=== PATIENT | male | born 1940 | race Caucasian/White ===

== ENCOUNTER 2018-07-22 12:11 | Inpatient (IN) | END 2018-08-04 17:50 | disposition home health service (06) | DRG 668 ==

== ENCOUNTER 2018-10-03 21:41 | Inpatient (IN) | END 2018-10-09 18:14 | disposition home or self-care (01) | DRG 292 ==

== ENCOUNTER 2018-11-13 18:16 | Inpatient (IN) | payer MEDICARE, OTHER ==
[~2018-11-13] VITALS: Ht 175.3 cm; Wt 88.3 kg
[~2018-11-13 18:16] MED LIST: AMIO200T4 PO; BISA10SU75 PR; BUME1TAB PO; FER325 PO; ISOS30TA20 PO; LEVO150T64 PO; LOSA50TA14 PO; Polyethylene Glycol PO; ROSU10TA55 PO; SENN-120 PO; TAMS-14 PO; UDMOM PO
[2018-11-13] MEDS ORDERED: ASPIRIN 81 MG TAB PO STA (18:20)
[2018-11-13] MEDS ORDERED: FUROSEMIDE 20 MG INJ IV STA (18:20)
[2018-11-13] MEDS ORDERED: NITROGLYCERIN 50 MG/D5W (PMX) 250 ML IV STA (18:20)
[2018-11-13] MEDS ORDERED: POTA8CAP PO (19:13)
[2018-11-13] MEDS ORDERED: AMIO200T4 PO (19:17)
[2018-11-13] MEDS ORDERED: FURO40TA4 PO (19:18)
--- NOTE | 2018-11-13 19:52 | ERD ---
ER Documentation Chief Complaint Chief Complaint sob since yesterday HPI 78-year-old gentleman history of CHF who presents with shortness of breath for less than 12-24 hours. The patient arrives in respiratory distress in extremis. His family member notes that this is similar to episodes in the past when he had fluid on his lungs. He has been compliant with medication regimen. The patient notes worsening lower extremity edema and shortness of breath over the last couple days. No fevers no cough no chest pain. ROS All systems reviewed and are negative except as per history of present illness. Medications Home Meds Active Scripts Bumetanide* (Bumetanide*) 1 Mg Tablet, 1 MG PO DAILY, #30 TAB Prov:GABRIELLA SINGLETON NP 10/09/18 Sennosides* (Senna Lax*) 8.6 Mg Tablet, 2 TAB PO BID, #60 TAB Prov:LEWIS JOHN 08/04/18 Tamsulosin Hcl* (Flomax*) 0.4 Mg Cap.er.24h, 0.4 MG PO HS, #60 CAP Prov:LEWIS JOHN 08/04/18 Reported Medications Furosemide* (Furosemide*) 40 Mg Tablet, 40 MG PO DAILY, TAB 11/13/18 Amiodarone Hcl* (Amiodarone Hcl*) 200 Mg Tablet, 200 MG PO DAILY, #30 TAB 11/13/18 Potassium Chloride* (Potassium Chloride*) 8 Meq Capsule.er, 8 MEQ PO DAILY, CAP 11/13/18 Losartan Potassium* (Losartan Potassium*) 50 Mg Tablet, 50 MG PO BID, TAB 07/20/18 Levothyroxine Sodium* (Levoxyl*) 150 Mcg Tablet, 150 MCG PO BEFORE BREAKFAST, #30 TAB 07/20/18 Rosuvastatin Calcium* (Crestor*) 10 Mg Tablet, 10 MG PO QHS, #30 TAB 07/20/18 Isosorbide Dinitrate* (Isosorbide Dinitrate*) 30 Mg Tablet, 30 MG PO BID, TAB 07/20/18 Discontinued Reported Medications Amiodarone Hcl* (Amiodarone Hcl*) 200 Mg Tablet, 200 MG PO DAILY, #30 TAB 07/20/18 Ferrous Sulfate* (Ferrous Sulfate*) 325 Mg Tabec, 325 MG PO DAILY, TAB 07/20/18 Discontinued Scripts [Polyethylene Glycol] 17 GM/PKT LIQ No Conflict Check, 17 GM PO BID, #60 1 Re fill Prov:LEWIS JOHN 08/04/18 Bisacodyl* (Bisacodyl*) 10 Mg Supp, 10 MG DC BID PRN for CONSTIPATION, #60 SUPP Prov:LEWIS JOHN 08/04/18 Magnesium Hydroxide* (Serra' MOM*) 30 Ml Susp, 30 ML PO DAILY PRN for CONSTIPATION, #60 BOTTLE Prov:LEWIS JOHN 08/04/18 Allergies Allergies: Coded Allergies: No Known Allergy (Unverified , 11/13/18) PMhx/Soc History of Surgery: Yes (CABG) Anesthesia Reaction: No Hx Neurological Disorder: No Hx Respiratory Disorders: Yes (COPD) Hx Cardiac Disorders: Yes (HTN, HLD, CHF, CABG, NH) Hx Psychiatric Problems: No Hx Miscellaneous Medical Probl: No Hx Alcohol Use: Yes Hx Substance Use: No Hx Tobacco Use: Yes Smoking Status: Former smoker FmHx Family History: No diabetes Physical Exam Vitals Vital Signs Date Temp Pulse Resp B/P (MAP) Pulse Ox O2 O2 Flow FiO2 Time Delivery Rate 11/13/18 55 16 97/60 (72) 100 BIPAP 19:44 11/13/18 73 100 100 18:32 11/13/18 100 Non 15.0 18:19 Rebreather 11/13/18 97.8 72 34 138/114 79 18:16 (122) Physical Exam General: Respiratory distress Head: Normocephalic, atraumatic. Eyes: Pupils equally reactive, EOM intact ENT: Moist mucous membranes Neck: Supple, no lymphadenopathy Respiratory: Rales bilaterally and respiratory distress Cardiovascular: RRR, no murmurs, rubs, or gallops Abdominal: Soft, non-tender, non-distended, no peritoneal signs : Deferred MSK: pitting bilateral lower extremity edema, no unilateral swelling, 5/5 strength Neurologic: Alert and oriented, moving all extremities, normal speech, no focal weakness, no cerebellar signs Skin: No rash Psych: Normal mood Result Diagram: 11/13/18182411/13/181824 Results 24 hrs Laboratory Tests Test 11/13/18 18:25 White Blood Count 9.3 10^3/ul Red Blood Count 4.06 10^6/ul Hemoglobin 11.7 g/dl Hematocrit 37.9 % Mean Corpuscular Volume 93.3 fl Mean Corpuscular Hemoglobin 28.8 pg Mean Corpuscular Hemoglobin Concent 30.9 g/dl Red Cell Distribution Width 17.3 % Platelet Count 191 10^3/UL Mean Platelet Volume 11.1 fl Immature Granulocytes % 0.300 % Neutrophils % 73.9 % Lymphocytes % 13.7 % Monocytes % 10.2 % Eosinophils % 1.3 % Basophils % 0.6 % Nucleated Red Blood Cells % 0.0 /100WBC Immature Granulocytes # 0.030 10^3/ul Neutrophils # 6.9 10^3/ul Lymphocytes # 1.3 10^3/ul Monocytes # 1.0 10^3/ul Eosinophils # 0.1 10^3/ul Basophils # 0.1 10^3/ul Nucleated Red Blood Cells # 0.0 10^3/ul Prothrombin Time 14.1 Sec Prothrombin Time Ratio 1.1 INR International Normalized Ratio 1.08 Activated Partial Thromboplast Time 27.5 Sec Sodium Level 137 mmol/L Potassium Level 4.6 mmol/L Chloride Level 104 mmol/L Carbon Dioxide Level 24 mmol/L Anion Gap 9 Blood Urea Nitrogen 18 mg/dl Creatinine 1.40 mg/dl Est Glomerular Filtrat Rate mL/min mL/min Glucose Level 169 mg/dl Calcium Level 9.0 mg/dl Total Bilirubin 0.5 mg/dl Direct Bilirubin 0.00 mg/dl Indirect Bilirubin 0.5 mg/dl Aspartate Amino Transf (AST/SGOT) 22 IU/L Alanine Aminotransferase (ALT/SGPT) 15 IU/L Alkaline Phosphatase 104 IU/L Troponin I 0.016 ng/ml B-Type Natriuretic Peptide 3460 PG/ML Total Protein 7.3 g/dl Albumin 3.9 g/dl Globulin 3.40 g/dl Albumin/Globulin Ratio 1.14 Current Medications Medications Dose Sig/Saroj Start Time Status Last (Trade) Ordered Route PRN Stop Time Admin Dose Reason Admin Aspirin 162 mg ONCE STAT 11/13/18 DC 11/13/18 (Aspirin) PO 18:20 18:45 11/13/18 18:23 250 ml @ 6 ONCE STAT 11/13/18 11/13/18 Nitroglycerin mls/hr IV 18:20 18:34 / Dextrose 11/15/18 11:59 Furosemide 60 mg ONCE STAT 11/13/18 DC 11/13/18 (Lasix) IV 18:20 18:45 11/13/18 18:23 Procedures/MDM EKG, MONITORS, & DIAGNOSTIC IMAGING: EKG: I reviewed and interpreted a 12-lead EKG. Rhythm: Normal sinus rhythm ST Changes: No contiguous ST segment elevations T waves: No contiguous T wave inversions Impression: [No evidence of acute cardiac ischemia] Chest x-ray: I reviewed and interpreted a 1 view of the chest Mediastinum: No enlargement Cardiac silhouette: cardiomegaly Airspace: Pleural effusions and pulmonary edema bilaterally Bones: No evidence of fracture LAB INTERPRETATION: * Negative troponin, elevated BNP MEDICAL DECISION MAKING: Patient arrives in respiratory distress and respiratory failure likely secondary to CHF exacerbation. All the patient's blood pressures not significantly elevated his diastolic is high and the patient likely requires preload and afterload reduction. No signs or symptoms concerning for pulmonary embolism, dissection or pneumonia. ER COURSE: * Upon arrival the patient is respiratory failure. Positive pressure ventilation was initiated. The patient was started on nitroglycerin drip, Lasix provided. The patient had dramatic improvement of his symptoms and is now tolerating positive pressure ventilation well. * Laboratory testing and diagnostic imaging are consistent with CHF exacerbation. * After some Time the patient's blood pressure did drop slightly, nitroglycerin drip discontinued. His respiratory status has dramatically improved and he does have diuretic response CONSULTATION: [None] DISPOSITION PLAN: Accepting care team and consultations: I discussed the current laboratory data, diagnostic imaging and emergency care provided. Admitting team: Dr. Sanches Admitting team indication: Insurance directed Critical Care Note: Total time: 45min Indication/Organ System Threat: Acute respiratory failure I spent the above amount of critical care time with the patient, not including billable procedures. This included chart review, consultations, repeat bedside evaluations, and titration of appropriate medications to prevent cardiopulmonary or respiratory collapse. Departure Diagnosis: Primary Impression: CHF exacerbation Heart failure type: unspecified Qualified Codes: I50.9 - Heart failure, unspecified Additional Impression: Acute respiratory failure Respiratory failure complication: unspecified whether with hypoxia or hypercapnia Qualified Codes: J96.00 - Acute respiratory failure, unspecifie d whether with hypoxia or hypercapnia Condition: Serious NIXON GRAYSON MD Nov 13, 2018 19:52
[2018-11-13] MEDS ORDERED: IPRATROPIUM (NEB) 0.5 MG/2.5 ML AMP NEB PRN (20:30)
[2018-11-13 23:57] VITALS: PULSE 55
[2018-11-14] VITALS (13 sets, daily range): BP systolic 125–147; BP diastolic 57–68; PULSE 39–54; RESP 18–21; Ht 175.3 cm; Wt 88.3 kg
[2018-11-14] MEDS ORDERED: BUMETANIDE 1 MG TAB PO SCH (06:00)
[2018-11-14] MEDS: LEVOTHYROXINE 150 MCG TAB PO SCH (06:20)
--- NOTE | 2018-11-14 06:58 | HP ---
Date/Time of Note Date/Time of Note DATE: 11/14/18 TIME: 06:53 Assessment/Plan VTE Prophylaxis Pharmacological prophylaxis: heparin Lines/Catheters IV Catheter Type (from Nrsg): Saline Lock Assessment/Plan Assessment/Plan 78-year-old male with a history of CAD, hypothyroidism, hypertension, A-fib, cardiomyopathy with systolic dysfunction with EF of 25%, moderate to severe aortic stenosis, dyslipidemia, and history of bladder outlet obstruction sec ondary to bladder tumor presents with shortness of breath, secondary to CHF exacerbation PLAN Patient status post Lasix 60 mg IV x1 in the ER Supplemental oxygen, bronchodilators, diuresis Continue home meds, adjust as needed Result Diagram: 11/13/18182411/13/181824 Results 24hrs Laboratory Tests Test 11/13/18 18:25 11/13/18 19:37 11/14/18 00:44 White Blood Count 9.3 # Red Blood Count 4.06 L Hemoglobin 11.7 L Hematocrit 37.9 L Mean Corpuscular Volume 93.3 Mean Corpuscular Hemoglobin 28.8 L Mean Corpuscular 30.9 L Hemoglobin Concent Red Cell Distribution Width 17.3 H Platelet Count 191 Mean Platelet Volume 11.1 H Immature Granulocytes % 0.300 Neutrophils % 73.9 Lymphocytes % 13.7 L Monocytes % 10.2 Eosinophils % 1.3 Basophils % 0.6 Nucleated Red Blood Cells % 0.0 Immature Granulocytes # 0.030 Neutrophils # 6.9 Lymphocytes # 1.3 Monocytes # 1.0 H Eosinophils # 0.1 Basophils # 0.1 Nucleated Red Blood Cells # 0.0 Prothrombin Time 14.1 Prothrombin Time Ratio 1.1 INR International 1.08 Normalized Ratio Activated 27.5 Partial Thromboplast Time Sodium Level 137 Potassium Level 4.6 Chloride Level 104 Carbon Dioxide Level 24 Anion Gap 9 Blood Urea Nitrogen 18 Creatinine 1.40 H Est Glomerular Filtrat Rate mL/min Glucose Level 169 Calcium Level 9.0 Total Bilirubin 0.5 Direct Bilirubin 0.00 Indirect Bilirubin 0.5 Aspartate Amino 22 Transf (AST/SGOT) Alanine 15 Aminotransferase (ALT/SGPT) Alkaline Phosphatase 104 Troponin I 0.016 0.037 B-Type Natriuretic Peptide 3460 H Total Protein 7.3 Albumin 3.9 Globulin 3.40 H Albumin/Globulin Ratio 1.14 Blood Gas Specimen Source Blood arterial Arterial Blood Date Drawn 11/13/2018 8:37:17 PM Arterial Blood pH 7.435 (Temp corrected) Arterial Blood pCO2 36.8 (Temp correct) Arterial Blood pO2 194.7 H (Temp corrected) Arterial Blood HCO3 24.2 Arterial Blood Base Excess 0.2 Arterial Blood 99.2 Oxygen Saturation Gil Test ACCEPTAB Arterial Blood Gas Left Radial Puncture Site Arterial 0.4 Blood Carboxyhemoglobin Arterial Blood Methemoglobin 0.4 Blood Gas A-a O2 192.6 H Differential Oxyhemoglobin Percent 98.4 Blood Gas Temperature 37.0 Blood Gas Respiration Rate 14.0 Blood Gas Actual 25 Respiration Rate Blood Gas Modality MASK - BIPAP FiO2 60.0 Blood Gas Inspiratory Time 1.0 Blood Gas IPAP/EPAP Ratio 20/10 Blood Gas Notified Whom AA Blood Gas Notified Time 11/13/2018 8:50:11 PM Creatine Kinase 62 Creatine Kinase Index 3.4 Creatinine Kinase MB (Mass) 2.08 HPI/ROS Admit Date/Time Admit Date/Time Nov 13, 2018 at 19:39 Hx of Present Illness This is a 78-year-old male with a history of CAD, hypothyroidism, hypertension, A. 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 Patient was brought to the ER complaining of shortness of breath. Symptom has been progressively getting worse for the past several days worsening today. Reported mild cough, which has been dry. Patient was recently admitted here a month ago and was treated for CHF exacerbation. Chest x-ray shows cardiomegaly and findings compatible with mild pulmonary edema. Superimposed infection cannot be excluded, and small bilateral pleural effusions and associated atelectasis, left greater than right. PMH/Family/Social Past Medical History Medications Current Medications Nitroglycerin/ Dextrose 250 ml @ 6 mls/hr ONCE STAT IV Last administered on 11/13/18at 18:34; Admin Dose 15 MLS/HR; Start 11/13/18 at 18:20; Stop 11/15/18 at 11:59 Ipratropium [place] (Atrovent 0.02% (Neb)) 0.5 mg Q2H RESP THERAPY PRN NEB SHORTNESS OF BREATH; Start 11/13/18 at 20:30 Amiodarone HCl (Cordarone) 200 mg DAILY PO ; Start 11/14/18 at 09:00 Bumetanide (Bumex) 1 mg DAILY@0600 PO Last administered on 11/14/18at 06:20; Admin Dose 1 MG; Start 11/14/18 at 06:00 Isosorbide Dinitrate (Isordil) 30 mg BID PO ; Start 11/14/18 at 09:00 Levothyroxine Sodium (Synthroid) 150 mcg BEFORE BREAKFAST PO Last administered on 11/14/18at 06:20; Admin Dose 150 MCG; Start 11/14/18 at 07:00 Losartan Potassium (Cozaar) 50 mg BID PO ; Start 11/14/18 at 09:00 Potassium Chloride (Micro-K) 8 meq DAILY PO ; Start 11/14/18 at 09:00 Senna (Senokot) 2 tab BID PO ; Start 11/14/18 at 09:00 Tamsulosin HCl (Flomax) 0.4 mg HS PO ; Start 11/14/18 at 21:00 Atorvastatin Calcium (Lipitor) 40 mg DAILY@21 PO ; Start 11/14/18 at 21:00 Coded Allergies: No Known Allergy (Unverified , 11/13/18) Past Surgical History Past Surgical Hx: abd aortic aneurysmectomy, coronary bypass surgery, other Family History Significant Family History: no pertinent family hx Social History Alcohol Use: none Smoking Status: Former smoker Drug Use: none Exam/Review of Systems Vital Signs Vitals Vital Signs Date Temp Pulse Resp B/P (MAP) Pulse Ox O2 O2 Flow FiO2 Time Delivery Rate 11/14/18 52 04:00 11/14/18 97.4 20 147/68 94 03:39 (94) 11/14/18 Nasal 3.0 00:12 Cannula 11/13/18 60 20:55 Intake and Output 11/13/18 11/13/18 11/14/18 1515:00 23:00 07:00 IntakeIntake Total 50 ml OutputOutput Total 100 ml BalanceBalance -50 ml Exam Exam Constitutional: alert, oriented, well developed, other Head: normocephalic, atraumatic Respiratory: normal air movement Cardiovascular: regular rate and rhythm Gastrointestinal: soft Extremities: normal pulses PMH: see HPI PSH: see HPI . ANTON WOODS MD Nov 14, 2018 06:58
[2018-11-14] MEDS: SENNA TAB PO SCH ×2 (08:19→21:55)
[2018-11-14] MEDS: POTASSIUM CHLORIDE (SR) 8 MEQ CAP PO SCH (08:20)
[2018-11-14] MEDS: LOSARTAN 50 MG TAB PO SCH ×2 (08:20→21:58)
[2018-11-14] MEDS: ISOSORBIDE DINITRATE 10 MG TAB PO SCH ×2 (08:23→21:59)
[2018-11-14] MEDS ORDERED: AMIODARONE 200 MG TAB PO SCH (09:00)
--- NOTE | 2018-11-14 11:43 | CONS ---
Date/Time of Note Date/Time of Note DATE: 11/14/18 TIME: 11:39 Assessment/Plan Assessment/Plan Assessment/Plan Chest x-ray showing cardiomegaly with pulmonary vascular congestion. Assessment recommendations; 1. Patient admitted with CHF exacerbation with interval improvement. 2. Other comorbidities include history of prior CABG, chronic atrial fibrillation, mild renal insufficiency, hypothyroidism, BPH, and moderate to severe aortic stenosis. Continue current supportive care. Patient would benefit from CPAP to be used overnight at home. Monitor renal function. Result Diagram: 11/13/18 1825 11/13/18 1825 Results 24hrs Laboratory Tests Test 11/13/18 18:25 11/13/18 19:37 11/14/18 00:44 11/14/18 06:20 White Blood Count 9.3 # Red Blood Count 4.06 L Hemoglobin 11.7 L Hematocrit 37.9 L Mean Corpuscular 93.3 Volume Mean Corpuscular 28.8 L Hemoglobin Mean Corpuscular 30.9 L Hemoglobin Concen t Red Cell 17.3 H Distribution Width Platelet Count 191 Mean Platelet 11.1 H Volume Immature 0.300 Granulocytes % Neutrophils % 73.9 Lymphocytes % 13.7 L Monocytes % 10.2 Eosinophils % 1.3 Basophils % 0.6 Nucleated Red 0.0 Blood Cells % Immature 0.030 Granulocytes # Neutrophils # 6.9 Lymphocytes # 1.3 Monocytes # 1.0 H Eosinophils # 0.1 Basophils # 0.1 Nucleated Red 0.0 Blood Cells # Prothrombin Time 14.1 Prothrombin Time 1.1 Ratio INR International 1.08 Normalized Ratio Activated 27.5 Partial Thrombopl ast Time Sodium Level 137 Potassium Level 4.6 Chloride Level 104 Carbon Dioxide 24 Level Anion Gap 9 Blood Urea 18 Nitrogen Creatinine 1.40 H Est Glomerular Filtrat Rate mL/min Glucose Level 169 Calcium Level 9.0 Total Bilirubin 0.5 Direct Bilirubin 0.00 Indirect 0.5 Bilirubin Aspartate Amino 22 Transf (AST/SGOT) Alanine 15 Aminotransferase (ALT/SGPT) Alkaline 104 Phosphatase Troponin I 0.016 0.037 0.041 B-Type 3460 H Natriuretic Peptide Total Protein 7.3 Albumin 3.9 Globulin 3.40 H Albumin/Globulin 1.14 Ratio Blood Gas Blood arterial Specimen Source Arterial Blood 11/13/2018 8:37:1 Date Drawn 7 PM Arterial Blood pH 7.435 (Temp corrected) Arterial Blood 36.8 pCO2 (Temp correct) Arterial Blood 194.7 H pO2 (Temp corrected) Arterial Blood 24.2 HCO3 Arterial Blood 0.2 Base Excess Arterial Blood 99.2 Oxygen Saturation Gil Test ACCEPTAB Arterial Blood Left Radial Gas Puncture Site Arterial 0.4 Blood Carboxyhemo globin Arterial Blood 0.4 Methemoglobin Blood Gas A-a O2 192.6 H Differential Oxyhemoglobin 98.4 Percent Blood Gas 37.0 Temperature Blood Gas 14.0 Respiration Rate Blood Gas Actual 25 Respiration Rate Blood Gas MASK - BIPAP Modality FiO2 60.0 Blood Gas 1.0 Inspiratory Time Blood Gas 20/10 IPAP/EPAP Ratio Blood Gas AA Notified Whom Blood Gas 11/13/2018 8:50:1 Notified Time 1 PM Creatine Kinase 62 55 Creatine Kinase 3.4 2.9 Index Creatinine Kinase 2.08 1.62 MB (Mass) Consultation Date/Type/Reason Admit Date/Time Nov 13, 2018 at 19:39 Date of Consultation: Nov 14, 2018 Type of Consult Pulmonary History of presenting illness; patient is a pleasant 78-year-old male who came into the emergency room yesterday with a 2-day history of increasing shortness of breath. Patient does have a history of known cardiomyopathy and a chest x- ray was done which is showing pulmonary edema. Patient was given Lasix with significant improvement in symptoms. He denies any further shortness of breath. Denies any chest pain, coughing, wheezing, sputum production or hemoptysis. Any fever or chills. Past medical history; 1. Cardiomyopathy with poor ejection fraction of around 25%. 2. Moderate to severe aortic stenosis. 3. Chronic renal insufficiency. 4. Hypertension. 5. History of chronic atrial fibrillation. 6. Anemia. 7. Thrombocytopenia. 8. BPH. 9. Prior CABG. Medications; reviewed. Allergies; none. Social history; patient has a [id number] smoking history has quit for the last 20 years. Family history; patient is , has 3 children. Various family members have diabetes and hypertension. 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 Review of systems; denies any headache, seizures. Any visual changes. Any chest pain, shortness of breath has improved significantly. Denies any chest pain, wheezing, cough, sputum production or hemoptysis. Any fever or chills. Denies any orthopnea. Denies any edema. Denies any GI or urinary symptoms. Any weight loss. Any skin changes. General exam; elderly male, awake and alert. Currently no distress. Past Medical History Medications Current Medications Nitroglycerin/ Dextrose 250 ml @ 6 mls/hr ONCE STAT IV Last administered on 11/13/18at 18:34; Admin Dose 15 MLS/HR; Start 11/13/18 at 18:20; Stop 11/15/18 at 11:59 Ipratropium [place] (Atrovent 0.02% (Neb)) 0.5 mg Q2H RESP THERAPY PRN NEB SHORTNESS OF BREATH; Start 11/13/18 at 20:30 Bumetanide (Bumex) 1 mg DAILY@0600 PO Last administered on 11/14/18at 06:20; Admin Dose 1 MG; Start 11/14/18 at 06:00 Isosorbide Dinitrate (Isordil) 30 mg BID PO Last administered on 11/14/18at 08:23; Admin Dose 30 MG; Start 11/14/18 at 09:00 Levothyroxine Sodium (Synthroid) 150 mcg BEFORE BREAKFAST PO Last administered on 11/14/18at 06:20; Admin Dose 150 MCG; Start 11/14/18 at 07:00 Losartan Potassium (Cozaar) 50 mg BID PO Last administered on 11/14/18at 08:20; Admin Dose 50 MG; Start 11/14/18 at 09:00 Potassium Chloride (Micro-K) 8 meq DAILY PO Last administered on 11/14/18at 08:20; Admin Dose 8 MEQ; Start 11/14/18 at 09:00 Senna (Senokot) 2 tab BID PO Last administered on 11/14/18at 08:19; Admin Dose 2 TAB; Start 11/14/18 at 09:00 Tamsulosin HCl (Flomax) 0.4 mg HS PO ; Start 11/14/18 at 21:00 Atorvastatin Calcium (Lipitor) 40 mg DAILY@21 PO ; Start 11/14/18 at 21:00 Allergies: Coded Allergies: No Known Allergy (Unverified , 11/13/18) Past Surgical History Past Surgical Hx: abd aortic aneurysmectomy, coronary bypass surgery, other Social History Smoking Status: Former smoker Exam/Review of Systems Vital Signs Vitals Vital Signs Date Temp Pulse Resp B/P (MAP) Pulse Ox O2 O2 Flow FiO2 Time Delivery Rate 11/14/18 98.0 50 21 125/62 95 Room Air 11:31 (83) 11/14/18 3.0 09:00 11/13/18 60 20:55 Intake and Output 11/13/18 11/13/18 11/14/18 1515:00 23:00 07:00 IntakeIntake Total 50 ml OutputOutput Total 100 ml BalanceBalance -50 ml Exam HEENT exam; supple neck, positive JVD. No lymphadenopathy. Midline trachea. No thyromegaly. Patient has fair dentition. No neck masses. Pupils are small bilaterally. Chest exam; diminished but clear breath sounds. S1-S2 audible, no murmurs. Irregular rhythm. There is a well-healed sternal scar. Abdomen exam; soft, no organomegaly. Mildly protuberant. Bowel sounds audible. Extremity exam; no peripheral edema or clubbing. Pulses 1+. PRODUCTION WELDER exam; no focal deficit. Medications Medications Current Medications Nitroglycerin/ Dextrose 250 ml @ 6 mls/hr ONCE STAT IV Last administered on 11/13/18at 18:34; Admin Dose 15 MLS/HR; Start 11/13/18 at 18:20; Stop 11/15/18 at 11:59 Ipratropium [place] (Atrovent 0.02% (Neb)) 0.5 mg Q2H RESP THERAPY PRN NEB SHORTNESS OF BREATH; Start 11/13/18 at 20:30 Bumetanide (Bumex) 1 mg DAILY@0600 PO Last administered on 11/14/18at 06:20; Admin Dose 1 MG; Start 11/14/18 at 06:00 Isosorbide Dinitrate (Isordil) 30 mg BID PO Last administered on 11/14/18at 08:23; Admin Dose 30 MG; Start 11/14/18 at 09:00 Levothyroxine Sodium (Synthroid) 150 mcg BEFORE BREAKFAST PO Last administered on 11/14/18 06:20; Admin Dose 150 MCG; Start 11/14/18 at 07:00 Losartan Potassium (Cozaar) 50 mg BID PO Last administered on 11/14/18 08:20; Admin Dose 50 MG; Start 11/14/18 at 09:00 Potassium Chloride (Micro-K) 8 meq DAILY PO Last administered on 11/14/18at 08:20; Admin Dose 8 MEQ; Start 11/14/18 at 09:00 Senna (Senokot) 2 tab BID PO Last administered on 11/14/18at 08:19; Admin Dose 2 TAB; Start 11/14/18 at 09:00 Tamsulosin HCl (Flomax) 0.4 mg HS PO ; Start 11/14/18 at 21:00 Atorvastatin Calcium (Lipitor) 40 mg DAILY@21 PO ; Start 11/14/18 at 21:00 ANGELICA REINA Nov 14, 2018 11:43
--- NOTE | 2018-11-14 12:15 | CONS ---
Date/Time of Note Date/Time of Note DATE: 11/14/18 TIME: 12:05 Assessment/Plan Assessment/Plan Assessment/Plan Acute decompensated systolic congestive heart failure with LVEF 25% Bladder tumor not on anticoagulation Paroxysmal atrial fibrillation, currently sinus rhythm-sinus bradycardia Aortic stenosis COPD Hypertension CKD -Patient with significant improvement in symptoms after receiving IV Lasix. In discussion with family, there seems to be some issues with medication compliance. -Serial cardiac enzymes have remained unremarkable -Would give additional dose of Bumex IV today and switch to p.o. starting from tomorrow. -No beta-avis given known history of bradycardia -Continue ARB as renal function permits Result Diagram: 11/13/18 1825 11/13/18 1825 Results 24hrs Laboratory Tests Test 11/13/18 18:25 11/13/18 19:37 11/14/18 00:44 11/14/18 06:20 White Blood Count 9.3 # Red Blood Count 4.06 L Hemoglobin 11.7 L Hematocrit 37.9 L Mean Corpuscular 93.3 Volume Mean Corpuscular 28.8 L Hemoglobin Mean Corpuscular 30.9 L Hemoglobin Concen t Red Cell 17.3 H Distribution Width Platelet Count 191 Mean Platelet 11.1 H Volume Immature 0.300 Granulocytes % Neutrophils % 73.9 Lymphocytes % 13.7 L Monocytes % 10.2 Eosinophils % 1.3 Basophils % 0.6 Nucleated Red 0.0 Blood Cells % Immature 0.030 Granulocytes # Neutrophils # 6.9 Lymphocytes # 1.3 Monocytes # 1.0 H Eosinophils # 0.1 Basophils # 0.1 Nucleated Red 0.0 Blood Cells # Prothrombin Time 14.1 Prothrombin Time 1.1 Ratio INR International 1.08 Normalized Ratio Activated 27.5 Partial Thrombopl ast Time Sodium Level 137 Potassium Level 4.6 Chloride Level 104 Carbon Dioxide 24 Level Anion Gap 9 Blood Urea 18 Nitrogen Creatinine 1.40 H Est Glomerular Filtrat Rate mL/min Glucose Level 169 Calcium Level 9.0 Total Bilirubin 0.5 Direct Bilirubin 0.00 Indirect 0.5 Bilirubin Aspartate Amino 22 Transf (AST/SGOT) Alanine 15 Aminotransferase (ALT/SGPT) Alkaline 104 Phosphatase Troponin I 0.016 0.037 0.041 B-Type 3460 H Natriuretic Peptide Total Protein 7.3 Albumin 3.9 Globulin 3.40 H Albumin/Globulin 1.14 Ratio Blood Gas Blood arterial Specimen Source Arterial Blood 11/13/2018 8:37:1 Date Drawn 7 PM Arterial Blood pH 7.435 (Temp corrected) Arterial Blood 36.8 pCO2 (Temp correct) Arterial Blood 194.7 H pO2 (Temp corrected) Arterial Blood 24.2 HCO3 Arterial Blood 0.2 Base Excess Arterial Blood 99.2 Oxygen Saturation Gil Test ACCEPTAB Arterial Blood Left Radial Gas Puncture Site Arterial 0.4 Blood Carboxyhemo globin Arterial Blood 0.4 Methemoglobin Blood Gas A-a O2 192.6 H Differential Oxyhemoglobin 98.4 Percent Blood Gas 37.0 Temperature Blood Gas 14.0 Respiration Rate Blood Gas Actual 25 Respiration Rate Blood Gas MASK - BIPAP Modality FiO2 60.0 Blood Gas 1.0 Inspiratory Time Blood Gas 20/10 IPAP/EPAP Ratio Blood Gas AA Notified Whom Blood Gas 11/13/2018 8:50:1 Notified Time 1 PM Creatine Kinase 62 55 Creatine Kinase 3.4 2.9 Index Creatinine Kinase 2.08 1.62 MB (Mass) Consultation Date/Type/Reason Admit Date/Time Nov 13, 2018 at 19:39 Type of Consult cv Reason for Consultation Congestive heart failure and bradycardia Hx of Present Illness This is a 78-year-old male well-known to me from previous admissions with history of congestive heart failure, paroxysmal atrial fibrillation, bladder tumor not on anticoagulation who presents with progressive worsening shortness of breath over the past 3-4 days. In discussion with the daughter, there seems to be some issues of compliance with diuretics because of concern of possible obstruction as per the and daughter. Also when he comes to us sodium intake, they are unsure if he is fully compliant. He was having symptoms of exertional shortness of breath. He denies any exertional chest pain, dizziness or lightheadedness. After receiving Lasix overnight, his symptoms have improved significantly. He denies any chest pain or shortness of breath currently. 12 point review of systems was performed with all pertinent positives and negatives mentioned above and all else is negative Past Medical History Paroxysmal atrial fibrillation Bladder tumor Medical History: congestive heart failure, coronary artery disease Medications Current Medications Nitroglycerin/ Dextrose 250 ml @ 6 mls/hr ONCE STAT IV Last administered on 11/13/18at 18:34; Admin Dose 15 MLS/HR; Start 11/13/18 at 18:20; Stop 11/15/18 at 11:59 Ipratropium [place] (Atrovent 0.02% (Neb)) 0.5 mg Q2H RESP THERAPY PRN NEB SHORTNESS OF BREATH; Start 11/13/18 at 20:30 Bumetanide (Bumex) 1 mg DAILY@0600 PO Last administered on 11/14/18at 06:20; Admin Dose 1 MG; Start 11/14/18 at 06:00 Isosorbide Dinitrate (Isordil) 30 mg BID PO Last administered on 11/14/18at 08:23; Admin Dose 30 MG; Start 11/14/18 at 09:00 Levothyroxine Sodium (Synthroid) 150 mcg BEFORE BREAKFAST PO Last administered on 11/14/18 06:20; Admin Dose 150 MCG; Start 11/14/18 at 07:00 Losartan Potassium (Cozaar) 50 mg BID PO Last administered on 11/14/18at 08:20; Admin Dose 50 MG; Start 11/14/18 at 09:00 Potassium Chloride (Micro-K) 8 meq DAILY PO Last administered on 11/14/18at 08:20; Admin Dose 8 MEQ; Start 11/14/18 at 09:00 Senna (Senokot) 2 tab BID PO Last administered on 11/14/18 08:19; Admin Dose 2 TAB; Start 11/14/18 at 09:00 Tamsulosin HCl (Flomax) 0.4 mg HS PO ; Start 11/14/18 at 21:00 Atorvastatin Calcium (Lipitor) 40 mg DAILY@21 PO ; Start 11/14/18 at 21:00 Allergies: Coded Allergies: No Known Allergy (Unverified , 11/13/18) Past Surgical History Past Surgical Hx: abd aortic aneurysmectomy, coronary bypass surgery, other Family History Significant Family History: no pertinent family hx Social History Smoking Status: Former smoker Exam/Review of Systems Vital Signs Vitals Vital Signs Date Temp Pulse Resp B/P (MAP) Pulse Ox O2 O2 Flow FiO2 Time Delivery Rate 11/14/18 98.0 50 21 125/62 95 Room Air 11:31 (83) 11/14/18 3.0 09:00 11/13/18 60 20:55 Intake and Output 11/13/18 11/13/18 11/14/18 1515:00 23:00 07:00 IntakeIntake Total 50 ml OutputOutput Total 100 ml BalanceBalance -50 ml Exam No apparent distress Constitutional: alert, oriented Head: normocephalic Respiratory: other (Coarse breath sounds bilaterally, no wheezing) Cardiovascular: regular rate and rhythm, other (S1-S2 heard) Gastrointestinal: soft, non-tender, bowel sounds Extremities: edema Medications Medications Current Medications Nitroglycerin/ Dextrose 250 ml @ 6 mls/hr ONCE STAT IV Last administered on 11/13/18 18:34; Admin Dose 15 MLS/HR; Start 11/13/18 at 18:20; Stop 11/15/18 at 11:59 Ipratropium [place] (Atrovent 0.02% (Neb)) 0.5 mg Q2H RESP THERAPY PRN NEB SHORTNESS OF BREATH; Start 11/13/18 at 20:30 Bumetanide (Bumex) 1 mg DAILY@0600 PO Last administered on 11/14/18 06:20; Admin Dose 1 MG; Start 11/14/18 at 06:00 Isosorbide Dinitrate (Isordil) 30 mg BID PO Last administered on 11/14/18at 08:23; Admin Dose 30 MG; Start 11/14/18 at 09:00 Levothyroxine Sodium (Synthroid) 150 mcg BEFORE BREAKFAST PO Last administered on 11/14/18 06:20; Admin Dose 150 MCG; Start 11/14/18 at 07:00 Losartan Potassium (Cozaar) 50 mg BID PO Last administered on 11/14/18 08:20; Admin Dose 50 MG; Start 11/14/18 at 09:00 Potassium Chloride (Micro-K) 8 meq DAILY PO Last administered on 11/14/18 08:20; Admin Dose 8 MEQ; Start 11/14/18 at 09:00 Senna (Senokot) 2 tab BID PO Last administered on 11/14/18 08:19; Admin Dose 2 TAB; Start 11/14/18 at 09:00 Tamsulosin HCl (Flomax) 0.4 mg HS PO ; Start 11/14/18 at 21:00 Atorvastatin Calcium (Lipitor) 40 mg DAILY@21 PO ; Start 11/14/18 at 21:00 Imaging Imaging ECG this morning sinus bradycardia at 53 bpm, first-degree AV block, QRS 140 ms, nonspecific ST abnormalities Quang Robles DO Nov 14, 2018 12:15
[2018-11-14] MEDS ORDERED: BUMETANIDE 1 MG INJ IV ONE (12:30)
--- NOTE | 2018-11-14 12:59 | RADRPT ---
Vent Rate: 53 bpm RR Interval: 0 msec MS Interval: 230 msec QRS Duration: 140 msec QT Interval: 498 msec QTC Interval: 467 msec P-R-T [place]: 40 - 49 - 149 degrees Sinus bradycardia with 1st degree AV block Nonspecific intraventricular block T wave abnormality, consider lateral ischemia Abnormal ECG Electronically Signed By: Quang Robles [id number]
[2018-11-14] MEDS ORDERED: NON-FORMULARY/PATIENT OWN MED (Rosuvastatin Calcium* (Crestor*) 10 MG) PO SCH (21:00)
[2018-11-14] MEDS: ATORVASTATIN 40 MG TAB PO SCH (21:55)
[2018-11-14] MEDS: TAMSULOSIN (SR) 0.4 MG CAP PO SCH (21:55)
--- NOTE | 2018-11-14 23:36 | PN ---
Date/Time of Note Date/Time of Note DATE: 11/14/18 TIME: 23:32 Assessment/Plan VTE Prophylaxis Risk score (from Ns)>0 risk: 5 SCD applied (from Ns): Yes Pharmacological prophylaxis: LMWH Lines/Catheters IV [facility]from [facility] Saline Lock Assessment/Plan Hospital Course Assessment and plan 1. Acute decompensated systolic CHF, mild stable restart medical therapy 2. Medication nonadherence counseling soon 3. Aortic stenosis moderate to severe may benefit from palliative care; not sure if she is a candidate for surgery due to his comorbidities 4. Coronary disease/CABG status, continue medical care 5. Past tobacco 6. Possible COPD 8. Abdominal aortic aneurysm repair? 9. Ischemic cardia myopathy, poor prognosis 10. LISA risk, consider outpatient sleep study 11. Paroxysmal A. fib anticoagulate once adherence has improved Subjective: Ambulated a bit but having shortness of breath with activity. No fever. Objective: Vital signs stable sinus bradycardia continues Physical exam No pallor JVD appreciated Positive systolic murmur no rub gallop no gallop Diminished breath sounds bilaterally Bowel sounds present nt nd no rigidity rebound guarding edema Result Diagram: 11/13/18182411/13/181824 Results 24hrs Laboratory Tests Test 11/14/18 00:44 11/14/18 06:20 Creatine Kinase 62 55 Creatine Kinase Index 3.4 2.9 Creatinine Kinase MB (Mass) 2.08 1.62 Troponin I 0.037 0.041 Exam/Review of Systems Vital Signs Vitals Vital Signs Date Temp Pulse Resp B/P (MAP) Pulse Ox O2 O2 Flow FiO2 Time Delivery Rate 11/14/18 88 2.0 27 22:43 11/14/18 54 22 Nasal 22:43 Cannula 11/14/18 98.5 125/57 21:59 (79) Intake and Output 11/13/18 11/13/18 11/14/18 1515:00 23:00 07:00 IntakeIntake Total 50 ml OutputOutput Total 100 ml BalanceBalance -50 ml Medications Medications Current Medications Nitroglycerin/ Dextrose 250 ml @ 6 mls/hr ONCE STAT IV Last administered on 11/13/18at 18:34; Admin Dose 15 MLS/HR; Start 11/13/18 at 18:20; Stop 11/15/18 at 11:59 Ipratropium [place] (Atrovent 0.02% (Neb)) 0.5 mg Q2H RESP THERAPY PRN NEB SHORTNESS OF BREATH Last administered on 11/14/18 22:42; Admin Dose 0.5 MG; Start 11/13/18 at 20:30 Isosorbide Dinitrate (Isordil) 30 mg BID PO Last administered on 11/14/18 21:59; Admin Dose 30 MG; Start 11/14/18 at 09:00 Levothyroxine Sodium (Synthroid) 150 mcg BEFORE BREAKFAST PO Last administered on 11/14/18 06:20; Admin Dose 150 MCG; Start 11/14/18 at 07:00 Losartan Potassium (Cozaar) 50 mg BID PO Last administered on 11/14/18 21:58; Admin Dose 50 MG; Start 11/14/18 at 09:00 Potassium Chloride (Micro-K) 8 meq DAILY PO Last administered on 11/14/18 08:20; Admin Dose 8 MEQ; Start 11/14/18 at 09:00 Senna (Senokot) 2 tab BID PO Last administered on 11/14/18 21:55; Admin Dose 2 TAB; Start 11/14/18 at 09:00 Tamsulosin HCl (Flomax) 0.4 mg HS PO Last administered on 11/14/18 21:55; Admin Dose 0.4 MG; Start 11/14/18 at 21:00 Atorvastatin Calcium (Lipitor) 40 mg DAILY@21 PO Last administered on 11/14/18 21:55; Admin Dose 40 MG; Start 11/14/18 at 21:00 Bumetanide (Bumex) 1 mg DAILY@0600 PO ; Start 11/15/18 at 06:00 SAMANTHA BOB MD Nov 14, 2018 23:36
[2018-11-15] VITALS (11 sets, daily range): BP systolic 100–145; BP diastolic 50–65; PULSE 47–62; RESP 17–20
[2018-11-15] MEDS ORDERED: LEVALBUTEROL (NEB) 0.31 MG/3 ML AMP HHN PRN
[2018-11-15] MEDS: LEVOTHYROXINE 150 MCG TAB PO SCH (06:43)
[2018-11-15] MEDS: BUMETANIDE 1 MG TAB PO SCH (06:43)
[2018-11-15] MEDS: ISOSORBIDE DINITRATE 10 MG TAB PO SCH ×2 (09:27→21:56)
[2018-11-15] MEDS: SENNA TAB PO SCH ×2 (09:27→21:57)
[2018-11-15] MEDS: ASPIRIN (EC) 81 MG TAB PO SCH (09:27)
[2018-11-15] MEDS: LOSARTAN 50 MG TAB PO SCH ×2 (09:27→21:57)
[2018-11-15] MEDS: ENOXAPARIN 100 MG/ML SYG SC SCH (09:36)
[2018-11-15] MEDS: POTASSIUM CHLORIDE (SR) 8 MEQ CAP PO SCH (09:38)
--- NOTE | 2018-11-15 14:26 | CONS ---
Date/Time of Note Date/Time of Note DATE: 11/15/18 TIME: 14:24 Consult Date/Type/Reason Admit Date/Time Nov 13, 2018 at 19:39 Initial Consult Date 11/14/18 Type of Consultation: Pulm Objective Vital Signs Date Temp Pulse Resp B/P (MAP) Pulse Ox O2 O2 Flow FiO2 Time Delivery Rate 11/15/18 56 12:00 11/15/18 97.8 18 100/50 100 11:31 (67) 11/15/18 Nasal 3.0 08:00 Cannula 11/15/18 33 01:44 Intake and Output 11/14/18 11/14/18 11/15/18 1515:00 23:00 07:00 IntakeIntake Total 500 ml 550 ml OutputOutput Total 1400 ml 450 ml BalanceBalance -900 ml 100 ml Exam HEENT: Neck supple; + JVD; no LAD CVS: Phuc, S1 and S2, 3/6 systolic murmur CHEST: Bibasilar rales ABD: Soft, NT, + BS EXT: No c/c; + edema Results/Medications Result Diagram: 11/15/1824 11/15/18 0523 Results 24 hrs Laboratory Tests Test 11/15/18 05:23 11/15/18 05:24 Sodium Level 138 Potassium Level 4.4 Chloride Level 102 Carbon Dioxide Level 29 Anion Gap 7 Blood Urea Nitrogen 23 H Creatinine 1.30 H Est Glomerular Filtrat Rate mL/min Glucose Level 112 # Calcium Level 8.8 Phosphorus Level 4.1 Magnesium Level 2.2 White Blood Count 7.6 Red Blood Count 3.68 L Hemoglobin 10.6 L Hematocrit 34.3 L Mean Corpuscular Volume 93.2 Mean Corpuscular Hemoglobin 28.8 L Mean Corpuscular Hemoglobin Concent 30.9 L Red Cell Distribution Width 16.7 H Platelet Count 185 Mean Platelet Volume 11.5 H Immature Granulocytes % 0.300 Neutrophils % 70.6 Lymphocytes % 14.9 L Monocytes % 12.0 H Eosinophils % 1.7 Basophils % 0.5 Nucleated Red Blood Cells % 0.0 Immature Granulocytes # 0.020 Neutrophils # 5.4 Lymphocytes # 1.1 Monocytes # 0.9 Eosinophils # 0.1 Basophils # 0.0 Nucleated Red Blood Cells # 0.0 Medications Current Medications Ipratropium [place] (Atrovent 0.02% (Neb)) 0.5 mg Q2H RESP THERAPY PRN NEB SHORTNESS OF BREATH Last administered on 11/14/18 22:42; Admin Dose 0.5 MG; Start 11/13/18 at 20:30 Isosorbide Dinitrate (Isordil) 30 mg BID PO Last administered on 11/15/18 09:27; Admin Dose 30 MG; Start 11/14/18 at 09:00 Levothyroxine Sodium (Synthroid) 150 mcg BEFORE BREAKFAST PO Last administered on 11/15/18 06:43; Admin Dose 150 MCG; Start 11/14/18 at 07:00 Losartan Potassium (Cozaar) 50 mg BID PO Last administered on 11/15/18 09:27; Admin Dose 50 MG; Start 11/14/18 at 09:00 Potassium Chloride (Micro-K) 8 meq DAILY PO Last administered on 11/15/18 09:38; Admin Dose 8 MEQ; Start 11/14/18 at 09:00 Senna (Senokot) 2 tab BID PO Last administered on 11/15/18 09:27; Admin Dose 2 TAB; Start 11/14/18 at 09:00 Tamsulosin HCl (Flomax) 0.4 mg HS PO Last administered on 11/14/18 21:55; Admin Dose 0.4 MG; Start 11/14/18 at 21:00 Atorvastatin Calcium (Lipitor) 40 mg DAILY@21 PO Last administered on 11/14/18 21:55; Admin Dose 40 MG; Start 11/14/18 at 21:00 Bumetanide (Bumex) 1 mg DAILY@0600 PO Last administered on 11/15/18 06:43; Admin Dose 1 MG; Start 11/15/18 at 06:00 Enoxaparin Sodium (Lovenox) 90 mg Q24H SC Last administered on 11/15/18 09:36; Admin Dose 90 MG; Start 11/15/18 at 09:00 Levalbuterol (Xopenex Neb) 0.31 mg Q4H RESP THERAPY PRN HHN WHEEZING AND SOB; Start 11/15/18 at 00:00 Aspirin (Halfprin) 81 mg DAILY PO Last administered on 11/15/18 09:27; Admin Dose 81 MG; Start 11/15/18 at 09:00 JUNIOR MCNAMARA MD Nov 15, 2018 14:26
--- NOTE | 2018-11-15 15:07 | PN ---
Date/Time of Note Date/Time of Note DATE: 11/15/18 TIME: 15:02 Assessment/Plan VTE Prophylaxis Risk score (from Ns)>0 risk: 5 SCD applied (from Nsg): Yes Pharmacological prophylaxis: NA/contraindicated (bleeding bladder tumor) Pharm contraindication: low risk/ambulating (bleeding) Lines/Catheters IV [facility] (from [facility] [place] Assessment/Plan Hospital Course 78 yo with severe , severe cardiomyopathy, presenting with acute on chronic systolic and diastolic heart failure, at least partially due to medication noncompliance. Assessment/Plan Impression: Acute on chronic decompensated systolic and diastolic congestive heart failure with LVEF 25% Paroxysmal atrial fibrillation, currently sinus bradycardia, no anticoagulation due to bladder tumor Aortic stenosis COPD Hypertension CKD Recommendations: Emphasized need for medication compliance Continue to hold bb due to bradycardia Stable for discharge, follow with Dr. Parikh this week -Continue ARB given stable renal function Result Diagram: 11/15/18 0524 11/15/18 0523 Results 24hrs Laboratory Tests Test 11/15/18 05:23 11/15/18 05:24 Sodium Level 138 Potassium Level 4.4 Chloride Level 102 Carbon Dioxide Level 29 Anion Gap 7 Blood Urea Nitrogen 23 H Creatinine 1.30 H Est Glomerular Filtrat Rate mL/min Glucose Level 112 # Calcium Level 8.8 Phosphorus Level 4.1 Magnesium Level 2.2 White Blood Count 7.6 Red Blood Count 3.68 L Hemoglobin 10.6 L Hematocrit 34.3 L Mean Corpuscular Volume 93.2 Mean Corpuscular Hemoglobin 28.8 L Mean Corpuscular Hemoglobin Concent 30.9 L Red Cell Distribution Width 16.7 H Platelet Count 185 Mean Platelet Volume 11.5 H Immature Granulocytes % 0.300 Neutrophils % 70.6 Lymphocytes % 14.9 L Monocytes % 12.0 H Eosinophils % 1.7 Basophils % 0.5 Nucleated Red Blood Cells % 0.0 Immature Granulocytes # 0.020 Neutrophils # 5.4 Lymphocytes # 1.1 Monocytes # 0.9 Eosinophils # 0.1 Basophils # 0.0 Nucleated Red Blood Cells # 0.0 Subjective 24 Hr Interval Summary Free Text/Dictation Patient sitting on side of bed, dressed in pants, shirt, and vest. No chest pain, no dypsnea, able to ambulate in room. Exam/Review of Systems Vital Signs Vitals Vital Signs Date Temp Pulse Resp B/P (MAP) Pulse Ox O2 O2 Flow FiO2 Time Delivery Rate 11/15/18 56 12:00 11/15/18 97.8 18 100/50 100 11:31 (67) 11/15/18 Nasal 3.0 08:00 Cannula 11/15/18 33 01:44 Intake and Output 11/14/18 11/14/18 11/15/18 1515:00 23:00 07:00 IntakeIntake Total 500 ml 550 ml OutputOutput Total 1400 ml 450 ml BalanceBalance -900 ml 100 ml Exam Constitutional: alert, well developed, obese Psych: no complaints, nl mood/affect Head: normocephalic, atraumatic Eyes: nl conjunctiva, EOMI, nl lids, nl sclera ENMT: nl external ears & nose, nl lips & teeth, nl nasal mucosa & septum Neck: supple; No bruits Respiratory: clear to auscultation, normal air movement Cardiovascular: regular rate and rhythm, murmurs/extra sounds (3/6 systolic murmur) Gastrointestinal: soft, non-tender Musculoskeletal: nl extremities to inspection, nl gait and stance Extremities: edema Neurological: nl mental status, nl speech Skin: nl turgor; No rash or lesions Medications Medications Current Medications Ipratropium [place] (Atrovent 0.02% (Neb)) 0.5 mg Q2H RESP THERAPY PRN NEB SHORTNESS OF BREATH Last administered on 11/14/18at 22:42; Admin Dose 0.5 MG; Start 11/13/18 at 20:30 Isosorbide Dinitrate (Isordil) 30 mg BID PO Last administered on 11/15/18 09:27; Admin Dose 30 MG; Start 11/14/18 at 09:00 Levothyroxine Sodium (Synthroid) 150 mcg BEFORE BREAKFAST PO Last administered on 11/15/18 06:43; Admin Dose 150 MCG; Start 11/14/18 at 07:00 Losartan Potassium (Cozaar) 50 mg BID PO Last administered on 11/15/18 09:27; Admin Dose 50 MG; Start 11/14/18 at 09:00 Potassium Chloride (Micro-K) 8 meq DAILY PO Last administered on 11/15/18 09:38; Admin Dose 8 MEQ; Start 11/14/18 at 09:00 Senna (Senokot) 2 tab BID PO Last administered on 11/15/18 09:27; Admin Dose 2 TAB; Start 11/14/18 at 09:00 Tamsulosin HCl (Flomax) 0.4 mg HS PO Last administered on 11/14/18 21:55; Admin Dose 0.4 MG; Start 11/14/18 at 21:00 Atorvastatin Calcium (Lipitor) 40 mg DAILY@21 PO Last administered on 11/14/18 21:55; Admin Dose 40 MG; Start 11/14/18 at 21:00 Bumetanide (Bumex) 1 mg DAILY@0600 PO Last administered on 11/15/18 06:43; Admin Dose 1 MG; Start 11/15/18 at 06:00 Enoxaparin Sodium (Lovenox) 90 mg Q24H SC Last administered on 11/15/18 09:36; Admin Dose 90 MG; Start 11/15/18 at 09:00 Levalbuterol (Xopenex Neb) 0.31 mg Q4H RESP THERAPY PRN HHN WHEEZING AND SOB; Start 11/15/18 at 00:00 Aspirin (Halfprin) 81 mg DAILY PO Last administered on 11/15/18 09:27; Admin Dose 81 MG; Start 11/15/18 at 09:00 MOHIT PIKE Nov 15, 2018 15:07
--- NOTE | 2018-11-15 16:50 | PN ---
Date/Time of Note Date/Time of Note DATE: 11/15/18 TIME: 16:48 Assessment/Plan VTE Prophylaxis Risk score (from Ns)>0 risk: 5 SCD applied (from Ns): Yes SCD contraindicated: low risk/ambulating Pharmacological prophylaxis: LMWH Lines/Catheters IV Catheter Type (from [facility]): [place] Assessment/Plan Hospital Course Assessment and plan 1. Acute decompensated systolic CHF, mod stable restarted medical therapy 2. Medication nonadherence counseling soon 3. Aortic stenosis mod/ severe, may benefit from palliative care; not sure if he is a candidate for surgery due to his comorbidities 4. Coronary disease/CABG status, continue medical care 5. Past tobacco 6. Possible COPD 8. Abdominal aortic aneurysm repair? 9. Ischemic cardiomyopathy, poor prognosis 10. LISA risk, consider outpatient sleep study 11. Paroxysmal A. fib, [stroke risk noted], anticoagulate once adherence has improved, and unless bladder tumor is initiated 12. Bladder tumor, has been his contraindication to anticoagulation 13. Chronic kidney disease baseline 1.11.3, stable tolerating ARB Subjective: 11/14 ambulated a bit but having shortness of breath with activity. No fever. 11/15: Feels more comfortable. Staff has not noted any issues. Objective: Vital signs stable sinus bradycardia continues Physical exam No pallor JVD appreciated Positive systolic murmur no rub gallop no gallop Dimin breath sounds bilaterally Bs+ present nt nd no r/r/g edema Result Diagram: 11/15/18 0524 11/15/18 0523 Results 24hrs Laboratory Tests Test 11/15/18 05:23 11/15/18 05:24 Sodium Level 138 Potassium Level 4.4 Chloride Level 102 Carbon Dioxide Level 29 Anion Gap 7 Blood Urea Nitrogen 23 H Creatinine 1.30 H Est Glomerular Filtrat Rate mL/min Glucose Level 112 # Calcium Level 8.8 Phosphorus Level 4.1 Magnesium Level 2.2 White Blood Count 7.6 Red Blood Count 3.68 L Hemoglobin 10.6 L Hematocrit 34.3 L Mean Corpuscular Volume 93.2 Mean Corpuscular Hemoglobin 28.8 L Mean Corpuscular Hemoglobin Concent 30.9 L Red Cell Distribution Width 16.7 H Platelet Count 185 Mean Platelet Volume 11.5 H Immature Granulocytes % 0.300 Neutrophils % 70.6 Lymphocytes % 14.9 L Monocytes % 12.0 H Eosinophils % 1.7 Basophils % 0.5 Nucleated Red Blood Cells % 0.0 Immature Granulocytes # 0.020 Neutrophils # 5.4 Lymphocytes # 1.1 Monocytes # 0.9 Eosinophils # 0.1 Basophils # 0.0 Nucleated Red Blood Cells # 0.0 Exam/Review of Systems Vital Signs Vitals Vital Signs Date Temp Pulse Resp B/P (MAP) Pulse Ox O2 O2 Flow FiO2 Time Delivery Rate 11/15/18 98.5 53 17 130/58 98 15:12 (82) 11/15/18 Nasal 3.0 08:00 Cannula 11/15/18 33 01:44 Intake and Output 11/14/18 11/14/18 11/15/18 1515:00 23:00 07:00 IntakeIntake Total 500 ml 550 ml OutputOutput Total 1400 ml 450 ml BalanceBalance -900 ml 100 ml Medications Medications Current Medications Ipratropium [place] (Atrovent 0.02% (Neb)) 0.5 mg Q2H RESP THERAPY PRN NEB SHORTNESS OF BREATH Last administered on 11/14/18 22:42; Admin Dose 0.5 MG; Start 11/13/18 at 20:30 Isosorbide Dinitrate (Isordil) 30 mg BID PO Last administered on 11/15/18 09:27; Admin Dose 30 MG; Start 11/14/18 at 09:00 Levothyroxine Sodium (Synthroid) 150 mcg BEFORE BREAKFAST PO Last administered on 11/15/18 06:43; Admin Dose 150 MCG; Start 11/14/18 at 07:00 Losartan Potassium (Cozaar) 50 mg BID PO Last administered on 11/15/18 09:27; Admin Dose 50 MG; Start 11/14/18 at 09:00 Potassium Chloride (Micro-K) 8 meq DAILY PO Last administered on 11/15/18 09:38; Admin Dose 8 MEQ; Start 11/14/18 at 09:00 Senna (Senokot) 2 tab BID PO Last administered on 11/15/18 09:27; Admin Dose 2 TAB; Start 11/14/18 at 09:00 Tamsulosin HCl (Flomax) 0.4 mg HS PO Last administered on 11/14/18at 21:55; Admin Dose 0.4 MG; Start 11/14/18 at 21:00 Atorvastatin Calcium (Lipitor) 40 mg DAILY@21 PO Last administered on 11/14/18at 21:55; Admin Dose 40 MG; Start 11/14/18 at 21:00 Bumetanide (Bumex) 1 mg DAILY@0600 PO Last administered on 11/15/18 06:43; Admin Dose 1 MG; Start 11/15/18 at 06:00 Enoxaparin Sodium (Lovenox) 90 mg Q24H SC Last administered on 11/15/18 09:36; Admin Dose 90 MG; Start 11/15/18 at 09:00 Levalbuterol (Xopenex Neb) 0.31 mg Q4H RESP THERAPY PRN HHN WHEEZING AND SOB; Start 11/15/18 at 00:00 Aspirin (Halfprin) 81 mg DAILY PO Last administered on 11/15/18at 09:27; Admin Dose 81 MG; Start 11/15/18 at 09:00 SAMANTHA BOB MD Nov 15, 2018 16:50
[2018-11-15] MEDS: ATORVASTATIN 40 MG TAB PO SCH (21:56)
[2018-11-15] MEDS: TAMSULOSIN (SR) 0.4 MG CAP PO SCH (21:57)
[2018-11-16] VITALS (9 sets, daily range): BP systolic 119–144; BP diastolic 58–90; PULSE 49–88; RESP 17–20
[2018-11-16] MEDS: LEVOTHYROXINE 150 MCG TAB PO SCH (06:41)
[2018-11-16] MEDS: BUMETANIDE 1 MG TAB PO SCH (06:41)
[2018-11-16] MEDS: LOSARTAN 50 MG TAB PO SCH (09:00)
[2018-11-16] MEDS: POTASSIUM CHLORIDE (SR) 8 MEQ CAP PO SCH (09:00)
[2018-11-16] MEDS: SENNA TAB PO SCH (09:00)
[2018-11-16] MEDS: ASPIRIN (EC) 81 MG TAB PO SCH (09:01)
[2018-11-16] MEDS: ISOSORBIDE DINITRATE 10 MG TAB PO SCH (09:01)
[2018-11-16] MEDS: ENOXAPARIN 100 MG/ML SYG SC SCH (09:06)
--- NOTE | 2018-11-16 12:44 | PDOCDIS ---
Discharge Instructions CONDITION [id number] Patient Condition: [id number] Stable HOME CARE INSTRUCTIONS: [id number] Diet Instructions: [id number] Low Fat /Cholesterol (and low salt) FOLLOW UP/APPOINTMENTS Follow-up Plan appt Cardio & PCP 1wk Pulmonary 2wks SAMANTHA BOB MD Nov 16, 2018 12:44
[2018-11-16] MEDS ORDERED: ISOS30TA20 PO (12:47)
[2018-11-16] MEDS ORDERED: BUME1TAB PO (12:47)
[2018-11-16] MEDS ORDERED: LOSA50TA14 PO (12:47)
[2018-11-16] MEDS ORDERED: ROSU10TA55 PO (12:47)
[2018-11-16] MEDS ORDERED: ASPI-1044 PO (12:47)
--- NOTE | 2018-11-16 12:51 | DS ---
Date/Time of Note Date/Time of Note DATE: 11/16/18 TIME: 12:47 Discharge Summary Admission/Discharge Info Admit Date/Time Nov 13, 2018 at 19:39 Discharge Date/Time Patient Condition: Stable Consults Kati; [place] Procedures CXR IMPRESSION: Cardiomegaly status post CABG. Mild hilar vascular congestion. Possible small left pleural effusion.. Hx of Present Illness 78y M w chf Hospital Course Assessment and plan 1. Acute decompensated systolic CHF, stable restarted/ adjusted medical therapy. dc home. 2. Medication nonadherence counseling; limit salt/ elevate legs at legs- updated family too. 3. Aortic stenosis mod/ severe, may benefit from palliative care; not sure if he is a candidate for surgery due to his comorbidities 4. Coronary disease/CABG status, continue medical care; needs advanced care planning re evaluated as outpt. 5. Past tobacco 6. Possible COPD 8. Abdominal aortic aneurysm repair? 9. Ischemic cardiomyopathy, poor prognosis 10. LISA risk, consider outpatient sleep study 11. Paroxysmal A. fib, [stroke risk noted], anticoagulate in future if adherence has improved, and after bladder tumor issue has resolved 12. Bladder tumor, has been his contraindication to anticoagulation 13. Chronic kidney disease baseline 1.11.3, stable tolerating ARB 14. SB Subjective: 11/14 ambulated a bit but having shortness of breath with activity. No fever. 11/15: Feels more comfortable. Staff has not noted any issues. 11/16; feels better Objective: Vital signs stable sinus bradycardia continues Physical exam No pallor JVD appreciated Positive systolic murmur no rub gallop no gallop; Dimin breath sounds bilaterally; scar c/d/i Bs+ present nt nd no r/r/g edema Home Meds Active Scripts Aspirin Delayed Release (Aspirin Delayed Release) 81 Mg Tablet.dr, 81 MG PO DAILY for 30 Days, #30 otc Prov:SAMANTHA BOB MD 11/16/18 Bumetanide* (Bumetanide*) 1 Mg Tablet, 1 MG PO DAILY for 14 Days, #15 TAB Prov:SAMANTHA BOB MD 11/16/18 Losartan Potassium* (Losartan Potassium*) 50 Mg Tablet, 50 MG PO BID for 10 Days, #20 TAB Prov:SAMANTHA BOB MD 11/16/18 Rosuvastatin Calcium* (Crestor*) 10 Mg Tablet, 10 MG PO QHS for 30 Days, #30 TAB Prov:SAMANTHA BOB MD 11/16/18 Isosorbide Dinitrate* (Isosorbide Dinitrate*) 30 Mg Tablet, 30 MG PO BID for 10 Days, #20 TAB Prov:SAMANTHA BOB MD 11/16/18 Sennosides* (Senna Lax*) 8.6 Mg Tablet, 2 TAB PO BID, #60 TAB Prov:LEWIS JOHN 08/04/18 Tamsulosin Hcl* (Flomax*) 0.4 Mg Cap.er.24h, 0.4 MG PO HS, #60 CAP Prov:LEWIS JOHN 08/04/18 Reported Medications Amiodarone Hcl* (Amiodarone Hcl*) 200 Mg Tablet, 200 MG PO DAILY, #30 TAB 11/13/18 Potassium Chloride* (Potassium Chloride*) 8 Meq Capsule.er, 8 MEQ PO DAILY, CAP 11/13/18 Levothyroxine Sodium* (Levoxyl*) 150 Mcg Tablet, 150 MCG PO BEFORE BREAKFAST, #30 TAB 07/20/18 Discontinued Reported Medications Furosemide* (Furosemide*) 40 Mg Tablet, 40 MG PO DAILY, TAB 11/13/18 Amiodarone Hcl* (Amiodarone Hcl*) 200 Mg Tablet, 200 MG PO DAILY, #30 TAB 07/20/18 Ferrous Sulfate* (Ferrous Sulfate*) 325 Mg Tabec, 325 MG PO DAILY, TAB 07/20/18 Discontinued Scripts [Polyethylene Glycol] 17 GM/PKT LIQ No Conflict Check, 17 GM PO BID, #60 1 Refill Prov:LEWIS JOHN 08/04/18 Bisacodyl* (Bisacodyl*) 10 Mg Supp, 10 MG [place] BID PRN for CONSTIPATION, #60 SUPP Prov:LEWIS JOHN 08/04/18 Magnesium Hydroxide* (Serra' MOM*) 30 Ml Susp, 30 ML PO DAILY PRN for CONSTIPATION, #60 BOTTLE Prov:LEWIS JOHN 08/04/18 Follow-up Plan appt Cardio & PCP 1wk Pulmonary 2wks Primary Care Provider Not On Staff Doctor Time spent on discharge: > 30 minutes Pending Labs Laboratory Tests Test 11/16/18 05:11 Sodium Level 138 mmol/L (135-144) Potassium Level 4.0 mmol/L (3.5-5.1) Chloride Level 100 mmol/L (97-110) Carbon Dioxide Level 30 mmol/L (21-31) Anion Gap 8 (5-13) Blood Urea Nitrogen 24 mg/dl (7-20) Creatinine 1.10 mg/dl (0.61-1.24) Est Glomerular Filtrat Rate mL/min mL/min (>60) Glucose Level 112 mg/dl (70-220) Calcium Level 8.8 mg/dl (8.4-10.2) Magnesium Level 2.1 mg/dl (1.7-2.5) SAMANTHA BOB MD Nov 16, 2018 12:51
--- NOTE | 2018-11-16 13:57 | CONS ---
Date/Time of Note Date/Time of Note DATE: 11/16/18 TIME: 13:56 Consult Date/Type/Reason Admit Date/Time Nov 13, 2018 at 19:39 Initial Consult Date 11/14/18 Type of Consultation: Pulm Subjective No events. Doing better. Objective Vital Signs Date Temp Pulse Resp B/P (MAP) Pulse Ox O2 O2 Flow FiO2 Time Delivery Rate 11/16/18 52 12:14 11/16/18 98.2 17 119/59 97 11:31 (79) 11/16/18 Nasal 3.0 07:41 Cannula 11/15/18 33 01:44 Intake and Output 11/15/18 11/15/18 11/16/18 1515:00 23:00 07:00 IntakeIntake Total 700 ml 440 ml OutputOutput Total 600 ml 800 ml BalanceBalance 100 ml -360 ml Exam HEENT: Neck supple; + JVD; no LAD CVS: Phuc, S1 and S2, 3/6 systolic murmur CHEST: Bibasilar rales ABD: Soft, NT, + BS EXT: No c/c; + edema Results/Medications Result Diagram: 11/15/1824 11/16/18 0511 Results 24 hrs Laboratory Tests Test 11/16/18 05:11 Sodium Level 138 Potassium Level 4.0 Chloride Level 100 Carbon Dioxide Level 30 Anion Gap 8 Blood Urea Nitrogen 24 H Creatinine 1.10 Est Glomerular Filtrat Rate mL/min Glucose Level 112 Calcium Level 8.8 Magnesium Level 2.1 Medications Current Medications Ipratropium [place] (Atrovent 0.02% (Neb)) 0.5 mg Q2H RESP THERAPY PRN NEB SHORTNESS OF BREATH Last administered on 11/14/18at 22:42; Admin Dose 0.5 MG; Start 11/13/18 at 20:30 Isosorbide Dinitrate (Isordil) 30 mg BID PO Last administered on 11/16/18at 09:01; Admin Dose 30 MG; Start 11/14/18 at 09:00 Levothyroxine Sodium (Synthroid) 150 mcg BEFORE BREAKFAST PO Last administered on 11/16/18at 06:41; Admin Dose 150 MCG; Start 11/14/18 at 07:00 Losartan Potassium (Cozaar) 50 mg BID PO Last administered on 11/16/18at 09:00; Admin Dose 50 MG; Start 11/14/18 at 09:00 Potassium Chloride (Micro-K) 8 meq DAILY PO Last administered on 11/16/18 09:00; Admin Dose 8 MEQ; Start 11/14/18 at 09:00 Senna (Senokot) 2 tab BID PO Last administered on 11/16/18 09:00; Admin Dose 2 TAB; Start 11/14/18 at 09:00 Tamsulosin HCl (Flomax) 0.4 mg HS PO Last administered on 11/15/18 21:57; Admin Dose 0.4 MG; Start 11/14/18 at 21:00 Atorvastatin Calcium (Lipitor) 40 mg DAILY@21 PO Last administered on 11/15/18 21:56; Admin Dose 40 MG; Start 11/14/18 at 21:00 Bumetanide (Bumex) 1 mg DAILY@0600 PO Last administered on 11/16/18 06:41; Admin Dose 1 MG; Start 11/15/18 at 06:00 Enoxaparin Sodium (Lovenox) 90 mg Q24H SC Last administered on 11/16/18 09:06; Admin Dose 90 MG; Start 11/15/18 at 09:00 Levalbuterol (Xopenex Neb) 0.31 mg Q4H RESP THERAPY PRN HHN WHEEZING AND SOB; Start 11/15/18 at 00:00 Aspirin (Halfprin) 81 mg DAILY PO Last administered on 11/16/18 09:01; Admin Dose 81 MG; Start 11/15/18 at 09:00 Assessment/Plan Additional Assessment/Plan IMP: 1. Acute decompensated systolic congestive heart failure 2. Aortic stenosis 3. COPD 4. Hypertension 5. CKD--component of cardiorenal RECS: 1. Continue diuresis as long creatine not bumping 2. D/C planning 3. Titrate FiO2 JUNIOR MCNAMARA MD Nov 16, 2018 13:57
== END 2018-11-16 15:47 | disposition home or self-care (01) | DRG 291 ==
LOC: E/R 18:16 → 6WM 19:39 → EDBEDREQSVC 21:37 → EDBEDREQ 21:37 → 6WM 11-14 00:19
PROVIDERS: ADMIT Internal Medicine; ATTEND Internal Medicine
PROC: 4A033R1 Measurement of Arterial Saturation, Peripheral, Percutaneous Approach (ICD-10-PCS; principal; 2018-11-13)
DX: I13.0 Hypertensive heart and chronic kidney disease with heart failure and stage 1 through stage 4 chronic kidney disease, or unspecified chronic kidney disease (principal); I50.23 Acute on chronic systolic (congestive) heart failure; N18.9 Chronic kidney disease, unspecified; J44.9 Chronic obstructive pulmonary disease, unspecified; E78.5 Hyperlipidemia, unspecified; I25.2 Old myocardial infarction; I35.0 Nonrheumatic aortic (valve) stenosis; I25.10 Atherosclerotic heart disease of native coronary artery without angina pectoris; I48.0 Paroxysmal atrial fibrillation; I25.5 Ischemic cardiomyopathy; D49.4 Neoplasm of unspecified behavior of bladder; N40.0 Benign prostatic hyperplasia without lower urinary tract symptoms; I48.2 Chronic atrial fibrillation; D69.6 Thrombocytopenia, unspecified; D64.9 Anemia, unspecified; Z82.49 Family history of ischemic heart disease and other diseases of the circulatory system; Z95.1 Presence of aortocoronary bypass graft; Z87.891 Personal history of nicotine dependence
CPT/HCPCS: 36415; 36600; 71045; 80048; 80053; 82550; 82553; 82803; 83735; 83880; 84100; 84484; 85025; 85610; 85730; 93005; 94660; 94664; 96365; 96375; J1650; J1940

== ENCOUNTER 2019-01-01 07:16 | Inpatient (IN) | payer MEDICARE, OTHER ==
[~2019-01-01] VITALS: Ht 177.8 cm; Wt 93.4 kg
[2019-01-01] VITALS (8 sets, daily range): BP systolic 121–191; BP diastolic 77–86; PULSE 60–86; RESP 22–25; Ht 177.8 cm; Wt 93.4 kg
[~2019-01-01 07:16] MED LIST changes: +ASPI-1044 PO; -BISA10SU75 PR; -FER325 PO; +POTA8CAP PO; -Polyethylene Glycol PO; -UDMOM PO
[2019-01-01] MEDS ORDERED: ALBUTEROL 0.5% (NEB) 2.5 MG/0.5 ML AMP INH STA (07:20)
[2019-01-01] MEDS ORDERED: METHYLPREDNISOLONE 125 MG INJ IV STA (07:20)
[2019-01-01] MEDS ORDERED: IPRATROPIUM (NEB) 0.5 MG/2.5 ML AMP INH STA (07:20)
--- NOTE | 2019-01-01 07:29 | ERD ---
ER Documentation Chief Complaint Chief Complaint bib family for sob HPI 78-year-old man brought in by family members for shortness of breath beginning this morning, his symptoms have been ongoing for the last couple days but became acutely worse this morning. Patient does have a history of congestive heart failure and COPD. Family member state he has been using his medications as prescribed. Patient also has complaints of suprapubic discomfort and decreased urinary frequency. He has had no cough, no fevers or chills, no vomiting or diarrhea. ROS All systems reviewed and are negative except as per history of present illness. Medications Home Meds Active Scripts Aspirin Delayed Release (Aspirin Delayed Release) 81 Mg Tablet.dr, 81 MG PO DAILY for 30 Days, #30 otc Prov:SAMANTHA BOB MD 11/16/18 Bumetanide* (Bumetanide*) 1 Mg Tablet, 1 MG PO DAILY for 14 Days, #15 TAB Prov:SAMANTHA BOB MD 11/16/18 Losartan Potassium* (Losartan Potassium*) 50 Mg Tablet, 50 MG PO BID for 10 Days, #20 TAB Prov:SAMANTHA BOB MD 11/16/18 Rosuvastatin Calcium* (Crestor*) 10 Mg Tablet, 10 MG PO QHS for 30 Days, #30 TAB Prov:SAMANTHA BOB MD 11/16/18 Isosorbide Dinitrate* (Isosorbide Dinitrate*) 30 Mg Tablet, 30 MG PO BID for 10 Days, #20 TAB Prov:SAMANTHA BOB MD 11/16/18 Reported Medications Amiodarone Hcl* (Amiodarone Hcl*) 200 Mg Tablet, 200 MG PO DAILY, #30 TAB 11/13/18 Potassium Chloride* (Potassium Chloride*) 8 Meq Capsule.er, 8 MEQ PO DAILY, CAP 11/13/18 Levothyroxine Sodium* (Levoxyl*) 150 Mcg Tablet, 150 MCG PO BEFORE BREAKFAST, #30 TAB 07/20/18 Discontinued Scripts Sennosides* (Senna Lax*) 8.6 Mg Tablet, 2 TAB PO BID, #60 TAB Prov:LEWIS JOHN 08/04/18 Tamsulosin Hcl* (Flomax*) 0.4 Mg Cap.er.24h, 0.4 MG PO HS, #60 CAP Prov:LEWIS JOHN 08/04/18 Allergies Allergies: Coded Allergies: No Known Allergy (Unverified , 01/01/19) PMhx/Soc Hypertension, CAD, CHF, COPD, BPH, hypothyroidism History of Surgery: Yes (CABG 1995) Anesthesia Reaction: No Hx Neurological Disorder: Yes (CVA 8 years ago, global aphasia, dementia) Hx Respiratory Disorders: Yes (COPD) Hx Cardiac Disorders: Yes (HTN, CHF, DE) Hx Psychiatric Problems: No Hx Miscellaneous Medical Probl: No Hx Alcohol Use: Yes (occasionally) Hx Substance Use: No Hx Tobacco Use: No Physical Exam Vitals Vital Signs Date Temp Pulse Resp B/P (MAP) Pulse Ox O2 O2 Flow FiO2 Time Delivery Rate 01/01/19 50 18 151/75 98 BIPAP 11:04 (100) 01/01/19 52 22 141/66 96 BIPAP 09:54 (91) 01/01/19 54 22 126/49 100 BIPAP 08:30 (74) 01/01/19 59 33 07:47 01/01/19 57 99 35 07:47 01/01/19 98.2 61 26 148/69 66 07:27 (95) 01/01/19 Nasal 2 07:20 Cannula Physical Exam GENERAL: Well-developed, dyspneic, afebrile HEENT: Moist mucous membranes, pink conjunctiva, no cervical spine tenderness or step-off deformities, no goiter NEURO: Alert and oriented 2, patient able to ambulate, pupils equal round reactive to light, no focal deficits or facial asymmetry CARDIAC: Regular rate and rhythm, no murmurs rubs or gallops LUNGS: Dense crackles and wheezes bilaterally ABDOMEN: Soft nontender, no guarding, no rigidity, no rebound, no psoas sign no obturator sign. SKIN: Warm and dry to touch, no abrasions, contusions, or hematomas, no lacerations, no ecchymosis, no target lesions, and without ulcers EXTREMITIES: No clubbing cyanosis, 3+ pitting edema in the lower extremities bilaterally calves are bilaterally symmetrical, no Homans sign, no popliteal cord sign. Distal pulses equal and bilateral PSYCH: Normal affect without agitation or irritability Result Diagram: 01/01/19 0701/01/19 0724 Results 24 hrs Laboratory Tests Test 01/01/19 07:24 White Blood Count 9.1 10^3/ul Red Blood Count 3.79 10^6/ul Hemoglobin 11.1 g/dl Hematocrit 35.0 % Mean Corpuscular Volume 92.3 fl Mean Corpuscular Hemoglobin 29.3 pg Mean Corpuscular Hemoglobin Concent 31.7 g/dl Red Cell Distribution Width 16.4 % Platelet Count 188 10^3/UL Mean Platelet Volume 11.2 fl Immature Granulocytes % 0.300 % Neutrophils % 74.1 % Lymphocytes % 13.6 % Monocytes % 10.3 % Eosinophils % 1.1 % Basophils % 0.6 % Nucleated Red Blood Cells % 0.0 /100WBC Immature Granulocytes # 0.030 10^3/ul Neutrophils # 6.7 10^3/ul Lymphocytes # 1.2 10^3/ul Monocytes # 0.9 10^3/ul Eosinophils # 0.1 10^3/ul Basophils # 0.1 10^3/ul Nucleated Red Blood Cells # 0.0 10^3/ul Sodium Level 139 mmol/L Potassium Level 4.2 mmol/L Chloride Level 104 mmol/L Carbon Dioxide Level 27 mmol/L Anion Gap 8 Blood Urea Nitrogen 17 mg/dl Creatinine 1.20 mg/dl Est Glomerular Filtrat Rate mL/min mL/min Glucose Level 153 mg/dl Calcium Level 9.2 mg/dl Total Bilirubin 0.9 mg/dl Direct Bilirubin 0.00 mg/dl Indirect Bilirubin 0.9 mg/dl Aspartate Amino Transf (AST/SGOT) 20 IU/L Alanine Aminotransferase (ALT/SGPT) 18 IU/L Alkaline Phosphatase 76 IU/L Troponin I 0.013 ng/ml B-Type Natriuretic Peptide 3500 PG/ML Total Protein 6.6 g/dl Albumin 3.6 g/dl Globulin 3.00 g/dl Albumin/Globulin Ratio 1.20 Lipase 39 U/L Current Medications Medications Dose Sig/Saroj Start Time Status Last (Trade) Ordered Route PRN Stop Time Admin Dose Reason Admin Albuterol 10 mg ONCE STAT 01/01/19 DC 01/01/19 (Proventil INH 07:20 01/01/19 07:37 0.5% (Neb)) 07:21 Ipratropium 1 mg ONCE STAT 01/01/19 DC 01/01/19 [place] INH 07:20 01/01/19 07:37 (Atrovent 07:21 0.02% (Neb)) 125 mg ONCE STAT 01/01/19 DC 01/01/19 Methylprednis IV 07:20 01/01/19 07:46 olone Sodium 07:21 Succinate (Solu-Medrol) Furosemide 80 mg ONCE ONCE 01/01/19 DC 01/01/19 (Lasix) IV 07:30 01/01/19 07:40 07:32 3 tab ONCE ONCE 01/01/19 DC 01/01/19 Nitroglycerin SL 07:30 01/01/19 07:40 07:32 (Nitroglyceri n (Sl Tab) 0.4 Mg) Enalaprilat 1.25 mg ONCE ONCE 01/01/19 DC (Vasotec Iv) IV 07:30 01/01/19 07:32 Aspirin 324 mg ONCE ONCE 01/01/19 DC 01/01/19 (Aspirin) PO 07:30 01/01/19 07:46 07:32 Procedures/MDM IV line was established patient was placed on cardiac rehab nurse rhythm strip revealed a sinus rhythm at about 60 bpm with upright P and T waves. Patient was afebrile EKG performed, read by me revealed a normal sinus rhythm at 63 bpm, normal axis, first-degree AV block, right bundle branch block, no concerning ST elevations or depressions noted Patient was immediately placed on BiPAP therapy for severe tachypnea and dyspnea, I also administered albuterol 10 mg via nebulizer, ipratropium 1 mg via nebulizer, and methylprednisolone 125 mg IV x1 I also administered furosemide 80 mg IV and nitroglycerin 0.4 mg sublingual, as well as aspirin 324 mg p.o. for cardioprotective measures. Critical Care: Time: 55 minutes, this was time separate from other billable procedures. Treatments/Evaluations: Close monitoring and treatment of unstable vital signs, cardiorespiratory, and neurologic status, while maintaining tight balance of fluid, respiratory, and cardiac interventions. 1 view chest x-ray performed, read by me revealed cardiomegaly and sternotomy wires, bilateral pulmonary edema with pleural effusions bilaterally, no acute infiltrates CBC and electrolytes are normal, liver function tests were normal, troponin was negative, BNP was elevated Patient will be admitted to telemetry setting for continued medical management, BiPAP and bronchodilator therapy. Departure Diagnosis: Primary Impression: Acute respiratory failure Respiratory failure complication: hypoxia and hypercapnia Qualified Codes: J96.01 - Acute respiratory failure with hypoxia; J96.02 - Acute respiratory failure with hypercapnia Additional Impressions: CHF (congestive heart failure) Heart failure type: combined systolic and diastolic Heart failure chronicity: acute Qualified Codes: I50.41 - Acute combined systolic (congestive) and diastolic (congestive) heart failure COPD (chronic obstructive pulmonary disease) COPD type: COPD with acute exacerbation Qualified Codes: J44.1 - Chronic obstructive pulmonary disease with (acute) exacerbation Hypertension Hypertension type: essential hypertension Qualified Codes: I10 - Essential (primary) hypertension Condition: Serious DMITRIY DAWSON MD Jan 01, 2019 07:29
[2019-01-01] MEDS ORDERED: ENALAPRILAT 1.25 MG INJ IV ONE (07:30)
[2019-01-01] MEDS ORDERED: NITROGLYCERIN (SL) 0.4 MG TAB SL ONE (07:30)
[2019-01-01] MEDS ORDERED: FUROSEMIDE 40 MG INJ IV ONE (07:30)
[2019-01-01] MEDS ORDERED: ASPIRIN 81 MG TAB PO ONE (07:30)
[2019-01-01] MEDS ORDERED: LORAZEPAM 2 MG INJ IV ONE (14:00)
[2019-01-01] MEDS ORDERED: CEFEPIME 1GM/50 ML (PMX) 50 ML IVPB ONE (14:00)
[2019-01-01] MEDS ORDERED: ALBUTEROL/IPRATROPIUM (NEB) 3 ML AMP HHN PRN (14:00)
--- NOTE | 2019-01-01 14:04 | HP ---
Date/Time of Note Date/Time of Note DATE: 01/01/19 TIME: 13:47 Assessment/Plan VTE Prophylaxis Pharmacological prophylaxis: heparin Lines/Catheters IV [facility]from [facility]): Saline Lock Assessment/Plan Hospital Course 78-year-old male who presents with shortness of breath for the last few days admitted and managed as follows: 1. Acute respiratory failure requiring noninvasive positive pressure ventilation 2. CHF exacerbation likely causing #1 -acute on chronic, systolic and diastolic 3. Chronic atrial fibrillation with sinus bradycardia at this time 4. Chronic hypertension with suboptimal control 5. Pulmonary edema and small to moderate bilateral pleural effusions on chest x-ray cannot rule out underlying bibasilar infiltrates 6. History of coronary artery disease status post CABG in the past also sta tus post NSTEMI 7. Chronic cardiomyopathy with ejection fraction of 25% 8. History of bladder tumors for which she is unable to tolerate anticoagulation due to recurrent hematuria 9. Known moderate to severe aortic stenosis 10. Chronic hypothyroidism 11. Chronic dyslipidemia 12. Patient also has 2 known aortic aneurysms,, one in ascending aorta measuring 4.4 cm and the other in the abdominal aorta measuring 4.6 cm Plan: -Patient will be admitted for continued diuresis and management of BiPAP. -Pulmonary consultation will be obtained -We will give 1 dose of empiric antibiotics for now, after sending cultures -Will also get a CT with contrast to evaluate aneurysms, further define lung parenchyma and rule out in underlying pneumonia. -Patient may also require further intervention for bilateral pleural effusions depending on the size. -We will get cardiology consultation as well as pulmonary consultation to assist in management -Bronchodilator therapy for wheezing cannot rule out underlying mild exacerbation of his emphysema -Continue all other home medications -Further interventions will depend on clinical course. Result Diagram: 01/01/19 0724 01/01/19 0724 Results 24hrs Laboratory Tests Test 01/01/19 07:24 White Blood Count 9.1 Red Blood Count 3.79 L Hemoglobin 11.1 L Hematocrit 35.0 L Mean Corpuscular Volume 92.3 Mean Corpuscular Hemoglobin 29.3 Mean Corpuscular Hemoglobin Concent 31.7 L Red Cell Distribution Width 16.4 H Platelet Count 188 Mean Platelet Volume 11.2 H Immature Granulocytes % 0.300 Neutrophils % 74.1 Lymphocytes % 13.6 L Monocytes % 10.3 Eosinophils % 1.1 Basophils % 0.6 Nucleated Red Blood Cells % 0.0 Immature Granulocytes # 0.030 Neutrophils # 6.7 Lymphocytes # 1.2 Monocytes # 0.9 Eosinophils # 0.1 Basophils # 0.1 Nucleated Red Blood Cells # 0.0 Sodium Level 139 Potassium Level 4.2 Chloride Level 104 Carbon Dioxide Level 27 Anion Gap 8 Blood Urea Nitrogen 17 Creatinine 1.20 Est Glomerular Filtrat Rate mL/min Glucose Level 153 Calcium Level 9.2 Total Bilirubin 0.9 Direct Bilirubin 0.00 Indirect Bilirubin 0.9 Aspartate Amino Transf (AST/SGOT) 20 Alanine Aminotransferase (ALT/SGPT) 18 Alkaline Phosphatase 76 Troponin I 0.013 B-Type Natriuretic Peptide 3500 H Total Protein 6.6 Albumin 3.6 Globulin 3.00 Albumin/Globulin Ratio 1.20 Lipase 39 HPI/ROS Admit Date/Time Admit Date/Time Hx of Present Illness 78-year-old male with an extensive past medical history as summarized below who presented to the emergency room today because of shortness of breath that has been going on for the last couple of days but worsened this morning. Patient does have a history of CHF and COPD. He denies chest pain though, denies syncopal episode. He has noted some lower extremity swelling. He also had complained to the emergency room physician of suprapubic discomfort and his reduced urinary output. Is been no fevers. No hematuria or dysuria. Denies melena or hematochezia. Chest x-ray in the emergency room did show pulmonary edema and bilateral pleural effusions and opacities. He is being admitted for management of his symptoms. Past medical history: Congestive heart failure with LVEF 25% Bladder tumor not on anticoagulation Paroxysmal atrial fibrillation Aortic stenosis COPD Hypertension CKD Past surgical history: 1. CABG 1995 2. Prostatectomy Allergies: No known drug allergies Home medications: Reviewed and reconciled ROS 12 point review if systems was done and pertinent findings are as noted. . PMH/Family/Social Past Medical History Coded Allergies: No Known Allergy (Unverified , 01/01/19) Past Surgical History Past Surgical Hx: abd aortic aneurysmectomy, coronary bypass surgery, other Family History Significant Family History: no pertinent family hx Social History Smoking Status: Former smoker Exam/Review of Systems Vital Signs Vitals Vital Signs Date Temp Pulse Resp B/P (MAP) Pulse Ox O2 O2 Flow FiO2 Time Delivery Rate 01/01/19 50 18 151/75 98 BIPAP 11:04 (100) 01/01/19 35 11:00 01/01/19 98.2 07:27 01/01/19 2 07:20 Exam Exam General: Alert, anxious, BiPAP in place HEENT: NC/ AT. PERRL. EOM intact Neck: supple CVS: S1, S2, RRR. no murmurs. no pain on chest wall palpation Lungs: Significantly diminished bilaterally with occasional end expiratory wheezing Abd: soft, nontender, +BS Ext: moving all extremities, 2+ edema, bilateral lower extremities skin: no rashes . Additional Comments PROCEDURE: XR Chest. CLINICAL INDICATION: Asthma exacerbation. TECHNIQUE: Chest, 1 view. COMPARISON: 11/16/2018 FINDINGS: The cardiomediastinal silhouette demonstrates enlargement of the cardiac silhouette. There are aortic calcifications. Stable postsurgical changes of a CABG. There is pulmonary edema with small to moderate bilateral pleural effusions and adjacent bibasilar opacities. No definite pneumothorax is seen. No acute osseous abnormality. IMPRESSION: Cardiomegaly. Pulmonary edema with small to moderate bilateral pleural effusions and adjacent bibasilar opacities. Stable postsurgical changes of a CABG. RPTAT: AAEE Lorene Cho Physician Date Time Electronically viewed and signed by Lorene Cho Physician on 01/01/2019 08:03 PH/ CC: DMITRIY DAWSON MD [id number] Also lab, CT imaging, and chest x-rays all the way back to 2015 reviewed. MAYELIN BARRETT Jan 01, 2019 13:58
[2019-01-01] MEDS ORDERED: SOD CHLORIDE 0.9% 0 ML ONE (14:06)
[2019-01-01] MEDS ORDERED: IOHEXOL 300MG/ML 150 ML BTL ONE (14:06)
[2019-01-01] MEDS ORDERED: hydrALAzine 20 MG INJ IV PRN (14:30)
[2019-01-01] MEDS: ALBUTEROL/IPRATROPIUM (NEB) 3 ML AMP HHN SCH ×2 (15:18→19:25)
--- NOTE | 2019-01-01 16:53 | CONS ---
Assessment/Plan Cardiology NYHA: III Heart Failure Type: Acute on Chronic Heart Failure Type: Systolic Assessment/Plan Hospital Course (Demo Recall) Acute decompensated systolic congestive heart failure with LVEF 25% Bladder tumor not on anticoagulation Paroxysmal atrial fibrillation, currently sinus rhythm Aortic stenosis COPD Hypertension CKD -Patient with decompensated congestive heart failure. Improved after IV Lasix. Will start Bumex drip for today. -No beta-avis given history of bradycardia. Continue long-acting nitroglycerin and afterload reduction -Serial troponins have remained negative. Consultation Date/Type/Reason Admit Date/Time Type of Consult Cardiology Reason for Consultation Shortness of breath Date/Time of Note DATE: 01/01/19 TIME: 16:49 Hx of Present Illness This is a 78-year-old male with past medical history of systolic congestive heart failure who presents with progressive worsening shortness of breath and lower extremity edema over the past week and a half. Patient has had his diuretics adjusted by cardiology with increasing to twice a day patient with continued shortness of breath. He also has a sensation of needing to urinate. Because of worsening symptoms this morning, patient came to the emergency room. After receiving IV Lasix, he is feeling better but still short of breath. Denies chest pain, palpitations, dizziness. 12 point review of systems was performed with all pertinent positives and ne gatives mentioned above and all else is negative Past Medical History Paroxysmal atrial fibrillation Medical History: congestive heart failure, hypertension, renal disease Home Meds Active Scripts Aspirin Delayed Release (Aspirin Delayed Release) 81 Mg Tablet.dr, 81 MG PO DAILY for 30 Days, #30 otc Prov:SAMANTHA BOB MD 11/16/18 Bumetanide* (Bumetanide*) 1 Mg Tablet, 1 MG PO DAILY for 14 Days, #15 TAB Prov:SAMANTHA BOB MD 11/16/18 Losartan Potassium* (Losartan Potassium*) 50 Mg Tablet, 50 MG PO BID for 10 Days, #20 TAB Prov:SAMANTHA BOB MD 11/16/18 Rosuvastatin Calcium* (Crestor*) 10 Mg Tablet, 10 MG PO QHS for 30 Days, #30 TAB Prov:SAMANTHA BOB MD 11/16/18 Isosorbide Dinitrate* (Isosorbide Dinitrate*) 30 Mg Tablet, 30 MG PO BID for 10 Days, #20 TAB Prov:SAMANTHA BOB MD 11/16/18 Reported Medications Amiodarone Hcl* (Amiodarone Hcl*) 200 Mg Tablet, 200 MG PO DAILY, #30 TAB 11/13/18 Potassium Chloride* (Potassium Chloride*) 8 Meq Capsule.er, 8 MEQ PO DAILY, CAP 11/13/18 Levothyroxine Sodium* (Levoxyl*) 150 Mcg Tablet, 150 MCG PO BEFORE BREAKFAST, #30 TAB 07/20/18 Discontinued Scripts Sennosides* (Senna Lax*) 8.6 Mg Tablet, 2 TAB PO BID, #60 TAB Prov:LEWIS JOHN 08/04/18 Tamsulosin Hcl* (Flomax*) 0.4 Mg Cap.er.24h, 0.4 MG PO HS, #60 CAP Prov:LEWIS JOHN 08/04/18 Medications Current Medications Amiodarone HCl (Cordarone) 200 mg DAILY PO ; Start 01/02/19 at 09:00 Aspirin (Halfprin) 81 mg DAILY PO ; Start 01/02/19 at 09:00 Isosorbide Dinitrate (Isordil) 30 mg BID PO ; Start 01/01/19 at 21:00 Levothyroxine Sodium (Synthroid) 150 mcg BEFORE BREAKFAST PO ; Start 01/02/19 at 07:00 Losartan Potassium (Cozaar) 50 mg BID PO ; Start 01/01/19 at 21:00; Status Hold Atorvastatin Calcium (Lipitor) 40 mg DAILY@21 PO ; Start 01/01/19 at 21:00 Lorazepam (Ativan) 0.5 mg Q8H PRN IV agitation; Start 01/01/19 at 14:00 Albuterol/ Ipratropium (Duoneb) 3 ml Q6HWA RESP THERAPY HHN ; Start 01/01/19 at 14:00; Stop 01/03/19 at 13:59 Albuterol/ Ipratropium (Duoneb) 3 ml Q2H RESP THERAPY PRN HHN sob; Start 01/01/19 at 14:00 Hydralazine HCl (Apresoline) 10 mg Q6H PRN IV sbp >160mmhg Last administered on 01/01/19at 16:15; Admin Dose 10 MG; Start 01/01/19 at 14:30 Bumetanide (Bumex) 1 mg BID DIURETICS IV ; Start 01/02/19 at 06:00; Status UNV Bumetanide 3 mg/ Dextrose 30 ml @ 16.667 mls/ hr Q1H48M ONCE IV ; Start 01/01/19 at 17:00; Stop 01/01/19 at 18:47; Status UNV Allergies: Coded Allergies: No Known Allergy (Unverified , 01/01/19) Past Surgical History Past Surgical Hx: abd aortic aneurysmectomy, coronary bypass surgery, other Family History Significant Family History: no pertinent family hx Social History Smoking Status: Former smoker Exam/Review of Systems Vital Signs Vitals Vital Signs Date Temp Pulse Resp B/P (MAP) Pulse Ox O2 O2 Flow FiO2 Time Delivery Rate 01/01/19 Simple 8.0 16:33 Mask 01/01/19 74 15:20 01/01/19 98.7 25 191/86 92 14:30 (121) 01/01/19 35 11:00 Exam Constitutional: alert (Becomes confused at times, on facemask, family bedside) Head: normocephalic Respiratory: other (Coarse breath sounds with scattered crackles and end expiratory wheeze) Cardiovascular: regular rate and rhythm (S1-S2 heard), systolic murmur Gastrointestinal: soft, non-tender, bowel sounds Extremities: edema Labs Result Diagram: 01/01/19 0724 01/01/19 0724 Results 24hrs Laboratory Tests Test 01/01/19 07:24 01/01/19 14:00 01/01/19 14:45 White Blood Count 9.1 Red Blood Count 3.79 L Hemoglobin 11.1 L Hematocrit 35.0 L Mean Corpuscular Volume 92.3 Mean Corpuscular Hemoglobin 29.3 Mean Corpuscular Hemoglobin Concent 31.7 L Red Cell Distribution Width 16.4 H Platelet Count 188 Mean Platelet Volume 11.2 H Immature Granulocytes % 0.300 Neutrophils % 74.1 Lymphocytes % 13.6 L Monocytes % 10.3 Eosinophils % 1.1 Basophils % 0.6 Nucleated Red Blood Cells % 0.0 Immature Granulocytes # 0.030 Neutrophils # 6.7 Lymphocytes # 1.2 Monocytes # 0.9 Eosinophils # 0.1 Basophils # 0.1 Nucleated Red Blood Cells # 0.0 Sodium Level 139 Potassium Level 4.2 Chloride Level 104 Carbon Dioxide Level 27 Anion Gap 8 Blood Urea Nitrogen 17 Creatinine 1.20 Est Glomerular Filtrat Rate mL/min Glucose Level 153 Calcium Level 9.2 Total Bilirubin 0.9 Direct Bilirubin 0.00 Indirect Bilirubin 0.9 Aspartate Amino Transf (AST/SGOT) 20 Alanine Aminotransferase (ALT/SGPT) 18 Alkaline Phosphatase 76 Troponin I 0.013 0.013 B-Type Natriuretic Peptide 3500 H Total Protein 6.6 Albumin 3.6 Globulin 3.00 Albumin/Globulin Ratio 1.20 Lipase 39 Urine Color YELLOW Urine Clarity CLEAR Urine pH 6.0 Urine Specific [place] 1.006 Urine Ketones NEGATIVE Urine Nitrite NEGATIVE Urine Bilirubin NEGATIVE Urine Urobilinogen NEGATIVE Urine Leukocyte Esterase 2+ H Urine Microscopic RBC 38 H Urine Microscopic WBC 12 H Urine Bacteria FEW A Urine Mucus FEW A Urine Yeast (Budding) FEW A Urine Hemoglobin 2+ H Urine Glucose NEGATIVE Urine Total Protein NEGATIVE Magnesium Level 1.8 Creatine Kinase 78 Creatine Kinase Index 3.5 Creatinine Kinase MB (Mass) 2.74 H Thyroid Stimulating Hormone (TSH) 2.080 Imaging Imaging ECG sinus rhythm with first-degree AV block at 63 bpm, intraventricular conduction delay with QRS 150 ms, nonspecific ST abnormalities Medications Medications Current Medications Amiodarone HCl (Cordarone) 200 mg DAILY PO ; Start 01/02/19 at 09:00 Aspirin (Halfprin) 81 mg DAILY PO ; Start 01/02/19 at 09:00 Isosorbide Dinitrate (Isordil) 30 mg BID PO ; Start 01/01/19 at 21:00 Levothyroxine Sodium (Synthroid) 150 mcg BEFORE BREAKFAST PO ; Start 01/02/19 at 07:00 Losartan Potassium (Cozaar) 50 mg BID PO ; Start 01/01/19 at 21:00; Status Hold Atorvastatin Calcium (Lipitor) 40 mg DAILY@21 PO ; Start 01/01/19 at 21:00 Lorazepam (Ativan) 0.5 mg Q8H PRN IV agitation; Start 01/01/19 at 14:00 Albuterol/ Ipratropium (Duoneb) 3 ml Q6HWA RESP THERAPY HHN ; Start 01/01/19 at 14:00; Stop 01/03/19 at 13:59 Albuterol/ Ipratropium (Duoneb) 3 ml Q2H RESP THERAPY PRN HHN sob; Start 01/01/19 at 14:00 Hydralazine HCl (Apresoline) 10 mg Q6H PRN IV sbp >160mmhg Last administered on 01/01/19at 16:15; Admin Dose 10 MG; Start 01/01/19 at 14:30 Bumetanide (Bumex) 1 mg BID DIURETICS IV ; Start 01/02/19 at 06:00; Status UNV Bumetanide 3 mg/ Dextrose 30 ml @ 16.667 mls/ hr Q1H48M ONCE IV ; Start 01/01/19 at 17:00; Stop 01/01/19 at 18:47; Status UNV Quang Robles DO Jan 01, 2019 16:53
[2019-01-01] MEDS ORDERED: BUMETANIDE 3 MG in DEXTROSE 5% 18 ML IV ONE (18:00)
[2019-01-01] MEDS ORDERED: BUMETANIDE 1 MG INJ IV SCH (18:00)
--- NOTE | 2019-01-01 18:30 | CONS ---
Assessment/Plan Assessment/Plan Hospital Course (Demo Recall) 78-year-old male is known to me from a prior admission in July 2018. Patient was admitted today because of congestive heart failure and COPD. He has been having difficulty urinating and a urology consultation was therefore requested. Back in July 2018 he was having constant hematuria and finally we were able to do a cystoscopy and resection of the bladder tumors. He had extensive bladder tumors. I spent 3 hours resecting tumors on him and he still had may be some residual tumor. The suggestion was he may get some radiation treatment and follow-up. However since then he has been voiding and he was admitted twice here to this hospital after that for other medical problems. No urological follow-up until today. I just walked into his room and the nurse told me he did urinate about 15 minutes earlier about 200 mL and the urine was still in the urinal and that appeared to be clear yellow. The postvoid residual by bladder scan was 104 mL. The patient is always whining and one may think that he is in acute distress but that is the way he has been since I have known him. Presently the patient appears to be voiding well and the urine is clear and the postvoid residual is not too high. We will send urine for cytology and cover him with antibiotic. Then I have to talk to the family and see if they are willing to have him undergo cystoscopy and transurethral resection of any recurrent bladder tumor. Most likely he does have recurrence and we knew that since last surgery 6 months ago. Consultation Date/Type/Reason Admit Date/Time January 01, 2019 Date of Consultation: Jan 01, 2019 Type of Consult Urology Reason for Consultation Lower urinary tract symptoms, history of extensive bladder tumors. Requesting Provider: MAYELIN BARRETT Date/Time of Note DATE: 01/01/19 TIME: 18:08 Hx of Present Illness 78-year-old male is known to me from a prior admission in July 2018. Patient was admitted today because of congestive heart failure and COPD. He has been having difficulty urinating and a urology consultation was therefore requested. Back in July 2018 he was having constant hematuria and finally we were able to do a cystoscopy and resection of the bladder tumors. He had extensive b ladder tumors. I spent 3 hours resecting tumors on him and he still had may be some residual tumor. The suggestion was he may get some radiation treatment and follow-up. However since then he has been voiding and he was admitted twice here to this hospital after that for other medical problems. No urological follow-up until today. I just walked into his room and the nurse told me he did urinate about 15 minutes earlier about 200 mL and the urine was still in the urinal and that appeared to be clear yellow. The postvoid residual by bladder scan was 104 mL. The patient is always whining and one may think that he is in acute distress but that is the way he has been since I have known him. Constitutional: other (Shortness of breath) Eyes: no complaints ENT: no complaints Respiratory: shortness of breath Cardiovascular: other (History of atrial fibrillation with a rapid ventricular response) Gastrointestinal: other (History of stomach problem, constipation) Genitourinary: other (Urinary incontinence, history of gross hematuria and bladder tumors as per history of present illness) Musculoskeletal: no complaints Skin: no complaints Neurologic: other (History of cerebrovascular accident) Endocrine: no complaints Lymphatic: no complaints Psychological: no complaints Immunologic: no complaints Past Medical History Medical History: cancer (Bladder), congestive heart failure, coronary artery disease, high cholesterol, other (Aortic stenosis,) Home Meds Active Scripts Aspirin Delayed Release (Aspirin Delayed Release) 81 Mg Tablet.dr, 81 MG PO DAILY for 30 Days, #30 otc Prov:SAMANTHA BOB MD 11/16/18 Bumetanide* (Bumetanide*) 1 Mg Tablet, 1 MG PO DAILY for 14 Days, #15 TAB Prov:SAMANTHA BOB MD 11/16/18 Losartan Potassium* (Losartan Potassium*) 50 Mg Tablet, 50 MG PO BID for 10 Days, #20 TAB Prov:SAMANTHA BOB MD 11/16/18 Rosuvastatin Calcium* (Crestor*) 10 Mg Tablet, 10 MG PO QHS for 30 Days, #30 TAB Prov:SAMANTHA BOB MD 11/16/18 Isosorbide Dinitrate* (Isosorbide Dinitrate*) 30 Mg Tablet, 30 MG PO BID for 10 Days, #20 TAB Prov:SAMANTHA BOB MD 11/16/18 Reported Medications Amiodarone Hcl* (Amiodarone Hcl*) 200 Mg Tablet, 200 MG PO DAILY, #30 TAB 11/13/18 Potassium Chloride* (Potassium Chloride*) 8 Meq Capsule.er, 8 MEQ PO DAILY, CAP 11/13/18 Levothyroxine Sodium* (Levoxyl*) 150 Mcg Tablet, 150 MCG PO BEFORE BREAKFAST, #30 TAB 07/20/18 Discontinued Scripts Sennosides* (Senna Lax*) 8.6 Mg Tablet, 2 TAB PO BID, #60 TAB Prov:LEWIS JOHN 08/04/18 Tamsulosin Hcl* (Flomax*) 0.4 Mg Cap.er.24h, 0.4 MG PO HS, #60 CAP Prov:LEWIS JOHN 08/04/18 Medications Current Medications Amiodarone HCl (Cordarone) 200 mg DAILY PO ; Start 01/02/19 at 09:00 Aspirin (Halfprin) 81 mg DAILY PO ; Start 01/02/19 at 09:00 Isosorbide Dinitrate (Isordil) 30 mg BID PO ; Start 01/01/19 at 21:00 Levothyroxine Sodium (Synthroid) 150 mcg BEFORE BREAKFAST PO ; Start 01/02/19 at 07:00 Losartan Potassium (Cozaar) 50 mg BID PO ; Start 01/01/19 at 21:00; Status Hold Atorvastatin Calcium (Lipitor) 40 mg DAILY@21 PO ; Start 01/01/19 at 21:00 Lorazepam (Ativan) 0.5 mg Q8H PRN IV agitation; Start 01/01/19 at 14:00 Albuterol/ Ipratropium (Duoneb) 3 ml Q6HWA RESP THERAPY HHN ; Start 01/01/19 at 14:00; Stop 01/03/19 at 13:59 Albuterol/ Ipratropium (Duoneb) 3 ml Q2H RESP THERAPY PRN HHN sob; Start 01/01/19 at 14:00 Hydralazine HCl (Apresoline) 10 mg Q6H PRN IV sbp >160mmhg Last administered on 01/01/19at 16:15; Admin Dose 10 MG; Start 01/01/19 at 14:30 Bumetanide (Bumex) 1 mg BID DIURETICS IV ; Start 01/02/19 at 06:00 Bumetanide 3 mg/ Dextrose 30 ml @ 16.667 mls/ hr Q1H48M ONCE IV ; Start 01/01/19 at 18:00; Stop 01/01/19 at 19:47 Allergies: Coded Allergies: No Known Allergy (Unverified , 01/01/19) Past Surgical History Past Surgical Hx: abd aortic aneurysmectomy, coronary bypass surgery, other (Transurethral resection of prostate, transurethral resection of multiple bladder tumors) Social History Alcohol Use: none Smoking Status: Former smoker Exam/Review of Systems Exam Vitals Vital Signs Date Temp Pulse Resp B/P (MAP) Pulse Ox O2 O2 Flow FiO2 Time Delivery Rate 01/01/19 77 95 35 17:40 01/01/19 Simple 8.0 16:33 Mask 01/01/19 98.7 25 191/86 14:30 (121) Constitutional: alert Psych: no complaints Head: normocephalic Eyes: nl conjunctiva ENMT: nl external ears & nose Neck: supple, non-tender Respiratory: labored breathing, other (Has a CPAP machine on) Cardiovascular: No jugular venous distention (JVD) Gastrointestinal: distended, firm, surgical scars Genitourinary - Male: other (Severe phimosis) Extremities: No calf tenderness Neurological: other (Does not speak [place] and difficulty expressing himself) Results Result Diagram: 01/01/19 0724 01/01/19 0724 Results 24hrs Laboratory Tests Test 01/01/19 07:24 01/01/19 14:00 01/01/19 14:45 White Blood Count 9.1 Red Blood Count 3.79 L Hemoglobin 11.1 L Hematocrit 35.0 L Mean Corpuscular Volume 92.3 Mean Corpuscular Hemoglobin 29.3 Mean Corpuscular Hemoglobin Concent 31.7 L Red Cell Distribution Width 16.4 H Platelet Count 188 Mean Platelet Volume 11.2 H Immature Granulocytes % 0.300 Neutrophils % 74.1 Lymphocytes % 13.6 L Monocytes % 10.3 Eosinophils % 1.1 Basophils % 0.6 Nucleated Red Blood Cells % 0.0 Immature Granulocytes # 0.030 Neutrophils # 6.7 Lymphocytes # 1.2 Monocytes # 0.9 Eosinophils # 0.1 Basophils # 0.1 Nucleated Red Blood Cells # 0.0 Sodium Level 139 Potassium Level 4.2 Chloride Level 104 Carbon Dioxide Level 27 Anion Gap 8 Blood Urea Nitrogen 17 Creatinine 1.20 Est Glomerular Filtrat Rate mL/min Glucose Level 153 Calcium Level 9.2 Total Bilirubin 0.9 Direct Bilirubin 0.00 Indirect Bilirubin 0.9 Aspartate Amino Transf (AST/SGOT) 20 Alanine Aminotransferase (ALT/SGPT) 18 Alkaline Phosphatase 76 Troponin I 0.013 0.013 B-Type Natriuretic Peptide 3500 H Total Protein 6.6 Albumin 3.6 Globulin 3.00 Albumin/Globulin Ratio 1.20 Lipase 39 Urine Color YELLOW Urine Clarity CLEAR Urine pH 6.0 Urine Specific [place] 1.006 Urine Ketones NEGATIVE Urine Nitrite NEGATIVE Urine Bilirubin NEGATIVE Urine Urobilinogen NEGATIVE Urine Leukocyte Esterase 2+ H Urine Microscopic RBC 38 H Urine Microscopic WBC 12 H Urine Bacteria FEW A Urine Mucus FEW A Urine Yeast (Budding) FEW A Urine Hemoglobin 2+ H Urine Glucose NEGATIVE Urine Total Protein NEGATIVE Magnesium Level 1.8 Creatine Kinase 78 Creatine Kinase Index 3.5 Creatinine Kinase MB (Mass) 2.74 H Thyroid Stimulating Hormone (TSH) 2.080 Imaging Imaging Renal ultrasound: Both kidneys are normal in echogenicity. There is normal renal cortical thickness without focal thinning or scarring. No solid renal masses are identified. There is no evidence of renal calculi or obstructive uropathy. There are simple bilateral renal cyst. Largest cyst in the right kidney measures 2.4 cm and the largest cyst and left kidney measures 2.5 cm. The right kidney measures 10.4, and the left kidney measures 9.3. Spot images of the pelvis demonstrating partially distended bladder with smooth contours. Prevoid bladder volume is 161 cc IMPRESSION: 1. No renal calculi or obstructive uropathy. 2. Simple bilateral renal cysts Medications Medication Current Medications Amiodarone HCl (Cordarone) 200 mg DAILY PO ; Start 01/02/19 at 09:00 Aspirin (Halfprin) 81 mg DAILY PO ; Start 01/02/19 at 09:00 Isosorbide Dinitrate (Isordil) 30 mg BID PO ; Start 01/01/19 at 21:00 Levothyroxine Sodium (Synthroid) 150 mcg BEFORE BREAKFAST PO ; Start 01/02/19 at 07:00 Losartan Potassium (Cozaar) 50 mg BID PO ; Start 01/01/19 at 21:00; Status Hold Atorvastatin Calcium (Lipitor) 40 mg DAILY@21 PO ; Start 01/01/19 at 21:00 Lorazepam (Ativan) 0.5 mg Q8H PRN IV agitation; Start 01/01/19 at 14:00 Albuterol/ Ipratropium (Duoneb) 3 ml Q6HWA RESP THERAPY HHN ; Start 01/01/19 at 14:00; Stop 01/03/19 at 13:59 Albuterol/ Ipratropium (Duoneb) 3 ml Q2H RESP THERAPY PRN HHN sob; Start 01/01/19 at 14:00 Hydralazine HCl (Apresoline) 10 mg Q6H PRN IV sbp >160mmhg Last administered on 01/01/19at 16:15; Admin Dose 10 MG; Start 01/01/19 at 14:30 Bumetanide (Bumex) 1 mg BID DIURETICS IV ; Start 01/02/19 at 06:00 Bumetanide 3 mg/ Dextrose 30 ml @ 16.667 mls/ hr Q1H48M ONCE IV ; Start 01/01/19 at 18:00; Stop 01/01/19 at 19:47 JOSE OCAMPO MD Jan 01, 2019 18:21
[2019-01-01] MEDS ORDERED: LOSARTAN 50 MG TAB PO SCH (21:00)
[2019-01-01] MEDS: ATORVASTATIN 40 MG TAB PO SCH (21:10)
[2019-01-01] MEDS: ISOSORBIDE DINITRATE 10 MG TAB PO SCH (21:11)
[2019-01-02] VITALS (10 sets, daily range): BP systolic 121–162; BP diastolic 57–82; PULSE 61–71; RESP 18–21
[2019-01-02] MEDS: LORAZEPAM 2 MG INJ IV PRN (03:54)
[2019-01-02] MEDS: BUMETANIDE 1 MG INJ IV SCH ×2 (06:03→17:53)
[2019-01-02] MEDS: LEVOTHYROXINE 150 MCG TAB PO SCH (06:04)
[2019-01-02] MEDS: ASPIRIN (EC) 81 MG TAB PO SCH (08:43)
[2019-01-02] MEDS: ISOSORBIDE DINITRATE 10 MG TAB PO SCH ×2 (08:43→22:09)
[2019-01-02] MEDS: AMIODARONE 200 MG TAB PO SCH (08:44)
[2019-01-02] MEDS: ALBUTEROL/IPRATROPIUM (NEB) 3 ML AMP HHN SCH ×3 (09:04→19:53)
[2019-01-02] MEDS: LEVOFLOXACIN 500MG/D5W (PMX) 100 ML IVPB SCH (12:27)
--- NOTE | 2019-01-02 12:44 | CONS ---
DATE OF ADMISSION: 01/01/2019 DATE OF CONSULTATION: 01/02/2019 REASON FOR CONSULTATION: Shortness of breath. Thank you, Dr. Barrett, for this consultation. HISTORY OF PRESENT ILLNESS: This is a pleasant 78-year-old gentleman with history of CHF, COPD, pres ents with several-day history of increasing shortness of breath, orthopnea, PND, and increasing lower extremity edema. In addition, he has suprapubic discomfort with decreased urine output, per chart. No hemoptysis, hematemesis, no recent travel history. Extensive prior tobacco history, current nons moker. PAST MEDICAL HISTORY: Abdominal aortic aneurysm repair, coronary artery bypass graft surgery. MEDICATIONS: Per chart. ALLERGIES: None. SOCIAL HISTORY: Tobacco history as above. PHYSICAL EXAMINATION: GENERAL: Well-nourished, well-developed gentleman, comfortable at rest, no acute distress. VITAL SIGNS: Currently afebrile, pulse is 60, blood pressure 130/63, O2 saturation 91% on 5 liters O 2. NECK: Supple. No JVD or lymphadenopathy. CARDIAC: S1, S2, no added sounds or murmurs. CHEST: Diminished air entry bilaterally with few expiratory wheezes. ABDOMEN: Soft, nontender. No guarding or rebound. EXTREMITIES: No cyanosis, clubbing, edema. NEUROLOGIC: Grossly intact. No focal deficits. LABORATORY DATA: White count 15.4, hemoglobin 11.2, platelets of 203, BUN 22, creatinine 1.24. Urin alysis positive for UTI. Chest x-ray was reviewed, shows mild pulmonary edema with small pleural effusions. IMPRESSION AND PLAN: 1. Dyspnea, likely secondary to combination of chronic obstructive pulmonary disease exacerbation an d congestive cardiac failure. 2. Prior extensive tobacco history with underlying history of chronic obstructive pulmonary disease. 3. Evidence of urinary tract infection on urinalysis. The patient will require: 1. Diuresis. 2. Supplemental O2. 3. Bronchodilator treatment. 4. Urology recommendations given history of bladder carcinoma. 5. Deep vein thrombosis and gastrointestinal prophylaxis. Dictated By: OPAL ESCAMILLA MD SV/NTS Conf#: [id number] DID#: [id number] CC: MAYELIN BARRETT MD;*EndCC*
--- NOTE | 2019-01-02 12:50 | CONS ---
Assessment/Plan Cardiology NYHA: III Heart Failure Type: Acute on Chronic Heart Failure Type: Systolic Assessment/Plan Hospital Course (Demo Recall) Acute decompensated systolic congestive heart failure with LVEF 25% Bladder tumor not on anticoagulation Paroxysmal atrial fibrillation, currently sinus rhythm Aortic stenosis COPD Hypertension CKD -Patient with significant improvement after Bumex drip yesterday. Continue Bumex IV 1 mg twice daily and titrate based on renal function, blood pressure and volume status -No beta-avis given history of bradycardia. -Patient has been having recurrent episodes of decompensated congestive heart failure, will start Entresto and titrate as blood pressure and renal function permits Consultation Date/Type/Reason Admit Date/Time Jan 01, 2019 at 08:16 Initial Consult Date 01/01/19 Type of Consult Cardiology Requesting Provider: MAYELIN BARRETT Date/Time of Note DATE: 01/02/19 TIME: 12:44 24 HR Interval Summary Free Text/Dictation Shortness of breath is better, off facemask. No chest pain or palpitations Exam/Review of Systems Vital Signs Vitals Vital Signs Date Temp Pulse Resp B/P (MAP) Pulse Ox O2 O2 Flow FiO2 Time Delivery Rate 01/02/19 65 12:22 01/02/19 98.3 20 136/63 91 Nasal 5.0 11:34 (87) Cannula 01/02/19 44 09:05 Exam Constitutional: alert, oriented (No apparent distress) Head: normocephalic Respiratory: other (Coarse breath sounds bilaterally, no wheezing) Cardiovascular: regular rate and rhythm (S1-S2 heard) Gastrointestinal: soft, non-tender, bowel sounds Extremities: edema Labs Result Diagram: 01/02/19 0814 01/02/19 0814 Results 24hrs Laboratory Tests Test 01/01/19 14:00 01/01/19 14:45 01/02/19 08:14 Urine Color YELLOW Urine Clarity CLEAR Urine pH 6.0 Urine Specific [place] 1.006 Urine Ketones NEGATIVE Urine Nitrite NEGATIVE Urine Bilirubin NEGATIVE Urine Urobilinogen NEGATIVE Urine Leukocyte Esterase 2+ H Urine Microscopic RBC 38 H Urine Microscopic WBC 12 H Urine Bacteria FEW A Urine Mucus FEW A Urine Yeast (Budding) FEW A Urine Hemoglobin 2+ H Urine Glucose NEGATIVE Urine Total Protein NEGATIVE Magnesium Level 1.8 2.0 Creatine Kinase 78 Creatine Kinase Index 3.5 Creatinine Kinase MB (Mass) 2.74 H Troponin I 0.013 Thyroid Stimulating Hormone (TSH) 2.080 White Blood Count 15.4 #H Red Blood Count 3.86 L Hemoglobin 11.2 L Hematocrit 35.2 L Mean Corpuscular Volume 91.2 Mean Corpuscular Hemoglobin 29.0 Mean Corpuscular Hemoglobin Concent 31.8 L Red Cell Distribution Width 16.6 H Platelet Count 203 Mean Platelet Volume 12.0 H Immature Granulocytes % 0.400 Neutrophils % 91.4 H Lymphocytes % 3.6 L Monocytes % 4.5 Eosinophils % 0.0 Basophils % 0.1 Nucleated Red Blood Cells % 0.0 Immature Granulocytes # 0.060 H Neutrophils # 14.1 H Lymphocytes # 0.6 L Monocytes # 0.7 Eosinophils # 0.0 Basophils # 0.0 Nucleated Red Blood Cells # 0.0 Sodium Level 142 Potassium Level 4.0 Chloride Level 102 Carbon Dioxide Level 29 Anion Gap 11 Blood Urea Nitrogen 22 H Creatinine 1.24 Est Glomerular Filtrat Rate mL/min Glucose Level 144 Calcium Level 9.5 Phosphorus Level 4.5 Medications Medications Current Medications Amiodarone HCl (Cordarone) 200 mg DAILY PO Last administered on 01/02/19 08:44; Admin Dose 200 MG; Start 01/02/19 at 09:00 Aspirin (Halfprin) 81 mg DAILY PO Last administered on 01/02/19 08:43; Admin Dose 81 MG; Start 01/02/19 at 09:00 Isosorbide Dinitrate (Isordil) 30 mg BID PO Last administered on 01/02/19 08:43; Admin Dose 30 MG; Start 01/01/19 at 21:00 Levothyroxine Sodium (Synthroid) 150 mcg BEFORE BREAKFAST PO Last administered on 01/02/19 06:04; Admin Dose 150 MCG; Start 01/02/19 at 07:00 Losartan Potassium (Cozaar) 50 mg BID PO ; Start 01/01/19 at 21:00; Status Hold Atorvastatin Calcium (Lipitor) 40 mg DAILY@21 PO Last administered on 01/01/19 21:10; Admin Dose 40 MG; Start 01/01/19 at 21:00 Lorazepam (Ativan) 0.5 mg Q8H PRN IV agitation Last administered on 01/02/19 03:54; Admin Dose 0.5 MG; Start 01/01/19 at 14:00 Albuterol/ Ipratropium (Duoneb) 3 ml Q6HWA RESP THERAPY HHN Last administered on 01/02/19at 09:04; Admin Dose 3 ML; Start 01/01/19 at 14:00; Stop 01/03/19 at 13:59 Albuterol/ Ipratropium (Duoneb) 3 ml Q2H RESP THERAPY PRN HHN sob; Start 01/01/19 at 14:00 Hydralazine HCl (Apresoline) 10 mg Q6H PRN IV sbp >160mmhg Last administered on 01/01/19at 16:15; Admin Dose 10 MG; Start 01/01/19 at 14:30 Bumetanide (Bumex) 1 mg BID DIURETICS IV Last administered on 01/02/19at 06:03; Admin Dose 1 MG; Start 01/02/19 at 06:00 Levofloxacin/ Dextrose 100 ml @ 100 mls/hr Q24H IVPB ; Start 01/02/19 at 12:00 Fluconazole 100 ml @ 100 mls/hr Q24H IVPB ; Start 01/02/19 at 14:00 Quang Robles DO Jan 02, 2019 12:50
[2019-01-02] MEDS: FLUCONAZOLE 200 MG (PMX) 100 ML IVPB SCH (15:19)
[2019-01-02] MEDS ORDERED: IODIXANOL LOCM 100 ML BTL ONE (17:20)
[2019-01-02] MEDS ORDERED: SOD CHLORIDE 0.9% 100 ML ONE (17:20)
--- NOTE | 2019-01-02 17:35 | PN ---
Date/Time of Note Date/Time of Note DATE: 01/02/19 TIME: 17:34 Assessment/Plan VTE Prophylaxis Risk score (from Nsg)>0 risk: 9 Pharmacological prophylaxis: NA/contraindicated Pharm contraindication: anticoag not tolerated Lines/Catheters IV Catheter Type (from Nrsg): Saline Lock Urinary Cath still in place: No Assessment/Plan Hospital Course S: patient is much improved, has been weaned down to 5L NC -spoke with daughter and so in detail about plan of care -they're not sure their father would like to pursue any aggressive urologic intervention if it's not for symptom control -patient ambulant in the room with assistance O : Constitutional: alert, oriented, elderly, obese, doesn't speak much, does more of grunting, no distress Head: atraumatic, normocephalic Neck: non-tender, supple Respiratory: clear to auscultation but still quite diminished bilaterally Cardiovascular: regular rate and rhythm Gastrointestinal: S/ NT / ND / +BS Extremities: still with trace edema, good radial pulses assessment and plan: 78-year-old male who presents with shortness of breath for the last few days admitted and managed as follows: 1. Acute respiratory failure requiring noninvasive positive pressure v entilation -improved, now weaned to 5LNC -family would like for him to be assessed for home O2 (they have been purchasing out of pocket and they feel it helps him) 2. CHF exacerbation likely causing #1 -acute on chronic, systolic and diastolic, last EF 25% -improving -cardiology following and managing diuresis 3. Symptomatic UTI with dysuria and known bladder ca -s/p tumor resection in the past, but was non compliant with f/u mgt -began having dysuria a few days prior to admit -f/u final cultures, urine cytology is also pending 4. Chronic atrial fibrillation with sinus bradycardia at this time -not a candidate for anticoagulation 2/2 bladder tumors 4. Chronic hypertension : improved control 5. Pulmonary edema and small to moderate bilateral pleural effusions on chest x-ray cannot rule out underlying bibasilar infiltrates -on Levaquin for UTI 6. History of coronary artery disease status post CABG in the past also status post NSTEMI 7. Chronic cardiomyopathy with ejection fraction of 25% 8. History of bladder tumors for which she is unable to tolerate anticoagulation due to recurrent hematuria 9. Known moderate to severe aortic stenosis 10. Chronic hypothyroidism 11. Chronic dyslipidemia 12. Patient also has 2 known aortic aneurysms,, one in ascending aorta measuring 4.4 cm and the other in the abdominal aorta measuring 4.6 cm Plan: -Continue diuresis for now and try to wean down O2 -Continue current abx and f/u final cultures Dispo: -d/c with or without O2 once cultures available if cleared by consultants -Further interventions will depend on clinical course. Result Diagram: 01/02/1914 01/02/1914 Results 24hrs Laboratory Tests Test 01/02/19 08:14 White Blood Count 15.4 #H Red Blood Count 3.86 L Hemoglobin 11.2 L Hematocrit 35.2 L Mean Corpuscular Volume 91.2 Mean Corpuscular Hemoglobin 29.0 Mean Corpuscular Hemoglobin Concent 31.8 L Red Cell Distribution Width 16.6 H Platelet Count 203 Mean Platelet Volume 12.0 H Immature Granulocytes % 0.400 Neutrophils % 91.4 H Lymphocytes % 3.6 L Monocytes % 4.5 Eosinophils % 0.0 Basophils % 0.1 Nucleated Red Blood Cells % 0.0 Immature Granulocytes # 0.060 H Neutrophils # 14.1 H Lymphocytes # 0.6 L Monocytes # 0.7 Eosinophils # 0.0 Basophils # 0.0 Nucleated Red Blood Cells # 0.0 Sodium Level 142 Potassium Level 4.0 Chloride Level 102 Carbon Dioxide Level 29 Anion Gap 11 Blood Urea Nitrogen 22 H Creatinine 1.24 Est Glomerular Filtrat Rate mL/min Glucose Level 144 Calcium Level 9.5 Phosphorus Level 4.5 Magnesium Level 2.0 Exam/Review of Systems Exam Vitals Vital Signs Date Temp Pulse Resp B/P (MAP) Pulse Ox O2 O2 Flow FiO2 Time Delivery Rate 01/02/19 71 16:23 01/02/19 98.6 20 121/57 97 Nasal 4.0 15:48 (78) Cannula 01/02/19 40 13:50 Results Results 24hrs Laboratory Tests Test 01/02/19 08:14 White Blood Count 15.4 #H Red Blood Count 3.86 L Hemoglobin 11.2 L Hematocrit 35.2 L Mean Corpuscular Volume 91.2 Mean Corpuscular Hemoglobin 29.0 Mean Corpuscular Hemoglobin Concent 31.8 L Red Cell Distribution Width 16.6 H Platelet Count 203 Mean Platelet Volume 12.0 H Immature Granulocytes % 0.400 Neutrophils % 91.4 H Lymphocytes % 3.6 L Monocytes % 4.5 Eosinophils % 0.0 Basophils % 0.1 Nucleated Red Blood Cells % 0.0 Immature Granulocytes # 0.060 H Neutrophils # 14.1 H Lymphocytes # 0.6 L Monocytes # 0.7 Eosinophils # 0.0 Basophils # 0.0 Nucleated Red Blood Cells # 0.0 Sodium Level 142 Potassium Level 4.0 Chloride Level 102 Carbon Dioxide Level 29 Anion Gap 11 Blood Urea Nitrogen 22 H Creatinine 1.24 Est Glomerular Filtrat Rate mL/min Glucose Level 144 Calcium Level 9.5 Phosphorus Level 4.5 Magnesium Level 2.0 Medications Medication Current Medications Amiodarone HCl (Cordarone) 200 mg DAILY PO Last administered on 01/02/19 08:44; Admin Dose 200 MG; Start 01/02/19 at 09:00 Aspirin (Halfprin) 81 mg DAILY PO Last administered on 01/02/19 08:43; Admin Dose 81 MG; Start 01/02/19 at 09:00 Isosorbide Dinitrate (Isordil) 30 mg BID PO Last administered on 01/02/19 08:43; Admin Dose 30 MG; Start 01/01/19 at 21:00 Levothyroxine Sodium (Synthroid) 150 mcg BEFORE BREAKFAST PO Last administered on 01/02/19 06:04; Admin Dose 150 MCG; Start 01/02/19 at 07:00 Losartan Potassium (Cozaar) 50 mg BID PO ; Start 01/01/19 at 21:00; Status Hold Atorvastatin Calcium (Lipitor) 40 mg DAILY@21 PO Last administered on 01/01/19 21:10; Admin Dose 40 MG; Start 01/01/19 at 21:00 Lorazepam (Ativan) 0.5 mg Q8H PRN IV agitation Last administered on 01/02/19 03:54; Admin Dose 0.5 MG; Start 01/01/19 at 14:00 Albuterol/ Ipratropium (Duoneb) 3 ml Q6HWA RESP THERAPY HHN Last administered on 01/02/19at 13:49; Admin Dose 3 ML; Start 01/01/19 at 14:00; Stop 01/03/19 at 13:59 Albuterol/ Ipratropium (Duoneb) 3 ml Q2H RESP THERAPY PRN HHN sob; Start 01/01/19 at 14:00 Hydralazine HCl (Apresoline) 10 mg Q6H PRN IV sbp >160mmhg Last administered on 01/01/19at 16:15; Admin Dose 10 MG; Start 01/01/19 at 14:30 Bumetanide (Bumex) 1 mg BID DIURETICS IV Last administered on 01/02/19 06:03; Admin Dose 1 MG; Start 01/02/19 at 06:00 Levofloxacin/ Dextrose 100 ml @ 100 mls/hr Q24H IVPB Last administered on 01/02/19at 12:27; Admin Dose 100 MLS/HR; Start 01/02/19 at 12:00 Fluconazole 100 ml @ 100 mls/hr Q24H IVPB Last administered on 01/02/19at 15:19; Admin Dose 100 MLS/HR; Start 01/02/19 at 14:00 Sacubitril/ Valsartan (Entresto 24 Mg-26 Mg) 1 tab BID PO ; Start 01/02/19 at 21:00 MAYELIN BARRETT Jan 02, 2019 17:35
--- NOTE | 2019-01-02 20:46 | CONS ---
Consult Date/Type/Reason Admit Date/Time Jan 01, 2019 at 08:16 Initial Consult Date 01/01/19 Type of Consultation: Urology Reason for Consultation History of bladder tumor. And urinary incontinence. Requesting Provider: MAYELIN BARRETT Date/Time of Note DATE: 01/02/19 TIME: 20:44 Subjective The patient is comfortable and much more alert today. He is wearing a diaper Objective Vitals Vital Signs Date Temp Pulse Resp B/P (MAP) Pulse Ox O2 O2 Flow FiO2 Time Delivery Rate 01/02/19 98.3 63 18 152/63 95 Room Air 20:40 (92) 01/02/19 5.0 19:53 01/02/19 40 13:50 Exam The urine in the diaper is clear. The urine cytology is pending. Results/Medications Result Diagram: 01/02/19 0814 01/02/19 0814 Results 24 hrs Laboratory Tests Test 01/02/19 08:14 White Blood Count 15.4 #H Red Blood Count 3.86 L Hemoglobin 11.2 L Hematocrit 35.2 L Mean Corpuscular Volume 91.2 Mean Corpuscular Hemoglobin 29.0 Mean Corpuscular Hemoglobin Concent 31.8 L Red Cell Distribution Width 16.6 H Platelet Count 203 Mean Platelet Volume 12.0 H Immature Granulocytes % 0.400 Neutrophils % 91.4 H Lymphocytes % 3.6 L Monocytes % 4.5 Eosinophils % 0.0 Basophils % 0.1 Nucleated Red Blood Cells % 0.0 Immature Granulocytes # 0.060 H Neutrophils # 14.1 H Lymphocytes # 0.6 L Monocytes # 0.7 Eosinophils # 0.0 Basophils # 0.0 Nucleated Red Blood Cells # 0.0 Sodium Level 142 Potassium Level 4.0 Chloride Level 102 Carbon Dioxide Level 29 Anion Gap 11 Blood Urea Nitrogen 22 H Creatinine 1.24 Est Glomerular Filtrat Rate mL/min Glucose Level 144 Calcium Level 9.5 Phosphorus Level 4.5 Magnesium Level 2.0 Home Meds Active Scripts Aspirin Delayed Release (Aspirin Delayed Release) 81 Mg Tablet.dr, 81 MG PO DAILY for 30 Days, #30 otc Prov:SAMANTHA BOB MD 11/16/18 Bumetanide* (Bumetanide*) 1 Mg Tablet, 1 MG PO DAILY for 14 Days, #15 TAB Prov:SAMANTHA BOB MD 11/16/18 Losartan Potassium* (Losartan Potassium*) 50 Mg Tablet, 50 MG PO BID for 10 Days, #20 TAB Prov:SAMANTHA BOB MD 11/16/18 Rosuvastatin Calcium* (Crestor*) 10 Mg Tablet, 10 MG PO QHS for 30 Days, #30 TAB Prov:SAMANTHA BOB MD 11/16/18 Isosorbide Dinitrate* (Isosorbide Dinitrate*) 30 Mg Tablet, 30 MG PO BID for 10 Days, #20 TAB Prov:SAMANTHA BOB MD 11/16/18 Reported Medications Amiodarone Hcl* (Amiodarone Hcl*) 200 Mg Tablet, 200 MG PO DAILY, #30 TAB 11/13/18 Potassium Chloride* (Potassium Chloride*) 8 Meq Capsule.er, 8 MEQ PO DAILY, CAP 11/13/18 Levothyroxine Sodium* (Levoxyl*) 150 Mcg Tablet, 150 MCG PO BEFORE BREAKFAST, #30 TAB 07/20/18 Discontinued Scripts Sennosides* (Senna Lax*) 8.6 Mg Tablet, 2 TAB PO BID, #60 TAB Prov:LEWIS JOHN 08/04/18 Tamsulosin Hcl* (Flomax*) 0.4 Mg Cap.er.24h, 0.4 MG PO HS, #60 CAP Prov:LEWIS JOHN 08/04/18 Medications Current Medications Amiodarone HCl (Cordarone) 200 mg DAILY PO Last administered on 01/02/19at 08:44; Admin Dose 200 MG; Start 01/02/19 at 09:00 Aspirin (Halfprin) 81 mg DAILY PO Last administered on 01/02/19at 08:43; Admin Dose 81 MG; Start 01/02/19 at 09:00 Isosorbide Dinitrate (Isordil) 30 mg BID PO Last administered on 01/02/19at 08:43; Admin Dose 30 MG; Start 01/01/19 at 21:00 Levothyroxine Sodium (Synthroid) 150 mcg BEFORE BREAKFAST PO Last administered on 01/02/19at 06:04; Admin Dose 150 MCG; Start 01/02/19 at 07:00 Losartan Potassium (Cozaar) 50 mg BID PO ; Start 01/01/19 at 21:00; Status Hold Atorvastatin Calcium (Lipitor) 40 mg DAILY@21 PO Last administered on 01/01/19 21:10; Admin Dose 40 MG; Start 01/01/19 at 21:00 Lorazepam (Ativan) 0.5 mg Q8H PRN IV agitation Last administered on 01/02/19 03:54; Admin Dose 0.5 MG; Start 01/01/19 at 14:00 Albuterol/ Ipratropium (Duoneb) 3 ml Q6HWA RESP THERAPY HHN Last administered on 01/02/19 19:53; Admin Dose 3 ML; Start 01/01/19 at 14:00; Stop 01/03/19 at 13:59 Albuterol/ Ipratropium (Duoneb) 3 ml Q2H RESP THERAPY PRN HHN sob; Start 01/01/19 at 14:00 Hydralazine HCl (Apresoline) 10 mg Q6H PRN IV sbp >160mmhg Last administered on 01/01/19 16:15; Admin Dose 10 MG; Start 01/01/19 at 14:30 Bumetanide (Bumex) 1 mg BID DIURETICS IV Last administered on 01/02/19 17:53; Admin Dose 1 MG; Start 01/02/19 at 06:00 Levofloxacin/ Dextrose 100 ml @ 100 mls/hr Q24H IVPB Last administered on 01/02/19 12:27; Admin Dose 100 MLS/HR; Start 01/02/19 at 12:00 Fluconazole 100 ml @ 100 mls/hr Q24H IVPB Last administered on 01/02/19 15:19; Admin Dose 100 MLS/HR; Start 01/02/19 at 14:00 Sacubitril/ Valsartan (Entresto 24 Mg-26 Mg) 1 tab BID PO ; Start 01/02/19 at 21:00 Assessment/Plan Hospital Course (Demo Recall) 78-year-old male is known to me from a prior admission in July 2018. Patient was admitted today because of congestive heart failure and COPD. He has been having difficulty urinating and a urology consultation was therefore requested. Back in July 2018 he was having constant hematuria and finally we were able to do a cystoscopy and resection of the bladder tumors. He had extensive bladder tumors. I spent 3 hours resecting tumors on him and he still had may be some residual tumor. The suggestion was he may get some radiation treatment and follow-up. However since then he has been voiding and he was admitted twice here to this hospital after that for other medical problems. No urological follow-up until today. I just walked into his room and the nurse told me he did urinate about 15 minutes earlier about 200 mL and the urine was still in the urinal and that appeared to be clear yellow. The postvoid residual by bladder scan was 104 mL. The patient is always whining and one may think that he is in acute distress but that is the way he has been since I have known him. Presently the patient appears to be voiding well and the urine is clear and the postvoid residual is not too high. Urine cytology was ordered. He is comfortable and he does not have any gross hematuria now. Renal ultrasound does not show any hydronephrosis. And his creatinine is 1.24. Considering the extensive bladder tumors that he had he is doing well but most likely he still has tumors inside his bladder. We will have to discuss with the family if we shall do any intervention at this time. JOSE OCAMPO MD Jan 02, 2019 20:46
[2019-01-02] MEDS: ATORVASTATIN 40 MG TAB PO SCH (21:59)
[2019-01-02] MEDS: SACUBITRIL/VALSARTAN (24mg-26mg) TABLET PO SCH (21:59)
[2019-01-03] VITALS (11 sets, daily range): BP systolic 121–155; BP diastolic 57–70; PULSE 55–81; RESP 18–22
[2019-01-03] MEDS: BUMETANIDE 1 MG INJ IV SCH ×2 (05:58→18:16)
[2019-01-03] MEDS: LEVOTHYROXINE 150 MCG TAB PO SCH (06:01)
[2019-01-03] MEDS: ALBUTEROL/IPRATROPIUM (NEB) 3 ML AMP HHN SCH ×2 (08:26→13:07)
--- NOTE | 2019-01-03 09:13 | PN ---
Date/Time of Note Date/Time of Note DATE: 01/03/19 TIME: 09:13 Assessment/Plan VTE Prophylaxis Risk score (from Ns)>0 risk: 7 SCD applied (from [facility]): Yes Pharmacological prophylaxis: NA/contraindicated Pharm contraindication: bleeding Lines/Catheters IV [facility] (from [facility] Saline Lock Urinary Cath still in place: No Assessment/Plan Assessment/Plan 1. Acute hypoxic respiratory failure - improving and currently on 2L O2. Will assess need for home O2 prior to d/c. He has O2 at home but family pays out of pocket at this time 2. Acute on chronic, systolic and diastolic CHF exacerbation- improving - last EF 25% - Cardiology on board and appreciate recommendations for diuretic management 3. Symptomatic UTI with dysuria and known bladder ca - Urology on board and appreciate recommendations - s/p tumor resection in the past, but was non compliant with f/u mgt 4. Chronic atrial fibrillation with sinus bradycardia at this time - rate controlled - no anticoag given hx hematuria in setting of bladder CA 5. Chronic hypertension - stable 6. CAD s/p CABG - stable - continue current medications - Cardio on board 7. Chronic cardiomyopathy with ejection fraction of 25% 8. History of bladder tumors 9. Known moderate to severe aortic stenosis 10. Chronic hypothyroidism 11. Chronic dyslipidemia 12. Aortic aneurysms - one in ascending aorta measuring 4.4 cm and the other in the abdominal aorta measuring 4.6 cm 13. Disposition - Continue weaning from O2 as tolerated. evaluation for need for home O2 - Diuresis per Cardiology Result Diagram: 01/03/19 0745 01/03/19 0745 Results 24hrs Laboratory Tests Test 01/03/19 07:45 White Blood Count 16.1 H Red Blood Count 3.97 L Hemoglobin 11.5 L Hematocrit 37.1 L Mean Corpuscular Volume 93.5 Mean Corpuscular Hemoglobin 29.0 Mean Corpuscular Hemoglobin Concent 31.0 L Red Cell Distribution Width 16.7 H Platelet Count 217 Mean Platelet Volume 11.7 H Immature Granulocytes % 0.500 H Neutrophils % 82.7 H Lymphocytes % 5.5 L Monocytes % 11.0 Eosinophils % 0.1 Basophils % 0.2 Nucleated Red Blood Cells % 0.0 Immature Granulocytes # 0.080 H Neutrophils # 13.3 H Lymphocytes # 0.9 Monocytes # 1.8 H Eosinophils # 0.0 Basophils # 0.0 Nucleated Red Blood Cells # 0.0 Sodium Level 143 Potassium Level 3.4 L Chloride Level 97 Carbon Dioxide Level 32 H Anion Gap 14 H Blood Urea Nitrogen 31 H Creatinine 1.41 H Est Glomerular Filtrat Rate mL/min Glucose Level 126 Calcium Level 9.2 Subjective 24 Hr Interval Summary Free Text/Dictation Patient resting and in no acute distress. Daughter at bedside and concerned that Coumadin not being continued is contributing to fathers confusion. Discussed risks of anticoagulation in setting of previous hematuria and persistence of bladder tumors. Exam/Review of Systems Exam Vitals Vital Signs Date Temp Pulse Resp B/P (MAP) Pulse Ox O2 O2 Flow FiO2 Time Delivery Rate 01/03/19 96 5.0 08:34 01/03/19 69 20 Nasal 08:33 Cannula 01/03/19 98.2 154/70 08:11 (98) 01/02/19 40 13:50 Intake and Output 01/02/19 01/02/19 01/03/19 1515:00 23:00 07:00 IntakeIntake Total 50 ml 800 ml 200 ml OutputOutput Total 400 ml BalanceBalance -350 ml 800 ml 200 ml Exam General: Patient is laying in bed. no acute distress Chest: nontender Respiratory: Diminished. no wheezing or rhonchi Cardiovascular: S1, S2, regular rate and rhythm, no obvious murmurs Gastrointestinal: soft, nontender to palpation, nondistended, bowel sounds heard. no rebound or guarding Neurological: Moves all extremities spontaneously. no focal deficits. motor and sensory intact Skin: No new skin lesions Results Results 24hrs Laboratory Tests Test 01/03/19 07:45 White Blood Count 16.1 H Red Blood Count 3.97 L Hemoglobin 11.5 L Hematocrit 37.1 L Mean Corpuscular Volume 93.5 Mean Corpuscular Hemoglobin 29.0 Mean Corpuscular Hemoglobin Concent 31.0 L Red Cell Distribution Width 16.7 H Platelet Count 217 Mean Platelet Volume 11.7 H Immature Granulocytes % 0.500 H Neutrophils % 82.7 H Lymphocytes % 5.5 L Monocytes % 11.0 Eosinophils % 0.1 Basophils % 0.2 Nucleated Red Blood Cells % 0.0 Immature Granulocytes # 0.080 H Neutrophils # 13.3 H Lymphocytes # 0.9 Monocytes # 1.8 H Eosinophils # 0.0 Basophils # 0.0 Nucleated Red Blood Cells # 0.0 Sodium Level 143 Potassium Level 3.4 L Chloride Level 97 Carbon Dioxide Level 32 H Anion Gap 14 H Blood Urea Nitrogen 31 H Creatinine 1.41 H Est Glomerular Filtrat Rate mL/min Glucose Level 126 Calcium Level 9.2 Medications Medication Current Medications Amiodarone HCl (Cordarone) 200 mg DAILY PO Last administered on 01/02/19 08:44; Admin Dose 200 MG; Start 01/02/19 at 09:00 Aspirin (Halfprin) 81 mg DAILY PO Last administered on 01/02/19 08:43; Admin Dose 81 MG; Start 01/02/19 at 09:00 Isosorbide Dinitrate (Isordil) 30 mg BID PO Last administered on 01/02/19 22:09; Admin Dose 30 MG; Start 01/01/19 at 21:00 Levothyroxine Sodium (Synthroid) 150 mcg BEFORE BREAKFAST PO Last administered on 01/03/19 06:01; Admin Dose 150 MCG; Start 01/02/19 at 07:00 Losartan Potassium (Cozaar) 50 mg BID PO ; Start 01/01/19 at 21:00; Status Hold Atorvastatin Calcium (Lipitor) 40 mg DAILY@21 PO Last administered on 01/02/19 21:59; Admin Dose 40 MG; Start 01/01/19 at 21:00 Lorazepam (Ativan) 0.5 mg Q8H PRN IV agitation Last administered on 01/02/19 03:54; Admin Dose 0.5 MG; Start 01/01/19 at 14:00 Albuterol/ Ipratropium (Duoneb) 3 ml Q6HWA RESP THERAPY HHN Last administered on 01/03/19 08:26; Admin Dose 3 ML; Start 01/01/19 at 14:00; Stop 01/03/19 at 13:59 Albuterol/ Ipratropium (Duoneb) 3 ml Q2H RESP THERAPY PRN HHN sob; Start 01/01/19 at 14:00 Hydralazine HCl (Apresoline) 10 mg Q6H PRN IV sbp >160mmhg Last administered on 01/01/19 16:15; Admin Dose 10 MG; Start 01/01/19 at 14:30 Bumetanide (Bumex) 1 mg BID DIURETICS IV Last administered on 01/03/19 05:58; Admin Dose 1 MG; Start 01/02/19 at 06:00 Levofloxacin/ Dextrose 100 ml @ 100 mls/hr Q24H IVPB Last administered on 01/02/19at 12:27; Admin Dose 100 MLS/HR; Start 01/02/19 at 12:00 Fluconazole 100 ml @ 100 mls/hr Q24H IVPB Last administered on 01/02/19at 15:19; Admin Dose 100 MLS/HR; Start 01/02/19 at 14:00 Sacubitril/ Valsartan (Entresto 24 Mg-26 Mg) 1 tab BID PO Last administered on 01/02/19at 21:59; Admin Dose 1 TAB; Start 01/02/19 at 21:00 ROSALVA MOSELEY MD Jan 03, 2019 09:13
[2019-01-03] MEDS: SACUBITRIL/VALSARTAN (24mg-26mg) TABLET PO SCH ×2 (09:14→20:55)
[2019-01-03] MEDS: AMIODARONE 200 MG TAB PO SCH (09:15)
[2019-01-03] MEDS: ISOSORBIDE DINITRATE 10 MG TAB PO SCH ×2 (09:15→20:55)
[2019-01-03] MEDS: ASPIRIN (EC) 81 MG TAB PO SCH (09:15)
[2019-01-03] MEDS: LORAZEPAM 2 MG INJ IV PRN (09:44)
--- NOTE | 2019-01-03 11:28 | CONS ---
Consult Date/Type/Reason Admit Date/Time Jan 01, 2019 at 08:16 Initial Consult Date 01/01/19 Type of Consult Pulmonary Requesting Provider: MAYELIN BARRETT Date/Time of Note DATE: 01/03/19 TIME: 11:26 Subjective Patient appears comfortable on nasal cannula this morning. Objective Vital Signs Date Temp Pulse Resp B/P (MAP) Pulse Ox O2 O2 Flow FiO2 Time Delivery Rate 01/03/19 96 5.0 08:34 01/03/19 69 20 Nasal 08:33 Cannula 01/03/19 98.2 154/70 08:11 (98) 01/02/19 40 13:50 Intake and Output 01/02/19 01/02/19 01/03/19 1515:00 23:00 07:00 IntakeIntake Total 50 ml 800 ml 200 ml OutputOutput Total 400 ml BalanceBalance -350 ml 800 ml 200 ml Exam PHYSICAL EXAMINATION: GENERAL: Well-nourished, well-developed gentleman, comfortable at rest, no acute distress. VITAL SIGNS: NECK: Supple. No JVD or lymphadenopathy. CARDIAC: S1, S2, no added sounds or murmurs. CHEST: Diminished air entry bilaterally with few expiratory wheezes. ABDOMEN: Soft, nontender. No guarding or rebound. EXTREMITIES: No cyanosis, clubbing, edema. NEUROLOGIC: Grossly intact. No focal deficits. Vent Setting Fraction of Inspired Oxygen pe: 40 Results/Medications Result Diagram: 01/03/19 0745 01/03/19 0745 Results 24 hrs Laboratory Tests Test 01/03/19 07:45 White Blood Count 16.1 H Red Blood Count 3.97 L Hemoglobin 11.5 L Hematocrit 37.1 L Mean Corpuscular Volume 93.5 Mean Corpuscular Hemoglobin 29.0 Mean Corpuscular Hemoglobin Concent 31.0 L Red Cell Distribution Width 16.7 H Platelet Count 217 Mean Platelet Volume 11.7 H Immature Granulocytes % 0.500 H Neutrophils % 82.7 H Lymphocytes % 5.5 L Monocytes % 11.0 Eosinophils % 0.1 Basophils % 0.2 Nucleated Red Blood Cells % 0.0 Immature Granulocytes # 0.080 H Neutrophils # 13.3 H Lymphocytes # 0.9 Monocytes # 1.8 H Eosinophils # 0.0 Basophils # 0.0 Nucleated Red Blood Cells # 0.0 Sodium Level 143 Potassium Level 3.4 L Chloride Level 97 Carbon Dioxide Level 32 H Anion Gap 14 H Blood Urea Nitrogen 31 H Creatinine 1.41 H Est Glomerular Filtrat Rate mL/min Glucose Level 126 Calcium Level 9.2 Medications Current Medications Amiodarone HCl (Cordarone) 200 mg DAILY PO Last administered on 01/03/19 09:15; Admin Dose 200 MG; Start 01/02/19 at 09:00 Aspirin (Halfprin) 81 mg DAILY PO Last administered on 01/03/19 09:15; Admin Dose 81 MG; Start 01/02/19 at 09:00 Isosorbide Dinitrate (Isordil) 30 mg BID PO Last administered on 01/03/19 09:15; Admin Dose 30 MG; Start 01/01/19 at 21:00 Levothyroxine Sodium (Synthroid) 150 mcg BEFORE BREAKFAST PO Last administered on 01/03/19 06:01; Admin Dose 150 MCG; Start 01/02/19 at 07:00 Losartan Potassium (Cozaar) 50 mg BID PO ; Start 01/01/19 at 21:00; Status Hold Atorvastatin Calcium (Lipitor) 40 mg DAILY@21 PO Last administered on 01/02/19 21:59; Admin Dose 40 MG; Start 01/01/19 at 21:00 Lorazepam (Ativan) 0.5 mg Q8H PRN IV agitation Last administered on 01/03/19 09:44; Admin Dose 0.5 MG; Start 01/01/19 at 14:00 Albuterol/ Ipratropium (Duoneb) 3 ml Q6HWA RESP THERAPY HHN Last administered on 01/03/19 08:26; Admin Dose 3 ML; Start 01/01/19 at 14:00; Stop 01/03/19 at 13:59 Albuterol/ Ipratropium (Duoneb) 3 ml Q2H RESP THERAPY PRN HHN sob; Start 01/01/19 at 14:00 Hydralazine HCl (Apresoline) 10 mg Q6H PRN IV sbp >160mmhg Last administered on 01/01/19 16:15; Admin Dose 10 MG; Start 01/01/19 at 14:30 Bumetanide (Bumex) 1 mg BID DIURETICS IV Last administered on 01/03/19 05:58; Admin Dose 1 MG; Start 01/02/19 at 06:00 Levofloxacin/ Dextrose 100 ml @ 100 mls/hr Q24H IVPB Last administered on 01/02/19at 12:27; Admin Dose 100 MLS/HR; Start 01/02/19 at 12:00 Fluconazole 100 ml @ 100 mls/hr Q24H IVPB Last administered on 01/02/19at 15:19; Admin Dose 100 MLS/HR; Start 01/02/19 at 14:00 Sacubitril/ Valsartan (Entresto 24 Mg-26 Mg) 1 tab BID PO Last administered on 01/03/19at 09:14; Admin Dose 1 TAB; Start 01/02/19 at 21:00 Potassium Chloride 100 ml @ 50 mls/hr Q2H IVPB ; Start 01/03/19 at 11:00; Stop 01/03/19 at 14:59 Assessment/Plan Hospital Course (Demo Recall) IMPRESSION 1. Dyspnea, likely secondary to combination of chronic obstructive pulmonary disease exacerbation and congestive cardiac failure. History of systolic dysfunction with decreased EF at 25%. CT chest findings noted AAA also noted. 2. Prior extensive tobacco history with underlying history of chronic obstructive pulmonary disease. 3. Evidence of urinary tract infection on urinalysis. Plan 1. Diuresis. 2. Supplemental O2. 3. Bronchodilator treatment. 4. Urology recommendations given history of bladder carcinoma. 5. Deep vein thrombosis and gastrointestinal prophylaxis. Consider transfer to [facility]. May require home O2. OPAL ESCAMILLA MD, [facility] Jan 03, 2019 11:28
[2019-01-03] MEDS: LEVOFLOXACIN 500MG/D5W (PMX) 100 ML IVPB SCH (12:02)
[2019-01-03] MEDS: FLUCONAZOLE 200 MG (PMX) 100 ML IVPB SCH (13:46)
[2019-01-03] MEDS: POTASSIUM CHLORIDE 100 ML IVPB SCH ×2 (15:27→18:19)
--- NOTE | 2019-01-03 18:56 | CONS ---
Consult Date/Type/Reason Admit Date/Time Jan 01, 2019 at 08:16 Initial Consult Date 01/01/19 Type of Consultation: Urology Reason for Consultation History of bladder tumor, urinary tract infection and urinary incontinence Requesting Provider: MAYELIN BARRETT Date/Time of Note DATE: 01/03/19 TIME: 18:53 Subjective Patient is awake and comfortable. He is voiding but is incontinent. Objective Vitals Vital Signs Date Temp Pulse Resp B/P (MAP) Pulse Ox O2 O2 Flow FiO2 Time Delivery Rate 01/03/19 2.0 18:18 01/03/19 79 16:00 01/03/19 97.9 22 121/57 98 16:00 (78) 01/03/19 Nasal 13:10 Cannula 01/02/19 40 13:50 Intake and Output 01/02/19 01/02/19 01/03/19 1515:00 23:00 07:00 IntakeIntake Total 50 ml 800 ml 200 ml OutputOutput Total 400 ml BalanceBalance -350 ml 800 ml 200 ml Exam Urine culture growing gram-negative rods Results/Medications Result Diagram: 01/03/19 0745 01/03/19 0745 Results 24 hrs Laboratory Tests Test 01/03/19 07:45 White Blood Count 16.1 H Red Blood Count 3.97 L Hemoglobin 11.5 L Hematocrit 37.1 L Mean Corpuscular Volume 93.5 Mean Corpuscular Hemoglobin 29.0 Mean Corpuscular Hemoglobin Concent 31.0 L Red Cell Distribution Width 16.7 H Platelet Count 217 Mean Platelet Volume 11.7 H Immature Granulocytes % 0.500 H Neutrophils % 82.7 H Lymphocytes % 5.5 L Monocytes % 11.0 Eosinophils % 0.1 Basophils % 0.2 Nucleated Red Blood Cells % 0.0 Immature Granulocytes # 0.080 H Neutrophils # 13.3 H Lymphocytes # 0.9 Monocytes # 1.8 H Eosinophils # 0.0 Basophils # 0.0 Nucleated Red Blood Cells # 0.0 Sodium Level 143 Potassium Level 3.4 L Chloride Level 97 Carbon Dioxide Level 32 H Anion Gap 14 H Blood Urea Nitrogen 31 H Creatinine 1.41 H Est Glomerular Filtrat Rate mL/min Glucose Level 126 Calcium Level 9.2 Home Meds Active Scripts Aspirin Delayed Release (Aspirin Delayed Release) 81 Mg Tablet.dr 81 MG PO DAILY for 30 Days, #30 otc Prov:CHIKYARAPPA,SAMANTHA K MD 11/16/18 Bumetanide* (Bumetanide*) 1 Mg Tablet, 1 MG PO DAILY for 14 Days, #15 TAB Prov:SAMANTHA BOB MD 11/16/18 Losartan Potassium* (Losartan Potassium*) 50 Mg Tablet, 50 MG PO BID for 10 Days, #20 TAB Prov:SAMANTHA BOB MD 11/16/18 Rosuvastatin Calcium* (Crestor*) 10 Mg Tablet, 10 MG PO QHS for 30 Days, #30 TAB Prov:SAMANTHA BOB MD 11/16/18 Isosorbide Dinitrate* (Isosorbide Dinitrate*) 30 Mg Tablet, 30 MG PO BID for 10 Days, #20 TAB Prov:SAMANTHA BOB MD 11/16/18 Reported Medications Amiodarone Hcl* (Amiodarone Hcl*) 200 Mg Tablet, 200 MG PO DAILY, #30 TAB 11/13/18 Potassium Chloride* (Potassium Chloride*) 8 Meq Capsule.er, 8 MEQ PO DAILY, CAP 11/13/18 Levothyroxine Sodium* (Levoxyl*) 150 Mcg Tablet, 150 MCG PO BEFORE BREAKFAST, #30 TAB 07/20/18 Discontinued Scripts Sennosides* (Senna Lax*) 8.6 Mg Tablet, 2 TAB PO BID, #60 TAB Prov:LEWIS JOHN 08/04/18 Tamsulosin Hcl* (Flomax*) 0.4 Mg Cap.er.24h, 0.4 MG PO HS, #60 CAP Prov:LEWIS JOHN 08/04/18 Medications Current Medications Amiodarone HCl (Cordarone) 200 mg DAILY PO Last administered on 01/03/19at 09:15; Admin Dose 200 MG; Start 01/02/19 at 09:00 Aspirin (Halfprin) 81 mg DAILY PO Last administered on 01/03/19at 09:15; Admin Dose 81 MG; Start 01/02/19 at 09:00 Isosorbide Dinitrate (Isordil) 30 mg BID PO Last administered on 01/03/19at 09:15; Admin Dose 30 MG; Start 01/01/19 at 21:00 Levothyroxine Sodium (Synthroid) 150 mcg BEFORE BREAKFAST PO Last administered on 01/03/19 06:01; Admin Dose 150 MCG; Start 01/02/19 at 07:00 Losartan Potassium (Cozaar) 50 mg BID PO ; Start 01/01/19 at 21:00; Status Hold Atorvastatin Calcium (Lipitor) 40 mg DAILY@21 PO Last administered on 01/02/19 21:59; Admin Dose 40 MG; Start 01/01/19 at 21:00 Lorazepam (Ativan) 0.5 mg Q8H PRN IV agitation Last administered on 01/03/19 09:44; Admin Dose 0.5 MG; Start 01/01/19 at 14:00 Albuterol/ Ipratropium (Duoneb) 3 ml Q2H RESP THERAPY PRN HHN sob; Start 01/01/19 at 14:00 Hydralazine HCl (Apresoline) 10 mg Q6H PRN IV sbp >160mmhg Last administered on 01/01/19 16:15; Admin Dose 10 MG; Start 01/01/19 at 14:30 Bumetanide (Bumex) 1 mg BID DIURETICS IV Last administered on 01/03/19 18:16; Admin Dose 1 MG; Start 01/02/19 at 06:00 Levofloxacin/ Dextrose 100 ml @ 100 mls/hr Q24H IVPB Last administered on 01/03/19 12:02; Admin Dose 100 MLS/HR; Start 01/02/19 at 12:00 Fluconazole 100 ml @ 100 mls/hr Q24H IVPB Last administered on 01/03/19 13:46; Admin Dose 100 MLS/HR; Start 01/02/19 at 14:00 Sacubitril/ Valsartan (Entresto 24 Mg-26 Mg) 1 tab BID PO Last administered on 01/03/19 09:14; Admin Dose 1 TAB; Start 01/02/19 at 21:00 Assessment/Plan Hospital Course (Demo Recall) 78-year-old male is known to me from a prior admission in July 2018. Patient was admitted today because of congestive heart failure and COPD. He has been having difficulty urinating and a urology consultation was therefore requested. Back in July 2018 he was having constant hematuria and finally we were able to do a cystoscopy and resection of the bladder tumors. He had extensive bladder tumors. I spent 3 hours resecting tumors on him and he still had may be some residual tumor. The suggestion was he may get some radiation treatment and follow-up. However since then he has been voiding and he was admitted twice here to this hospital after that for other medical problems. No urological follow-up until today. I just walked into his room and the nurse told me he did urinate about 15 minutes earlier about 200 mL and the urine was still in the urinal and that appeared to be clear yellow. The postvoid residual by bladder scan was 104 mL. The patient is always whining and one may think that he is in acute distress but that is the way he has been since I have known him. Presently the patient appears to be voiding well and the urine is clear and the postvoid residual is not too high. Urine cytology was ordered. He is comfortable and he does not have any gross hematuria now. Renal ultrasound does not show any hydronephrosis. And his creatinine is 1.41. Urine culture growing gram-negative rods. For now continue his antibiotic. And he will need cystoscopy and possible TUR bladder tumor if he is agreeable or his family is agreeable and if he is medically cleared for that JOSE OCAMPO MD Jan 03, 2019 18:56
[2019-01-03] MEDS: ATORVASTATIN 40 MG TAB PO SCH (20:55)
[2019-01-04] VITALS (9 sets, daily range): BP systolic 113–133; BP diastolic 56–64; PULSE 52–92; RESP 16–18
[2019-01-04] MEDS: BUMETANIDE 1 MG INJ IV SCH ×2 (06:13→18:39)
[2019-01-04] MEDS: LEVOTHYROXINE 150 MCG TAB PO SCH (06:14)
[2019-01-04] MEDS ORDERED: POTASSIUM CHLORIDE (SR) 20 MEQ TAB PO STA (09:17)
--- NOTE | 2019-01-04 09:22 | PN ---
Date/Time of Note Date/Time of Note DATE: 01/04/19 TIME: 09:22 Assessment/Plan VTE Prophylaxis Risk score (from Ns)>0 risk: 9 SCD applied (from [facility] No SCD contraindicated: patient refusal Pharmacological prophylaxis: NA/contraindicated Pharm contraindication: bleeding Lines/Catheters IV [facility]ter [facility] (from [facility]): Peripheral IV Urinary Cath still in place: No Assessment/Plan Assessment/Plan 1. Acute hypoxic respiratory failure - Patient back up to 4L today and will continue weaning as tolerated. Will need to be evaluated for home O2 given has been desaturating at rest and may be able to have insurance cover - wean down O2 as tolerated 2. Acute on chronic, systolic and diastolic CHF exacerbation- improving - most likely contributing to #1 - last EF 25% - Cardiology on board and appreciate recommendations for diuretic management 3. Symptomatic UTI with dysuria and known bladder ca - UCx noted with ESBL and started on Ertapenem - Urology on board and appreciate recommendations - s/p tumor resection in the past, but was non compliant with f/u mgt 4. Chronic atrial fibrillation with sinus bradycardia at this time - rate controlled - no anticoag given hx hematuria in setting of bladder CA 5. Chronic hypertension - stable 6. CAD s/p CABG - stable - continue current medications - Cardio on board 7. Chronic cardiomyopathy with ejection fraction of 25% 8. History of bladder tumors - Urology on board and discussed with family taking back to OR for cystoscopy and TURB if family and patient agreeable 9. Known moderate to severe aortic stenosis 10. Chronic hypothyroidism 11. Chronic dyslipidemia 12. Aortic aneurysms - one in ascending aorta measuring 4.4 cm and the other in the abdominal aorta measuring 4.6 cm 13. Disposition - Plans for cystoscopy and TURB if family agreeable - Continue diuresis per Cardiology - Wean O2 as tolerated Result Diagram: 01/04/19 0746 01/04/19 0746 Results 24hrs Laboratory Tests Test 01/03/19 21:00 01/04/19 07:46 Blood Gas Specimen Source Blood arterial Arterial Blood Date Drawn 01/03/2019 9:40:00 PM Arterial Blood pH (Temp corrected) 7.514 H Arterial Blood pCO2 (Temp correct) 34.6 L Arterial Blood pO2 (Temp corrected) 24.9 *L Arterial Blood HCO3 27.2 H Arterial Blood Base Excess 4.4 H Arterial Blood Oxygen Saturation 47.1 L Gil Test N/A Arterial Blood Gas Puncture Site Right Brachial Arterial Blood Carboxyhemoglobin 0.5 Arterial Blood Methemoglobin 0.3 Blood Gas A-a O2 Differential 83.4 H Oxyhemoglobin Percent 46.7 L Blood Gas Temperature 37.0 Blood Gas Actual Respiration Rate 28 Blood Gas Modality ROOM AIR FiO2 21.0 Blood Gas Critical Value Read Back CONNER COOLEY Blood Gas Notified Whom MA Blood Gas Notified Time 01/03/2019 10:01:00 PM White Blood Count 19.3 H Red Blood Count 3.82 L Hemoglobin 11.1 L Hematocrit 35.2 L Mean Corpuscular Volume 92.1 Mean Corpuscular Hemoglobin 29.1 Mean Corpuscular Hemoglobin Concent 31.5 L Red Cell Distribution Width 16.9 H Platelet Count 186 Mean Platelet Volume 11.7 H Immature Granulocytes % 0.700 H Neutrophils % 79.3 H Lymphocytes % 6.4 L Monocytes % 13.3 H Eosinophils % 0.1 Basophils % 0.2 Nucleated Red Blood Cells % 0.0 Immature Granulocytes # 0.140 H Neutrophils # 15.3 H Lymphocytes # 1.2 Monocytes # 2.6 H Eosinophils # 0.0 Basophils # 0.0 Nucleated Red Blood Cells # 0.0 Sodium Level 142 Potassium Level 3.4 L Chloride Level 101 Carbon Dioxide Level 33 H Anion Gap 8 Blood Urea Nitrogen 29 H Creatinine 1.36 H Est Glomerular Filtrat Rate mL/min Glucose Level 116 Calcium Level 8.6 Magnesium Level 2.0 Subjective 24 Hr Interval Summary Free Text/Dictation Patient more awake this am and answering questions. Denies any acute issues. Son at bedside and discussed Dr. Alcala wanting to take him back to cystoscopy. Exam/Review of Systems Exam Vitals Vital Signs Date Temp Pulse Resp B/P (MAP) Pulse Ox O2 O2 Flow FiO2 Time Delivery Rate 01/04/19 98.1 52 16 120/60 91 07:54 (80) 01/04/19 Nasal 4.0 07:38 Cannula 01/02/19 40 13:50 Intake and Output 01/03/19 01/03/19 01/04/19 1515:00 23:00 07:00 IntakeIntake Total 650 ml 150 ml BalanceBalance 650 ml 150 ml Exam General: Patient is laying in bed. no acute distress Chest: nontender Respiratory: Diminished. no wheezing or rhonchi Cardiovascular: S1, S2, regular rate and rhythm, no obvious murmurs Gastrointestinal: soft, nontender to palpation, nondistended, bowel sounds heard. no rebound or guarding Neurological: Moves all extremities spontaneously. no focal deficits. motor and sensory intact Skin: No new skin lesions Results Results 24hrs Laboratory Tests Test 01/03/19 21:00 01/04/19 07:46 Blood Gas Specimen Source Blood arterial Arterial Blood Date Drawn 01/03/2019 9:40:00 PM Arterial Blood pH (Temp corrected) 7.514 H Arterial Blood pCO2 (Temp correct) 34.6 L Arterial Blood pO2 (Temp corrected) 24.9 *L Arterial Blood HCO3 27.2 H Arterial Blood Base Excess 4.4 H Arterial Blood Oxygen Saturation 47.1 L Gil Test N/A Arterial Blood Gas Puncture Site Right Brachial Arterial Blood Carboxyhemoglobin 0.5 Arterial Blood Methemoglobin 0.3 Blood Gas A-a O2 Differential 83.4 H Oxyhemoglobin Percent 46.7 L Blood Gas Temperature 37.0 Blood Gas Actual Respiration Rate 28 Blood Gas Modality ROOM AIR FiO2 21.0 Blood Gas Critical Value Read Back CONNER COOLEY Blood Gas Notified Whom MA Blood Gas Notified Time 01/03/2019 10:01:00 PM White Blood Count 19.3 H Red Blood Count 3.82 L Hemoglobin 11.1 L Hematocrit 35.2 L Mean Corpuscular Volume 92.1 Mean Corpuscular Hemoglobin 29.1 Mean Corpuscular Hemoglobin Concent 31.5 L Red Cell Distribution Width 16.9 H Platelet Count 186 Mean Platelet Volume 11.7 H Immature Granulocytes % 0.700 H Neutrophils % 79.3 H Lymphocytes % 6.4 L Monocytes % 13.3 H Eosinophils % 0.1 Basophils % 0.2 Nucleated Red Blood Cells % 0.0 Immature Granulocytes # 0.140 H Neutrophils # 15.3 H Lymphocytes # 1.2 Monocytes # 2.6 H Eosinophils # 0.0 Basophils # 0.0 Nucleated Red Blood Cells # 0.0 Sodium Level 142 Potassium Level 3.4 L Chloride Level 101 Carbon Dioxide Level 33 H Anion Gap 8 Blood Urea Nitrogen 29 H Creatinine 1.36 H Est Glomerular Filtrat Rate mL/min Glucose Level 116 Calcium Level 8.6 Magnesium Level 2.0 Medications Medication Current Medications Amiodarone HCl (Cordarone) 200 mg DAILY PO Last administered on 01/03/19at 09:15; Admin Dose 200 MG; Start 01/02/19 at 09:00 Aspirin (Halfprin) 81 mg DAILY PO Last administered on 01/03/19 09:15; Admin Dose 81 MG; Start 01/02/19 at 09:00 Isosorbide Dinitrate (Isordil) 30 mg BID PO Last administered on 01/03/19 20:55; Admin Dose 30 MG; Start 01/01/19 at 21:00 Levothyroxine Sodium (Synthroid) 150 mcg BEFORE BREAKFAST PO Last administered on 01/04/19 06:14; Admin Dose 150 MCG; Start 01/02/19 at 07:00 Losartan Potassium (Cozaar) 50 mg BID PO ; Start 01/01/19 at 21:00; Status Hold Atorvastatin Calcium (Lipitor) 40 mg DAILY@21 PO Last administered on 01/03/19 20:55; Admin Dose 40 MG; Start 01/01/19 at 21:00 Lorazepam (Ativan) 0.5 mg Q8H PRN IV agitation Last administered on 01/03/19 09:44; Admin Dose 0.5 MG; Start 01/01/19 at 14:00 Albuterol/ Ipratropium (Duoneb) 3 ml Q2H RESP THERAPY PRN HHN sob; Start 01/01/19 at 14:00 Hydralazine HCl (Apresoline) 10 mg Q6H PRN IV sbp >160mmhg Last administered on 01/01/19 16:15; Admin Dose 10 MG; Start 01/01/19 at 14:30 Bumetanide (Bumex) 1 mg BID DIURETICS IV Last administered on 01/04/19 06:13; Admin Dose 1 MG; Start 01/02/19 at 06:00 Sacubitril/ Valsartan (Entresto 24 Mg-26 Mg) 1 tab BID PO Last administered on 01/03/19 20:55; Admin Dose 1 TAB; Start 01/02/19 at 21:00 Meropenem/Sodium Chloride 50 ml @ 100 mls/hr Q12 IVPB ; Start 01/04/19 at 09:30; Status ROSALVA PERKINS MD Jan 04, 2019 09:22
[2019-01-04] MEDS: ISOSORBIDE DINITRATE 10 MG TAB PO SCH ×2 (09:27→20:47)
[2019-01-04] MEDS: SACUBITRIL/VALSARTAN (24mg-26mg) TABLET PO SCH ×2 (09:27→20:47)
[2019-01-04] MEDS: AMIODARONE 200 MG TAB PO SCH (09:27)
[2019-01-04] MEDS: ASPIRIN (EC) 81 MG TAB PO SCH (09:27)
[2019-01-04] MEDS ORDERED: MEROPENEM 1 GM/50ML(PMX) 50 ML IVPB SCH (09:30)
--- NOTE | 2019-01-04 11:10 | CONS ---
Consult Date/Type/Reason Admit Date/Time Jan 01, 2019 at 08:16 Initial Consult Date 01/01/19 Type of Consult Pulmonary Requesting Provider: MAYELIN BARRETT Date/Time of Note DATE: 01/04/19 TIME: 11:08 Subjective Appears comfortable this morning. Objective Vital Signs Date Temp Pulse Resp B/P (MAP) Pulse Ox O2 O2 Flow FiO2 Time Delivery Rate 01/04/19 56 09:50 01/04/19 98.1 16 120/60 91 07:54 (80) 01/04/19 Nasal 4.0 07:38 Cannula 01/02/19 40 13:50 Intake and Output 01/03/19 01/03/19 01/04/19 1515:00 23:00 07:00 IntakeIntake Total 650 ml 150 ml BalanceBalance 650 ml 150 ml Exam PHYSICAL EXAMINATION: GENERAL: Well-nourished, well-developed gentleman, comfortable at rest, no acute distress. VITAL SIGNS: NECK: Supple. No JVD or lymphadenopathy. CARDIAC: S1, S2, no added sounds or murmurs. CHEST: Diminished air entry bilaterally with few expiratory wheezes. ABDOMEN: Soft, nontender. No guarding or rebound. EXTREMITIES: No cyanosis, clubbing, edema. NEUROLOGIC: Grossly intact. No focal deficits. Vent Setting Fraction of Inspired Oxygen pe: 40 Results/Medications Result Diagram: 01/04/1946 01/04/19 0746 Results 24 hrs Laboratory Tests Test 01/03/19 21:00 01/04/19 07:46 Blood Gas Specimen Source Blood arterial Arterial Blood Date Drawn 01/03/2019 9:40:00 PM Arterial Blood pH (Temp corrected) 7.514 H Arterial Blood pCO2 (Temp correct) 34.6 L Arterial Blood pO2 (Temp corrected) 24.9 *L Arterial Blood HCO3 27.2 H Arterial Blood Base Excess 4.4 H Arterial Blood Oxygen Saturation 47.1 L Gil Test N/A Arterial Blood Gas Puncture Site Right Brachial Arterial Blood Carboxyhemoglobin 0.5 Arterial Blood Methemoglobin 0.3 Blood Gas A-a O2 Differential 83.4 H Oxyhemoglobin Percent 46.7 L Blood Gas Temperature 37.0 Blood Gas Actual Respiration Rate 28 Blood Gas Modality ROOM AIR FiO2 21.0 Blood Gas Critical Value Read Back CONNER COOLEY Blood Gas Notified Whom SAMY Blood Gas Notified Time 01/03/2019 10:01:00 PM White Blood Count 19.3 H Red Blood Count 3.82 L Hemoglobin 11.1 L Hematocrit 35.2 L Mean Corpuscular Volume 92.1 Mean Corpuscular Hemoglobin 29.1 Mean Corpuscular Hemoglobin Concent 31.5 L Red Cell Distribution Width 16.9 H Platelet Count 186 Mean Platelet Volume 11.7 H Immature Granulocytes % 0.700 H Neutrophils % 79.3 H Lymphocytes % 6.4 L Monocytes % 13.3 H Eosinophils % 0.1 Basophils % 0.2 Nucleated Red Blood Cells % 0.0 Immature Granulocytes # 0.140 H Neutrophils # 15.3 H Lymphocytes # 1.2 Monocytes # 2.6 H Eosinophils # 0.0 Basophils # 0.0 Nucleated Red Blood Cells # 0.0 Sodium Level 142 Potassium Level 3.4 L Chloride Level 101 Carbon Dioxide Level 33 H Anion Gap 8 Blood Urea Nitrogen 29 H Creatinine 1.36 H Est Glomerular Filtrat Rate mL/min Glucose Level 116 Calcium Level 8.6 Magnesium Level 2.0 Medications Current Medications Amiodarone HCl (Cordarone) 200 mg DAILY PO Last administered on 01/04/19 09:27; Admin Dose 200 MG; Start 01/02/19 at 09:00 Aspirin (Halfprin) 81 mg DAILY PO Last administered on 01/04/19 09:27; Admin Dose 81 MG; Start 01/02/19 at 09:00 Isosorbide Dinitrate (Isordil) 30 mg BID PO Last administered on 01/04/19 09:27; Admin Dose 30 MG; Start 01/01/19 at 21:00 Levothyroxine Sodium (Synthroid) 150 mcg BEFORE BREAKFAST PO Last administered on 01/04/19 06:14; Admin Dose 150 MCG; Start 01/02/19 at 07:00 Losartan Potassium (Cozaar) 50 mg BID PO ; Start 01/01/19 at 21:00; Status Hold Atorvastatin Calcium (Lipitor) 40 mg DAILY@21 PO Last administered on 01/03/19 20:55; Admin Dose 40 MG; Start 01/01/19 at 21:00 Lorazepam (Ativan) 0.5 mg Q8H PRN IV agitation Last administered on 01/03/19 09:44; Admin Dose 0.5 MG; Start 01/01/19 at 14:00 Albuterol/ Ipratropium (Duoneb) 3 ml Q2H RESP THERAPY PRN HHN sob; Start 01/01/19 at 14:00 Hydralazine HCl (Apresoline) 10 mg Q6H PRN IV sbp >160mmhg Last administered on 01/01/19at 16:15; Admin Dose 10 MG; Start 01/01/19 at 14:30 Bumetanide (Bumex) 1 mg BID DIURETICS IV Last administered on 01/04/19at 06:13; Admin Dose 1 MG; Start 01/02/19 at 06:00 Sacubitril/ Valsartan (Entresto 24 Mg-26 Mg) 1 tab BID PO Last administered on 01/04/19at 09:27; Admin Dose 1 TAB; Start 01/02/19 at 21:00 Ertapenem 1 gm/ Sodium Chloride 100 ml @ 200 mls/hr Q24H IVPB ; Start 01/04/19 at 11:00 Assessment/Plan Hospital Course (Demo Recall) IMPRESSION 1. Dyspnea, likely secondary to combination of chronic obstructive pulmonary disease exacerbation and congestive cardiac failure. History of systolic dysfunction with decreased EF at 25%. CT chest findings noted AAA also noted. History of aortic stenosis also. 2. Prior extensive tobacco history with underlying history of chronic obstructi ve pulmonary disease. 3. Evidence of urinary tract infection on urinalysis. Plan 1. Diuresis. 2. Supplemental O2. 3. Bronchodilator treatment. 4. Urology recommendations given history of bladder carcinoma. 5. Deep vein thrombosis and gastrointestinal prophylaxis. 6. Worsening leukocytosis noted. Consider broadening antibiotics including gram-positive coverage OPAL ESCAMILLA MD, [facility] Jan 04, 2019 11:10
[2019-01-04] MEDS ORDERED: VANCOMYCIN IV PER PHARMACY XX SCH (11:30)
[2019-01-04] MEDS: ERTAPENEM SODIUM 1 GM in SOD CHLORIDE 0.9% 100 ML IVPB SCH (11:58)
[2019-01-04] MEDS ORDERED: VANCOMYCIN HCL 1.75 GM in SOD CHLORIDE 0.9% 500 ML IVPB ONE (13:00)
--- NOTE | 2019-01-04 14:44 | CONS ---
Consult Date/Type/Reason Admit Date/Time Jan 01, 2019 at 08:16 Initial Consult Date 01/01/19 Type of Consultation: Urology Reason for Consultation History of bladder tumor and urinary tract infection Requesting Provider: MAYELIN BARRETT Date/Time of Note DATE: 01/04/19 TIME: 14:38 Subjective The patient is more alert today and appears to be much more comfortable. His daughter is at his bedside. Objective Vitals Vital Signs Date Temp Pulse Resp B/P (MAP) Pulse Ox O2 O2 Flow FiO2 Time Delivery Rate 01/04/19 57 12:41 01/04/19 97.6 16 113/63 95 11:59 (80) 01/04/19 Nasal 4.0 07:38 Cannula 01/02/19 40 13:50 Intake and Output 01/03/19 01/03/19 01/04/19 1515:00 23:00 07:00 IntakeIntake Total 650 ml 150 ml BalanceBalance 650 ml 150 ml Exam He is voiding and the urine so far is clear. His urine culture did show E. coli ESBL. And he is on ertapenem Results/Medications Result Diagram: 01/04/19 0746 01/04/19 0746 Results 24 hrs Laboratory Tests Test 01/03/19 21:00 01/04/19 07:46 Blood Gas Specimen Source Blood arterial Arterial Blood Date Drawn 01/03/2019 9:40:00 PM Arterial Blood pH (Temp corrected) 7.514 H Arterial Blood pCO2 (Temp correct) 34.6 L Arterial Blood pO2 (Temp corrected) 24.9 *L Arterial Blood HCO3 27.2 H Arterial Blood Base Excess 4.4 H Arterial Blood Oxygen Saturation 47.1 L Gil Test N/A Arterial Blood Gas Puncture Site Right Brachial Arterial Blood Carboxyhemoglobin 0.5 Arterial Blood Methemoglobin 0.3 Blood Gas A-a O2 Differential 83.4 H Oxyhemoglobin Percent 46.7 L Blood Gas Temperature 37.0 Blood Gas Actual Respiration Rate 28 Blood Gas Modality ROOM AIR FiO2 21.0 Blood Gas Critical Value Read Back CONNER COOLEY Blood Gas Notified Whom SAMY Blood Gas Notified Time 01/03/2019 10:01:00 PM White Blood Count 19.3 H Red Blood Count 3.82 L Hemoglobin 11.1 L Hematocrit 35.2 L Mean Corpuscular Volume 92.1 Mean Corpuscular Hemoglobin 29.1 Mean Corpuscular Hemoglobin Concent 31.5 L Red Cell Distribution Width 16.9 H Platelet Count 186 Mean Platelet Volume 11.7 H Immature Granulocytes % 0.700 H Neutrophils % 79.3 H Lymphocytes % 6.4 L Monocytes % 13.3 H Eosinophils % 0.1 Basophils % 0.2 Nucleated Red Blood Cells % 0.0 Immature Granulocytes # 0.140 H Neutrophils # 15.3 H Lymphocytes # 1.2 Monocytes # 2.6 H Eosinophils # 0.0 Basophils # 0.0 Nucleated Red Blood Cells # 0.0 Sodium Level 142 Potassium Level 3.4 L Chloride Level 101 Carbon Dioxide Level 33 H Anion Gap 8 Blood Urea Nitrogen 29 H Creatinine 1.36 H Est Glomerular Filtrat Rate mL/min Glucose Level 116 Calcium Level 8.6 Magnesium Level 2.0 Urine culture: URINE CULTURE Final Organism 1 ESCHERICHIA COLI (ESBL) COLONY COUNT >100,000 CFU/ml . MULTI DRUG RESISTANT ORGANISM PHONED TO Kelsy SIMS,TEL, AT 0800,MATT [place], AND COPY TO ISumanth, AT 1032, 01/04/19, HN. ECOLI ESBL ECOLI ESBL M.I.C. RX M.I.C. RX --------- --- --------- --- AMIKACIN 4 S AMPICILLIN >=32 R CEFAZOLIN R CEFEPIME >=64 R CEFOTAXIME R CIPROFLOXACIN >=4 R GENTAMICIN >=16 R LEVOFLOXACIN >=8 R MEROPENEM 0.032 S NITROFURANTOIN <=16 S TOBRAMYCIN >=16 R TRIMETHOPRIM/SULFAMETHOXAZOLE <=20 S PIPERACILLIN/TAZOBACTAM 8 S Home Meds Active Scripts Aspirin Delayed Release (Aspirin Delayed Release) 81 Mg Tablet.dr, 81 MG PO DAILY for 30 Days, #30 otc Prov:SAMANTHA BOB MD 11/16/18 Bumetanide* (Bumetanide*) 1 Mg Tablet, 1 MG PO DAILY for 14 Days, #15 TAB Prov:SAMANTHA BOB MD 11/16/18 Losartan Potassium* (Losartan Potassium*) 50 Mg Tablet, 50 MG PO BID for 10 Days, #20 TAB Prov:SAMANTHA BOB MD 11/16/18 Rosuvastatin Calcium* (Crestor*) 10 Mg Tablet, 10 MG PO QHS for 30 Days, #30 TAB Prov:SAMANTHA BOB MD 11/16/18 Isosorbide Dinitrate* (Isosorbide Dinitrate*) 30 Mg Tablet, 30 MG PO BID for 10 Days, #20 TAB Prov:SAMANTHA BOB MD 11/16/18 Reported Medications Amiodarone Hcl* (Amiodarone Hcl*) 200 Mg Tablet, 200 MG PO DAILY, #30 TAB 11/13/18 Potassium Chloride* (Potassium Chloride*) 8 Meq Capsule.er, 8 MEQ PO DAILY, CAP 11/13/18 Levothyroxine Sodium* (Levoxyl*) 150 Mcg Tablet, 150 MCG PO BEFORE BREAKFAST, #30 TAB 07/20/18 Discontinued Scripts Sennosides* (Senna Lax*) 8.6 Mg Tablet, 2 TAB PO BID, #60 TAB Prov:LEWIS JOHN 08/04/18 Tamsulosin Hcl* (Flomax*) 0.4 Mg Cap.er.24h, 0.4 MG PO HS, #60 CAP Prov:LEWIS JOHN 08/04/18 Medications Current Medications Amiodarone HCl (Cordarone) 200 mg DAILY PO Last administered on 01/04/19 09:27; Admin Dose 200 MG; Start 01/02/19 at 09:00 Aspirin (Halfprin) 81 mg DAILY PO Last administered on 01/04/19 09:27; Admin Dose 81 MG; Start 01/02/19 at 09:00 Isosorbide Dinitrate (Isordil) 30 mg BID PO Last administered on 01/04/19at 09:27; Admin Dose 30 MG; Start 01/01/19 at 21:00 Levothyroxine Sodium (Synthroid) 150 mcg BEFORE BREAKFAST PO Last administered on 01/04/19at 06:14; Admin Dose 150 MCG; Start 01/02/19 at 07:00 Losartan Potassium (Cozaar) 50 mg BID PO ; Start 01/01/19 at 21:00; Status Hold Atorvastatin Calcium (Lipitor) 40 mg DAILY@21 PO Last administered on 01/03/19at 20:55; Admin Dose 40 MG; Start 01/01/19 at 21:00 Lorazepam (Ativan) 0.5 mg Q8H PRN IV agitation Last administered on 01/03/19at 09:44; Admin Dose 0.5 MG; Start 01/01/19 at 14:00 Albuterol/ Ipratropium (Duoneb) 3 ml Q2H RESP THERAPY PRN HHN sob; Start 01/01/19 at 14:00 Hydralazine HCl (Apresoline) 10 mg Q6H PRN IV sbp >160mmhg Last administered on 01/01/19at 16:15; Admin Dose 10 MG; Start 01/01/19 at 14:30 Bumetanide (Bumex) 1 mg BID DIURETICS IV Last administered on 01/04/19at 06:13; Admin Dose 1 MG; Start 01/02/19 at 06:00 Sacubitril/ Valsartan (Entresto 24 Mg-26 Mg) 1 tab BID PO Last administered on 01/04/19at 09:27; Admin Dose 1 TAB; Start 01/02/19 at 21:00 Ertapenem 1 gm/ Sodium Chloride 100 ml @ 200 mls/hr Q24H IVPB Last administered on 01/04/19at 11:58; Admin Dose 200 MLS/HR; Start 01/04/19 at 11:00 Vancomycin HCl (Vanco Iv Per Pharmacy) VANCOMYCIN PER PHARMACY PER PROTOCOL XX ; Start 01/04/19 at 11:30 Vancomycin HCl 1.75 gm/Sodium Chloride 500 ml @ 125 mls/hr ONCE ONCE IVPB Last administered on 01/04/19at 12:50; Admin Dose 125 MLS/HR; Start 01/04/19 at 13:00; Stop 01/04/19 at 16:59 Vancomycin HCl 1.5 gm/Sodium Chloride 250 ml @ 83.333 mls/ hr Q24H IVPB ; Start 01/05/19 at 13:00 Assessment/Plan Hospital Course (Demo Recall) 78-year-old male is known to me from a prior admission in July 2018. Patient was admitted today because of congestive heart failure and COPD. He has been having difficulty urinating and a urology consultation was therefore requested. Back in July 2018 he was having constant hematuria and finally we were able to do a cystoscopy and resection of the bladder tumors. He had extensive bladder tumors. I spent 3 hours resecting tumors on him and he still had may be some residual tumor. The suggestion was he may get some radiation treatment and follow-up. However since then he has been voiding and he was admitted twice here to this hospital after that for other medical problems. No urological follow-up until today. I just walked into his room and the nurse told me he did urinate about 15 minutes earlier about 200 mL and the urine was still in the urinal and that appeared to be clear yellow. The postvoid residual by bladder scan was 104 mL. The patient is always whining and one may think that he is in acute distress but that is the way he has been since I have known him. Presently the patient appears to be voiding well and the urine is clear and the postvoid residual is not too high. Urine cytology was ordered and it is still pending. He is comfortable and he does not have any gross hematuria now. Renal ultrasound does not show any hydronephrosis. And his creatinine is 1.36. Urine culture growing E. coli ESBL. For now continue the ertapenem. I did discuss with his daughter doing cystoscopy and possible transurethral resection of bladder tumor while he is in the hospital. We discussed the risks of the procedure considering his own condition and situation. We decided that she will call me should the family decide to have him undergo anesthesia and the procedure. JOSE OCAMPO MD Jan 04, 2019 14:44
--- NOTE | 2019-01-04 18:35 | CONS ---
Assessment/Plan Cardiology NYHA: III Heart Failure Type: Acute on Chronic Heart Failure Type: Systolic Assessment/Plan Hospital Course (Demo Recall) Impression: Acute decompensated systolic congestive heart failure with LVEF 25%, improved Bladder tumor, not on anticoagulation Paroxysmal atrial fibrillation, currently sinus rhythm Aortic stenosis COPD Hypertension CKD Recommendations: Continue IV Bumex 1 mg twice daily No beta-avis given history of bradycardia. Continue Entresto Consultation Date/Type/Reason Admit Date/Time Jan 01, 2019 at 08:16 Initial Consult Date 01/01/19 Type of Consult Cardiology Requesting Provider: MAYELIN BARRETT Date/Time of Note DATE: 01/04/19 TIME: 18:32 24 HR Interval Summary Free Text/Dictation Family at bedside. Patient is feeling better today, appetite still poor. Exam/Review of Systems Vital Signs Vitals Vital Signs Date Temp Pulse Resp B/P (MAP) Pulse Ox O2 O2 Flow FiO2 Time Delivery Rate 01/04/19 2.0 17:36 01/04/19 55 16:49 01/04/19 97.7 16 115/59 95 15:48 (77) 01/04/19 Nasal 07:38 Cannula 01/02/19 40 13:50 Intake and Output 01/03/19 01/03/19 01/04/19 1515:00 23:00 07:00 IntakeIntake Total 650 ml 150 ml BalanceBalance 650 ml 150 ml Exam Constitutional: alert, well developed Psych: no complaints, nl mood/affect Head: normocephalic, atraumatic Eyes: nl lids, nl sclera ENMT: nl external ears & nose Neck: No jvd, No bruits Respiratory: normal air movement, wheezing Cardiovascular: regular rate and rhythm; No murmurs/extra sounds Gastrointestinal: soft, non-tender Musculoskeletal: nl extremities to inspection Extremities: No edema Neurological: nl mental status, nl speech Skin: diaphoresis Labs Result Diagram: 01/04/1946 01/04/1946 Results 24hrs Laboratory Tests Test 01/03/19 21:00 01/04/19 07:46 Blood Gas Specimen Source Blood arterial Arterial Blood Date Drawn 01/03/2019 9:40:00 PM Arterial Blood pH (Temp corrected) 7.514 H Arterial Blood pCO2 (Temp correct) 34.6 L Arterial Blood pO2 (Temp corrected) 24.9 *L Arterial Blood HCO3 27.2 H Arterial Blood Base Excess 4.4 H Arterial Blood Oxygen Saturation 47.1 L Gil Test N/A Arterial Blood Gas Puncture Site Right Brachial Arterial Blood Carboxyhemoglobin 0.5 Arterial Blood Methemoglobin 0.3 Blood Gas A-a O2 Differential 83.4 H Oxyhemoglobin Percent 46.7 L Blood Gas Temperature 37.0 Blood Gas Actual Respiration Rate 28 Blood Gas Modality ROOM AIR FiO2 21.0 Blood Gas Critical Value Read Back CONNER COOLEY Blood Gas Notified Whom MA Blood Gas Notified Time 01/03/2019 10:01:00 PM White Blood Count 19.3 H Red Blood Count 3.82 L Hemoglobin 11.1 L Hematocrit 35.2 L Mean Corpuscular Volume 92.1 Mean Corpuscular Hemoglobin 29.1 Mean Corpuscular Hemoglobin Concent 31.5 L Red Cell Distribution Width 16.9 H Platelet Count 186 Mean Platelet Volume 11.7 H Immature Granulocytes % 0.700 H Neutrophils % 79.3 H Lymphocytes % 6.4 L Monocytes % 13.3 H Eosinophils % 0.1 Basophils % 0.2 Nucleated Red Blood Cells % 0.0 Immature Granulocytes # 0.140 H Neutrophils # 15.3 H Lymphocytes # 1.2 Monocytes # 2.6 H Eosinophils # 0.0 Basophils # 0.0 Nucleated Red Blood Cells # 0.0 Sodium Level 142 Potassium Level 3.4 L Chloride Level 101 Carbon Dioxide Level 33 H Anion Gap 8 Blood Urea Nitrogen 29 H Creatinine 1.36 H Est Glomerular Filtrat Rate mL/min Glucose Level 116 Calcium Level 8.6 Magnesium Level 2.0 Medications Medications Current Medications Amiodarone HCl (Cordarone) 200 mg DAILY PO Last administered on 01/04/19 09:; Admin Dose 200 MG; Start 01/02/19 at 09:00 Aspirin (Halfprin) 81 mg DAILY PO Last administered on 01/04/19; Admin Dose 81 MG; Start 01/02/19 at 09:00 Isosorbide Dinitrate (Isordil) 30 mg BID PO Last administered on 01/04/19:27; Admin Dose 30 MG; Start 01/01/19 at 21:00 Levothyroxine Sodium (Synthroid) 150 mcg BEFORE BREAKFAST PO Last administered on 01/04/19 06:14; Admin Dose 150 MCG; Start 01/02/19 at 07:00 Losartan Potassium (Cozaar) 50 mg BID PO ; Start 01/01/19 at 21:00; Status Hold Atorvastatin Calcium (Lipitor) 40 mg DAILY@21 PO Last administered on 01/03/19at 20:55; Admin Dose 40 MG; Start 01/01/19 at 21:00 Lorazepam (Ativan) 0.5 mg Q8H PRN IV agitation Last administered on 01/03/19at 09:44; Admin Dose 0.5 MG; Start 01/01/19 at 14:00 Albuterol/ Ipratropium (Duoneb) 3 ml Q2H RESP THERAPY PRN HHN sob; Start 01/01/19 at 14:00 Hydralazine HCl (Apresoline) 10 mg Q6H PRN IV sbp >160mmhg Last administered on 01/01/19at 16:15; Admin Dose 10 MG; Start 01/01/19 at 14:30 Bumetanide (Bumex) 1 mg BID DIURETICS IV Last administered on 01/04/19at 06:13; Admin Dose 1 MG; Start 01/02/19 at 06:00 Sacubitril/ Valsartan (Entresto 24 Mg-26 Mg) 1 tab BID PO Last administered on 01/04/19at 09:27; Admin Dose 1 TAB; Start 01/02/19 at 21:00 Ertapenem 1 gm/ Sodium Chloride 100 ml @ 200 mls/hr Q24H IVPB Last administered on 01/04/19at 11:58; Admin Dose 200 MLS/HR; Start 01/04/19 at 11:00 Vancomycin HCl (Vanco Iv Per Pharmacy) VANCOMYCIN PER PHARMACY PER PROTOCOL XX ; Start 01/04/19 at 11:30 Vancomycin HCl 1.5 gm/Sodium Chloride 250 ml @ 83.333 mls/ hr Q24H IVPB ; Start 01/05/19 at 13:00 MOHIT PIKE Jan 04, 2019 18:35
[2019-01-04] MEDS: ATORVASTATIN 40 MG TAB PO SCH (20:47)
[2019-01-05] VITALS (11 sets, daily range): BP systolic 106–148; BP diastolic 51–65; PULSE 52–89; RESP 16–20
[2019-01-05] MEDS: BUMETANIDE 1 MG INJ IV SCH ×2 (06:40→17:18)
[2019-01-05] MEDS: LEVOTHYROXINE 150 MCG TAB PO SCH (06:40)
[2019-01-05] MEDS: SACUBITRIL/VALSARTAN (24mg-26mg) TABLET PO SCH ×2 (09:22→21:02)
[2019-01-05] MEDS: ASPIRIN (EC) 81 MG TAB PO SCH (09:23)
[2019-01-05] MEDS: ISOSORBIDE DINITRATE 10 MG TAB PO SCH ×2 (09:23→21:03)
[2019-01-05] MEDS: AMIODARONE 200 MG TAB PO SCH (09:23)
--- NOTE | 2019-01-05 11:56 | CONS ---
Consult Date/Type/Reason Admit Date/Time Jan 01, 2019 at 08:16 Initial Consult Date 01/01/19 Type of Consult Pulmonary Requesting Provider: MAYELIN BARRETT Date/Time of Note DATE: 01/05/19 TIME: 11:53 Subjective Slowly improving but still weak. Objective Vital Signs Date Temp Pulse Resp B/P (MAP) Pulse Ox O2 O2 Flow FiO2 Time Delivery Rate 01/05/19 98.4 57 17 106/51 94 11:37 (69) 01/05/19 Nasal 4.0 08:00 Cannula 01/02/19 40 13:50 Intake and Output 01/04/19 01/04/19 01/05/19 1414:59 22:59 06:59 IntakeIntake Total 1400 ml 520 ml BalanceBalance 1400 ml 520 ml Exam PHYSICAL EXAMINATION: GENERAL: Well-nourished, well-developed gentleman, comfortable at rest, no acute distress. VITAL SIGNS: NECK: Supple. No JVD or lymphadenopathy. CARDIAC: S1, S2, no added sounds or murmurs. CHEST: Diminished air entry bilaterally with few expiratory wheezes. ABDOMEN: Soft, nontender. No guarding or rebound. EXTREMITIES: No cyanosis, clubbing, edema. NEUROLOGIC: Grossly intact. No focal deficits. Vent Setting Fraction of Inspired Oxygen pe: 40 Results/Medications Result Diagram: 01/05/1914 01/05/1914 Results 24 hrs Laboratory Tests Test 01/05/19 06:14 White Blood Count 15.2 #H Red Blood Count 3.86 L Hemoglobin 11.2 L Hematocrit 36.1 L Mean Corpuscular Volume 93.5 Mean Corpuscular Hemoglobin 29.0 Mean Corpuscular Hemoglobin Concent 31.0 L Red Cell Distribution Width 16.5 H Platelet Count 182 Mean Platelet Volume 11.9 H Immature Granulocytes % 0.500 H Neutrophils % 78.4 H Lymphocytes % 7.3 L Monocytes % 12.2 H Eosinophils % 1.3 Basophils % 0.3 Nucleated Red Blood Cells % 0.0 Immature Granulocytes # 0.070 H Neutrophils # 12.0 H Lymphocytes # 1.1 Monocytes # 1.9 H Eosinophils # 0.2 Basophils # 0.0 Nucleated Red Blood Cells # 0.0 Sodium Level 142 Potassium Level 3.7 Chloride Level 102 Carbon Dioxide Level 32 H Anion Gap 8 Blood Urea Nitrogen 27 H Creatinine 1.31 H Est Glomerular Filtrat Rate mL/min Glucose Level 127 Calcium Level 8.3 L Phosphorus Level 3.4 Magnesium Level 2.1 Medications Current Medications Amiodarone HCl (Cordarone) 200 mg DAILY PO Last administered on 01/05/19 09:23; Admin Dose 200 MG; Start 01/02/19 at 09:00 Aspirin (Halfprin) 81 mg DAILY PO Last administered on 01/05/19 09:23; Admin Dose 81 MG; Start 01/02/19 at 09:00 Isosorbide Dinitrate (Isordil) 30 mg BID PO Last administered on 01/05/19 09:23; Admin Dose 30 MG; Start 01/01/19 at 21:00 Levothyroxine Sodium (Synthroid) 150 mcg BEFORE BREAKFAST PO Last administered on 01/05/19 06:40; Admin Dose 150 MCG; Start 01/02/19 at 07:00 Losartan Potassium (Cozaar) 50 mg BID PO ; Start 01/01/19 at 21:00; Status Hold Atorvastatin Calcium (Lipitor) 40 mg DAILY@21 PO Last administered on 01/04/19 20:47; Admin Dose 40 MG; Start 01/01/19 at 21:00 Lorazepam (Ativan) 0.5 mg Q8H PRN IV agitation Last administered on 01/03/19 09:44; Admin Dose 0.5 MG; Start 01/01/19 at 14:00 Albuterol/ Ipratropium (Duoneb) 3 ml Q2H RESP THERAPY PRN HHN sob; Start 01/01/19 at 14:00 Hydralazine HCl (Apresoline) 10 mg Q6H PRN IV sbp >160mmhg Last administered on 01/01/19 16:15; Admin Dose 10 MG; Start 01/01/19 at 14:30 Bumetanide (Bumex) 1 mg BID DIURETICS IV Last administered on 01/05/19 06:40; Admin Dose 1 MG; Start 01/02/19 at 06:00 Sacubitril/ Valsartan (Entresto 24 Mg-26 Mg) 1 tab BID PO Last administered on 01/05/19 09:22; Admin Dose 1 TAB; Start 01/02/19 at 21:00 Ertapenem 1 gm/ Sodium Chloride 100 ml @ 200 mls/hr Q24H IVPB Last administered on 01/04/19at 11:58; Admin Dose 200 MLS/HR; Start 01/04/19 at 11:00 Vancomycin HCl (Vanco Iv Per Pharmacy) VANCOMYCIN PER PHARMACY PER PROTOCOL XX ; Start 01/04/19 at 11:30 Vancomycin HCl 1.5 gm/Sodium Chloride 250 ml @ 83.333 mls/ hr Q24H IVPB ; Start 01/05/19 at 13:00 Assessment/Plan Hospital Course (Demo Recall) IMPRESSION 1. Dyspnea, likely secondary to combination of chronic obstructive pulmonary disease exacerbation and congestive cardiac failure. History of systolic dysfunction with decreased EF at 25%. CT chest findings noted AAA also noted. History of aortic stenosis also. 2. Prior extensive tobacco history with underlying history of chronic obstructive pulmonary disease. 3. Ecoli uti Plan 1. Abx vanc and ertepenem. 2. Supplemental O2. 3. Bronchodilator treatment. 4. Urology recommendations given history of bladder carcinoma. 5. Deep vein thrombosis and gastrointestinal prophylaxis. SUE mcneill. OPAL ESCAMILLA MD, [facility] Jan 05, 2019 11:56
[2019-01-05] MEDS: ERTAPENEM SODIUM 1 GM in SOD CHLORIDE 0.9% 100 ML IVPB SCH (11:59)
[2019-01-05] MEDS: VANCOMYCIN HCL 1.5 GM in SOD CHLORIDE 0.9% 250 ML IVPB SCH (13:14)
--- NOTE | 2019-01-05 16:33 | CONS ---
Assessment/Plan Cardiology NYHA: III Heart Failure Type: Acute on Chronic Heart Failure Type: Systolic Assessment/Plan Hospital Course (Demo Recall) Acute decompensated systolic congestive heart failure with LVEF 25% Bladder tumor not on anticoagulation Paroxysmal atrial fibrillation, currently sinus rhythm Aortic stenosis COPD Hypertension CKD -Patient with progressive improvement in respiratory status, Bumex and titrate based on renal function, blood pressure and volume status -No beta-avis given history of bradycardia. -Patient with evidence of aortic aneurysm, consider vascular evaluation to review CT Consultation Date/Type/Reason Admit Date/Time Jan 01, 2019 at 08:16 Initial Consult Date 01/01/19 Type of Consult Cardiology Requesting Provider: MAYELIN BARRETT Date/Time of Note DATE: 01/05/19 TIME: 16:32 24 HR Interval Summary Free Text/Dictation Shortness of breath is better. As per family, still needs oxygen supplementation for ambulation Exam/Review of Systems Vital Signs Vitals Vital Signs Date Temp Pulse Resp B/P (MAP) Pulse Ox O2 O2 Flow FiO2 Time Delivery Rate 01/05/19 97.7 52 16 112/55 95 15:54 (74) 01/05/19 4.0 13:48 01/05/19 Nasal 08:00 Cannula 01/02/19 40 13:50 Intake and Output 01/04/19 01/04/19 01/05/19 1515:00 23:00 07:00 IntakeIntake Total 1400 ml 520 ml BalanceBalance 1400 ml 520 ml Exam Constitutional: alert, oriented (No apparent distress) Head: normocephalic Respiratory: other (Coarse breath sounds bilaterally, minimal scattered crackles) Cardiovascular: regular rate and rhythm (S1-S2 heard) Gastrointestinal: soft, non-tender, bowel sounds Extremities: edema (Trace) Labs Result Diagram: 01/05/1914 01/05/1914 Results 24hrs Laboratory Tests Test 01/05/19 06:14 White Blood Count 15.2 #H Red Blood Count 3.86 L Hemoglobin 11.2 L Hematocrit 36.1 L Mean Corpuscular Volume 93.5 Mean Corpuscular Hemoglobin 29.0 Mean Corpuscular Hemoglobin Concent 31.0 L Red Cell Distribution Width 16.5 H Platelet Count 182 Mean Platelet Volume 11.9 H Immature Granulocytes % 0.500 H Neutrophils % 78.4 H Lymphocytes % 7.3 L Monocytes % 12.2 H Eosinophils % 1.3 Basophils % 0.3 Nucleated Red Blood Cells % 0.0 Immature Granulocytes # 0.070 H Neutrophils # 12.0 H Lymphocytes # 1.1 Monocytes # 1.9 H Eosinophils # 0.2 Basophils # 0.0 Nucleated Red Blood Cells # 0.0 Sodium Level 142 Potassium Level 3.7 Chloride Level 102 Carbon Dioxide Level 32 H Anion Gap 8 Blood Urea Nitrogen 27 H Creatinine 1.31 H Est Glomerular Filtrat Rate mL/min Glucose Level 127 Calcium Level 8.3 L Phosphorus Level 3.4 Magnesium Level 2.1 Medications Medications Current Medications Amiodarone HCl (Cordarone) 200 mg DAILY PO Last administered on 01/05/19 09:23; Admin Dose 200 MG; Start 01/02/19 at 09:00 Aspirin (Halfprin) 81 mg DAILY PO Last administered on 01/05/19 09:23; Admin Dose 81 MG; Start 01/02/19 at 09:00 Isosorbide Dinitrate (Isordil) 30 mg BID PO Last administered on 01/05/19 09:23; Admin Dose 30 MG; Start 01/01/19 at 21:00 Levothyroxine Sodium (Synthroid) 150 mcg BEFORE BREAKFAST PO Last administered on 01/05/19 06:40; Admin Dose 150 MCG; Start 01/02/19 at 07:00 Losartan Potassium (Cozaar) 50 mg BID PO ; Start 01/01/19 at 21:00; Status Hold Atorvastatin Calcium (Lipitor) 40 mg DAILY@21 PO Last administered on 01/04/19at 20:47; Admin Dose 40 MG; Start 01/01/19 at 21:00 Lorazepam (Ativan) 0.5 mg Q8H PRN IV agitation Last administered on 01/03/19at 09:44; Admin Dose 0.5 MG; Start 01/01/19 at 14:00 Albuterol/ Ipratropium (Duoneb) 3 ml Q2H RESP THERAPY PRN HHN sob; Start 01/01/19 at 14:00 Hydralazine HCl (Apresoline) 10 mg Q6H PRN IV sbp >160mmhg Last administered on 01/01/19at 16:15; Admin Dose 10 MG; Start 01/01/19 at 14:30 Bumetanide (Bumex) 1 mg BID DIURETICS IV Last administered on 01/05/19at 06:40; Admin Dose 1 MG; Start 01/02/19 at 06:00 Sacubitril/ Valsartan (Entresto 24 Mg-26 Mg) 1 tab BID PO Last administered on 01/05/19at 09:22; Admin Dose 1 TAB; Start 01/02/19 at 21:00 Ertapenem 1 gm/ Sodium Chloride 100 ml @ 200 mls/hr Q24H IVPB Last adminis tered on 01/05/19at 11:59; Admin Dose 200 MLS/HR; Start 01/04/19 at 11:00 Vancomycin HCl (Vanco Iv Per Pharmacy) VANCOMYCIN PER PHARMACY PER PROTOCOL XX ; Start 01/04/19 at 11:30 Vancomycin HCl 1.5 gm/Sodium Chloride 250 ml @ 83.333 mls/ hr Q24H IVPB Last administered on 01/05/19at 13:14; Admin Dose 83.333 MLS/HR; Start 01/05/19 at 13:00 Quang Robles DO Jan 05, 2019 16:33
--- NOTE | 2019-01-05 18:44 | CONS ---
Consult Date/Type/Reason Admit Date/Time Jan 01, 2019 at 08:16 Initial Consult Date 01/01/19 Type of Consultation: Urology Reason for Consultation History of bladder tumor Requesting Provider: MAYELIN BARRETT Date/Time of Note DATE: 01/05/19 TIME: 18:40 Subjective The patient is awake and alert and appears to be comfortable. He is daughter is at his bedside Objective Vitals Vital Signs Date Temp Pulse Resp B/P (MAP) Pulse Ox O2 O2 Flow FiO2 Time Delivery Rate 01/05/19 64 17:38 01/05/19 97.7 16 112/55 95 15:54 (74) 01/05/19 4.0 13:48 01/05/19 Nasal 08:00 Cannula 01/02/19 40 13:50 Intake and Output 01/04/19 01/04/19 01/05/19 1515:00 23:00 07:00 IntakeIntake Total 1400 ml 520 ml BalanceBalance 1400 ml 520 ml Exam The abdomen is soft. The patient is voiding small amount each time but he is emptying his bladder well. Results/Medications Result Diagram: 01/05/19 0614 01/05/19 0614 Results 24 hrs Laboratory Tests Test 01/05/19 06:14 White Blood Count 15.2 #H Red Blood Count 3.86 L Hemoglobin 11.2 L Hematocrit 36.1 L Mean Corpuscular Volume 93.5 Mean Corpuscular Hemoglobin 29.0 Mean Corpuscular Hemoglobin Concent 31.0 L Red Cell Distribution Width 16.5 H Platelet Count 182 Mean Platelet Volume 11.9 H Immature Granulocytes % 0.500 H Neutrophils % 78.4 H Lymphocytes % 7.3 L Monocytes % 12.2 H Eosinophils % 1.3 Basophils % 0.3 Nucleated Red Blood Cells % 0.0 Immature Granulocytes # 0.070 H Neutrophils # 12.0 H Lymphocytes # 1.1 Monocytes # 1.9 H Eosinophils # 0.2 Basophils # 0.0 Nucleated Red Blood Cells # 0.0 Sodium Level 142 Potassium Level 3.7 Chloride Level 102 Carbon Dioxide Level 32 H Anion Gap 8 Blood Urea Nitrogen 27 H Creatinine 1.31 H Est Glomerular Filtrat Rate mL/min Glucose Level 127 Calcium Level 8.3 L Phosphorus Level 3.4 Magnesium Level 2.1 Home Meds Active Scripts Aspirin Delayed Release (Aspirin Delayed Release) 81 Mg Tablet., 81 MG PO DAILY for 30 Days, #30 otc Prov:SAMANTHA BOB MD 11/16/18 Bumetanide* (Bumetanide*) 1 Mg Tablet, 1 MG PO DAILY for 14 Days, #15 TAB Prov:SAMANTHA BOB MD 11/16/18 Losartan Potassium* (Losartan Potassium*) 50 Mg Tablet, 50 MG PO BID for 10 Days, #20 TAB Prov:SAMANTHA BOB MD 11/16/18 Rosuvastatin Calcium* (Crestor*) 10 Mg Tablet, 10 MG PO QHS for 30 Days, #30 TAB Prov:SAMANTHA BOB MD 11/16/18 Isosorbide Dinitrate* (Isosorbide Dinitrate*) 30 Mg Tablet, 30 MG PO BID for 10 Days, #20 TAB Prov:SAMANTHA BOB MD 11/16/18 Reported Medications Amiodarone Hcl* (Amiodarone Hcl*) 200 Mg Tablet, 200 MG PO DAILY, #30 TAB 11/13/18 Potassium Chloride* (Potassium Chloride*) 8 Meq Capsule.er, 8 MEQ PO DAILY, CAP 11/13/18 Levothyroxine Sodium* (Levoxyl*) 150 Mcg Tablet, 150 MCG PO BEFORE BREAKFAST, #30 TAB 07/20/18 Discontinued Scripts Sennosides* (Senna Lax*) 8.6 Mg Tablet, 2 TAB PO BID, #60 TAB Prov:LEWIS JOHN 08/04/18 Tamsulosin Hcl* (Flomax*) 0.4 Mg Cap.er.24h, 0.4 MG PO HS, #60 CAP Prov:LEWIS JOHN 08/04/18 Medications Current Medications Amiodarone HCl (Cordarone) 200 mg DAILY PO Last administered on 01/05/19at 09:23; Admin Dose 200 MG; Start 01/02/19 at 09:00 Aspirin (Halfprin) 81 mg DAILY PO Last administered on 01/05/19at 09:23; Admin Dose 81 MG; Start 01/02/19 at 09:00 Isosorbide Dinitrate (Isordil) 30 mg BID PO Last administered on 01/05/19at 09:23; Admin Dose 30 MG; Start 01/01/19 at 21:00 Levothyroxine Sodium (Synthroid) 150 mcg BEFORE BREAKFAST PO Last administered on 01/05/19 06:40; Admin Dose 150 MCG; Start 01/02/19 at 07:00 Losartan Potassium (Cozaar) 50 mg BID PO ; Start 01/01/19 at 21:00; Status Hold Atorvastatin Calcium (Lipitor) 40 mg DAILY@21 PO Last administered on 01/04/19at 20:47; Admin Dose 40 MG; Start 01/01/19 at 21:00 Lorazepam (Ativan) 0.5 mg Q8H PRN IV agitation Last administered on 01/03/19 09:44; Admin Dose 0.5 MG; Start 01/01/19 at 14:00 Albuterol/ Ipratropium (Duoneb) 3 ml Q2H RESP THERAPY PRN HHN sob; Start 01/01/19 at 14:00 Hydralazine HCl (Apresoline) 10 mg Q6H PRN IV sbp >160mmhg Last administered on 01/01/19at 16:15; Admin Dose 10 MG; Start 01/01/19 at 14:30 Bumetanide (Bumex) 1 mg BID DIURETICS IV Last administered on 01/05/19 17:18; Admin Dose 1 MG; Start 01/02/19 at 06:00 Sacubitril/ Valsartan (Entresto 24 Mg-26 Mg) 1 tab BID PO Last administered on 01/05/19 09:22; Admin Dose 1 TAB; Start 01/02/19 at 21:00 Ertapenem 1 gm/ Sodium Chloride 100 ml @ 200 mls/hr Q24H IVPB Last administered on 01/05/19 11:59; Admin Dose 200 MLS/HR; Start 01/04/19 at 11:00 Vancomycin HCl (Vanco Iv Per Pharmacy) VANCOMYCIN PER PHARMACY PER PROTOCOL XX ; Start 01/04/19 at 11:30 Vancomycin HCl 1.5 gm/Sodium Chloride 250 ml @ 83.333 mls/ hr Q24H IVPB Last administered on 01/05/19 13:14; Admin Dose 83.333 MLS/HR; Start 01/05/19 at 13:00 Assessment/Plan Hospital Course (Demo Recall) 78-year-old male is known to me from a prior admission in July 2018. Patient was admitted today because of congestive heart failure and COPD. He has been having difficulty urinating and a urology consultation was therefore requested. Back in July 2018 he was having constant hematuria and finally we were able to do a cystoscopy and resection of the bladder tumors. He had extensive bladder tumors. I spent 3 hours resecting tumors on him and he still had may be some residual tumor. The suggestion was he may get some radiation treatment and follow-up. However since then he has been voiding and he was admitted twice here to this hospital after that for other medical problems. No urological follow-up until today. I just walked into his room and the nurse told me he did urinate about 15 minutes earlier about 200 mL and the urine was still in the urinal and that appeared to be clear yellow. The postvoid residual by bladder s can was 104 mL. The patient is always whining and one may think that he is in acute distress but that is the way he has been since I have known him. Presently the patient appears to be voiding well and the urine is clear and the postvoid residual is not too high. Urine cytology was ordered and it is still pending. He is comfortable and he does not have any gross hematuria now. Renal ultrasound does not show any hydronephrosis. And his creatinine is 1.3179 . Urine culture growing E. coli ESBL. For now continue the ertapenem. I did discuss with his daughter doing cystoscopy and possible transurethral resection of bladder tumor while he is in the hospital. We discussed the risks of the procedure considering his own condition and situation. She did discuss it with the rest of the family and for now they do not want to do anything else. JOSE OACMPO MD Jan 05, 2019 18:44
[2019-01-05] MEDS: ATORVASTATIN 40 MG TAB PO SCH (21:02)
[2019-01-06] VITALS (8 sets, daily range): BP systolic 111–147; BP diastolic 53–74; PULSE 50–55; RESP 16–20
[2019-01-06] MEDS: BUMETANIDE 1 MG INJ IV SCH (06:58)
[2019-01-06] MEDS: LEVOTHYROXINE 150 MCG TAB PO SCH (06:58)
[2019-01-06] MEDS: SACUBITRIL/VALSARTAN (24mg-26mg) TABLET PO SCH (08:49)
[2019-01-06] MEDS: AMIODARONE 200 MG TAB PO SCH (08:50)
[2019-01-06] MEDS: ISOSORBIDE DINITRATE 10 MG TAB PO SCH (08:50)
[2019-01-06] MEDS: ASPIRIN (EC) 81 MG TAB PO SCH (08:50)
[2019-01-06] MEDS: ERTAPENEM SODIUM 1 GM in SOD CHLORIDE 0.9% 100 ML IVPB SCH (10:51)
--- NOTE | 2019-01-06 11:45 | CONS ---
Consult Date/Type/Reason Admit Date/Time Jan 01, 2019 at 08:16 Initial Consult Date 01/01/19 Type of Consult Pulmonary Requesting Provider: MAYELIN BARRETT Date/Time of Note DATE: 01/06/19 TIME: 11:39 Subjective Patient is comfortable this morning no respiratory distress Objective Vital Signs Date Temp Pulse Resp B/P (MAP) Pulse Ox O2 O2 Flow FiO2 Time Delivery Rate 01/06/19 51 08:42 01/06/19 Nasal 4.0 07:48 Cannula 01/06/19 98.6 16 125/59 96 07:35 (81) 01/02/19 40 13:50 Intake and Output 01/05/19 01/05/19 01/06/19 1515:00 23:00 07:00 IntakeIntake Total 266.66 ml 733.34 ml 150 ml OutputOutput Total 700 ml BalanceBalance 266.66 ml 33.34 ml 150 ml Exam PHYSICAL EXAMINATION: GENERAL: Well-nourished, well-developed gentleman, comfortable at rest, no acute distress. VITAL SIGNS: NECK: Supple. No JVD or lymphadenopathy. CARDIAC: S1, S2, no added sounds or murmurs. CHEST: Diminished air entry bilaterally with few expiratory wheezes. ABDOMEN: Soft, nontender. No guarding or rebound. EXTREMITIES: No cyanosis, clubbing, edema. NEUROLOGIC: Grossly intact. No focal deficits. Vent Setting Fraction of Inspired Oxygen pe: 40 Results/Medications Result Diagram: 01/06/19 0654 01/06/19 0654 Results 24 hrs Laboratory Tests Test 01/06/19 06:54 White Blood Count 11.7 #H Red Blood Count 3.87 L Hemoglobin 11.1 L Hematocrit 36.0 L Mean Corpuscular Volume 93.0 Mean Corpuscular Hemoglobin 28.7 L Mean Corpuscular Hemoglobin Concent 30.8 L Red Cell Distribution Width 16.4 H Platelet Count 195 Mean Platelet Volume 11.9 H Immature Granulocytes % 0.500 H Neutrophils % 77.9 H Lymphocytes % 8.1 L Monocytes % 12.0 H Eosinophils % 1.2 Basophils % 0.3 Nucleated Red Blood Cells % 0.0 Immature Granulocytes # 0.060 H Neutrophils # 9.1 H Lymphocytes # 1.0 Monocytes # 1.4 H Eosinophils # 0.1 Basophils # 0.0 Nucleated Red Blood Cells # 0.0 Sodium Level 140 Potassium Level 3.6 Chloride Level 101 Carbon Dioxide Level 29 Anion Gap 10 Blood Urea Nitrogen 23 H Creatinine 1.16 Est Glomerular Filtrat Rate mL/min Glucose Level 102 Calcium Level 8.4 Phosphorus Level 3.3 Magnesium Level 2.2 Medications Current Medications Amiodarone HCl (Cordarone) 200 mg DAILY PO Last administered on 01/05/19 09:23; Admin Dose 200 MG; Start 01/02/19 at 09:00 Aspirin (Halfprin) 81 mg DAILY PO Last administered on 01/06/19 08:50; Admin Dose 81 MG; Start 01/02/19 at 09:00 Isosorbide Dinitrate (Isordil) 30 mg BID PO Last administered on 01/06/19 08:50; Admin Dose 30 MG; Start 01/01/19 at 21:00 Levothyroxine Sodium (Synthroid) 150 mcg BEFORE BREAKFAST PO Last administered on 01/06/19 06:58; Admin Dose 150 MCG; Start 01/02/19 at 07:00 Losartan Potassium (Cozaar) 50 mg BID PO ; Start 01/01/19 at 21:00; Status Hold Atorvastatin Calcium (Lipitor) 40 mg DAILY@21 PO Last administered on 01/05/19 21:02; Admin Dose 40 MG; Start 01/01/19 at 21:00 Lorazepam (Ativan) 0.5 mg Q8H PRN IV agitation Last administered on 01/03/19 09:44; Admin Dose 0.5 MG; Start 01/01/19 at 14:00 Albuterol/ Ipratropium (Duoneb) 3 ml Q2H RESP THERAPY PRN HHN sob; Start 01/01/19 at 14:00 Hydralazine HCl (Apresoline) 10 mg Q6H PRN IV sbp >160mmhg Last administered on 01/01/19 16:15; Admin Dose 10 MG; Start 01/01/19 at 14:30 Bumetanide (Bumex) 1 mg BID DIURETICS IV Last administered on 01/06/19 06:58; Admin Dose 1 MG; Start 01/02/19 at 06:00 Sacubitril/ Valsartan (Entresto 24 Mg-26 Mg) 1 tab BID PO Last administered on 01/06/19 08:49; Admin Dose 1 TAB; Start 01/02/19 at 21:00 Ertapenem 1 gm/ Sodium Chloride 100 ml @ 200 mls/hr Q24H IVPB Last administered on 01/06/19at 10:51; Admin Dose 200 MLS/HR; Start 01/04/19 at 11:00 Vancomycin HCl (Vanco Iv Per Pharmacy) VANCOMYCIN PER PHARMACY PER PROTOCOL XX ; Start 01/04/19 at 11:30 Vancomycin HCl 1.5 gm/Sodium Chloride 250 ml @ 83.333 mls/ hr Q24H IVPB Last administered on 01/05/19at 13:14; Admin Dose 83.333 MLS/HR; Start 01/05/19 at 13:00 Assessment/Plan Hospital Course (Demo Recall) IMPRESSION 1. Dyspnea, likely secondary to combination of chronic obstructive pulmonary disease exacerbation and congestive cardiac failure. History of systolic dysfunction with decreased EF at 25%. CT chest findings noted AAA also noted. History of aortic stenosis also. 2. Prior extensive tobacco history with underlying history of chronic obstructive pulmonary disease. 3. Ecoli uti Plan 1. Abx vanc and ertepenem. 2. Supplemental O2. 3. Bronchodilator treatment. 4. Urology recommendations given history of bladder carcinoma. 5. Deep vein thrombosis and gastrointestinal prophylaxis. ARU eval vs dc planning. OPAL ESCAMILLA MD, [facility] Jan 06, 2019 11:45
[2019-01-06] MEDS: VANCOMYCIN HCL 1.5 GM in SOD CHLORIDE 0.9% 250 ML IVPB SCH (13:21)
--- NOTE | 2019-01-06 13:55 | EN ---
Date/Time of Note Date/Time of Note DATE: 01/05/19 TIME: 13:50 Event Note Medicine Medicine Event Note S: looks tired, just completed PT per son O : General: Patient is laying in bed. no acute distress Chest: nontender Respiratory: Diminished. no wheezing or rhonchi Cardiovascular: S1, S2, regular rate and rhythm, no obvious murmurs Gastrointestinal: soft, nontender to palpation, nondistended, bowel sounds heard . no rebound or guarding Neurological: Moves all extremities spontaneously. no focal deficits. motor and sensory intact Skin: No new skin lesions Vital Signs Date Temp Pulse Resp B/P (MAP) Pulse Ox O2 O2 Flow FiO2 Time Delivery Rate 01/05/19 98.4 57 17 106/51 94 11:37 (69) 01/05/19 Nasal 4.0 08:00 Cannula 01/02/19 40 13:50 Intake and Output 01/04/19 01/04/19 01/05/19 1414:59 22:59 06:59 IntakeIntake Total 1400 ml 520 ml BalanceBalance 1400 ml 520 ml Vent Setting Fraction of Inspired Oxygen pe: 40 Results/Medications Result Diagram: 01/05/1914 01/05/1914 Results 24 hrs Laboratory Tests Test 01/05/19 06:14 White Blood Count 15.2 #H Red Blood Count 3.86 L Hemoglobin 11.2 L Hematocrit 36.1 L Mean Corpuscular Volume 93.5 Mean Corpuscular Hemoglobin 29.0 Mean Corpuscular Hemoglobin Concent 31.0 L Red Cell Distribution Width 16.5 H Platelet Count 182 Mean Platelet Volume 11.9 H Immature Granulocytes % 0.500 H Neutrophils % 78.4 H Lymphocytes % 7.3 L Monocytes % 12.2 H Eosinophils % 1.3 Basophils % 0.3 Nucleated Red Blood Cells % 0.0 Immature Granulocytes # 0.070 H Neutrophils # 12.0 H Lymphocytes # 1.1 Monocytes # 1.9 H Eosinophils # 0.2 Basophils # 0.0 Nucleated Red Blood Cells # 0.0 Sodium Level 142 Potassium Level 3.7 Chloride Level 102 Carbon Dioxide Level 32 H Anion Gap 8 Blood Urea Nitrogen 27 H Creatinine 1.31 H Est Glomerular Filtrat Rate mL/min Glucose Level 127 Calcium Level 8.3 L Phosphorus Level 3.4 Magnesium Level 2.1 Medications Current Medications Amiodarone HCl (Cordarone) 200 mg DAILY PO Last administered on 01/05/19 09:23; Admin Dose 200 MG; Start 01/02/19 at 09:00 Aspirin (Halfprin) 81 mg DAILY PO Last administered on 01/05/19 09:23; Admin Dose 81 MG; Start 01/02/19 at 09:00 Isosorbide Dinitrate (Isordil) 30 mg BID PO Last administered on 01/05/19 09:23; Admin Dose 30 MG; Start 01/01/19 at 21:00 Levothyroxine Sodium (Synthroid) 150 mcg BEFORE BREAKFAST PO Last administered on 01/05/19 06:40; Admin Dose 150 MCG; Start 01/02/19 at 07:00 Losartan Potassium (Cozaar) 50 mg BID PO ; Start 01/01/19 at 21:00; Status Hold Atorvastatin Calcium (Lipitor) 40 mg DAILY@21 PO Last administered on 01/04/19 20:47; Admin Dose 40 MG; Start 01/01/19 at 21:00 Lorazepam (Ativan) 0.5 mg Q8H PRN IV agitation Last administered on 01/03/19 09:44; Admin Dose 0.5 MG; Start 01/01/19 at 14:00 Albuterol/ Ipratropium (Duoneb) 3 ml Q2H RESP THERAPY PRN HHN sob; Start 01/01/19 at 14:00 Hydralazine HCl (Apresoline) 10 mg Q6H PRN IV sbp >160mmhg Last administered on 01/01/19 16:15; Admin Dose 10 MG; Start 01/01/19 at 14:30 Bumetanide (Bumex) 1 mg BID DIURETICS IV Last administered on 01/05/19 06:40; Admin Dose 1 MG; Start 01/02/19 at 06:00 Sacubitril/ Valsartan (Entresto 24 Mg-26 Mg) 1 tab BID PO Last administered on 01/05/19 09:22; Admin Dose 1 TAB; Start 01/02/19 at 21:00 Ertapenem 1 gm/ Sodium Chloride 100 ml @ 200 mls/hr Q24H IVPB Last administered on 01/04/19 11:58; Admin Dose 200 MLS/HR; Start 01/04/19 at 11:00 Vancomycin HCl (Vanco Iv Per Pharmacy) VANCOMYCIN PER PHARMACY PER PROTOCOL XX ; Start 01/04/19 at 11:30 Vancomycin HCl 1.5 gm/Sodium Chloride 250 ml @ 83.333 mls/ hr Q24H IVPB ; Start 01/05/19 at 13:00 assessment and plan 1. Acute hypoxic respiratory failure - Patient back up to 5L today and will continue weaning as tolerated. Will need to be evaluated for home O2 given has been desaturating at rest and may be able to have insurance cover - wean down O2 as tolerated 2. Acute on chronic, systolic and diastolic CHF exacerbation- improving - most likely contributing to #1 - last EF 25% - Cardiology on board and appreciate recommendations for diuretic management 3. Symptomatic UTI with dysuria and known bladder ca - UCx noted with ESBL and started on Ertapenem - Urology on board and appreciate recommendations - s/p tumor resection in the past, but was non compliant with f/u mgt 4. Chronic atrial fibrillation with sinus bradycardia at this time - rate controlled - no anticoag given hx hematuria in setting of bladder CA 5. Chronic hypertension - stable 6. CAD s/p CABG - stable - continue current medications - Cardio on board 7. Chronic cardiomyopathy with ejection fraction of 25% 8. History of bladder tumors - Urology on board and discussed with family taking back to OR for cystoscopy and TURB if family and patient agreeable 9. Known moderate to severe aortic stenosis 10. Chronic hypothyroidism 11. Chronic dyslipidemia 12. Aortic aneurysms: chronic - one in ascending aorta measuring 4.4 cm and the other in the abdominal aorta measuring 4.6 cm 13. Disposition - family does not want Further intervention for his urologic problem. I have also pushed the idea of a [place] [facility] facility so that he can be weaned off the oxygen and complete treatment for ESBL E. coli while undergoing supervised physical therapy. However the patient's son at the bedside does not think this is necessary but he will discuss with the family members and let me know. Otherwise the patient is slowly improving. His long-term prognosis is actually guarded, but currently he is fairly stable. The plan is to [place] [facility] if the family is okay with that, if not he is somewhat debilitated today, we will plan to discharge him home with family tomorrow with home health and home oxygen. MAYELIN BARRETT Jan 06, 2019 13:55
--- NOTE | 2019-01-06 14:08 | DS ---
Date/Time of Note Date/Time of Note DATE: 01/06/19 TIME: 14:04 Discharge Summary Admission/Discharge Info Admit Date/Time Jan 01, 2019 at 08:16 Discharge Date/Time Discharge Diagnosis 78-year-old male who presents with shortness of breath for the last few days a dmitted and managed as follows: 1. Acute respiratory failure s/p Bipap, improved but still on NC, will be discharged with home O2 2. Acute on chronic, systolic and diastolic,CHF exacerbation likely causing #1 last EF 25% 3. ESBL UTI with known bladder ca 4. Chronic atrial fibrillation with sinus bradycardia at this time -not a candidate for anticoagulation 2/2 bladder tumors 5. Chronic hypertension : improved control 6. Pulmonary edema and small to moderate bilateral pleural effusions on chest x-ray cannot rule out underlying bibasilar infiltrates 7. History of coronary artery disease status post CABG in the past also status post NSTEMI in the past 7. Chronic cardiomyopathy with ejection fraction of 25% 8. History of bladder tumors for which she is unable to tolerate anticoagulation due to recurrent hematuria 9. Known moderate to severe aortic stenosis 10. Chronic hypothyroidism 11. Chronic dyslipidemia 12. Patient also has 2 known aortic aneurysms,, one in ascending aorta measuring 4.4 cm and the other in the abdominal aorta measuring 4.6 cm . Hx of Present Illness 78-year-old male with an extensive past medical history as summarized below who presented to the emergency room today because of shortness of breath that has been going on for the last couple of days but worsened this morning. Patient does have a history of CHF and COPD. He denies chest pain though, denies syncopal episode. He has noted some lower extremity swelling. He also had complained to the emergency room physician of suprapubic discomfort and his reduced urinary output. Is been no fevers. No hematuria or dysuria. Denies melena or hematochezia. Chest x-ray in the emergency room did show pulmonary edema and bilateral pleural effusions and opacities. He is being admitted for management of his symptoms. Past medical history: Congestive heart failure with LVEF 25% Bladder tumor not on anticoagulation Paroxysmal atrial fibrillation Aortic stenosis COPD Hypertension CKD Past surgical history: 1. CABG 1995 2. Cystoscopy with bladder tumor resection Allergies: No known drug allergies Home medications: Reviewed and reconciled Hospital Course 78-year-old male who had presented to our emergency room brought in by family with shortness of breath for last few days. Was found to be with acute respiratory failure and required a short course of noninvasive positive pressure ventilation. At this time he is improved and is down to oxygen via nasal cannu la as anywhere between 4 and 5 L a minute. This was thought to be secondary to acute on chronic CHF exacerbation with mild COPD exacerbation from a prior extensive tobacco history. The patient was also septic and we could not rule out a component of possible underlying pneumonia and was also found by culture to have ESBL E. coli infection. Please note that this patient has a history of bladder cancer and is status post cystoscopy and bladder tumor resection and was supposed to follow-up outpatient with urology for continued treatment which may have included chemo versus radiation, but never did. The patient was also complaining of a lot of dysuria that warranted the urine culture. At this time the patient continues to refuse further intervention for the bladder tumors, per the family they just want him to be treated for the infection to improve his comfort. He was followed in-house by cardiology, pulmonary, as well as urology. He was managed for the comorbidities listed above. At this time I have stro ngly recommended that patient go to snf facility to continue to undergo rehab and complete IV antibiotic treatment for ESBL E. coli urinary tract infection, but the family has declined at this time. Hence he will be discharged home to the care of the family in stable condition for continued outpatient follow-up with his primary care doctor and follow-up with urology if the family wants you for continued management of his bladder cancer. Note that the patient also had a short course of acute renal insufficiency while in-house, but his renal function has improved nicely at this time. He has been evaluated by myself in detail and is stable for discharge. Home Meds Active Scripts Aspirin Delayed Release (Aspirin Delayed Release) 81 Mg Tablet.dr, 81 MG PO DAILY for 30 Days, #30 otc Prov:SAMANTHA BOB MD 11/16/18 Bumetanide* (Bumetanide*) 1 Mg Tablet, 1 MG PO DAILY for 14 Days, #15 TAB Prov:SAMANTHA BOB MD 11/16/18 Losartan Potassium* (Losartan Potassium*) 50 Mg Tablet, 50 MG PO BID for 10 Days, #20 TAB Prov:SAMANTHA BOB MD 11/16/18 Rosuvastatin Calcium* (Crestor*) 10 Mg Tablet, 10 MG PO QHS for 30 Days, #30 TAB Prov:SAMANTHA BOB MD 11/16/18 Isosorbide Dinitrate* (Isosorbide Dinitrate*) 30 Mg Tablet, 30 MG PO BID for 10 Days, #20 TAB Prov:SAMANTHA BOB MD 11/16/18 Reported Medications Amiodarone Hcl* (Amiodarone Hcl*) 200 Mg Tablet, 200 MG PO DAILY, #30 TAB 11/13/18 Potassium Chloride* (Potassium Chloride*) 8 Meq Capsule.er, 8 MEQ PO DAILY, CAP 11/13/18 Levothyroxine Sodium* (Levoxyl*) 150 Mcg Tablet, 150 MCG PO BEFORE BREAKFAST, #30 TAB 07/20/18 Discontinued Scripts Sennosides* (Senna Lax*) 8.6 Mg Tablet, 2 TAB PO BID, #60 TAB Prov:LEWIS JOHN 08/04/18 Tamsulosin Hcl* (Flomax*) 0.4 Mg Cap.er.24h, 0.4 MG PO HS, #60 CAP Prov:LEWIS JOHN 08/04/18 Follow-up Plan See hospital course . Primary Care Provider Not On Staff Doctor Time spent on discharge: > 30 minutes Pending Labs Laboratory Tests Test 01/06/19 06:54 White Blood Count 11.7 10^3/ul (4.8-10.8) Red Blood Count 3.87 10^6/ul (4.70-6.10) Hemoglobin 11.1 g/dl (14.0-18.0) Hematocrit 36.0 % (42.0-52.0) Mean Corpuscular Volume 93.0 fl (82.0-101.0) Mean Corpuscular Hemoglobin 28.7 pg (29.0-33.0) Mean Corpuscular Hemoglobin Concent 30.8 g/dl (32.0-37.0) Red Cell Distribution Width 16.4 % (11.5-14.5) Platelet Count 195 10^3/UL (140-415) Mean Platelet Volume 11.9 fl (7.4-10.4) Immature Granulocytes % 0.500 % (0.001-0.429) Neutrophils % 77.9 % (39.0-77.0) Lymphocytes % 8.1 % (15.0-51.0) Monocytes % 12.0 % (0.0-11.0) Eosinophils % 1.2 % (0.0-7.0) Basophils % 0.3 % (0.0-2.0) Nucleated Red Blood Cells % 0.0 /100WBC (0.0-0.0) Immature Granulocytes # 0.060 10^3/ul (0.0-0.031) Neutrophils # 9.1 10^3/ul (1.6-7.5) Lymphocytes # 1.0 10^3/ul (0.8-2.9) Monocytes # 1.4 10^3/ul (0.3-0.9) Eosinophils # 0.1 10^3/ul (0.0-0.5) Basophils # 0.0 10^3/ul (0.0-0.1) Nucleated Red Blood Cells # 0.0 10^3/ul (0.0-0.0) Sodium Level 140 mmol/L (135-144) Potassium Level 3.6 mmol/L (3.5-5.1) Chloride Level 101 mmol/L (97-110) Carbon Dioxide Level 29 mmol/L (21-31) Anion Gap 10 (5-13) Blood Urea Nitrogen 23 mg/dl (7-20) Creatinine 1.16 mg/dl (0.61-1.24) Est Glomerular Filtrat Rate mL/min mL/min (>60) Glucose Level 102 mg/dl (70-220) Calcium Level 8.4 mg/dl (8.4-10.2) Phosphorus Level 3.3 mg/dl (2.5-4.9) Magnesium Level 2.2 mg/dl (1.7-2.5) MAYELIN BARRETT Jan 06, 2019 14:08
[2019-01-06] MEDS ORDERED: ERTA1VIA3 IV (14:12)
[2019-01-06] MEDS ORDERED: POTA8CAP PO (14:12)
[2019-01-06] MEDS ORDERED: SACU1TAB PO (14:12)
[2019-01-06] MEDS ORDERED: BUME1TAB PO (14:12)
--- NOTE | 2019-01-06 14:15 | PDOCDIS ---
Discharge Instructions DIAGNOSIS Discharge Diagnosis 78-year-old male who presents with shortness of breath for the last few days admitted and managed as follows: 1. Acute respiratory failure s/p Bipap, improved but still on NC, will be discharged with home O2 2. Acute on chronic, systolic and diastolic,CHF exacerbation likely causing #1 last EF 25% 3. ESBL UTI with known bladder ca 4. Chronic atrial fibrillation with sinus bradycardia at this time -not a candidate for anticoagulation 2/2 bladder tumors 5. Chronic hypertension : improved control 6. Pulmonary edema and small to moderate bilateral pleural effusions on chest x-ray cannot rule out underlying bibasilar infiltrates 7. History of coronary artery disease status post CABG in the past also status post NSTEMI in the past 7. Chronic cardiomyopathy with ejection fraction of 25% 8. History of bladder tumors for which she is unable to tolerate anticoagulation due to recurrent hematuria 9. Known moderate to severe aortic stenosis 10. Chronic hypothyroidism 11. Chronic dyslipidemia 12. Patient also has 2 known aortic aneurysms,, one in ascending aorta measuring 4.4 cm and the other in the abdominal aorta measuring 4.6 cm . CONDITION [id number] Patient Condition: [id number] Stable HOME CARE INSTRUCTIONS: [id number] Diet Instructions: [id number] Low Fat /Cholesterol ACTIVITY: [id number] Activity Restrictions: [id number] Slowly Increase Activity Rest between Activity FOLLOW UP/APPOINTMENTS Follow-up Plan Follow-up with the revenue enforcement agent, the debt collection specialist as well as the urologist as defined below. 1. f/u with the pulmunologist Dr Eddy Name, Degree : Kj Eddy MD Specialty : Critical Care Medicine Office Address : [address] [place] [address] [place] [id number] Office Office 2. Name, Degree: Christopher Alcala MD Specialty: Urology Comments: Office Address: [address] [facility] [address] [place] [address] Office Office 3. Follow-up with the debt collection specialist as below Name, Degree: Quang Robles DO Specialty: Cardiovascular Disease Office Address : [facility] [address] [address] Office Office 4. Followup with your primary doctor within the next 1-2 weeks. If you don't have one please let someone know, we can give you resources that may help you pick one. You may call Dr Tawanda Roach's office. he's accepting new patients Name, Degree: Tawanda Roach MD Specialty: Internal Medicine Comments: [facility] Address: [address] [place] [address] [address] [place] [address] Office Office You may also call your insurance company to assign one to you. 5. Review your medication list with your nurse before leaving and if you need new prescriptions please let your nurse know. 6. I may have made changes to your home medications or given you new pr escriptions, please let your primary doctor know as well. 7. Stay compliant with your medications and report any side effects to your PCP or pharmacist. 8. Return to the ER if you have any concerns and cannot reach your doctors or call your insurance company, they usually have a nurse that can help you. . MAYELIN BARRETT Jan 06, 2019 14:15
--- NOTE | 2019-01-06 15:48 | CONS ---
Assessment/Plan Cardiology NYHA: III Heart Failure Type: Acute on Chronic Heart Failure Type: Systolic Assessment/Plan Hospital Course (Demo Recall) Acute decompensated systolic congestive heart failure with LVEF 25% Bladder tumor not on anticoagulation Paroxysmal atrial fibrillation, currently sinus rhythm Aortic stenosis COPD Hypertension CKD -Patient with progressive improvement in respiratory status, adjust Bumex to p.o. -No beta-avis given history of bradycardia. -Patient with evidence of aortic aneurysm, consider vascular evaluation to review CT -DC planning Consultation Date/Type/Reason Admit Date/Time Jan 01, 2019 at 08:16 Initial Consult Date 01/01/19 Type of Consult Cardiology Requesting Provider: MAYELIN BARRETT Date/Time of Note DATE: 01/06/19 TIME: 15:47 24 HR Interval Summary Free Text/Dictation Feeling progressively better. Denies current shortness of breath, palpitations or dizziness Exam/Review of Systems Vital Signs Vitals Vital Signs Date Temp Pulse Resp B/P (MAP) Pulse Ox O2 O2 Flow FiO2 Time Delivery Rate 01/06/19 97.5 52 17 111/56 94 15:34 (74) 01/06/19 Nasal 4.0 07:48 Cannula 01/02/19 40 13:50 Intake and Output 01/05/19 01/05/19 01/06/19 1515:00 23:00 07:00 IntakeIntake Total 266.66 ml 733.34 ml 150 ml OutputOutput Total 700 ml BalanceBalance 266.66 ml 33.34 ml 150 ml Exam Constitutional: alert, oriented (No apparent distress, family bedside) Respiratory: other (Coarse breath sounds bilaterally, no wheezing) Cardiovascular: regular rate and rhythm (S1-S2 heard) Gastrointestinal: soft, non-tender, bowel sounds Extremities: edema (Trace) Labs Result Diagram: 01/06/19 0654 01/06/19 0654 Results 24hrs Laboratory Tests Test 01/06/19 06:54 White Blood Count 11.7 #H Red Blood Count 3.87 L Hemoglobin 11.1 L Hematocrit 36.0 L Mean Corpuscular Volume 93.0 Mean Corpuscular Hemoglobin 28.7 L Mean Corpuscular Hemoglobin Concent 30.8 L Red Cell Distribution Width 16.4 H Platelet Count 195 Mean Platelet Volume 11.9 H Immature Granulocytes % 0.500 H Neutrophils % 77.9 H Lymphocytes % 8.1 L Monocytes % 12.0 H Eosinophils % 1.2 Basophils % 0.3 Nucleated Red Blood Cells % 0.0 Immature Granulocytes # 0.060 H Neutrophils # 9.1 H Lymphocytes # 1.0 Monocytes # 1.4 H Eosinophils # 0.1 Basophils # 0.0 Nucleated Red Blood Cells # 0.0 Sodium Level 140 Potassium Level 3.6 Chloride Level 101 Carbon Dioxide Level 29 Anion Gap 10 Blood Urea Nitrogen 23 H Creatinine 1.16 Est Glomerular Filtrat Rate mL/min Glucose Level 102 Calcium Level 8.4 Phosphorus Level 3.3 Magnesium Level 2.2 Medications Medications Current Medications Aspirin (Halfprin) 81 mg DAILY PO Last administered on 01/06/19 08:50; Admin Dose 81 MG; Start 01/02/19 at 09:00 Isosorbide Dinitrate (Isordil) 30 mg BID PO Last administered on 01/06/19 08:50; Admin Dose 30 MG; Start 01/01/19 at 21:00 Levothyroxine Sodium (Synthroid) 150 mcg BEFORE BREAKFAST PO Last administered on 01/06/19 06:58; Admin Dose 150 MCG; Start 01/02/19 at 07:00 Losartan Potassium (Cozaar) 50 mg BID PO ; Start 01/01/19 at 21:00; Status Hold Atorvastatin Calcium (Lipitor) 40 mg DAILY@21 PO Last administered on 01/05/19 21:02; Admin Dose 40 MG; Start 01/01/19 at 21:00 Lorazepam (Ativan) 0.5 mg Q8H PRN IV agitation Last administered on 01/03/19 09:44; Admin Dose 0.5 MG; Start 01/01/19 at 14:00 Albuterol/ Ipratropium (Duoneb) 3 ml Q2H RESP THERAPY PRN HHN sob; Start 01/01/19 at 14:00 Hydralazine HCl (Apresoline) 10 mg Q6H PRN IV sbp >160mmhg Last administered on 01/01/19 16:15; Admin Dose 10 MG; Start 01/01/19 at 14:30 Bumetanide (Bumex) 1 mg BID DIURETICS IV Last administered on 01/06/19 06:58; Admin Dose 1 MG; Start 01/02/19 at 06:00 Sacubitril/ Valsartan (Entresto 24 Mg-26 Mg) 1 tab BID PO Last administered on 01/06/19at 08:49; Admin Dose 1 TAB; Start 01/02/19 at 21:00 Ertapenem 1 gm/ Sodium Chloride 100 ml @ 200 mls/hr Q24H IVPB Last administered on 01/06/19at 10:51; Admin Dose 200 MLS/HR; Start 01/04/19 at 11:00 Vancomycin HCl (Vanco Iv Per Pharmacy) VANCOMYCIN PER PHARMACY PER PROTOCOL XX ; Start 01/04/19 at 11:30 Vancomycin HCl 1.5 gm/Sodium Chloride 250 ml @ 83.333 mls/ hr Q24H IVPB Last administered on 01/06/19at 13:21; Admin Dose 83.333 MLS/HR; Start 01/05/19 at 13:00 Miscellaneous Information (*Rx Drug Level Order Reminder*) VANCO TROUGH @ 1,200 ON... ONCE ONCE XX ; Start 01/07/19 at 12:00; Stop 01/07/19 at 12:01 Quang Robles DO Jan 06, 2019 15:48
[2019-01-06] MEDS ORDERED: LIDOCAINE 1% (MPF) 5 ML VIAL SC ONE (16:30)
[2019-01-06] MEDS ORDERED: BUMETANIDE 1 MG TAB PO SCH (17:00)
--- NOTE | 2019-01-06 20:01 | PN ---
Date/Time of Note Date/Time of Note DATE: 01/06/19 TIME: 19:59 Assessment/Plan VTE Prophylaxis Risk score (from Ns)>0 risk: 8 SCD applied (from [facility]): No SCD contraindicated: other Pharmacological prophylaxis: other Lines/Catheters IV Catheter Type (from [facility]): Saline Lock Urinary Cath still in place: No Assessment/Plan Hospital Course The patient was discharged today. I was called by the pathologist and he notified me that the urine cytology was positive on the patient. We do know that this patient has a bladder tumor and I have discussed with his family the need to do a cystoscopy and resect any bladder tumor. However the patient has been voiding and his urine has been clear and the family did not want to do any intervention at this time. Because of the urine cytology being positive I did call his daughter and left her a message on the phone of the results. The time of the call was January 06, 2019 at 8 PM. Result Diagram: 01/06/19 0654 01/06/19 0654 Results 24hrs Laboratory Tests Test 01/06/19 06:54 White Blood Count 11.7 #H Red Blood Count 3.87 L Hemoglobin 11.1 L Hematocrit 36.0 L Mean Corpuscular Volume 93.0 Mean Corpuscular Hemoglobin 28.7 L Mean Corpuscular Hemoglobin Concent 30.8 L Red Cell Distribution Width 16.4 H Platelet Count 195 Mean Platelet Volume 11.9 H Immature Granulocytes % 0.500 H Neutrophils % 77.9 H Lymphocytes % 8.1 L Monocytes % 12.0 H Eosinophils % 1.2 Basophils % 0.3 Nucleated Red Blood Cells % 0.0 Immature Granulocytes # 0.060 H Neutrophils # 9.1 H Lymphocytes # 1.0 Monocytes # 1.4 H Eosinophils # 0.1 Basophils # 0.0 Nucleated Red Blood Cells # 0.0 Sodium Level 140 Potassium Level 3.6 Chloride Level 101 Carbon Dioxide Level 29 Anion Gap 10 Blood Urea Nitrogen 23 H Creatinine 1.16 Est Glomerular Filtrat Rate mL/min Glucose Level 102 Calcium Level 8.4 Phosphorus Level 3.3 Magnesium Level 2.2 Exam/Review of Systems Exam Vitals Vital Signs Date Temp Pulse Resp B/P (MAP) Pulse Ox O2 O2 Flow FiO2 Time Delivery Rate 01/06/19 77 Room Air 16:49 01/06/19 54 16:28 01/06/19 97.5 17 111/56 15:34 (74) 01/06/19 4.0 07:48 01/02/19 40 13:50 Intake and Output 01/05/19 01/05/19 01/06/19 1515:00 23:00 07:00 IntakeIntake Total 266.66 ml 733.34 ml 150 ml OutputOutput Total 700 ml BalanceBalance 266.66 ml 33.34 ml 150 ml Results Results 24hrs Laboratory Tests Test 01/06/19 06:54 White Blood Count 11.7 #H Red Blood Count 3.87 L Hemoglobin 11.1 L Hematocrit 36.0 L Mean Corpuscular Volume 93.0 Mean Corpuscular Hemoglobin 28.7 L Mean Corpuscular Hemoglobin Concent 30.8 L Red Cell Distribution Width 16.4 H Platelet Count 195 Mean Platelet Volume 11.9 H Immature Granulocytes % 0.500 H Neutrophils % 77.9 H Lymphocytes % 8.1 L Monocytes % 12.0 H Eosinophils % 1.2 Basophils % 0.3 Nucleated Red Blood Cells % 0.0 Immature Granulocytes # 0.060 H Neutrophils # 9.1 H Lymphocytes # 1.0 Monocytes # 1.4 H Eosinophils # 0.1 Basophils # 0.0 Nucleated Red Blood Cells # 0.0 Sodium Level 140 Potassium Level 3.6 Chloride Level 101 Carbon Dioxide Level 29 Anion Gap 10 Blood Urea Nitrogen 23 H Creatinine 1.16 Est Glomerular Filtrat Rate mL/min Glucose Level 102 Calcium Level 8.4 Phosphorus Level 3.3 Magnesium Level 2.2 JOSE OCAMPO MD Jan 06, 2019 20:01
== END 2019-01-06 17:33 | disposition home health service (06) | DRG 291 ==
LOC: E/R 07:16 → TEL 08:16
PROVIDERS: ADMIT Family Medicine; ATTEND Family Medicine
PROC: 5A09357 Assistance with Respiratory Ventilation, Less than 24 Consecutive Hours, Continuous Positive Airway Pressure (ICD-10-PCS; principal; 2019-01-01)
DX: I13.0 Hypertensive heart and chronic kidney disease with heart failure and stage 1 through stage 4 chronic kidney disease, or unspecified chronic kidney disease (principal); J96.01 Acute respiratory failure with hypoxia; I50.43 Acute on chronic combined systolic (congestive) and diastolic (congestive) heart failure; J96.02 Acute respiratory failure with hypercapnia; N39.0 Urinary tract infection, site not specified; J44.1 Chronic obstructive pulmonary disease with (acute) exacerbation; I42.9 Cardiomyopathy, unspecified; I48.0 Paroxysmal atrial fibrillation; C67.9 Malignant neoplasm of bladder, unspecified; B96.20 Unspecified Escherichia coli [E. coli] as the cause of diseases classified elsewhere; I71.2 Thoracic aortic aneurysm, without rupture; Z99.81 Dependence on supplemental oxygen; I35.0 Nonrheumatic aortic (valve) stenosis; I69.920 Aphasia following unspecified cerebrovascular disease; Z95.1 Presence of aortocoronary bypass graft; I25.10 Atherosclerotic heart disease of native coronary artery without angina pectoris; E78.5 Hyperlipidemia, unspecified; E03.9 Hypothyroidism, unspecified; N18.9 Chronic kidney disease, unspecified; N40.1 Benign prostatic hyperplasia with lower urinary tract symptoms; I11.0 Hypertensive heart disease with heart failure; I71.4 Abdominal aortic aneurysm, without rupture; I25.2 Old myocardial infarction; Z87.891 Personal history of nicotine dependence; Z79.82 Long term (current) use of aspirin; Z85.46 Personal history of malignant neoplasm of prostate
CPT/HCPCS: 36415; 36600; 71045; 71260; 76775; 80048; 80053; 81001; 82550; 82553; 82803; 83690; 83735; 83880; 84100; 84443; 84484; 85025; 87040; 87086; 88104; 93005; 94640; 94644; 94660; 94664; 96374; 96375; 97116; 97161; 97167; 97530; J0360; J0692; J1335; J1956; J2060; J3370; J3480; J7040; J7050; Q9967

== ENCOUNTER 2019-01-21 09:35 | Inpatient (IN) | payer MEDICARE, OTHER ==
[~2019-01-21] VITALS: Ht 177.8 cm; Wt 89.5 kg
[~2019-01-21 09:35] MED LIST changes: +ERTA1VIA3 IV; -LOSA50TA14 PO; +SACU1TAB PO; -SENN-120 PO; -TAMS-14 PO
[2019-01-21] MEDS ORDERED: LIDOCAINE 2% JEL.PF.APP 5 ML UROJET SYRINGE MM ONE (10:30)
--- NOTE | 2019-01-21 12:02 | ERD ---
ER Documentation Chief Complaint Chief Complaint SOB NORMALLY 3 LITERS AT HOME, HEMATURIA HPI 78-year-old male brought to the emergency department by his family for evaluation of hematuria. Patient provides very little history. History is available for my conversations with his urologist, his daughter, review of his records. Patient has a chronic history of extensive bladder cancer which has been partially resected. He has a history of chronic cardiopulmonary disease as well. According to the family, from his cardiopulmonary standpoint, he has been doing well. He has no new chest pain or shortness of breath. He has chronic dyspnea and is on oxygen at home, but this is stable and unchanged. The family noted that he had hematuria and urinary urgency. With his history of bladder cancer, they brought him to the emergency department over concerns that this had progressed. Patient has no known fevers or vomiting at this time. No significant abdominal pain. ROS All systems reviewed and are negative except as per history of present illness. Medications Home Meds Active Scripts Sacubitril/Valsartan (Entresto 24 mg-26 mg Tablet) 1 Each Tablet, 1 TAB PO BID, #60 TAB 2 Refills Prov:MAYELIN BARRETT 01/06/19 Bumetanide* (Bumetanide*) 1 Mg Tablet, 1 MG PO BID for 30 Days, #60 TAB Prov:MAYELIN BARRETT 01/06/19 Potassium Chloride* (Potassium Chloride*) 8 Meq Capsule.er, 8 MEQ PO DAILY, #30 CAP Prov:MAYELIN BARRETT. 01/06/19 Aspirin Delayed Release (Aspirin Delayed Release) 81 Mg Tablet.dr, 81 MG PO DAILY for 30 Days, #30 otc Prov:SAMANTHA BOB MD 11/16/18 Rosuvastatin Calcium* (Crestor*) 10 Mg Tablet, 10 MG PO QHS for 30 Days, #30 TAB Prov:SAMANTHA BOB MD 11/16/18 Isosorbide Dinitrate* (Isosorbide Dinitrate*) 30 Mg Tablet, 30 MG PO BID for 10 Days, #20 TAB Prov:SAMANTHA BOB MD 11/16/18 Reported Medications Amiodarone Hcl* (Amiodarone Hcl*) 200 Mg Tablet, 200 MG PO DAILY, #30 TAB 11/13/18 Levothyroxine Sodium* (Levoxyl*) 150 Mcg Tablet, 150 MCG PO BEFORE BREAKFAST, #30 TAB 07/20/18 Discontinued Scripts Ertapenem Sodium (Invanz) 1 Gm Vial, 1 GM IV Q24H for 5 Days, VIAL Prov:MAYELIN BARRETT 01/06/19 Allergies Allergies: Coded Allergies: No Known Allergy (Unverified , 01/21/19) PMhx/Soc History of Surgery: Yes (CABG 1995, prostectomy ) Anesthesia Reaction: No Hx Neurological Disorder: Yes (aphasia,dementia,cva,) Hx Respiratory Disorders: Yes (copd) Hx Cardiac Disorders: Yes (htn,chf,cad,mi ) Hx Psychiatric Problems: Yes (dementia) Hx Miscellaneous Medical Probl: Yes (CHF with LVEF 25%, bladder tumor, paroxysmal Afib, aortic stenosis, COPD, H) Hx Alcohol Use: Yes (occasional ) Hx Substance Use: No Hx Tobacco Use: Yes FmHx Supportive family at bedside Physical Exam Vitals Vital Signs Date Temp Pulse Resp B/P (MAP) Pulse Ox O2 O2 Flow FiO2 Time Delivery Rate 01/21/19 97.7 56 20 158/67 95 09:41 (97) Physical Exam GENERAL: Frail, elderly-appearing male. He appears uncomfortable. HEENT: Pupils equal, round, and reactive to light. EOMI. There is no scleral icterus. NECK: C-spine is soft and supple, there is no meningismus. There is no cervical lymphadenopathy. LUNGS: Clear to auscultation bilaterally. There are no rales, wheezes or rhonchi. Mildly tachypneic HEART: Regular rate and rhythm, no murmurs, clicks, rubs or gallops. Sternotomy scar is appreciated ABDOMEN: Soft, nondistended. Surgical scars are appreciated. No rebound or guarding. : No obvious distended bladder or CVA tenderness. No evidence of penile trauma. EXTREMITIES: There is no peripheral cyanosis or edema. No focal swelling or erythema. NEURO: Patient is awake and responding to his family. He is at baseline according to his family. He has a nonfocal motor and sensory examination. SKIN: There is no apparent rash or petechiae. HEME/LYMPHATIC: There is no evidence of excessive bruising or lymphedema. PSYCHIATRIC: The patient does not appear anxious or depressed. Result Diagram: 01/21/19 1010 01/21/19 1010 Results 24 hrs Laboratory Tests Test 01/21/19 10:10 White Blood Count 9.3 10^3/ul Red Blood Count 3.83 10^6/ul Hemoglobin 10.8 g/dl Hematocrit 35.2 % Mean Corpuscular Volume 91.9 fl Mean Corpuscular Hemoglobin 28.2 pg Mean Corpuscular Hemoglobin Concent 30.7 g/dl Red Cell Distribution Width 16.0 % Platelet Count 240 10^3/UL Mean Platelet Volume 11.3 fl Immature Granulocytes % 0.400 % Neutrophils % 75.4 % Lymphocytes % 11.0 % Monocytes % 11.0 % Eosinophils % 1.8 % Basophils % 0.4 % Nucleated Red Blood Cells % 0.0 /100WBC Immature Granulocytes # 0.040 10^3/ul Neutrophils # 7.0 10^3/ul Lymphocytes # 1.0 10^3/ul Monocytes # 1.0 10^3/ul Eosinophils # 0.2 10^3/ul Basophils # 0.0 10^3/ul Nucleated Red Blood Cells # 0.0 10^3/ul Sodium Level 143 mmol/L Potassium Level 3.5 mmol/L Chloride Level 106 mmol/L Carbon Dioxide Level 30 mmol/L Anion Gap 7 Blood Urea Nitrogen 18 mg/dl Creatinine 1.16 mg/dl Est Glomerular Filtrat Rate mL/min mL/min Glucose Level 128 mg/dl Lactic Acid Level 1.1 mmol/L Calcium Level 8.8 mg/dl Total Bilirubin 0.5 mg/dl Direct Bilirubin 0.00 mg/dl Indirect Bilirubin 0.5 mg/dl Aspartate Amino Transf (AST/SGOT) 18 IU/L Alanine Aminotransferase (ALT/SGPT) 22 IU/L Alkaline Phosphatase 85 IU/L Total Protein 6.4 g/dl Albumin 3.2 g/dl Globulin 3.20 g/dl Albumin/Globulin Ratio 1.00 Lipase 45 U/L Current Medications Medications Dose Sig/Saroj Start Time Status Last (Trade) Ordered Route PRN Stop Time Admin Dose Reason Admin Lidocaine 5 ml ONCE ONCE 01/21/19 DC 01/21/19 HCl MM 10:30 10:28 (Lidocaine 01/21/19 10:31 Urojet) Procedures/MDM Patient was taken to a room, seen and evaluated. Comfort measures were initiated. Diagnostic tests were ordered and reviewed. 3 LEAD RHYTHM STRIP: Normal sinus rhythm without ectopy EK lead EKG reviewed by myself: Normal Sinus Rhythm Right bundle branch block Nonspecific ST and T wave changes without ST elevation Impression: Nonspecific EKG RADIOLOGY: Reviewed with the radiologist CONSULTATION: Hospitalist was notified for admission after I spoke with Dr. Alcala who recommended hospitalization for operation. REEVALUATION: 1200: Diagnostic tests were appreciated and after discussion with the family, decision was made to admit for observation MEDICAL DECISION MAKIN-year-old male with an extensive cardiopulmonary history presents to the emergency department for dysuria and hematuria. He has an extensive history of bladder cancer and as per my conversation with his urologist will be admitted for further consideration of bladder resection/operative management of the tumor. Urinalysis pending and will be checked with antibiotics pending the results of his urinalysis and urine culture. He has significant comorbid conditions at this time which appear to be essentially stable. He will require further observation and monitoring of these comorbid cardiopulmonary concerns. Departure Diagnosis: Primary Impression: Urothelial carcinoma of bladder Additional Impression: Systolic and diastolic CHF, acute on chronic Condition: LISA Thorpe Jan 21, 2019 12:02
[2019-01-21] MEDS ORDERED: morphine 2 MG INJ ONE (12:29)
[2019-01-21] MEDS ORDERED: morphine 2 MG INJ IV STA (12:29)
[2019-01-21] MEDS ORDERED: FUROSEMIDE 40 MG INJ IV STA (13:07)
[2019-01-21] MEDS ORDERED: NITROGLYCERIN 2% 1 GM OINT PKT TD STA (13:07)
--- NOTE | 2019-01-21 14:35 | HP ---
Date/Time of Note Date/Time of Note DATE: 01/21/19 TIME: 14:35 Assessment/Plan VTE Prophylaxis SCD applied (from Nsg): Yes Pharmacological prophylaxis: NA/contraindicated Pharm contraindication: surgical contra Lines/Catheters IV Catheter Type (from Nrs): Saline Lock Assessment/Plan Hospital Course SUBJECTIVE: OBJECTIVE: Vital signs-see below PHYSICAL EXAM: Constitutional: Frail looking male, having mild respiratory distress. Psych: nl mood/affect, no complaints Head: atraumatic, normocephalic Eyes: nl conjunctiva, nl sclera ENMT: mucosa pink and moist, nl external ears & nose Neck: non-tender, supple Respiratory: demised bibasilar. normal air movement Cardiovascular: Grade V/ Murmur 2nd Left ICS. nl pulses, regular rate and rhythm Gastrointestinal: non-tender, soft, bowel sounds active in all 4 quadrants. Musculoskeletal/extremities: trace edema ble. motor strength equal bilate rally, no focal deficit. Normal pulses,no cyanosis Neurological: Alert oriented 3, forgetful, aphasic. Skin: nl turgor ASSESSMENT/PLAN: 78-year-old male with numerous medical problems including o2 dependent resp fx, cad/s/p cabs,severe ,CM w/ef 25%, bladder tumors with positive urine cytology documented in December 2018, was sent by his urologist for cystoscopy with possible surgical resection of the bladder tumor secondary to worsening frequency/dysuria/hematuria. 1. Bladder tumor with positive urine cytology in December 2018. -Patient was sent from urologist office for inpatient workup with possible cystoscopy/surgical resection of bladder tumor secondary to worsening urinary s ymptoms. -Management per urology. Patient would definitely need cardiology evaluation prior to any surgical procedures. 2. Acute on chronic systolic/diastolic congestive heart failure. -Decompensated -IV diuresis, resume Entresto. 3.Chronic oxygen dependent respiratory failure -oes use home oxygen 5 L. -Supplemental oxygen to keep saturation above 92%, PRN bronchodilators. 4. Cardiomyopathy with ejection fraction 25% -We will repeat echocardiogram with this admission. Cardiology to follow. -Resume outpatient management. 5. Coronary artery disease, status post CABG -Hold aspirin in light of possible surgical needs. -Resume cardiac medications. 6. Severe aortic stenosis -Continue to monitor. Follow-up cardiology recommendations. 7. Hypothyroidism -Resume Synthroid 8. Hypertension -Resume home medications 9. Paroxysmal atrial fibrillation -Currently in sinus rhythm. Candidate for anticoagulation secondary to bladder tumors. -Resume amiodarone. 10. History of CVA with expressive aphasia. -Monitor. Again aspirin will be held in light of possible surgical need. 11. Chronic anemia. -Stable H&H. Continue to monitor. DVT prophylaxis: SCDs PUD prophylaxis: pepcid CODE STATUS: Full code Diet: N.p.o. except medications for possible surgical intervention. Test of the management depend on hospital course. Approximately 60 m spent on this history and physical. Patient was seen in collaboration with Dr. Nascimento. Result Diagram: 01/21/19 1010 01/21/19 1010 Results 24hrs Laboratory Tests Test 01/21/19 10:10 01/21/19 11:28 White Blood Count 9.3 # Red Blood Count 3.83 L Hemoglobin 10.8 L Hematocrit 35.2 L Mean Corpuscular Volume 91.9 Mean Corpuscular Hemoglobin 28.2 L Mean Corpuscular Hemoglobin Concent 30.7 L Red Cell Distribution Width 16.0 H Platelet Count 240 # Mean Platelet Volume 11.3 H Immature Granulocytes % 0.400 Neutrophils % 75.4 Lymphocytes % 11.0 L Monocytes % 11.0 Eosinophils % 1.8 Basophils % 0.4 Nucleated Red Blood Cells % 0.0 Immature Granulocytes # 0.040 H Neutrophils # 7.0 Lymphocytes # 1.0 Monocytes # 1.0 H Eosinophils # 0.2 Basophils # 0.0 Nucleated Red Blood Cells # 0.0 Prothrombin Time 14.4 Prothrombin Time Ratio 1.1 INR International Normalized Ratio 1.11 Activated Partial Thromboplast Time 29.0 Sodium Level 143 Potassium Level 3.5 Chloride Level 106 Carbon Dioxide Level 30 Anion Gap 7 Blood Urea Nitrogen 18 Creatinine 1.16 Est Glomerular Filtrat Rate mL/min Glucose Level 128 Lactic Acid Level 1.1 Calcium Level 8.8 Total Bilirubin 0.5 Direct Bilirubin 0.00 Indirect Bilirubin 0.5 Aspartate Amino Transf (AST/SGOT) 18 Alanine Aminotransferase (ALT/SGPT) 22 Alkaline Phosphatase 85 Troponin I 0.037 Total Protein 6.4 Albumin 3.2 L Globulin 3.20 Albumin/Globulin Ratio 1.00 Lipase 45 Urine Color MEGAN Urine Clarity CLOUDY A Urine pH 6.0 Urine Specific [place] 1.018 Urine Ketones NEGATIVE Urine Nitrite NEGATIVE Urine Bilirubin NEGATIVE Urine Urobilinogen NEGATIVE Urine Leukocyte Esterase 2+ H Urine Microscopic RBC > 182 H Urine Microscopic WBC > 182 H Urine Squamous Epithelial Cells FEW Urine Renal Epithelial Cells MODERATE Urine Bacteria MODERATE Urine Mucus FEW A Urine Hemoglobin 3+ H Urine Glucose NEGATIVE Urine Total Protein 2+ H HPI/ROS Admit Date/Time Admit Date/Time Hx of Present Illness This is a 78-year-old male with numerous medical problems including oxygen dependent respiratory failure, coronary artery disease, status post CABG, cardiomyopathy with ejection fraction 25%, stroke with expressive aphasia, congestive heart failure, paroxysmal atrial fibrillation, severe aortic stenosis, hypothyroidism, dyslipidemia, hypertension, bladder tumors with positive urine cytology documented in December 2018, was sent by his urologist for cystoscopy with possible surgical resection of the bladder tumor secondary to worsening frequency/dysuria/hematuria. Patient on 10 L oxygen via facemask. He also appears slightly dyspneic. Denied chest pain, palpitation, nausea, vomiting, abdominal pain, loss of consciousness, dizziness, numbness, tingling, swelling, fever, chills or other constitutional symptoms. Labs showed hemoglobin 10.8, hematocrit 35.2, urine analysis positive for 3+ hemoglobin with microscopic RBC>182. ROS A 12 point review of system was assessed and is negative other than what is mentioned in the HPI PMH/Family/Social Past Medical History See HPI Coded Allergies: No Known Allergy (Unverified , 01/21/19) Past Surgical History See HPI Past Surgical Hx: abd aortic aneurysmectomy, coronary bypass surgery, other Family History Significant Family History: no pertinent family hx Social History Former smoker. Exam/Review of Systems Vital Signs Vitals Vital Signs Date Temp Pulse Resp B/P (MAP) Pulse Ox O2 O2 Flow FiO2 Time Delivery Rate 01/21/19 97.7 61 20 130/60 98 Mask 8.0 13:47 (83) CARLOS MANUEL GERONIMO NP Jan 21, 2019 14:35
[2019-01-21] MEDS ORDERED: NACL 0.9% 3 ML SYG IV SCH (15:00)
[2019-01-21] MEDS ORDERED: ONDANSETRON 4 MG INJ IV PRN (15:00)
[2019-01-21] MEDS ORDERED: LEVALBUTEROL (NEB) 1.25 MG/0.5 ML AMP HHN PRN (15:30)
[2019-01-21] MEDS: LEVALBUTEROL (NEB) 1.25 MG/0.5 ML AMP HHN SCH ×2 (15:59→20:00)
--- NOTE | 2019-01-21 16:18 | CONS ---
Assessment/Plan Cardiology NYHA: III Heart Failure Type: Acute on Chronic Heart Failure Type: Systolic Assessment/Plan Hospital Course (Demo Recall) Acute decompensated systolic congestive heart failure Possible urinary retention with history of bladder cancer Paroxysmal atrial fibrillation, currently sinus rhythm-not on anticoagulation secondary to bladder tumor Aortic stenosis COPD Hypertension CKD -Patient was admitted secondary to histories of possible urinary retention as well as evidence of decompensated congestive heart failure -Patient with respiratory distress with Lopez placement requiring oxygen supplementation. He does feel better after Lopez removal -Patient awaiting urology evaluation -We will continue Bumex at the current time as long as patient able to urinate - Consultation Date/Type/Reason Admit Date/Time Type of Consult Cardiology Reason for Consultation CHF Date/Time of Note DATE: 01/21/19 TIME: 16:12 Hx of Present Illness This is a 78-year-old male well-known to me from multiple previous admissions with past medical history of systolic congestive heart failure, paroxysmal atrial fibrillation, coronary artery disease who presents with difficulty with urination and shortness of breath. Discussion with family bedside, patient has urgency of urinating but is not clear if he is fully emptying. He also has been having increased shortness of breath. It is unclear if his pain and discomfort with urination is causing his shortness of breath or not. Daughter did speak to patient's urologist and recommended inpatient admission for possible further urologic procedure given history of bladder tumor. In discussion with family, it appears when patient was having Lopez placed, patient in severe discomfort with severe shortness of breath during this episode requiring oxygen supplementation and facemask. After Lopez removed, he is feeling better. Denies current chest pain, dizziness or palpitations. 12 point review of systems was performed with all pertinent positives and negatives mentioned above and all else is negative Past Medical History Bladder cancer Medical History: congestive heart failure, coronary artery disease, high cholesterol, hypertension Home Meds Active Scripts Sacubitril/Valsartan (Entresto 24 mg-26 mg Tablet) 1 Each Tablet, 1 TAB PO BID, #60 TAB 2 Refills Prov:MAYELIN BARRETT. 01/06/19 Bumetanide* (Bumetanide*) 1 Mg Tablet, 1 MG PO BID for 30 Days, #60 TAB Prov:MAYELIN BARRETT. 01/06/19 Potassium Chloride* (Potassium Chloride*) 8 Meq Capsule.er, 8 MEQ PO DAILY, #30 CAP Prov:MAYELIN BARRETT. 01/06/19 Aspirin Delayed Release (Aspirin Delayed Release) 81 Mg Tablet.dr, 81 MG PO DAILY for 30 Days, #30 otc Prov:SAMANTHA BOB MD 11/16/18 Rosuvastatin Calcium* (Crestor*) 10 Mg Tablet, 10 MG PO QHS for 30 Days, #30 TAB Prov:SAMANTHA BOB MD 11/16/18 Isosorbide Dinitrate* (Isosorbide Dinitrate*) 30 Mg Tablet, 30 MG PO BID for 10 Days, #20 TAB Prov:SAMANTHA BOB MD 11/16/18 Reported Medications Amiodarone Hcl* (Amiodarone Hcl*) 200 Mg Tablet, 200 MG PO DAILY, #30 TAB 11/13/18 Levothyroxine Sodium* (Levoxyl*) 150 Mcg Tablet, 150 MCG PO BEFORE BREAKFAST, #30 TAB 07/20/18 Discontinued Scripts Ertapenem Sodium (Invanz) 1 Gm Vial, 1 GM IV Q24H for 5 Days, VIAL Prov:RISHABH BARRETTPhilipp DianaJimmy 01/06/19 Medications Current Medications Amiodarone HCl (Cordarone) 200 mg DAILY PO ; Start 01/22/19 at 09:00 Isosorbide Dinitrate (Isordil) 30 mg BID PO ; Start 01/21/19 at 21:00 Levothyroxine Sodium (Synthroid) 150 mcg BEFORE BREAKFAST PO ; Start 01/22/19 at 07:00 Sacubitril/ Valsartan (Entresto 24 Mg-26 Mg) 1 tab BID PO ; Start 01/21/19 at 21:00; Status UNV Miscellaneous Information 10 mg QHS PO ; Start 01/21/19 at 21:00; Status UNV Bumetanide (Bumex) 1 mg BID DIURETICS IV ; Start 01/21/19 at 18:00 IV Flush (NS 3 ml) 3 ml PER PROTOCOL IV ; Start 01/21/19 at 15:00 Ondansetron HCl (Zofran Inj) 4 mg Q6H PRN IV NAUSEA/VOMITING; Start 01/21/19 at 15:00 Acetaminophen (Tylenol Tab) 650 mg Q6H PRN PO .PAIN 1-3 OR TEMP; Start 01/21/19 at 15:00 Docusate Sodium (Colace) 100 mg Q12H PRN PO .CONSTIPATION; Start 01/21/19 at 15:00 Famotidine (Pepcid) 20 mg Q12 PO ; Start 01/21/19 at 21:00 Ciprofloxacin (Cipro) 500 mg BID@06,18 PO ; Start 01/21/19 at 18:00 Levalbuterol (Xopenex Neb) 1.25 mg Q6H RESP THERAPY HHN Last administered on 01/21/19at 15:59; Admin Dose 1.25 MG; Start 01/21/19 at 15:30 Levalbuterol (Xopenex Neb) 1.25 mg Q4H RESP THERAPY PRN HHN sob/wheezing; Start 01/21/19 at 15:30 Allergies: Coded Allergies: No Known Allergy (Unverified , 01/21/19) Past Surgical History Past Surgical Hx: abd aortic aneurysmectomy, coronary bypass surgery, other Family History Significant Family History: no pertinent family hx Social History Smoking Status: Former smoker Other Social History Lives at home Exam/Review of Systems Vital Signs Vitals Vital Signs Date Temp Pulse Resp B/P (MAP) Pulse Ox O2 O2 Flow FiO2 Time Delivery Rate 01/21/19 60 18 97 Simple 6.0 16:00 Mask 01/21/19 98.0 164/72 15:00 (102) Exam Constitutional: alert, oriented (Follows commands, on facemask, family at bedside) Head: normocephalic Respiratory: other (Coarse breath sounds bilaterally, scattered mild crackles, no wheezing) Cardiovascular: regular rate and rhythm (S1-S2 heard) Gastrointestinal: soft, non-tender, bowel sounds Extremities: edema (Trace) Labs Result Diagram: 01/21/19 1010 01/21/19 1010 Results 24hrs Laboratory Tests Test 01/21/19 10:10 01/21/19 11:28 White Blood Count 9.3 # Red Blood Count 3.83 L Hemoglobin 10.8 L Hematocrit 35.2 L Mean Corpuscular Volume 91.9 Mean Corpuscular Hemoglobin 28.2 L Mean Corpuscular Hemoglobin Concent 30.7 L Red Cell Distribution Width 16.0 H Platelet Count 240 # Mean Platelet Volume 11.3 H Immature Granulocytes % 0.400 Neutrophils % 75.4 Lymphocytes % 11.0 L Monocytes % 11.0 Eosinophils % 1.8 Basophils % 0.4 Nucleated Red Blood Cells % 0.0 Immature Granulocytes # 0.040 H Neutrophils # 7.0 Lymphocytes # 1.0 Monocytes # 1.0 H Eosinophils # 0.2 Basophils # 0.0 Nucleated Red Blood Cells # 0.0 Prothrombin Time 14.4 Prothrombin Time Ratio 1.1 INR International Normalized Ratio 1.11 Activated Partial Thromboplast Time 29.0 Sodium Level 143 Potassium Level 3.5 Chloride Level 106 Carbon Dioxide Level 30 Anion Gap 7 Blood Urea Nitrogen 18 Creatinine 1.16 Est Glomerular Filtrat Rate mL/min Glucose Level 128 Lactic Acid Level 1.1 Calcium Level 8.8 Total Bilirubin 0.5 Direct Bilirubin 0.00 Indirect Bilirubin 0.5 Aspartate Amino Transf (AST/SGOT) 18 Alanine Aminotransferase (ALT/SGPT) 22 Alkaline Phosphatase 85 Troponin I 0.037 B-Type Natriuretic Peptide 7230 H Total Protein 6.4 Albumin 3.2 L Globulin 3.20 Albumin/Globulin Ratio 1.00 Lipase 45 Urine Color MEGAN Urine Clarity CLOUDY A Urine pH 6.0 Urine Specific [place] 1.018 Urine Ketones NEGATIVE Urine Nitrite NEGATIVE Urine Bilirubin NEGATIVE Urine Urobilinogen NEGATIVE Urine Leukocyte Esterase 2+ H Urine Microscopic RBC > 182 H Urine Microscopic WBC > 182 H Urine Squamous Epithelial Cells FEW Urine Renal Epithelial Cells MODERATE Urine Bacteria MODERATE Urine Mucus FEW A Urine Hemoglobin 3+ H Urine Glucose NEGATIVE Urine Total Protein 2+ H Imaging Imaging ECG was sinus rhythm at 61 bpm, QRS 142 ms, nonspecific T wave abnormalities Medications Medications Current Medications Amiodarone HCl (Cordarone) 200 mg DAILY PO ; Start 01/22/19 at 09:00 Isosorbide Dinitrate (Isordil) 30 mg BID PO ; Start 01/21/19 at 21:00 Levothyroxine Sodium (Synthroid) 150 mcg BEFORE BREAKFAST PO ; Start 01/22/19 at 07:00 Sacubitril/ Valsartan (Entresto 24 Mg-26 Mg) 1 tab BID PO ; Start 01/21/19 at 21:00; Status UNV Miscellaneous Information 10 mg QHS PO ; Start 01/21/19 at 21:00; Status UNV Bumetanide (Bumex) 1 mg BID DIURETICS IV ; Start 01/21/19 at 18:00 IV Flush (NS 3 ml) 3 ml PER PROTOCOL IV ; Start 01/21/19 at 15:00 Ondansetron HCl (Zofran Inj) 4 mg Q6H PRN IV NAUSEA/VOMITING; Start 01/21/19 at 15:00 Acetaminophen (Tylenol Tab) 650 mg Q6H PRN PO .PAIN 1-3 OR TEMP; Start 01/21/19 at 15:00 Docusate Sodium (Colace) 100 mg Q12H PRN PO .CONSTIPATION; Start 01/21/19 at 15:00 Famotidine (Pepcid) 20 mg Q12 PO ; Start 01/21/19 at 21:00 Ciprofloxacin (Cipro) 500 mg BID@06,18 PO ; Start 01/21/19 at 18:00 Levalbuterol (Xopenex Neb) 1.25 mg Q6H RESP THERAPY HHN Last administered on 01/21/19at 15:59; Admin Dose 1.25 MG; Start 01/21/19 at 15:30 Levalbuterol (Xopenex Neb) 1.25 mg Q4H RESP THERAPY PRN HHN sob/wheezing; Start 01/21/19 at 15:30 Quang Robles DO Jan 21, 2019 16:18
[2019-01-21] MEDS: BUMETANIDE 1 MG INJ IV SCH (18:34)
[2019-01-21] MEDS: CIPROFLOXACIN 500 MG TAB PO SCH (18:34)
--- NOTE | 2019-01-21 18:39 | CONS ---
Assessment/Plan Assessment/Plan Hospital Course (Demo Recall) 78-year-old male who is known to have a history of bladder tumors. He was here last year with gross hematuria and urinary incontinence. He underwent a transurethral resection of most of the tumors. Postop he did well and he was voiding clear urine and the family decided that since he was doing well no need for further intervention. He was since admitted to the hospital and I did see him earlier this months and did order a urine cytology that came back positive I did call the family and informed them of the findings. I did talk to them before and told them that he still has bladder tumors and sooner or later he is going to have more problems but again they elected at the time to do nothing. There thinking is that as long as he is doing fine regardless was going on we will do nothing. However the patient had hematuria yesterday and today his family brought him to the emergency room. He is always morning and giving the impression that he is in pain but the reality he is not. I met with his daughter at his bedside in the emergency room and it appears that they are willing to have him undergo the surgery. The surgery will be a cystoscopy and transurethral resection of bladder tumors and possible insertion of ureteral catheters. I will schedule the patient for tomorrow if time is available otherwise the following day. Consultation Date/Type/Reason Admit Date/Time January 21, 2019 Date of Consultation: Jan 21, 2019 Type of Consult Urology Reason for Consultation Hematuria and history of bladder tumor Requesting Provider: MAYELIN BARRETT Date/Time of Note DATE: 01/21/19 TIME: 18:27 Hx of Present Illness 78-year-old male who is known to have a history of bladder tumors. He was here last year with gross hematuria and urinary incontinence. He underwent a transurethral resection of most of the tumors. Postop he did well and he was voiding clear urine and the family decided that since he was doing well no need for further intervention. He was since admitted to the hospital and I did see h im earlier this months and did order a urine cytology that came back positive I did call the family and informed them of the findings. I did talk to them before and told them that he still has bladder tumors and sooner or later he is going to have more problems but again they elected at the time to do nothing. There thinking is that as long as he is doing fine regardless was going on we will do nothing. However the patient had hematuria yesterday and today his family brought him to the emergency room. He is always morning and giving the impression that he is in pain but the reality he is not. I met with his daughter at his bedside in the emergency room and it appears that they are willi ng to have him undergo the surgery. The surgery will be a cystoscopy and transurethral resection of bladder tumors and possible insertion of ureteral catheters. Constitutional: other (Patient whining all the time) Eyes: no complaints ENT: no complaints Respiratory: No shortness of breath Cardiovascular: No chest pain Gastrointestinal: No no complaints Genitourinary: hematuria Skin: no complaints Neurologic: no complaints Past Medical History Medical History: cancer (Bladder) Home Meds Active Scripts Sacubitril/Valsartan (Entresto 24 mg-26 mg Tablet) 1 Each Tablet, 1 TAB PO BID, #60 TAB 2 Refills Prov:MAYELIN BARRETT 01/06/19 Bumetanide* (Bumetanide*) 1 Mg Tablet, 1 MG PO BID for 30 Days, #60 TAB Prov:MAYELIN BARRETT. 01/06/19 Potassium Chloride* (Potassium Chloride*) 8 Meq Capsule.er, 8 MEQ PO DAILY, #30 CAP Prov:MAYELIN BARRETT. 01/06/19 Aspirin Delayed Release (Aspirin Delayed Release) 81 Mg Tablet.dr, 81 MG PO DAILY for 30 Days, #30 otc Prov:SAMANTHA BOB MD 11/16/18 Rosuvastatin Calcium* (Crestor*) 10 Mg Tablet, 10 MG PO QHS for 30 Days, #30 TAB Prov:SAMANTHA BOB MD 11/16/18 Isosorbide Dinitrate* (Isosorbide Dinitrate*) 30 Mg Tablet, 30 MG PO BID for 10 Days, #20 TAB Prov:SAMANTHA BOB MD 11/16/18 Reported Medications Amiodarone Hcl* (Amiodarone Hcl*) 200 Mg Tablet, 200 MG PO DAILY, #30 TAB 11/13/18 Levothyroxine Sodium* (Levoxyl*) 150 Mcg Tablet, 150 MCG PO BEFORE BREAKFAST, #30 TAB 07/20/18 Discontinued Scripts Ertapenem Sodium (Invanz) 1 Gm Vial, 1 GM IV Q24H for 5 Days, VIAL Prov:MAYELIN BARRETT 01/06/19 Medications Current Medications Amiodarone HCl (Cordarone) 200 mg DAILY PO ; Start 01/22/19 at 09:00 Isosorbide Dinitrate (Isordil) 30 mg BID PO ; Start 01/21/19 at 21:00 Levothyroxine Sodium (Synthroid) 150 mcg BEFORE BREAKFAST PO ; Start 01/22/19 at 07:00 Sacubitril/ Valsartan (Entresto 24 Mg-26 Mg) 1 tab BID PO ; Start 01/21/19 at 21:00 Atorvastatin Calcium (Lipitor) 40 mg DAILY@21 PO ; Start 01/21/19 at 21:00 Bumetanide (Bumex) 1 mg BID DIURETICS IV ; Start 01/21/19 at 18:00 IV Flush (NS 3 ml) 3 ml PER PROTOCOL IV ; Start 01/21/19 at 15:00 Ondansetron HCl (Zofran Inj) 4 mg Q6H PRN IV NAUSEA/VOMITING; Start 01/21/19 at 15:00 Acetaminophen (Tylenol Tab) 650 mg Q6H PRN PO .PAIN 1-3 OR TEMP; Start 01/21/19 at 15:00 Docusate Sodium (Colace) 100 mg Q12H PRN PO .CONSTIPATION; Start 01/21/19 at 15:00 Famotidine (Pepcid) 20 mg Q12 PO ; Start 01/21/19 at 21:00 Ciprofloxacin (Cipro) 500 mg BID@06,18 PO ; Start 01/21/19 at 18:00 Levalbuterol (Xopenex Neb) 1.25 mg Q6H RESP THERAPY HHN Last administered on 01/21/19at 15:59; Admin Dose 1.25 MG; Start 01/21/19 at 15:30 Levalbuterol (Xopenex Neb) 1.25 mg Q4H RESP THERAPY PRN HHN sob/wheezing; Start 01/21/19 at 15:30 Allergies: Coded Allergies: No Known Allergy (Unverified , 01/21/19) Past Surgical History Past Surgical Hx: abd aortic aneurysmectomy, coronary bypass surgery, other (Transurethral resection of bladder tumors) Social History Smoking Status: Former smoker Exam/Review of Systems Exam Vitals Vital Signs Date Temp Pulse Resp B/P (MAP) Pulse Ox O2 O2 Flow FiO2 Time Delivery Rate 01/21/19 54 18 153/56 95 Nasal 4.0 17:30 (88) Cannula 01/21/19 98.0 15:00 Constitutional: alert Psych: no complaints Head: normocephalic Eyes: nl conjunctiva ENMT: nl external ears & nose Neck: non-tender Respiratory: normal air movement; No wheezing Cardiovascular: No jugular venous distention (JVD) Gastrointestinal: soft Genitourinary - Male: other (Phimosis and balanitis and he just urinated in the diaper and it looks clear. The nurse tried earlier to catheterize him and only obtained 30 mL of bloody urine. Then the nurse took out the Lpoez catheter and the patient has since voided at least twice) Musculoskeletal: nl extremities to inspection Extremities: No calf tenderness Neurological: nl mental status Results Result Diagram: 01/21/19 1010 01/21/19 1010 Results 24hrs Laboratory Tests Test 01/21/19 10:10 01/21/19 11:28 White Blood Count 9.3 # Red Blood Count 3.83 L Hemoglobin 10.8 L Hematocrit 35.2 L Mean Corpuscular Volume 91.9 Mean Corpuscular Hemoglobin 28.2 L Mean Corpuscular Hemoglobin Concent 30.7 L Red Cell Distribution Width 16.0 H Platelet Count 240 # Mean Platelet Volume 11.3 H Immature Granulocytes % 0.400 Neutrophils % 75.4 Lymphocytes % 11.0 L Monocytes % 11.0 Eosinophils % 1.8 Basophils % 0.4 Nucleated Red Blood Cells % 0.0 Immature Granulocytes # 0.040 H Neutrophils # 7.0 Lymphocytes # 1.0 Monocytes # 1.0 H Eosinophils # 0.2 Basophils # 0.0 Nucleated Red Blood Cells # 0.0 Prothrombin Time 14.4 Prothrombin Time Ratio 1.1 INR International Normalized Ratio 1.11 Activated Partial Thromboplast Time 29.0 Sodium Level 143 Potassium Level 3.5 Chloride Level 106 Carbon Dioxide Level 30 Anion Gap 7 Blood Urea Nitrogen 18 Creatinine 1.16 Est Glomerular Filtrat Rate mL/min Glucose Level 128 Lactic Acid Level 1.1 Calcium Level 8.8 Total Bilirubin 0.5 Direct Bilirubin 0.00 Indirect Bilirubin 0.5 Aspartate Amino Transf (AST/SGOT) 18 Alanine Aminotransferase (ALT/SGPT) 22 Alkaline Phosphatase 85 Troponin I 0.037 B-Type Natriuretic Peptide 7230 H Total Protein 6.4 Albumin 3.2 L Globulin 3.20 Albumin/Globulin Ratio 1.00 Lipase 45 Urine Color MEGAN Urine Clarity CLOUDY A Urine pH 6.0 Urine Specific [place] 1.018 Urine Ketones NEGATIVE Urine Nitrite NEGATIVE Urine Bilirubin NEGATIVE Urine Urobilinogen NEGATIVE Urine Leukocyte Esterase 2+ H Urine Microscopic RBC > 182 H Urine Microscopic WBC > 182 H Urine Squamous Epithelial Cells FEW Urine Renal Epithelial Cells MODERATE Urine Bacteria MODERATE Urine Mucus FEW A Urine Hemoglobin 3+ H Urine Glucose NEGATIVE Urine Total Protein 2+ H Imaging Imaging Renal ultrasound done on January 01, 2019: FINDINGS: Both kidneys are normal in echogenicity. There is normal renal cortical thickness without focal thinning or scarring. No solid renal masses are identified. There is no evidence of renal calculi or obstructive uropathy. There are simple bilateral renal cyst. Largest cyst in the right kidney measures 2.4 cm and the largest cyst and left kidney measures 2.5 cm. The right kidney measures 10.4, and the left kidney measures 9.3. Spot images of the pelvis demonstrating partially distended bladder with smooth contours. Prevoid bladder volume is 161 cc IMPRESSION: 1. No renal calculi or obstructive uropathy. 2. Simple bilateral renal cysts Medications Medication Current Medications Amiodarone HCl (Cordarone) 200 mg DAILY PO ; Start 01/22/19 at 09:00 Isosorbide Dinitrate (Isordil) 30 mg BID PO ; Start 01/21/19 at 21:00 Levothyroxine Sodium (Synthroid) 150 mcg BEFORE BREAKFAST PO ; Start 01/22/19 at 07:00 Sacubitril/ Valsartan (Entresto 24 Mg-26 Mg) 1 tab BID PO ; Start 01/21/19 at 21:00 Atorvastatin Calcium (Lipitor) 40 mg DAILY@21 PO ; Start 01/21/19 at 21:00 Bumetanide (Bumex) 1 mg BID DIURETICS IV ; Start 01/21/19 at 18:00 IV Flush (NS 3 ml) 3 ml PER PROTOCOL IV ; Start 01/21/19 at 15:00 Ondansetron HCl (Zofran Inj) 4 mg Q6H PRN IV NAUSEA/VOMITING; Start 01/21/19 at 15:00 Acetaminophen (Tylenol Tab) 650 mg Q6H PRN PO .PAIN 1-3 OR TEMP; Start 01/21/19 at 15:00 Docusate Sodium (Colace) 100 mg Q12H PRN PO .CONSTIPATION; Start 01/21/19 at 15:00 Famotidine (Pepcid) 20 mg Q12 PO ; Start 01/21/19 at 21:00 Ciprofloxacin (Cipro) 500 mg BID@06,18 PO ; Start 01/21/19 at 18:00 Levalbuterol (Xopenex Neb) 1.25 mg Q6H RESP THERAPY HHN Last administered on 01/21/19at 15:59; Admin Dose 1.25 MG; Start 01/21/19 at 15:30 Levalbuterol (Xopenex Neb) 1.25 mg Q4H RESP THERAPY PRN HHN sob/wheezing; Start 01/21/19 at 15:30 JOSE OCAMPO MD Jan 21, 2019 18:38
[2019-01-21 20:41] VITALS: PULSE 63
[2019-01-21] MEDS: SACUBITRIL/VALSARTAN (24mg-26mg) TABLET PO SCH (21:00)
[2019-01-21] MEDS: ISOSORBIDE DINITRATE 10 MG TAB PO SCH (21:46)
[2019-01-21] MEDS: ACETAMINOPHEN 325 MG TAB PO PRN (21:46)
[2019-01-21] MEDS: FAMOTIDINE 20 MG TAB PO SCH (21:46)
[2019-01-21] MEDS: ATORVASTATIN 40 MG TAB PO SCH (21:46)
[2019-01-21] MEDS ORDERED: HYDROCODONE/APAP (5/325) TAB PO ONE (23:00)
[2019-01-21 23:13] VITALS: BP 131/63; PULSE 55; RESP 18
[2019-01-22] VITALS (12 sets, daily range): BP systolic 130–164; BP diastolic 60–72; PULSE 41–58; RESP 18–22
[2019-01-22] MEDS: LEVALBUTEROL (NEB) 1.25 MG/0.5 ML AMP HHN SCH ×4 (03:38→21:22)
[2019-01-22] MEDS: CIPROFLOXACIN 500 MG TAB PO SCH ×2 (06:11→16:47)
[2019-01-22] MEDS: BUMETANIDE 1 MG INJ IV SCH ×2 (06:11→16:47)
[2019-01-22] MEDS: LEVOTHYROXINE 150 MCG TAB PO SCH (06:11)
[2019-01-22] MEDS: FAMOTIDINE 20 MG TAB PO SCH ×2 (08:52→21:03)
[2019-01-22] MEDS: ACETAMINOPHEN 325 MG TAB PO PRN ×2 (08:52→16:05)
[2019-01-22] MEDS: AMIODARONE 200 MG TAB PO SCH (08:53)
[2019-01-22] MEDS: SACUBITRIL/VALSARTAN (24mg-26mg) TABLET PO SCH ×2 (08:53→21:03)
[2019-01-22] MEDS: ISOSORBIDE DINITRATE 10 MG TAB PO SCH ×2 (08:53→21:04)
[2019-01-22] MEDS ORDERED: POTASSIUM CHLORIDE 20 MEQ POWDER FOR ORAL SOLN PO ONE (13:00)
--- NOTE | 2019-01-22 13:26 | PN ---
Date/Time of Note Date/Time of Note DATE: 01/22/19 TIME: 13:17 Assessment/Plan VTE Prophylaxis Risk score (from Ns)>0 risk: 7 SCD applied (from [facility] [place]): No SCD contraindicated: other Pharmacological prophylaxis: NA/contraindicated Pharm contraindication: bleeding Lines/Catheters IV C[facility]ter Type (from [facility] Peripheral IV Urinary Cath still in place: No Assessment/Plan Hospital Course SUBJECTIVE: No acute discomfort. Feeling better today. OBJECTIVE: Vital signs-see below PHYSICAL EXAM: Constitutional: Frail looking male, having mild respiratory distress. Psych: nl mood/affect, no complaints Head: atraumatic, normocephalic Eyes: nl conjunctiva, nl sclera ENMT: mucosa pink and moist, nl external ears & nose Neck: non-tender, supple Respiratory: demised bibasilar. normal air movement Cardiovascular: Grade V/ [place] 2nd Left ICS. nl pulses, regular rate and rhythm Gastrointestinal: non-tender, soft, bowel sounds active in all 4 quadrants. Musculoskeletal/extremities: trace edema ble. motor strength equal bilaterall y, no focal deficit. Normal pulses,no cyanosis Neurological: Alert oriented 3, forgetful, aphasic. Skin: nl turgor ASSESSMENT/PLAN: 78-year-old male with numerous medical problems including o2 dependent resp fx, cad/s/p cabs,severe ,CM w/ef 25%, bladder tumors with positive urine cytology documented in December 2018, was sent by his urologist for cystoscopy with possible surgical resection of the bladder tumor secondary to worsening frequency/dysuria/hematuria. 1. Bladder tumor with positive urine cytology in December 2018. -Plan for cystoscopy/surgical resection of bladder tumor in AM -Post op Management per urology. Patient would definitely need cardiology evaluation prior to any surgical procedures. 2. Acute on chronic systolic/diastolic congestive heart failure. -clinically improving -IV diuresis, resume Entresto. -F/u echo and cards recs -fluid restriction 1L/24hrs 3.Chronic oxygen dependent respiratory failure -stable on 4L NC. -does use home oxygen 5 L. -Supplemental oxygen to keep saturation above 92%, PRN bronchodilators. 4. Cardiomyopathy with ejection fraction 25% -cont outpatient management. 5. Coronary artery disease, status post CABG -Hold aspirin in light of possible surgical needs. -cont cardiac medications. 6. Severe aortic stenosis -Continue to monitor. Follow-up cardiology recommendations. 7. Hypothyroidism -on Synthroid 8. Hypertension -stable -cont home medications 9. Paroxysmal atrial fibrillation -Currently in sinus rhythm. Candidate for anticoagulation secondary to bladder tumors. -on amiodarone. 10. History of CVA with expressive aphasia. -Monitor. Again aspirin will be held in light of possible surgical need. 11. Chronic anemia. -Stable H&H. Continue to monitor. DVT prophylaxis: SCDs PUD prophylaxis: pepcid CODE STATUS: Full code Diet: low chol/low fat diet. fluid restriction 1 L/day Dispo: Plan is cystoscopy with bladder tumor resection in a.m. Patient needs cardiology clearance prior to any procedures. Given patient's medical condition and advanced heart disease, sever aortic stenosis patient is at high risk for for any untoward medical events for surgery. Patient and family well aware of this. There is a high chance that he would need to be monitored in ICU postoperatively. Recommend hemodynamic monitoring/A line BP and cardiology anesthesiologist for procedure. From a general medicine standpoint, patient may go for surgery once band manager clearance is obtained with the above recommendations. Patient was seen in collaboration with Dr. Nascimento. Result Diagram: 01/22/19 0504 01/22/19 0504 Results 24hrs Laboratory Tests Test 01/22/19 05:04 White Blood Count 8.7 Red Blood Count 3.63 L Hemoglobin 10.3 L Hematocrit 32.7 L Mean Corpuscular Volume 90.1 Mean Corpuscular Hemoglobin 28.4 L Mean Corpuscular Hemoglobin Concent 31.5 L Red Cell Distribution Width 16.0 H Platelet Count 212 Mean Platelet Volume 11.9 H Immature Granulocytes % 0.300 Neutrophils % 71.4 Lymphocytes % 13.3 L Monocytes % 13.2 H Eosinophils % 1.3 Basophils % 0.5 Nucleated Red Blood Cells % 0.0 Immature Granulocytes # 0.030 Neutrophils # 6.3 Lymphocytes # 1.2 Monocytes # 1.2 H Eosinophils # 0.1 Basophils # 0.0 Nucleated Red Blood Cells # 0.0 Sodium Level 144 Potassium Level 3.4 L Chloride Level 105 Carbon Dioxide Level 29 Anion Gap 10 Blood Urea Nitrogen 19 Creatinine 1.23 Est Glomerular Filtrat Rate mL/min Glucose Level 95 Hemoglobin A1c 5.9 Calcium Level 8.5 Phosphorus Level 3.6 Magnesium Level 1.8 Total Bilirubin 0.6 Direct Bilirubin 0.00 Indirect Bilirubin 0.6 Aspartate Amino Transf (AST/SGOT) 19 Alanine Aminotransferase (ALT/SGPT) 22 Alkaline Phosphatase 84 Total Protein 5.9 L Albumin 3.0 L Globulin 2.90 Albumin/Globulin Ratio 1.03 Triglycerides Level 80 Cholesterol Level 124 LDL Cholesterol, Calculated 78 HDL Cholesterol 30 L Cholesterol/HDL Ratio 4.1 Thyroid Stimulating Hormone (TSH) 3.890 Exam/Review of Systems Exam Vitals Vital Signs Date Temp Pulse Resp B/P (MAP) Pulse Ox O2 O2 Flow FiO2 Time Delivery Rate 01/22/19 49 12:22 01/22/19 98.7 18 139/65 95 Nasal 11:35 (89) Cannula 01/22/19 4.0 10:33 01/22/19 28 03:43 Intake and Output 01/21/19 01/21/19 01/22/19 1414:59 22:59 06:59 IntakeIntake Total 150 ml BalanceBalance 150 ml Results Results 24hrs Laboratory Tests Test 01/22/19 05:04 White Blood Count 8.7 Red Blood Count 3.63 L Hemoglobin 10.3 L Hematocrit 32.7 L Mean Corpuscular Volume 90.1 Mean Corpuscular Hemoglobin 28.4 L Mean Corpuscular Hemoglobin Concent 31.5 L Red Cell Distribution Width 16.0 H Platelet Count 212 Mean Platelet Volume 11.9 H Immature Granulocytes % 0.300 Neutrophils % 71.4 Lymphocytes % 13.3 L Monocytes % 13.2 H Eosinophils % 1.3 Basophils % 0.5 Nucleated Red Blood Cells % 0.0 Immature Granulocytes # 0.030 Neutrophils # 6.3 Lymphocytes # 1.2 Monocytes # 1.2 H Eosinophils # 0.1 Basophils # 0.0 Nucleated Red Blood Cells # 0.0 Sodium Level 144 Potassium Level 3.4 L Chloride Level 105 Carbon Dioxide Level 29 Anion Gap 10 Blood Urea Nitrogen 19 Creatinine 1.23 Est Glomerular Filtrat Rate mL/min Glucose Level 95 Hemoglobin A1c 5.9 Calcium Level 8.5 Phosphorus Level 3.6 Magnesium Level 1.8 Total Bilirubin 0.6 Direct Bilirubin 0.00 Indirect Bilirubin 0.6 Aspartate Amino Transf (AST/SGOT) 19 Alanine Aminotransferase (ALT/SGPT) 22 Alkaline Phosphatase 84 Total Protein 5.9 L Albumin 3.0 L Globulin 2.90 Albumin/Globulin Ratio 1.03 Triglycerides Level 80 Cholesterol Level 124 LDL Cholesterol, Calculated 78 HDL Cholesterol 30 L Cholesterol/HDL Ratio 4.1 Thyroid Stimulating Hormone (TSH) 3.890 Medications Medication Current Medications Amiodarone HCl (Cordarone) 200 mg DAILY PO Last administered on 01/22/19 08:53; Admin Dose 200 MG; Start 01/22/19 at 09:00 Isosorbide Dinitrate (Isordil) 30 mg BID PO Last administered on 01/22/19 08:53; Admin Dose 30 MG; Start 01/21/19 at 21:00 Levothyroxine Sodium (Synthroid) 150 mcg BEFORE BREAKFAST PO Last administered on 01/22/19 06:11; Admin Dose 150 MCG; Start 01/22/19 at 07:00 Sacubitril/ Valsartan (Entresto 24 Mg-26 Mg) 1 tab BID PO Last administered on 01/22/19 08:53; Admin Dose 1 TAB; Start 01/21/19 at 21:00 Atorvastatin Calcium (Lipitor) 40 mg DAILY@21 PO Last administered on 01/21/19 21:46; Admin Dose 40 MG; Start 01/21/19 at 21:00 Bumetanide (Bumex) 1 mg BID DIURETICS IV Last administered on 01/22/19 06:11; Admin Dose 1 MG; Start 01/21/19 at 18:00 IV Flush (NS 3 ml) 3 ml PER PROTOCOL IV ; Start 01/21/19 at 15:00 Ondansetron HCl (Zofran Inj) 4 mg Q6H PRN IV NAUSEA/VOMITING; Start 01/21/19 at 15:00 Acetaminophen (Tylenol Tab) 650 mg Q6H PRN PO .PAIN 1-3 OR TEMP Last administered on 01/22/19 08:52; Admin Dose 650 MG; Start 01/21/19 at 15:00 Docusate Sodium (Colace) 100 mg Q12H PRN PO .CONSTIPATION; Start 01/21/19 at 15:00 Famotidine (Pepcid) 20 mg Q12 PO Last administered on 01/22/19 08:52; Admin Dose 20 MG; Start 01/21/19 at 21:00 Ciprofloxacin (Cipro) 500 mg BID@18 PO Last administered on 01/22/19 06:11; Admin Dose 500 MG; Start 01/21/19 at 18:00 Levalbuterol (Xopenex Neb) 1.25 mg Q6H RESP THERAPY HHN Last administered on 01/22/19at 10:28; Admin Dose 1.25 MG; Start 01/21/19 at 15:30 Levalbuterol (Xopenex Neb) 1.25 mg Q4H RESP THERAPY PRN HHN sob/wheezing; Start 01/21/19 at 15:30 Magnesium Sulfate/ Dextrose 100 ml @ 100 mls/hr ONCE ONCE IVPB ; Start 01/22/19 at 14:30; Stop 01/22/19 at 15:29 CARLOS MANUEL GERONIMO NP Jan 22, 2019 13:26
[2019-01-22] MEDS ORDERED: MAGNESIUM SULFATE 1 GM/D5W 100 ML IVPB ONE (14:30)
--- NOTE | 2019-01-22 17:09 | CONS ---
Assessment/Plan Cardiology NYHA: III Heart Failure Type: Acute on Chronic Heart Failure Type: Systolic Assessment/Plan Hospital Course (Demo Recall) Preoperative cardiac risk stratification Acute decompensated systolic congestive heart failure, improved Possible urinary retention with history of bladder cancer Paroxysmal atrial fibrillation, currently sinus rhythm-not on anticoagulation secondary to bladder tumor Aortic stenosis COPD Hypertension CKD -Patient was admitted secondary to histories of possible urinary retention as well as evidence of decompensated congestive heart failure -Patient with respiratory distress with Lopez placement requiring oxygen supplementation. He does feel better after Lopez removal -At the current time, patient without shortness of breath, lung examination has improved. Would switch diuretics to p.o. -Patient appears optimized at the current time to proceed with his urologic procedure. Given his risk factors, he is at an intermediate risk for any untoward cardiac events with his procedure. Given issues of urinary retention, the benefits likely outweigh the risks. Would watch closely for volume overload william-and post procedure. - Consultation Date/Type/Reason Admit Date/Time Jan 21, 2019 at 15:23 Initial Consult Date 01/21/19 Type of Consult Cardiology Requesting Provider: MAYELIN BARRETT Date/Time of Note DATE: 01/22/19 TIME: 17:06 24 HR Interval Summary Free Text/Dictation Feeling better, denies shortness of breath, or chest pain Exam/Review of Systems Vital Signs Vitals Vital Signs Date Temp Pulse Resp B/P (MAP) Pulse Ox O2 O2 Flow FiO2 Time Delivery Rate 01/22/19 58 16:19 01/22/19 97.5 18 164/72 94 Nasal 15:38 (102) Cannula 01/22/19 4.0 15:02 01/22/19 28 03:43 Intake and Output 01/21/19 01/21/19 01/22/19 1515:00 23:00 07:00 IntakeIntake Total 150 ml BalanceBalance 150 ml Exam Constitutional: alert (Following commands, no apparent distress, no dyspnea with speaking) Respiratory: other (Coarse breath sounds bilaterally, no wheezing) Cardiovascular: regular rate and rhythm (S1-S2 heard) Gastrointestinal: soft, non-tender, bowel sounds Extremities: edema (Trace) Labs Result Diagram: 01/22/19 0504 01/22/19 0504 Results 24hrs Laboratory Tests Test 01/22/19 05:04 White Blood Count 8.7 Red Blood Count 3.63 L Hemoglobin 10.3 L Hematocrit 32.7 L Mean Corpuscular Volume 90.1 Mean Corpuscular Hemoglobin 28.4 L Mean Corpuscular Hemoglobin Concent 31.5 L Red Cell Distribution Width 16.0 H Platelet Count 212 Mean Platelet Volume 11.9 H Immature Granulocytes % 0.300 Neutrophils % 71.4 Lymphocytes % 13.3 L Monocytes % 13.2 H Eosinophils % 1.3 Basophils % 0.5 Nucleated Red Blood Cells % 0.0 Immature Granulocytes # 0.030 Neutrophils # 6.3 Lymphocytes # 1.2 Monocytes # 1.2 H Eosinophils # 0.1 Basophils # 0.0 Nucleated Red Blood Cells # 0.0 Sodium Level 144 Potassium Level 3.4 L Chloride Level 105 Carbon Dioxide Level 29 Anion Gap 10 Blood Urea Nitrogen 19 Creatinine 1.23 Est Glomerular Filtrat Rate mL/min Glucose Level 95 Hemoglobin A1c 5.9 Calcium Level 8.5 Phosphorus Level 3.6 Magnesium Level 1.8 Total Bilirubin 0.6 Direct Bilirubin 0.00 Indirect Bilirubin 0.6 Aspartate Amino Transf (AST/SGOT) 19 Alanine Aminotransferase (ALT/SGPT) 22 Alkaline Phosphatase 84 Total Protein 5.9 L Albumin 3.0 L Globulin 2.90 Albumin/Globulin Ratio 1.03 Triglycerides Level 80 Cholesterol Level 124 LDL Cholesterol, Calculated 78 HDL Cholesterol 30 L Cholesterol/HDL Ratio 4.1 Thyroid Stimulating Hormone (TSH) 3.890 Medications Medications Current Medications Amiodarone HCl (Cordarone) 200 mg DAILY PO Last administered on 01/22/19 08:53; Admin Dose 200 MG; Start 01/22/19 at 09:00 Isosorbide Dinitrate (Isordil) 30 mg BID PO Last administered on 01/22/19 08:53; Admin Dose 30 MG; Start 01/21/19 at 21:00 Levothyroxine Sodium (Synthroid) 150 mcg BEFORE BREAKFAST PO Last administered on 01/22/19 06:11; Admin Dose 150 MCG; Start 01/22/19 at 07:00 Sacubitril/ Valsartan (Entresto 24 Mg-26 Mg) 1 tab BID PO Last administered on 01/22/19 08:53; Admin Dose 1 TAB; Start 01/21/19 at 21:00 Atorvastatin Calcium (Lipitor) 40 mg DAILY@21 PO Last administered on 01/21/19at 21:46; Admin Dose 40 MG; Start 01/21/19 at 21:00 Bumetanide (Bumex) 1 mg BID DIURETICS IV Last administered on 01/22/19at 16:47; Admin Dose 1 MG; Start 01/21/19 at 18:00 IV Flush (NS 3 ml) 3 ml PER PROTOCOL IV ; Start 01/21/19 at 15:00 Ondansetron HCl (Zofran Inj) 4 mg Q6H PRN IV NAUSEA/VOMITING; Start 01/21/19 at 15:00 Acetaminophen (Tylenol Tab) 650 mg Q6H PRN PO .PAIN 1-3 OR TEMP Last administered on 01/22/19at 16:05; Admin Dose 650 MG; Start 01/21/19 at 15:00 Docusate Sodium (Colace) 100 mg Q12H PRN PO .CONSTIPATION; Start 01/21/19 at 15:00 Famotidine (Pepcid) 20 mg Q12 PO Last administered on 01/22/19 08:52; Admin Dose 20 MG; Start 01/21/19 at 21:00 Ciprofloxacin (Cipro) 500 mg BID@06,18 PO Last administered on 01/22/19 16:47; Admin Dose 500 MG; Start 01/21/19 at 18:00 Levalbuterol (Xopenex Neb) 1.25 mg Q6H RESP THERAPY HHN Last administered on 01/22/19at 14:57; Admin Dose 1.25 MG; Start 01/21/19 at 15:30 Levalbuterol (Xopenex Neb) 1.25 mg Q4H RESP THERAPY PRN HHN sob/wheezing; Star t 01/21/19 at 15:30 Quang Robles DO Jan 22, 2019 17:09
--- NOTE | 2019-01-22 18:06 | RADRPT ---
Echocardiogram Report Patient Name: MOLLY RODRIGUEZPatient ID: [id number] : 1940 (78y 11m)Study Date: 01/22/2019 8:20:01 AM Gender: MAccession #: [id number] Tech: Benito [facility] Location: [facility] Ref.Physician: CARLOS MANUEL GERONIMO Height(Cm): BSA: Weight(Kg): Quality: AdequateAccount #: Procedures: Echocardiographic Report: Transthoracic echocardiogram with complete 2D, M-Mode, and doppler examination. Indications: Chest Pain. Measurements: 2D/M Mode Doppler Measurement Value Normal Range Measurement Value Normal Range LVIDd 2D 7.0 [ 4.2 - 5.8 ] cm MAUREEN VTI 0.8 [ 2.0 - 4.0 ] cm2 LVIDs 2D 5.8 [ 2.5 - 4.0 ] cm AV Mean Raulito 2.5 [ 70.0 - 90.0 ] cm/sec LVPWd 2D 1.4 [ 0.6 - 1.0 ] cm AV Mean PG 29.0 [ 2.0 - 4.0 ] mmHg IVSd 2D 1.9 [ 0.6 - 1.0 ] cm AV VTI 90.6 cm AoR Diam 2D 4.0 [ 2.6 - 3.4 ] cm AI Peak PG 61.0 mmHg EDV 2D 254.0 [ 62.0 - 150.0 ] ml AI Peak Raulito 3.9 cm/sec ESV 2D 163.0 [ 21.0 - 61.0 ] ml AI PHT 673.0 msec EF 2D 35.8 [ 52.0 - 72.0 ] percent LVOT Mean Raulito 0.6 [ 60.0 - 80.0 ] cm/sec LA Dimen 2D 4.8 [ 3.0 - 4.0 ] cm LVOT Mean PG 1.0 [ 1.0 - 3.0 ] mmHg LVOT Diam 2.0 [ 2.3 - 2.9 ] cm LVOT Peak Raulito 0.9 [ 70.0 - 110.0 ] cm/sec LVOT Peak PG 3.0 [ 2.0 - 6.0 ] mmHg LVOT VTI 21.8 [ 20.0 - 30.0 ] cm MV E Peak Raulito 1.3 [ 60.0 - 130.0 ] cm/sec MV A Peak Raulito 0.7 [ 100.0 - 120.0 ] cm/sec MV E/A 1.7 [ 0.8 - 1.5 ] ratio MV Peak Raulito 1.6 [ 60.0 - 130.0 ] cm/sec MV Peak PG 10.0 [ 1.0 - 10.0 ] mmHg MV Mean Raulito 0.9 cm/sec MV Mean PG 4.0 mmHg MV Decel Time 430 [ 104 - 258 ] msec MV E/A 1.7 [ 0.8 - 1.5 ] ratio MV VTI 63.7 cm MVA VTI 1.1 cm TR Peak Raulito 3.4 [ 100.0 - 280.0 ] cm/sec TR Peak PG 46.0 mmHg RVSP 54.0 [ 10.0 - 36.0 ] mmHg Findings: Left Ventricle: Moderate left ventricular hypertrophy. Moderate enlargement of left ventricle cavity. Severe left ventricular systolic dysfunction. Ejection fraction is visually estimated at 30 %. Abnormal Diastolic Function. Right Ventricle: Normal right ventricular systolic function. Mild enlargement of right ventricle. Left Atrium: There is moderate enlargement of left atrium. Right Atrium: There is moderate enlargement of right atrium. Mitral Valve: Mild mitral leaflet calcification. Mild mitral annular calcification. Mild mitral valve regurgitation. Mild mitral stenosis. Aortic Valve: Moderate to severe aortic stenosis. Aortic cusps appear moderately calcified. Mild aortic valve regurgitation. Tricuspid Valve: Normal appearance of the tricuspid valve. Estimated peak PA systolic pressure 54 mmHg. There is mild to moderate tricuspid regurgitation. Pericardium: Normal pericardium with no significant pericardial effusion. Left pleural effusion seen. Aorta: Ascending aorta is mildly dilated. Ascending Aorta 3.90 cm. There is mild aortic root dilation. IVC: Dilated IVC with respiratory collapse consistent with elevated right atrial pressure. Conclusions: Moderate left ventricular hypertrophy. Moderate enlargement of left ventricle cavity. Severe left ventricular systolic dysfunction. Ejection fraction is visually estimated at 30 %. Abnormal Diastolic Function. Normal right ventricular systolic function. Mild enlargement of right ventricle. There is moderate enlargement of left atrium. There is moderate enlargement of right atrium. Mild mitral valve regurgitation. Mild mitral stenosis. Moderate to severe aortic stenosis. Mild aortic valve regurgitation. Estimated peak PA systolic pressure 54 mmHg. There is mild to moderate tricuspid regurgitation. Normal pericardium with no significant pericardial effusion. Left pleural effusion seen. Electronically Signed By: Quang Robles 2019-01-22 18:06:18 PDT
--- NOTE | 2019-01-22 18:52 | CONS ---
Consult Date/Type/Reason Admit Date/Time Jan 21, 2019 at 15:23 Initial Consult Date 01/21/19 Type of Consultation: Urology Reason for Consultation History of bladder tumors and hematuria Requesting Provider: MAYELIN BARRETT Date/Time of Note DATE: 01/22/19 TIME: 18:46 Subjective The patient appears to be comfortable in bed. Objective Vitals Vital Signs Date Temp Pulse Resp B/P (MAP) Pulse Ox O2 O2 Flow FiO2 Time Delivery Rate 01/22/19 4.0 18:11 01/22/19 58 16:19 01/22/19 97.5 18 164/72 94 Nasal 15:38 (102) Cannula 01/22/19 28 03:43 Intake and Output 01/21/19 01/21/19 01/22/19 1515:00 23:00 07:00 IntakeIntake Total 150 ml BalanceBalance 150 ml Exam Abdomen is soft. There is no tenderness. There is suprapubic fullness. Results/Medications Result Diagram: 01/22/19 0504 01/22/19 0504 Results 24 hrs Laboratory Tests Test 01/22/19 05:04 White Blood Count 8.7 Red Blood Count 3.63 L Hemoglobin 10.3 L Hematocrit 32.7 L Mean Corpuscular Volume 90.1 Mean Corpuscular Hemoglobin 28.4 L Mean Corpuscular Hemoglobin Concent 31.5 L Red Cell Distribution Width 16.0 H Platelet Count 212 Mean Platelet Volume 11.9 H Immature Granulocytes % 0.300 Neutrophils % 71.4 Lymphocytes % 13.3 L Monocytes % 13.2 H Eosinophils % 1.3 Basophils % 0.5 Nucleated Red Blood Cells % 0.0 Immature Granulocytes # 0.030 Neutrophils # 6.3 Lymphocytes # 1.2 Monocytes # 1.2 H Eosinophils # 0.1 Basophils # 0.0 Nucleated Red Blood Cells # 0.0 Sodium Level 144 Potassium Level 3.4 L Chloride Level 105 Carbon Dioxide Level 29 Anion Gap 10 Blood Urea Nitrogen 19 Creatinine 1.23 Est Glomerular Filtrat Rate mL/min Glucose Level 95 Hemoglobin A1c 5.9 Calcium Level 8.5 Phosphorus Level 3.6 Magnesium Level 1.8 Total Bilirubin 0.6 Direct Bilirubin 0.00 Indirect Bilirubin 0.6 Aspartate Amino Transf (AST/SGOT) 19 Alanine Aminotransferase (ALT/SGPT) 22 Alkaline Phosphatase 84 Total Protein 5.9 L Albumin 3.0 L Globulin 2.90 Albumin/Globulin Ratio 1.03 Triglycerides Level 80 Cholesterol Level 124 LDL Cholesterol, Calculated 78 HDL Cholesterol 30 L Cholesterol/HDL Ratio 4.1 Thyroid Stimulating Hormone (TSH) 3.890 Home Meds Active Scripts Sacubitril/Valsartan (Entresto 24 mg-26 mg Tablet) 1 Each Tablet, 1 TAB PO BID, #60 TAB 2 Refills Prov:RISHABH BARRETTPhilipp Diana. 01/06/19 Bumetanide* (Bumetanide*) 1 Mg Tablet, 1 MG PO BID for 30 Days, #60 TAB Prov:RISHABH BARRETTPhilipp Diana. 01/06/19 Potassium Chloride* (Potassium Chloride*) 8 Meq Capsule.er, 8 MEQ PO DAILY, #30 CAP Prov:RISHABH BARRETTPhilipp Ortiz. 01/06/19 Aspirin Delayed Release (Aspirin Delayed Release) 81 Mg Tablet.dr, 81 MG PO SIMEON LY for 30 Days, #30 otc Prov:SAMANTHA BOB MD 11/16/18 Rosuvastatin Calcium* (Crestor*) 10 Mg Tablet, 10 MG PO QHS for 30 Days, #30 TAB Prov:SAMANTHA BOB MD 11/16/18 Isosorbide Dinitrate* (Isosorbide Dinitrate*) 30 Mg Tablet, 30 MG PO BID for 10 Days, #20 TAB Prov:SAMANTHA BOB MD 11/16/18 Reported Medications Amiodarone Hcl* (Amiodarone Hcl*) 200 Mg Tablet, 200 MG PO DAILY, #30 TAB 11/13/18 Levothyroxine Sodium* (Levoxyl*) 150 Mcg Tablet, 150 MCG PO BEFORE BREAKFAST, #30 TAB 07/20/18 Discontinued Scripts Ertapenem Sodium (Invanz) 1 Gm Vial, 1 GM IV Q24H for 5 Days, VIAL Prov:RISHABH BARRETTPhilipp Acuna 01/06/19 Medications Current Medications Amiodarone HCl (Cordarone) 200 mg DAILY PO Last administered on 01/22/19at 08:53; Admin Dose 200 MG; Start 01/22/19 at 09:00 Isosorbide Dinitrate (Isordil) 30 mg BID PO Last administered on 01/22/19at 08:53; Admin Dose 30 MG; Start 01/21/19 at 21:00 Levothyroxine Sodium (Synthroid) 150 mcg BEFORE BREAKFAST PO Last administered on 01/22/19 06:11; Admin Dose 150 MCG; Start 01/22/19 at 07:00 Sacubitril/ Valsartan (Entresto 24 Mg-26 Mg) 1 tab BID PO Last administered on 01/22/19 08:53; Admin Dose 1 TAB; Start 01/21/19 at 21:00 Atorvastatin Calcium (Lipitor) 40 mg DAILY@21 PO Last administered on 01/21/19 21:46; Admin Dose 40 MG; Start 01/21/19 at 21:00 Bumetanide (Bumex) 1 mg BID DIURETICS IV Last administered on 01/22/19 16:47; Admin Dose 1 MG; Start 01/21/19 at 18:00; Stop 01/22/19 at 23:00 IV Flush (NS 3 ml) 3 ml PER PROTOCOL IV ; Start 01/21/19 at 15:00 Ondansetron HCl (Zofran Inj) 4 mg Q6H PRN IV NAUSEA/VOMITING; Start 01/21/19 at 15:00 Acetaminophen (Tylenol Tab) 650 mg Q6H PRN PO .PAIN 1-3 OR TEMP Last administered on 01/22/19 16:05; Admin Dose 650 MG; Start 01/21/19 at 15:00 Docusate Sodium (Colace) 100 mg Q12H PRN PO .CONSTIPATION; Start 01/21/19 at 15:00 Famotidine (Pepcid) 20 mg Q12 PO Last administered on 01/22/19 08:52; Admin Dose 20 MG; Start 01/21/19 at 21:00 Ciprofloxacin (Cipro) 500 mg BID@,18 PO Last administered on 01/22/19 16:47; Admin Dose 500 MG; Start 01/21/19 at 18:00 Levalbuterol (Xopenex Neb) 1.25 mg Q6H RESP THERAPY HHN Last administered on 01/22/19 14:57; Admin Dose 1.25 MG; Start 01/21/19 at 15:30 Levalbuterol (Xopenex Neb) 1.25 mg Q4H RESP THERAPY PRN HHN sob/wheezing; Start 01/21/19 at 15:30 Bumetanide (Bumex) 1 mg BID DIURETICS PO ; Start 01/23/19 at 06:00 Assessment/Plan Hospital Course (Demo Recall) 78-year-old male who is known to have a history of bladder tumors. He was here last year with gross hematuria and urinary incontinence. He underwent a transurethral resection of most of the tumors. Postop he did well and he was voiding clear urine and the family decided that since he was doing well no need for further intervention. He was since admitted to the hospital and I did see him earlier this months and did order a urine cytology that came back positive I did call the family and informed them of the findings. I did talk to them before and told them that he still has bladder tumors and sooner or later he is going to have more problems but again they elected at the time to do nothing. There thinking is that as long as he is doing fine regardless was going on we will do nothing. However the patient had hematuria the day before admission and his family brought him to the emergency room. He is always morning and giving the impression that he is in pain but the reality he is not. I met with his daughter at his bedside in the emergency room and it appears that they are willing to have him undergo the surgery. The surgery will be a cystoscopy and transurethral resection of bladder tumors and possible insertion of ureteral catheters. Patient was seen by the process owner today and he is optimized. I did schedule him for Wednesday, January 23, 2019 at 1730 for the procedure. I did talk to his daughter Claude on the phone and again explained to her the procedures, the risks and possible complications including and not limited to , heart attack and other risks from the anesthesia. Again I explained to her that the procedure is not a curative procedure, is more of a palliative procedure, he will have recurrence of tumor in the future and may require additional interventions. I did point to her the fact that I recommended that we look into his bladder when he was here earlier this months but they did not want to. I also have called them after he was discharged and left a message that the urine cytology was positive and his other daughter did receive this message and told me they did not want to do anything because he was doing well. Considering all this the family and in particular his daughters are agreeable to proceed with the surgery. JOSE OCAMPO MD Jan 22, 2019 18:52
[2019-01-22] MEDS: ATORVASTATIN 40 MG TAB PO SCH (21:03)
[2019-01-23] VITALS (14 sets, daily range): BP systolic 104–198; BP diastolic 53–116; PULSE 33–80; RESP 18–22
[2019-01-23] MEDS: LEVALBUTEROL (NEB) 1.25 MG/0.5 ML AMP HHN SCH ×4 (02:16→20:08)
[2019-01-23] MEDS ORDERED: BUMETANIDE 1 MG TAB PO SCH (06:00)
[2019-01-23] MEDS: LEVOTHYROXINE 150 MCG TAB PO SCH (06:05)
[2019-01-23] MEDS: CIPROFLOXACIN 500 MG TAB PO SCH (06:05)
[2019-01-23] MEDS: ACETAMINOPHEN 325 MG TAB PO PRN (07:30)
[2019-01-23] MEDS: morphine 2 MG INJ IV PRN (07:54)
[2019-01-23] MEDS: FAMOTIDINE 20 MG TAB PO SCH ×2 (08:08→20:39)
[2019-01-23] MEDS: DOCUSATE SODIUM 100 MG CAP PO PRN (08:08)
[2019-01-23] MEDS: AMIODARONE 200 MG TAB PO SCH (08:08)
[2019-01-23] MEDS: SACUBITRIL/VALSARTAN (24mg-26mg) TABLET PO SCH ×2 (08:08→20:40)
[2019-01-23] MEDS: ISOSORBIDE DINITRATE 10 MG TAB PO SCH ×2 (08:09→20:40)
--- NOTE | 2019-01-23 11:28 | PN ---
Date/Time of Note Date/Time of Note DATE: 01/23/19 TIME: 11:21 Assessment/Plan VTE Prophylaxis Risk score (from Ns)>0 risk: 8 SCD applied (from [facility] [place]): Yes Pharmacological prophylaxis: NA/contraindicated Pharm contraindication: bleeding Lines/Catheters IV C[facility]ter Type (from [facility]): Peripheral IV Urinary Cath still in place: No Assessment/Plan Hospital Course SUBJECTIVE: Overall with improving symptoms. No respiratory distress. For cystoscopy with bladder tumor resection scheduled today at 5:30 PM. OBJECTIVE: Vital signs-see below PHYSICAL EXAM: Constitutional: Frail looking male, having mild respiratory distress. Psych: nl mood/affect, no complaints Head: atraumatic, normocephalic Eyes: nl conjunctiva, nl sclera ENMT: mucosa pink and moist, nl external ears & nose Neck: non-tender, supple Respiratory: demised bibasilar. normal air movement Cardiovascular: Grade V/ Murmer 2nd Left ICS. nl pulses, regular rate and rhythm Gastrointestinal: non-tender, soft, bowel sounds active in all 4 quadrants. Musculoskeletal/extremities: trace edema ble. motor strength equal bilaterally, no focal deficit. Normal pulses,no cyanosis Neurological: Alert oriented 3, forgetful, aphasic. Skin: nl turgor ASSESSMENT/PLAN: 78-year-old male with numerous medical problems including o2 dependent resp fx, cad/s/p cabs,severe ,CM w/ef 25%, bladder tumors with positive urine cytology documented in December 2018, was sent by his urologist for cystoscopy with possible surgical resection of the bladder tumor secondary to worsening frequency/dysuria/hematuria. 1. Bladder tumor with positive urine cytology in December 2018. -Plan for cystoscopy/surgical resection of bladder tumor today -Post op Management per urology. 2. Acute on chronic systolic/diastolic congestive heart failure. -EF 305 -clinically better -cont. diuresis,Entresto. -fluid restriction 1L/24hrs 3.Chronic oxygen dependent respiratory failure -stable on 4L NC. -does use home oxygen 5 L. -Supplemental oxygen to keep saturation above 92%, PRN bronchodilators. 4. Cardiomyopathy with ejection fraction 25% -cont outpatient management. 5. Coronary artery disease, status post CABG -Hold aspirin in light of possible surgical needs. -cont cardiac medications. 6. Severe aortic stenosis -Continue to monitor. Follow-up cardiology recommendations. 7. Hypothyroidism -on Synthroid 8. Hypertension -stable -cont home medications 9. Paroxysmal atrial fibrillation -Currently in sinus rhythm. Candidate for anticoagulation secondary to bladder tumors. -on amiodarone. 10. History of CVA with expressive aphasia. -Monitor. Again aspirin will be held in light of possible surgical need. 11. Chronic anemia. -Stable H&H. Continue to monitor. 12. ESBL producing UTI. -Blood count is less than 10,000, due to the nature of bacteria detected with the urinary symptoms, I will treat this with meropenem. OR staff to be cautious with isolation status. DVT prophylaxis: SCDs PUD prophylaxis: pepcid CODE STATUS: Full code Diet: low chol/low fat diet. fluid restriction 1 L/day Dispo: Plan is cystoscopy with bladder tumor resection in a.m. Given patient's medical condition and advanced heart disease, sever aortic stenosis patient is at high risk for for any untoward medical events for surgery. Patient and family well aware of this. There is a high chance that he would need to be monitored in ICU postoperatively. Recommend hemodynamic monitoring/A line BP and cardiology anesthesiologist for procedure in light of sever Aortic stenosis. From a general medicine standpoint, patient may go for surgery once acting professor clearance is obtained with the above recommendations. Patient was seen in collaboration with Dr. Nascimento. Result Diagram: 01/23/19 0530 01/23/19 0530 Results 24hrs Laboratory Tests Test 01/23/19 05:30 White Blood Count 9.5 Red Blood Count 3.95 L Hemoglobin 11.3 L Hematocrit 35.7 L Mean Corpuscular Volume 90.4 Mean Corpuscular Hemoglobin 28.6 L Mean Corpuscular Hemoglobin Concent 31.7 L Red Cell Distribution Width 16.1 H Platelet Count 222 Mean Platelet Volume 11.6 H Immature Granulocytes % 0.400 Neutrophils % 77.4 H Lymphocytes % 9.0 L Monocytes % 11.5 H Eosinophils % 1.3 Basophils % 0.4 Nucleated Red Blood Cells % 0.0 Immature Granulocytes # 0.040 H Neutrophils # 7.4 Lymphocytes # 0.9 Monocytes # 1.1 H Eosinophils # 0.1 Basophils # 0.0 Nucleated Red Blood Cells # 0.0 Sodium Level 145 H Potassium Level 3.5 Chloride Level 103 Carbon Dioxide Level 30 Anion Gap 12 Blood Urea Nitrogen 21 H Creatinine 1.28 H Est Glomerular Filtrat Rate mL/min Glucose Level 108 Calcium Level 8.9 Exam/Review of Systems Exam Vitals Vital Signs Date Temp Pulse Resp B/P (MAP) Pulse Ox O2 O2 Flow FiO2 Time Delivery Rate 01/23/19 98.3 67 22 104/53 94 Nasal 09:05 (70) Cannula 01/23/19 4.0 09:02 01/22/19 28 21:27 Intake and Output 01/22/19 01/22/19 01/23/19 1515:00 23:00 07:00 IntakeIntake Total 600 ml 600 ml BalanceBalance 600 ml 600 ml Results Results 24hrs Laboratory Tests Test 01/23/19 05:30 White Blood Count 9.5 Red Blood Count 3.95 L Hemoglobin 11.3 L Hematocrit 35.7 L Mean Corpuscular Volume 90.4 Mean Corpuscular Hemoglobin 28.6 L Mean Corpuscular Hemoglobin Concent 31.7 L Red Cell Distribution Width 16.1 H Platelet Count 222 Mean Platelet Volume 11.6 H Immature Granulocytes % 0.400 Neutrophils % 77.4 H Lymphocytes % 9.0 L Monocytes % 11.5 H Eosinophils % 1.3 Basophils % 0.4 Nucleated Red Blood Cells % 0.0 Immature Granulocytes # 0.040 H Neutrophils # 7.4 Lymphocytes # 0.9 Monocytes # 1.1 H Eosinophils # 0.1 Basophils # 0.0 Nucleated Red Blood Cells # 0.0 Sodium Level 145 H Potassium Level 3.5 Chloride Level 103 Carbon Dioxide Level 30 Anion Gap 12 Blood Urea Nitrogen 21 H Creatinine 1.28 H Est Glomerular Filtrat Rate mL/min Glucose Level 108 Calcium Level 8.9 Medications Medication Current Medications Amiodarone HCl (Cordarone) 200 mg DAILY PO Last administered on 01/23/19at 08:08; Admin Dose 200 MG; Start 01/22/19 at 09:00 Isosorbide Dinitrate (Isordil) 30 mg BID PO Last administered on 01/23/19at 08:09; Admin Dose 30 MG; Start 01/21/19 at 21:00 Levothyroxine Sodium (Synthroid) 150 mcg BEFORE BREAKFAST PO Last administered on 01/23/19at 06:05; Admin Dose 150 MCG; Start 01/22/19 at 07:00 Sacubitril/ Valsartan (Entresto 24 Mg-26 Mg) 1 tab BID PO Last administered on 01/23/19 08:08; Admin Dose 1 TAB; Start 01/21/19 at 21:00 Atorvastatin Calcium (Lipitor) 40 mg DAILY@21 PO Last administered on 01/22/19 21:03; Admin Dose 40 MG; Start 01/21/19 at 21:00 IV Flush (NS 3 ml) 3 ml PER PROTOCOL IV ; Start 01/21/19 at 15:00 Ondansetron HCl (Zofran Inj) 4 mg Q6H PRN IV NAUSEA/VOMITING; Start 01/21/19 at 15:00 Acetaminophen (Tylenol Tab) 650 mg Q6H PRN PO .PAIN 1-3 OR TEMP Last administered on 01/23/19 07:30; Admin Dose 650 MG; Start 01/21/19 at 15:00 Docusate Sodium (Colace) 100 mg Q12H PRN PO .CONSTIPATION Last administered on 01/23/19 08:08; Admin Dose 100 MG; Start 01/21/19 at 15:00 Famotidine (Pepcid) 20 mg Q12 PO Last administered on 01/23/19 08:08; Admin Dose 20 MG; Start 01/21/19 at 21:00 Levalbuterol (Xopenex Neb) 1.25 mg Q6H RESP THERAPY HHN Last administered on 01/23/19 09:01; Admin Dose 1.25 MG; Start 01/21/19 at 15:30 Levalbuterol (Xopenex Neb) 1.25 mg Q4H RESP THERAPY PRN HHN sob/wheezing; Start 01/21/19 at 15:30 Bumetanide (Bumex) 1 mg BID DIURETICS PO Last administered on 01/23/19 06:05; Admin Dose 1 MG; Start 01/23/19 at 06:00 Morphine Sulfate (morphine) 2 mg Q4H PRN IV SEVERE PAIN LEVEL 7-10 Last ad ministered on 01/23/19 07:54; Admin Dose 2 MG; Start 01/23/19 at 08:00 Meropenem/Sodium Chloride 50 ml @ 100 mls/hr Q12 IVPB ; Start 01/23/19 at 10:30 CARLOS MANUEL GERONIMO NP Jan 23, 2019 11:28
--- NOTE | 2019-01-23 12:07 | CONS ---
Assessment/Plan Cardiology NYHA: III Heart Failure Type: Acute on Chronic Heart Failure Type: Systolic Assessment/Plan Hospital Course (Demo Recall) Preoperative cardiac risk stratification Acute decompensated systolic congestive heart failure, improved Cardiomyopathy with left ventricular ejection fraction 30% Possible urinary retention with history of bladder cancer Paroxysmal atrial fibrillation, currently sinus rhythm-not on anticoagulation secondary to bladder tumor Moderate to severe aortic valve stenosis COPD Hypertension CKD -Continue diuretics as renal function blood pressure tolerates -Please refer to my progress note on 01/22/2019 discussing preoperative risk stratification Consultation Date/Type/Reason Admit Date/Time Jan 21, 2019 at 15:23 Initial Consult Date 01/21/19 Type of Consult Cardiology Requesting Provider: MAYELIN BARRETT Date/Time of Note DATE: 01/23/19 TIME: 12:05 24 HR Interval Summary Free Text/Dictation Patient seen and examined. Denies shortness of breath Exam/Review of Systems Vital Signs Vitals Vital Signs Date Temp Pulse Resp B/P (MAP) Pulse Ox O2 O2 Flow FiO2 Time Delivery Rate 01/23/19 97.9 60 19 130/60 91 11:44 (83) 01/23/19 Nasal 09:05 Cannula 01/23/19 4.0 09:02 01/22/19 28 21:27 Intake and Output 01/22/19 01/22/19 01/23/19 1515:00 23:00 07:00 IntakeIntake Total 600 ml 600 ml BalanceBalance 600 ml 600 ml Exam Constitutional: alert (Following commands, no apparent distress, no dyspnea with speaking) Head: normocephalic Respiratory: other (Coarse breath sounds bilaterally, no wheezing) Cardiovascular: regular rate and rhythm, systolic murmur Gastrointestinal: soft, non-tender, bowel sounds Extremities: edema (Trace) Labs Result Diagram: 01/23/19 0530 01/23/19 0530 Results 24hrs Laboratory Tests Test 01/23/19 05:30 White Blood Count 9.5 Red Blood Count 3.95 L Hemoglobin 11.3 L Hematocrit 35.7 L Mean Corpuscular Volume 90.4 Mean Corpuscular Hemoglobin 28.6 L Mean Corpuscular Hemoglobin Concent 31.7 L Red Cell Distribution Width 16.1 H Platelet Count 222 Mean Platelet Volume 11.6 H Immature Granulocytes % 0.400 Neutrophils % 77.4 H Lymphocytes % 9.0 L Monocytes % 11.5 H Eosinophils % 1.3 Basophils % 0.4 Nucleated Red Blood Cells % 0.0 Immature Granulocytes # 0.040 H Neutrophils # 7.4 Lymphocytes # 0.9 Monocytes # 1.1 H Eosinophils # 0.1 Basophils # 0.0 Nucleated Red Blood Cells # 0.0 Sodium Level 145 H Potassium Level 3.5 Chloride Level 103 Carbon Dioxide Level 30 Anion Gap 12 Blood Urea Nitrogen 21 H Creatinine 1.28 H Est Glomerular Filtrat Rate mL/min Glucose Level 108 Calcium Level 8.9 Medications Medications Current Medications Amiodarone HCl (Cordarone) 200 mg DAILY PO Last administered on 01/23/19 08:08; Admin Dose 200 MG; Start 01/22/19 at 09:00 Isosorbide Dinitrate (Isordil) 30 mg BID PO Last administered on 01/23/19 08:09; Admin Dose 30 MG; Start 01/21/19 at 21:00 Levothyroxine Sodium (Synthroid) 150 mcg BEFORE BREAKFAST PO Last administered on 01/23/19 06:05; Admin Dose 150 MCG; Start 01/22/19 at 07:00 Sacubitril/ Valsartan (Entresto 24 Mg-26 Mg) 1 tab BID PO Last administered on 01/23/19 08:08; Admin Dose 1 TAB; Start 01/21/19 at 21:00 Atorvastatin Calcium (Lipitor) 40 mg DAILY@21 PO Last administered on 01/22/19 21:03; Admin Dose 40 MG; Start 01/21/19 at 21:00 IV Flush (NS 3 ml) 3 ml PER PROTOCOL IV ; Start 01/21/19 at 15:00 Ondansetron HCl (Zofran Inj) 4 mg Q6H PRN IV NAUSEA/VOMITING; Start 01/21/19 at 15:00 Acetaminophen (Tylenol Tab) 650 mg Q6H PRN PO .PAIN 1-3 OR TEMP Last administered on 01/23/19 07:30; Admin Dose 650 MG; Start 01/21/19 at 15:00 Docusate Sodium (Colace) 100 mg Q12H PRN PO .CONSTIPATION Last administered on 01/23/19 08:08; Admin Dose 100 MG; Start 01/21/19 at 15:00 Famotidine (Pepcid) 20 mg Q12 PO Last administered on 3/29/19at 08:08; Admin Dose 20 MG; Start 01/21/19 at 21:00 Levalbuterol (Xopenex Neb) 1.25 mg Q6H RESP THERAPY HHN Last administered on 01/23/19at 09:01; Admin Dose 1.25 MG; Start 01/21/19 at 15:30 Levalbuterol (Xopenex Neb) 1.25 mg Q4H RESP THERAPY PRN HHN sob/wheezing; Start 01/21/19 at 15:30 Bumetanide (Bumex) 1 mg BID DIURETICS PO Last administered on 01/23/19at 06:05; Admin Dose 1 MG; Start 01/23/19 at 06:00 Morphine Sulfate (morphine) 2 mg Q4H PRN IV SEVERE PAIN LEVEL 7-10 Last administered on 01/23/19at 07:54; Admin Dose 2 MG; Start 01/23/19 at 08:00 Meropenem/Sodium Chloride 50 ml @ 100 mls/hr Q12 IVPB ; Start 01/23/19 at 10:30 Quang Robles DO Jan 23, 2019 12:07
[2019-01-23] MEDS: MEROPENEM 1 GM/50ML(PMX) 50 ML IVPB SCH ×2 (12:11→20:40)
--- NOTE | 2019-01-23 13:34 | PREAC ---
Date/Time of Note Date/Time of Note DATE: 01/23/19 TIME: 13:32 Anesthesia Eval and Record Evaluation Time Pre-Procedure Interview DATE: 01/23/19 TIME: 13:32 Age 78 Sex male NPO: 8 hrs Preoperative diagnosis bladder CA w/ hematuria Planned procedure TURBT Past Medical History Past Medical History: Includes Cardio: Dyslipidemia, DE, CAD, PTCA/Stent, Arrythmia, CHF, Other (severe aortic stenosis, EF < 30%) Endo: Diabetes Pulm: Smoking Hx Musculoskeletal: Osteoarthritis Renal: CKD Heme: Anemia Psych: Depression, Anxiety Surgery & Anesthesia Issues Other issues Meds Anticoagulation: No Beta Scottie within 24 hr: No Reason Beta Scottie not given: Pt. not on B-Scottie Active Scripts Sacubitril/Valsartan (Entresto 24 mg-26 mg Tablet) 1 Each Tablet, 1 TAB PO BID, #60 TAB 2 Refills Prov:MAYELIN BARRETT. 01/06/19 Bumetanide* (Bumetanide*) 1 Mg Tablet, 1 MG PO BID for 30 Days, #60 TAB Prov:MAYELIN BARRETT. 01/06/19 Potassium Chloride* (Potassium Chloride*) 8 Meq Capsule.er, 8 MEQ PO DAILY, #30 CAP Prov:MAYELIN BARRETT M. 01/06/19 Aspirin Delayed Release (Aspirin Delayed Release) 81 Mg Tablet.dr, 81 MG PO DAILY for 30 Days, #30 otc Prov:SAMANTHA BOB MD 11/16/18 Rosuvastatin Calcium* (Crestor*) 10 Mg Tablet, 10 MG PO QHS for 30 Days, #30 TAB Prov:SAMANTHA BOB MD 11/16/18 Isosorbide Dinitrate* (Isosorbide Dinitrate*) 30 Mg Tablet, 30 MG PO BID for 10 Days, #20 TAB Prov:SAMANTHA BOB MD 11/16/18 Reported Medications Amiodarone Hcl* (Amiodarone Hcl*) 200 Mg Tablet, 200 MG PO DAILY, #30 TAB 11/13/18 Levothyroxine Sodium* (Levoxyl*) 150 Mcg Tablet, 150 MCG PO BEFORE BREAKFAST, #30 TAB 07/20/18 Discontinued Scripts Ertapenem Sodium (Invanz) 1 Gm Vial, 1 GM IV Q24H for 5 Days, VIAL Prov:MAYELIN BARRETT 01/06/19 Current Medications Amiodarone HCl (Cordarone) 200 mg DAILY PO Last administered on 01/23/19 08:08; Admin Dose 200 MG; Start 01/22/19 at 09:00 Isosorbide Dinitrate (Isordil) 30 mg BID PO Last administered on 01/23/19 08:09; Admin Dose 30 MG; Start 01/21/19 at 21:00 Levothyroxine Sodium (Synthroid) 150 mcg BEFORE BREAKFAST PO Last administered on 01/23/19 06:05; Admin Dose 150 MCG; Start 01/22/19 at 07:00 Sacubitril/ Valsartan (Entresto 24 Mg-26 Mg) 1 tab BID PO Last administered on 01/23/19 08:08; Admin Dose 1 TAB; Start 01/21/19 at 21:00 Atorvastatin Calcium (Lipitor) 40 mg DAILY@21 PO Last administered on 01/22/19 21:03; Admin Dose 40 MG; Start 01/21/19 at 21:00 IV Flush (NS 3 ml) 3 ml PER PROTOCOL IV ; Start 01/21/19 at 15:00 Ondansetron HCl (Zofran Inj) 4 mg Q6H PRN IV NAUSEA/VOMITING; Start 01/21/19 at 15:00 Acetaminophen (Tylenol Tab) 650 mg Q6H PRN PO .PAIN 1-3 OR TEMP Last administered on 01/23/19 07:30; Admin Dose 650 MG; Start 01/21/19 at 15:00 Docusate Sodium (Colace) 100 mg Q12H PRN PO .CONSTIPATION Last administered on 01/23/19 08:08; Admin Dose 100 MG; Start 01/21/19 at 15:00 Famotidine (Pepcid) 20 mg Q12 PO Last administered on 01/23/19 08:08; Admin Dose 20 MG; Start 01/21/19 at 21:00 Levalbuterol (Xopenex Neb) 1.25 mg Q6H RESP THERAPY HHN Last administered on 01/23/19 09:01; Admin Dose 1.25 MG; Start 01/21/19 at 15:30 Levalbuterol (Xopenex Neb) 1.25 mg Q4H RESP THERAPY PRN HHN sob/wheezing; Start 01/21/19 at 15:30 Bumetanide (Bumex) 1 mg BID DIURETICS PO Last administered on 01/23/19at 06:05; Admin Dose 1 MG; Start 01/23/19 at 06:00 Morphine Sulfate (morphine) 2 mg Q4H PRN IV SEVERE PAIN LEVEL 7-10 Last administered on 01/23/19at 07:54; Admin Dose 2 MG; Start 01/23/19 at 08:00 Meropenem/Sodium Chloride 50 ml @ 100 mls/hr Q12 IVPB Last administered on 01/23/19at 12:11; Admin Dose 100 MLS/HR; Start 01/23/19 at 10:30 Meds reviewed: Yes Allergies Coded Allergies: No Known Allergy (Unverified , 01/21/19) Allergies Reviewed: Yes Labs/Studies Labs Reviewed: Reviewed by anesthesiologist Result Diagram: 01/23/19 0530 01/23/19 0530 Laboratory Tests 01/23/19 05:30 test: N/A Studies: ECG, CXR, 2D Echo Pre-procedure Exam Last vitals Vital Signs Date Temp Pulse Resp B/P (MAP) Pulse Ox O2 O2 Flow FiO2 Time Delivery Rate 01/23/19 4.0 13:26 01/23/19 97.9 60 19 130/60 91 11:44 (83) 01/23/19 Nasal 09:05 Cannula 01/22/19 28 21:27 Airway: Adequate mouth opening, Adequate thyromental dist Mallampati: Mallampati III Teeth: Normal Lung: Normal Heart: Normal ASA Physical Status ASA physical status: 4 Emergency: E Planned Anesthetic General/MAC: ETT, A Line Planned Pain Management Parenteral pain med Pre-operative Attestations Prior to commencing anesthesia and surgery, the patient was re-evaluated, there was verification of: *The patient's identity *The results of appropriate recent lab work and preoperative vital signs *The above evaluation not changing prior to induction *Anesthetic plan, risk benefits, alternative and complications discussed with patient/family; questions answered; patient/family understands, accepts and wishes to proceed. STEVEN STEINBERG MD Jan 23, 2019 13:34
[2019-01-23] MEDS ORDERED: ONDANSETRON 4 MG INJ IV PRN (14:00)
[2019-01-23] MEDS ORDERED: LEVALBUTEROL (NEB) 1.25 MG/0.5 ML AMP HHN PRN (14:00)
[2019-01-23] MEDS ORDERED: ALBUMIN HUMAN 5% 250 ML IV PRN (14:00)
[2019-01-23] MEDS ORDERED: HYDROmorphONE 1 MG/5 ML IV SYRINGE IV PRN ×2 (14:00)
[2019-01-23] MEDS ORDERED: FENTAnyl 50 MCG/ML VIAL IV PRN (14:00)
[2019-01-23] MEDS ORDERED: MIDAZOLAM 1 MG/ML 2 ML INJ IV PRN (14:00)
[2019-01-23] MEDS ORDERED: hydrALAzine 20 MG INJ IV PRN (14:00)
[2019-01-23] MEDS ORDERED: DIPHENHYDRAMINE 50 MG INJ IV PRN (14:00)
[2019-01-23] MEDS ORDERED: IPRATROPIUM (NEB) 0.5 MG/2.5 ML AMP HHN PRN (14:00)
[2019-01-23] MEDS: BUMETANIDE 1 MG INJ IV SCH (18:17)
--- NOTE | 2019-01-23 19:45 | CONS ---
Consult Date/Type/Reason Admit Date/Time Jan 21, 2019 at 15:23 Initial Consult Date 01/21/19 Type of Consultation: Urology Reason for Consultation Hematuria and history of bladder tumors and suprapubic pain Requesting Provider: MAYELIN BARRETT Date/Time of Note DATE: 01/23/19 TIME: 19:40 Subjective The patient appears to be uncomfortable but is awake. Objective Vitals Vital Signs Date Temp Pulse Resp B/P (MAP) Pulse Ox O2 O2 Flow FiO2 Time Delivery Rate 01/23/19 97.6 63 19 147/65 87 19:38 (92) 01/23/19 Nasal 4.0 15:26 Cannula 01/22/19 28 21:27 Intake and Output 01/22/19 01/22/19 01/23/19 1515:00 23:00 07:00 IntakeIntake Total 600 ml 600 ml BalanceBalance 600 ml 600 ml Exam The patient had an episode of bradycardia between 40-50 and he was supposed to have surgery this evening but because of the bradycardia I did cancel the surgery. Results/Medications Result Diagram: 01/23/19 0530 01/23/19 0530 Results 24 hrs Laboratory Tests Test 01/23/19 05:30 White Blood Count 9.5 Red Blood Count 3.95 L Hemoglobin 11.3 L Hematocrit 35.7 L Mean Corpuscular Volume 90.4 Mean Corpuscular Hemoglobin 28.6 L Mean Corpuscular Hemoglobin Concent 31.7 L Red Cell Distribution Width 16.1 H Platelet Count 222 Mean Platelet Volume 11.6 H Immature Granulocytes % 0.400 Neutrophils % 77.4 H Lymphocytes % 9.0 L Monocytes % 11.5 H Eosinophils % 1.3 Basophils % 0.4 Nucleated Red Blood Cells % 0.0 Immature Granulocytes # 0.040 H Neutrophils # 7.4 Lymphocytes # 0.9 Monocytes # 1.1 H Eosinophils # 0.1 Basophils # 0.0 Nucleated Red Blood Cells # 0.0 Sodium Level 145 H Potassium Level 3.5 Chloride Level 103 Carbon Dioxide Level 30 Anion Gap 12 Blood Urea Nitrogen 21 H Creatinine 1.28 H Est Glomerular Filtrat Rate mL/min Glucose Level 108 Calcium Level 8.9 Home Meds Active Scripts Sacubitril/Valsartan (Entresto 24 mg-26 mg Tablet) 1 Each Tablet, 1 TAB PO BID, #60 TAB 2 Refills Prov:MAYELIN BARRETT. 01/06/19 Bumetanide* (Bumetanide*) 1 Mg Tablet, 1 MG PO BID for 30 Days, #60 TAB Prov:MAYELIN BARRETT. 01/06/19 Potassium Chloride* (Potassium Chloride*) 8 Meq Capsule.er, 8 MEQ PO DAILY, #30 CAP Prov:MAYELIN BARRETT. 01/06/19 Aspirin Delayed Release (Aspirin Delayed Release) 81 Mg Tablet.dr, 81 MG PO DAILY for 30 Days, #30 otc Prov:SAMANTHA BOB MD 11/16/18 Rosuvastatin Calcium* (Crestor*) 10 Mg Tablet, 10 MG PO QHS for 30 Days, #30 TAB Prov:SAMANTHA BOB MD 11/16/18 Isosorbide Dinitrate* (Isosorbide Dinitrate*) 30 Mg Tablet, 30 MG PO BID for 10 Days, #20 TAB Prov:SAMANTHA BOB MD 11/16/18 Reported Medications Amiodarone Hcl* (Amiodarone Hcl*) 200 Mg Tablet, 200 MG PO DAILY, #30 TAB 11/13/18 Levothyroxine Sodium* (Levoxyl*) 150 Mcg Tablet, 150 MCG PO BEFORE BREAKFAST, #30 TAB 07/20/18 Discontinued Scripts Ertapenem Sodium (Invanz) 1 Gm Vial, 1 GM IV Q24H for 5 Days, VIAL Prov:MAYELIN BARRETT. 01/06/19 Medications Current Medications Isosorbide Dinitrate (Isordil) 30 mg BID PO Last administered on 01/23/19at 08:09; Admin Dose 30 MG; Start 01/21/19 at 21:00 Levothyroxine Sodium (Synthroid) 150 mcg BEFORE BREAKFAST PO Last administered on 01/23/19at 06:05; Admin Dose 150 MCG; Start 01/22/19 at 07:00 Sacubitril/ Valsartan (Entresto 24 Mg-26 Mg) 1 tab BID PO Last administered on 01/23/19at 08:08; Admin Dose 1 TAB; Start 01/21/19 at 21:00 Atorvastatin Calcium (Lipitor) 40 mg DAILY@21 PO Last administered on 01/22/19at 21:03; Admin Dose 40 MG; Start 01/21/19 at 21:00 IV Flush (NS 3 ml) 3 ml PER PROTOCOL IV ; Start 01/21/19 at 15:00 Ondansetron HCl (Zofran Inj) 4 mg Q6H PRN IV NAUSEA/VOMITING; Start 01/21/19 at 15:00 Acetaminophen (Tylenol Tab) 650 mg Q6H PRN PO .PAIN 1-3 OR TEMP Last administered on 01/23/19at 07:30; Admin Dose 650 MG; Start 01/21/19 at 15:00 Docusate Sodium (Colace) 100 mg Q12H PRN PO .CONSTIPATION Last administered on 01/23/19at 08:08; Admin Dose 100 MG; Start 01/21/19 at 15:00 Famotidine (Pepcid) 20 mg Q12 PO Last administered on 01/23/19at 08:08; Admin Dose 20 MG; Start 01/21/19 at 21:00 Levalbuterol (Xopenex Neb) 1.25 mg Q6H RESP THERAPY HHN Last administered on 01/23/19at 15:24; Admin Dose 1.25 MG; Start 01/21/19 at 15:30 Levalbuterol (Xopenex Neb) 1.25 mg Q4H RESP THERAPY PRN HHN sob/wheezing; Start 01/21/19 at 15:30 Morphine Sulfate (morphine) 2 mg Q4H PRN IV SEVERE PAIN LEVEL 7-10 Last administered on 01/23/19at 07:54; Admin Dose 2 MG; Start 01/23/19 at 08:00 Meropenem/Sodium Chloride 50 ml @ 100 mls/hr Q12 IVPB Last administered on 01/23/19at 12:11; Admin Dose 100 MLS/HR; Start 01/23/19 at 10:30 Hydromorphone HCl (Dilaudid) 0.2 mg PACU PRN IV MILD PAIN 1-3; Start 01/23/19 at 14:00; Stop 01/23/19 at 21:00 Hydromorphone HCl (Dilaudid) 0.4 mg PACU PRN IV MOD PAIN 4-6; Start 01/23/19 at 14:00; Stop 01/23/19 at 21:00 Fentanyl (Sublimaze) 25 mcg PACU ORDER PRN IV MILD PAIN 1-3; Start 01/23/19 at 14:00; Stop 01/23/19 at 21:00 Ondansetron HCl (Zofran Inj) 4 mg PACU ORDER PRN IV NAUSEA/VOMITING; Start 01/23/19 at 14:00; Stop 01/23/19 at 21:00 Hydralazine HCl (Apresoline) 5 mg PACU ORDER PRN IV HIGH BLOOD PRESSURE; Start 01/23/19 at 14:00; Stop 01/23/19 at 21:00 Albumin Human 250 ml @ 750 mls/hr PACU ORDER PRN IV BP SUPPORT; Start 01/23/19 at 14:00; Stop 01/23/19 at 21:00 Levalbuterol (Xopenex Neb) 1.25 mg PACU ORDER PRN HHN .WHEEZING; Start 01/23/19 at 14:00; Stop 01/23/19 at 21:00 Ipratropium [place] (Atrovent 0.02% (Neb)) 0.5 mg PACU ORDER PRN HHN .WHEEZING; Start 01/23/19 at 14:00; Stop 01/23/19 at 21:00 Diphenhydramine HCl (Benadryl) 25 mg PACU ORDER PRN IV .PRURITUS; Start 01/23/19 at 14:00; Stop 01/23/19 at 21:00 Midazolam HCl (Versed) 0.5 mg PACU ORDER PRN IV .ANXIETY; Start 01/23/19 at 14:00; Stop 01/23/19 at 21:00 Bumetanide (Bumex) 1 mg BID DIURETICS IV Last administered on 01/23/19at 18:17; Admin Dose 1 MG; Start 01/23/19 at 18:00 Assessment/Plan Hospital Course (Demo Recall) 78-year-old male who is known to have a history of bladder tumors. He was here last year with gross hematuria and urinary incontinence. He underwent a transurethral resection of most of the tumors. Postop he did well and he was voiding clear urine and the family decided that since he was doing well no need for further intervention. He was since admitted to the hospital and I did see him earlier this months and did order a urine cytology that came back positive I did call the family and informed them of the findings. I did talk to them before and told them that he still has bladder tumors and sooner or later he is going to have more problems but again they elected at the time to do nothing. There thinking is that as long as he is doing fine regardless was going on we will do nothing. However the patient had hematuria the day before admission and his family brought him to the emergency room. He is always mowning and giving the impression that he is in pain but the reality he is not. I met with his daughter at his bedside in the emergency room and it appears that they are willing to have him undergo the surgery. Patient was supposed to have cystoscopy and transurethral resection of bladder tumor this evening however during the day he had episodes of bradycardia therefore I talked with the car mover and we decided to cancel the surgery. I did explain to his family who were at his bedside what has happened and we will have to wait and may be we will reschedule him later on when he is in a better medical condition. JOSE OCAMPO MD Jan 23, 2019 19:45
[2019-01-23] MEDS: ATORVASTATIN 40 MG TAB PO SCH (20:40)
[2019-01-24] VITALS (13 sets, daily range): BP systolic 113–167; BP diastolic 57–70; PULSE 52–74; RESP 15–22
[2019-01-24] MEDS: LEVALBUTEROL (NEB) 1.25 MG/0.5 ML AMP HHN SCH ×4 (01:43→20:41)
[2019-01-24] MEDS: morphine 2 MG INJ IV PRN (02:33)
[2019-01-24] MEDS: BUMETANIDE 1 MG INJ IV SCH ×2 (06:03→17:43)
[2019-01-24] MEDS: LEVOTHYROXINE 150 MCG TAB PO SCH (06:03)
[2019-01-24] MEDS: FAMOTIDINE 20 MG TAB PO SCH ×2 (08:58→20:28)
[2019-01-24] MEDS: ISOSORBIDE DINITRATE 10 MG TAB PO SCH ×2 (08:58→20:31)
[2019-01-24] MEDS: SACUBITRIL/VALSARTAN (24mg-26mg) TABLET PO SCH ×2 (08:58→20:33)
[2019-01-24] MEDS: MEROPENEM 1 GM/50ML(PMX) 50 ML IVPB SCH ×2 (08:58→20:33)
--- NOTE | 2019-01-24 12:04 | PN ---
Date/Time of Note Date/Time of Note DATE: 01/24/19 TIME: 12:01 Assessment/Plan VTE Prophylaxis Risk score (from Ns)>0 risk: 8 SCD applied (from Ns): Yes SCD contraindicated: low risk/ambulating Pharmacological prophylaxis: heparin Lines/Catheters IV C[facility] Type ([facility] Peripheral IV Urinary Cath still in place: No Assessment/Plan Problems: (1) Urothelial carcinoma of bladder Status: Chronic Comment: He was to have surgery yesterday but that was postponed due to bradycardia. Urology surgeon anesthesia wish to have cardiology formal opinion prior to taking him to the OR which would be in roughly 48 hours (2) Paroxysmal atrial fibrillation Comment: Presently in sinus rhythm (3) Aortic stenosis, severe Status: Chronic Comment: Noted and relatively compensated (4) Systolic and diastolic CHF, acute on chronic Status: Acute Comment: Compensated at this time (5) Acquired hypothyroidism Status: Chronic Comment: Stable on treatment (6) Iron deficiency anemia due to chronic blood loss Status: Chronic Comment: Stable on treatment Result Diagram: 01/24/1943 01/24/19 0543 Results 24hrs Laboratory Tests Test 01/24/19 05:43 White Blood Count 7.7 Red Blood Count 3.82 L Hemoglobin 10.7 L Hematocrit 34.5 L Mean Corpuscular Volume 90.3 Mean Corpuscular Hemoglobin 28.0 L Mean Corpuscular Hemoglobin Concent 31.0 L Red Cell Distribution Width 16.2 H Platelet Count 203 Mean Platelet Volume 11.6 H Immature Granulocytes % 0.400 Neutrophils % 71.1 Lymphocytes % 11.8 L Monocytes % 12.0 H Eosinophils % 3.9 Basophils % 0.8 Nucleated Red Blood Cells % 0.0 Immature Granulocytes # 0.030 Neutrophils # 5.4 Lymphocytes # 0.9 Monocytes # 0.9 Eosinophils # 0.3 Basophils # 0.1 Nucleated Red Blood Cells # 0.0 Sodium Level 142 Potassium Level 3.4 L Chloride Level 101 Carbon Dioxide Level 33 H Anion Gap 8 Blood Urea Nitrogen 21 H Creatinine 1.42 H Est Glomerular Filtrat Rate mL/min Glucose Level 105 Calcium Level 8.6 Magnesium Level 1.9 Subjective 24 Hr Interval Summary Free Text/Dictation Patient is vibrant and alert today. His surgery last night was postponed due to an episode of bradycardia. Constitutional: no complaints Respiratory: no complaints Cardiovascular: no complaints Gastrointestinal: no complaints Exam/Review of Systems Exam Vitals Vital Signs Date Temp Pulse Resp B/P (MAP) Pulse Ox O2 O2 Flow FiO2 Time Delivery Rate 01/24/19 98.3 61 15 113/57 90 Nasal 4.0 11:09 (75) Cannula 01/22/19 21:27 Intake and Output 01/23/19 01/23/19 01/24/19 1414:59 22:59 06:59 IntakeIntake Total 200 ml 250 ml 200 ml BalanceBalance 200 ml 250 ml 200 ml Constitutional: alert Respiratory: clear to auscultation, normal air movement Cardiovascular: regular rate and rhythm, nl pulses, murmurs/extra sounds (Crescendo decrescendo systolic murmur with decreased carotid upstrokes) Gastrointestinal: soft, nl liver, spleen, non-tender Results Results 24hrs Laboratory Tests Test 01/24/19 05:43 White Blood Count 7.7 Red Blood Count 3.82 L Hemoglobin 10.7 L Hematocrit 34.5 L Mean Corpuscular Volume 90.3 Mean Corpuscular Hemoglobin 28.0 L Mean Corpuscular Hemoglobin Concent 31.0 L Red Cell Distribution Width 16.2 H Platelet Count 203 Mean Platelet Volume 11.6 H Immature Granulocytes % 0.400 Neutrophils % 71.1 Lymphocytes % 11.8 L Monocytes % 12.0 H Eosinophils % 3.9 Basophils % 0.8 Nucleated Red Blood Cells % 0.0 Immature Granulocytes # 0.030 Neutrophils # 5.4 Lymphocytes # 0.9 Monocytes # 0.9 Eosinophils # 0.3 Basophils # 0.1 Nucleated Red Blood Cells # 0.0 Sodium Level 142 Potassium Level 3.4 L Chloride Level 101 Carbon Dioxide Level 33 H Anion Gap 8 Blood Urea Nitrogen 21 H Creatinine 1.42 H Est Glomerular Filtrat Rate mL/min Glucose Level 105 Calcium Level 8.6 Magnesium Level 1.9 Medications Medication Current Medications Isosorbide Dinitrate (Isordil) 30 mg BID PO Last administered on 01/24/19at 08:58; Admin Dose 30 MG; Start 01/21/19 at 21:00 Levothyroxine Sodium (Synthroid) 150 mcg BEFORE BREAKFAST PO Last administered on 01/24/19at 06:03; Admin Dose 150 MCG; Start 01/22/19 at 07:00 Sacubitril/ Valsartan (Entresto 24 Mg-26 Mg) 1 tab BID PO Last administered on 01/24/19 08:58; Admin Dose 1 TAB; Start 01/21/19 at 21:00 Atorvastatin Calcium (Lipitor) 40 mg DAILY@21 PO Last administered on 01/23/19 20:40; Admin Dose 40 MG; Start 01/21/19 at 21:00 IV Flush (NS 3 ml) 3 ml PER PROTOCOL IV ; Start 01/21/19 at 15:00 Ondansetron HCl (Zofran Inj) 4 mg Q6H PRN IV NAUSEA/VOMITING; Start 01/21/19 at 15:00 Acetaminophen (Tylenol Tab) 650 mg Q6H PRN PO .PAIN 1-3 OR TEMP Last administered on 01/23/19 07:30; Admin Dose 650 MG; Start 01/21/19 at 15:00 Docusate Sodium (Colace) 100 mg Q12H PRN PO .CONSTIPATION Last administered on 01/23/19 08:08; Admin Dose 100 MG; Start 01/21/19 at 15:00 Famotidine (Pepcid) 20 mg Q12 PO Last administered on 01/24/19 08:58; Admin Dose 20 MG; Start 01/21/19 at 21:00 Levalbuterol (Xopenex Neb) 1.25 mg Q6H RESP THERAPY HHN Last administered on 01/24/19 08:43; Admin Dose 1.25 MG; Start 01/21/19 at 15:30 Levalbuterol (Xopenex Neb) 1.25 mg Q4H RESP THERAPY PRN HHN sob/wheezing; Start 01/21/19 at 15:30 Morphine Sulfate (morphine) 2 mg Q4H PRN IV SEVERE PAIN LEVEL 7-10 Last administered on 01/24/19 02:33; Admin Dose 2 MG; Start 01/23/19 at 08:00 Meropenem/Sodium Chloride 50 ml @ 100 mls/hr Q12 IVPB Last administered on 01/24/19 08:58; Admin Dose 100 MLS/HR; Start 01/23/19 at 10:30 Bumetanide (Bumex) 1 mg BID DIURETICS IV Last administered on 01/24/19 06:03; Admin Dose 1 MG; Start 01/23/19 at 18:00 LEORA HUYNH MD 30, 2019 12:04
--- NOTE | 2019-01-24 12:51 | CONS ---
Consult Date/Type/Reason Admit Date/Time Jan 21, 2019 at 15:23 Initial Consult Date 01/21/19 Type of Consultation: Urology Reason for Consultation History of bladder tumor and gross hematuria Requesting Provider: MAYELIN BARRETT Date/Time of Note DATE: 01/24/19 TIME: 12:48 Subjective Patient is awake and alert and his son is at his bedside. Patient denies having any pain and he is not mowning today. He is voiding and the urine is clear. He was not seen yet by the chief of field operations today Objective Vitals Vital Signs Date Temp Pulse Resp B/P (MAP) Pulse Ox O2 O2 Flow FiO2 Time Delivery Rate 01/24/19 52 12:34 01/24/19 98.3 15 113/57 90 Nasal 4.0 11:09 (75) Cannula 01/22/19 28 21:27 Intake and Output 01/23/19 01/23/19 01/24/19 1414:59 22:59 06:59 IntakeIntake Total 200 ml 250 ml 200 ml BalanceBalance 200 ml 250 ml 200 ml Exam The bladder is not distended. But he does have E. coli ESBL urinary tract infection. Results/Medications Result Diagram: 01/24/19 0543 01/24/19 0543 Results 24 hrs Laboratory Tests Test 01/24/19 05:43 White Blood Count 7.7 Red Blood Count 3.82 L Hemoglobin 10.7 L Hematocrit 34.5 L Mean Corpuscular Volume 90.3 Mean Corpuscular Hemoglobin 28.0 L Mean Corpuscular Hemoglobin Concent 31.0 L Red Cell Distribution Width 16.2 H Platelet Count 203 Mean Platelet Volume 11.6 H Immature Granulocytes % 0.400 Neutrophils % 71.1 Lymphocytes % 11.8 L Monocytes % 12.0 H Eosinophils % 3.9 Basophils % 0.8 Nucleated Red Blood Cells % 0.0 Immature Granulocytes # 0.030 Neutrophils # 5.4 Lymphocytes # 0.9 Monocytes # 0.9 Eosinophils # 0.3 Basophils # 0.1 Nucleated Red Blood Cells # 0.0 Sodium Level 142 Potassium Level 3.4 L Chloride Level 101 Carbon Dioxide Level 33 H Anion Gap 8 Blood Urea Nitrogen 21 H Creatinine 1.42 H Est Glomerular Filtrat Rate mL/min Glucose Level 105 Calcium Level 8.6 Magnesium Level 1.9 Home Meds Active Scripts Sacubitril/Valsartan (Entresto 24 mg-26 mg Tablet) 1 Each Tablet, 1 TAB PO BID, #60 TAB 2 Refills Prov:MAYELIN BARRETT. 01/06/19 Bumetanide* (Bumetanide*) 1 Mg Tablet, 1 MG PO BID for 30 Days, #60 TAB Prov:MAYELIN BARRETT. 01/06/19 Potassium Chloride* (Potassium Chloride*) 8 Meq Capsule.er, 8 MEQ PO DAILY, #30 CAP Prov:MAYELIN BARRETT. 01/06/19 Aspirin Delayed Release (Aspirin Delayed Release) 81 Mg Tablet.dr, 81 MG PO DAILY for 30 Days, #30 otc Prov:SAMANTHA BOB MD 11/16/18 Rosuvastatin Calcium* (Crestor*) 10 Mg Tablet, 10 MG PO QHS for 30 Days, #30 TAB Prov:SAMANTHA BOB MD 11/16/18 Isosorbide Dinitrate* (Isosorbide Dinitrate*) 30 Mg Tablet, 30 MG PO BID for 10 Days, #20 TAB Prov:SAMANTHA BOB MD 11/16/18 Reported Medications Amiodarone Hcl* (Amiodarone Hcl*) 200 Mg Tablet, 200 MG PO DAILY, #30 TAB 11/13/18 Levothyroxine Sodium* (Levoxyl*) 150 Mcg Tablet, 150 MCG PO BEFORE BREAKFAST, #30 TAB 07/20/18 Discontinued Scripts Ertapenem Sodium (Invanz) 1 Gm Vial, 1 GM IV Q24H for 5 Days, VIAL Prov:MAYELIN BARRETTJimmy 01/06/19 Medications Current Medications Isosorbide Dinitrate (Isordil) 30 mg BID PO Last administered on 01/24/19at 08:58; Admin Dose 30 MG; Start 01/21/19 at 21:00 Levothyroxine Sodium (Synthroid) 150 mcg BEFORE BREAKFAST PO Last administered on 01/24/19at 06:03; Admin Dose 150 MCG; Start 01/22/19 at 07:00 Sacubitril/ Valsartan (Entresto 24 Mg-26 Mg) 1 tab BID PO Last administered on 01/24/19at 08:58; Admin Dose 1 TAB; Start 01/21/19 at 21:00 Atorvastatin Calcium (Lipitor) 40 mg DAILY@21 PO Last administered on 01/23/19 20:40; Admin Dose 40 MG; Start 01/21/19 at 21:00 IV Flush (NS 3 ml) 3 ml PER PROTOCOL IV ; Start 01/21/19 at 15:00 Ondansetron HCl (Zofran Inj) 4 mg Q6H PRN IV NAUSEA/VOMITING; Start 01/21/19 at 15:00 Acetaminophen (Tylenol Tab) 650 mg Q6H PRN PO .PAIN 1-3 OR TEMP Last administered on 01/23/19 07:30; Admin Dose 650 MG; Start 01/21/19 at 15:00 Docusate Sodium (Colace) 100 mg Q12H PRN PO .CONSTIPATION Last administered on 01/23/19 08:08; Admin Dose 100 MG; Start 01/21/19 at 15:00 Famotidine (Pepcid) 20 mg Q12 PO Last administered on 01/24/19 08:58; Admin Dose 20 MG; Start 01/21/19 at 21:00 Levalbuterol (Xopenex Neb) 1.25 mg Q6H RESP THERAPY HHN Last administered on 01/24/19 08:43; Admin Dose 1.25 MG; Start 01/21/19 at 15:30 Levalbuterol (Xopenex Neb) 1.25 mg Q4H RESP THERAPY PRN HHN sob/wheezing; Start 01/21/19 at 15:30 Morphine Sulfate (morphine) 2 mg Q4H PRN IV SEVERE PAIN LEVEL 7-10 Last administered on 01/24/19 02:33; Admin Dose 2 MG; Start 01/23/19 at 08:00 Meropenem/Sodium Chloride 50 ml @ 100 mls/hr Q12 IVPB Last administered on 01/24/19 08:58; Admin Dose 100 MLS/HR; Start 01/23/19 at 10:30 Bumetanide (Bumex) 1 mg BID DIURETICS IV Last administered on 01/24/19 06:03; Admin Dose 1 MG; Start 01/23/19 at 18:00 Potassium Chloride (Potassium Chloride Pwd/Soln) 40 meq ONCE ONCE PO ; Start 01/24/19 at 13:00; Stop 01/24/19 at 13:01; Status UNV Lactulose (Enulose) 20 gm ONCE ONCE PO ; Start 01/24/19 at 13:00; Stop 01/24/19 at 13:01; Status UNV Assessment/Plan Hospital Course (Demo Recall) 78-year-old male who is known to have a history of bladder tumors. He was here last year with gross hematuria and urinary incontinence. He underwent a transurethral resection of most of the tumors. Postop he did well and he was voiding clear urine and the family decided that since he was doing well no need for further intervention. He was since admitted to the hospital and I did see him earlier this months and did order a urine cytology that came back positive I did call the family and informed them of the findings. I did talk to them before and told them that he still has bladder tumors and sooner or later he is going to have more problems but again they elected at the time to do nothing. There thinking is that as long as he is doing fine regardless was going on we will do nothing. However the patient had hematuria the day before admission and his family brought him to the emergency room. He is always mowning and giving the impression that he is in pain but the reality he is not. I met with his daughter at his bedside in the emergency room and it appears that they are willing to have him undergo the surgery. Patient was supposed to have cystoscopy and transurethral resection of bladder tumor on 01/23/2019 however during the day he had episodes of bradycardia therefore I talked with the chief of field operations and we decided to cancel the surgery. I did explain to his family what has happened and we will have to wait and may be we will reschedule him later on when he is in a better medical condition. For now we will await the cardiology reassessment of the patient and when it would be better to reschedule him JOSE OCAMPO MD Jan 24, 2019 12:51
[2019-01-24] MEDS ORDERED: LACTULOSE 30ML CUP PO ONE (13:00)
[2019-01-24] MEDS ORDERED: POTASSIUM CHLORIDE 20 MEQ POWDER FOR ORAL SOLN PO ONE (13:00)
--- NOTE | 2019-01-24 16:17 | CONS ---
Consult Date/Type/Reason Admit Date/Time Jan 21, 2019 at 15:23 Initial Consult Date 01/21/19 Type of Consultation: CV Requesting Provider: MAYELIN BARRETT Date/Time of Note DATE: 01/24/19 TIME: 16:13 Subjective Cardiology follow-up progress note Subjective: Case discussed with the staff. Telemetry was reviewed. Patient is in sinus rhythm/junctional rhythm/atrial fibrillation. Heart intermittently low No chest pain or pressure breathing remains stable No bleeding is reported Objective: General: no acute distress HEENT: NC/AT. pupils are equal. round. NECK: NO JVD. no stridor. CV: RRR. systolic ejection murmur; no gallop or rubs. PULM: no wheezing or rhonchi. GI: SOFT, NT, ND, no rebound or guarding Extremity: trace B/L LE edema. no clubbing. neuro: Sleeping Psych: calm and pleasant rectal: deferred : Deferred Objective Vitals Vital Signs Date Temp Pulse Resp B/P (MAP) Pulse Ox O2 O2 Flow FiO2 Time Delivery Rate 01/24/19 5.0 15:37 01/24/19 98.7 57 18 158/70 92 Nasal 15:26 (99) Cannula 01/22/19 28 21:27 Intake and Output 01/23/19 01/23/19 01/24/19 1515:00 23:00 07:00 IntakeIntake Total 200 ml 250 ml 200 ml BalanceBalance 200 ml 250 ml 200 ml Results/Medications Result Diagram: 01/24/19 0543 01/24/19 0543 Results 24 hrs Laboratory Tests Test 01/24/19 05:43 White Blood Count 7.7 Red Blood Count 3.82 L Hemoglobin 10.7 L Hematocrit 34.5 L Mean Corpuscular Volume 90.3 Mean Corpuscular Hemoglobin 28.0 L Mean Corpuscular Hemoglobin Concent 31.0 L Red Cell Distribution Width 16.2 H Platelet Count 203 Mean Platelet Volume 11.6 H Immature Granulocytes % 0.400 Neutrophils % 71.1 Lymphocytes % 11.8 L Monocytes % 12.0 H Eosinophils % 3.9 Basophils % 0.8 Nucleated Red Blood Cells % 0.0 Immature Granulocytes # 0.030 Neutrophils # 5.4 Lymphocytes # 0.9 Monocytes # 0.9 Eosinophils # 0.3 Basophils # 0.1 Nucleated Red Blood Cells # 0.0 Sodium Level 142 Potassium Level 3.4 L Chloride Level 101 Carbon Dioxide Level 33 H Anion Gap 8 Blood Urea Nitrogen 21 H Creatinine 1.42 H Est Glomerular Filtrat Rate mL/min Glucose Level 105 Calcium Level 8.6 Magnesium Level 1.9 Home Meds Active Scripts Sacubitril/Valsartan (Entresto 24 mg-26 mg Tablet) 1 Each Tablet, 1 TAB PO BID, #60 TAB 2 Refills Prov:RISHABH BARRETTPhilipp Diana. 01/06/19 Bumetanide* (Bumetanide*) 1 Mg Tablet, 1 MG PO BID for 30 Days, #60 TAB Prov:RISHABH BARRETTPhilipp Diana. 01/06/19 Potassium Chloride* (Potassium Chloride*) 8 Meq Capsule.er, 8 MEQ PO DAILY, #30 CAP Prov:RISHABH BARRETTPhilipp Diana. 01/06/19 Aspirin Delayed Release (Aspirin Delayed Release) 81 Mg Tablet.dr, 81 MG PO DAILY for 30 Days, #30 otc Prov:SAMANTHA BOB MD 11/16/18 Rosuvastatin Calcium* (Crestor*) 10 Mg Tablet, 10 MG PO QHS for 30 Days, #30 TAB Prov:SAMANTHA BOB MD 11/16/18 Isosorbide Dinitrate* (Isosorbide Dinitrate*) 30 Mg Tablet, 30 MG PO BID for 10 Days, #20 TAB Prov:SAMANTHA BOB MD 11/16/18 Reported Medications Amiodarone Hcl* (Amiodarone Hcl*) 200 Mg Tablet, 200 MG PO DAILY, #30 TAB 11/13/18 Levothyroxine Sodium* (Levoxyl*) 150 Mcg Tablet, 150 MCG PO BEFORE BREAKFAST, #30 TAB 07/20/18 Discontinued Scripts Ertapenem Sodium (Invanz) 1 Gm Vial, 1 GM IV Q24H for 5 Days, VIAL Prov:RISHABH BARRETTPhilipp DianaJimmy 01/06/19 Medications Current Medications Isosorbide Dinitrate (Isordil) 30 mg BID PO Last administered on 01/24/19at 08:58; Admin Dose 30 MG; Start 01/21/19 at 21:00 Levothyroxine Sodium (Synthroid) 150 mcg BEFORE BREAKFAST PO Last administered on 01/24/19at 06:03; Admin Dose 150 MCG; Start 01/22/19 at 07:00 Sacubitril/ Valsartan (Entresto 24 Mg-26 Mg) 1 tab BID PO Last administered on 01/24/19 08:58; Admin Dose 1 TAB; Start 01/21/19 at 21:00 Atorvastatin Calcium (Lipitor) 40 mg DAILY@21 PO Last administered on 01/23/19 20:40; Admin Dose 40 MG; Start 01/21/19 at 21:00 IV Flush (NS 3 ml) 3 ml PER PROTOCOL IV ; Start 01/21/19 at 15:00 Ondansetron HCl (Zofran Inj) 4 mg Q6H PRN IV NAUSEA/VOMITING; Start 01/21/19 at 15:00 Acetaminophen (Tylenol Tab) 650 mg Q6H PRN PO .PAIN 1-3 OR TEMP Last administered on 01/23/19 07:30; Admin Dose 650 MG; Start 01/21/19 at 15:00 Docusate Sodium (Colace) 100 mg Q12H PRN PO .CONSTIPATION Last administered on 01/23/19 08:08; Admin Dose 100 MG; Start 01/21/19 at 15:00 Famotidine (Pepcid) 20 mg Q12 PO Last administered on 01/24/19 08:58; Admin Dose 20 MG; Start 01/21/19 at 21:00 Levalbuterol (Xopenex Neb) 1.25 mg Q6H RESP THERAPY HHN Last administered on 01/24/19 15:37; Admin Dose 1.25 MG; Start 01/21/19 at 15:30 Levalbuterol (Xopenex Neb) 1.25 mg Q4H RESP THERAPY PRN HHN sob/wheezing; Start 01/21/19 at 15:30 Morphine Sulfate (morphine) 2 mg Q4H PRN IV SEVERE PAIN LEVEL 7-10 Last administered on 01/24/19 02:33; Admin Dose 2 MG; Start 01/23/19 at 08:00 Meropenem/Sodium Chloride 50 ml @ 100 mls/hr Q12 IVPB Last administered on 01/24/19 08:58; Admin Dose 100 MLS/HR; Start 01/23/19 at 10:30 Bumetanide (Bumex) 1 mg BID DIURETICS IV Last administered on 01/24/19at 06:03; Admin Dose 1 MG; Start 01/23/19 at 18:00 Assessment/Plan Hospital Course (Demo Recall) congestive heart failure Cardiomyopathy with left ventricular ejection fraction 30% Possible urinary retention with history of bladder cancer Paroxysmal atrial fibrillation, currently sinus rhythm-not on anticoagulation secondary to bladder tumor and hematuria Moderate to severe aortic valve stenosis COPD Hypertension CKD Recommendations: Off of amiodarone due to bradycardia Continue to monitor on telemetry. Electrolytes were corrected as needed. Consider addition of Aldactone if patient become hypokalemic as well as need more diuretics See Dr. Ace previous note regarding cardiovascular preop risk assessment Thank you for this referral. We will continue to follow along with you until Dr. Ace returns on Saturday MARTY FRIAS MD [facility] MARTY FRIAS MD Jan 24, 2019 16:17
[2019-01-24] MEDS: ATORVASTATIN 40 MG TAB PO SCH (20:28)
[2019-01-24] MEDS: ACETAMINOPHEN 325 MG TAB PO PRN (20:47)
[2019-01-25] VITALS (13 sets, daily range): BP systolic 116–168; BP diastolic 54–91; PULSE 53–67; RESP 18–21
[2019-01-25] MEDS: LEVALBUTEROL (NEB) 1.25 MG/0.5 ML AMP HHN SCH ×4 (01:35→20:01)
[2019-01-25] MEDS: morphine 2 MG INJ IV PRN (02:05)
[2019-01-25] MEDS: LEVOTHYROXINE 150 MCG TAB PO SCH (06:06)
[2019-01-25] MEDS: BUMETANIDE 1 MG INJ IV SCH ×2 (06:06→18:00)
[2019-01-25] MEDS: FAMOTIDINE 20 MG TAB PO SCH ×2 (09:23→21:02)
[2019-01-25] MEDS: MEROPENEM 1 GM/50ML(PMX) 50 ML IVPB SCH ×2 (09:23→21:02)
[2019-01-25] MEDS: SACUBITRIL/VALSARTAN (24mg-26mg) TABLET PO SCH ×2 (09:23→21:02)
[2019-01-25] MEDS: ISOSORBIDE DINITRATE 10 MG TAB PO SCH ×2 (09:24→21:03)
--- NOTE | 2019-01-25 11:54 | PN ---
Date/Time of Note Date/Time of Note DATE: 01/25/19 TIME: 11:51 Assessment/Plan VTE Prophylaxis Risk score (from [facility] [place])>0 risk: 8 SCD applied (from [facility] [place]): Yes Pharmacological prophylaxis: heparin Lines/Catheters IV C[facility]ter Type (from [facility] Peripheral IV Urinary Cath still in place: No Assessment/Plan Problems: (1) Urothelial carcinoma of bladder Status: Chronic Comment: As per strategy execution consultant okay to proceed although he is at incre ased risk as compared to other patients. Please proceed (2) UTI due to extended-spectrum beta lactamase (ESBL) producing Escherichia coli Status: Acute Comment: On appropriate antibiotic therapy. (3) Iron deficiency anemia due to chronic blood loss Status: Chronic Comment: Noted and on treatment (4) Aortic stenosis, severe Status: Chronic Comment: Noted. (5) Systolic and diastolic CHF, acute on chronic Status: Acute Comment: Adequately controlled Result Diagram: 01/24/19 0543 01/25/19 0529 Results 24hrs Laboratory Tests Test 01/25/19 05:29 Sodium Level 141 Potassium Level 3.7 Chloride Level 104 Carbon Dioxide Level 30 Anion Gap 7 Blood Urea Nitrogen 21 H Creatinine 1.45 H Est Glomerular Filtrat Rate mL/min Glucose Level 105 Calcium Level 8.7 Magnesium Level 2.1 Total Bilirubin 0.7 Direct Bilirubin 0.00 Indirect Bilirubin 0.7 Aspartate Amino Transf (AST/SGOT) 24 Alanine Aminotransferase (ALT/SGPT) 20 Alkaline Phosphatase 89 Total Protein 6.2 Albumin 3.1 L Globulin 3.10 Albumin/Globulin Ratio 1.00 Digoxin Level < 0.4 L Subjective 24 Hr Interval Summary Free Text/Dictation Patient reports he is doing about the same. He is interested in getting the cystoscopy done Constitutional: no complaints (Denies fevers chills or sweats) Respiratory: no complaints Cardiovascular: no complaints Gastrointestinal: no complaints Exam/Review of Systems Exam Vitals Vital Signs Date Temp Pulse Resp B/P (MAP) Pulse Ox O2 O2 Flow FiO2 Time Delivery Rate 01/25/19 98.2 53 18 116/54 92 Nasal 10:55 (74) Cannula 01/25/19 4.0 09:03 01/22/19 28 21:27 Intake and Output 01/24/19 01/24/19 01/25/19 1515:00 23:00 07:00 IntakeIntake Total 50 ml 1380 ml 250 ml BalanceBalance 50 ml 1380 ml 250 ml Constitutional: alert, oriented Respiratory: clear to auscultation, normal air movement Cardiovascular: regular rate and rhythm, nl pulses, murmurs/extra sounds (Elisabeth decrescendo systolic murmur that radiates up to the carotids with decreased upstroke) Gastrointestinal: soft, nl liver, spleen, non-tender Results Results 24hrs Laboratory Tests Test 01/25/19 05:29 Sodium Level 141 Potassium Level 3.7 Chloride Level 104 Carbon Dioxide Level 30 Anion Gap 7 Blood Urea Nitrogen 21 H Creatinine 1.45 H Est Glomerular Filtrat Rate mL/min Glucose Level 105 Calcium Level 8.7 Magnesium Level 2.1 Total Bilirubin 0.7 Direct Bilirubin 0.00 Indirect Bilirubin 0.7 Aspartate Amino Transf (AST/SGOT) 24 Alanine Aminotransferase (ALT/SGPT) 20 Alkaline Phosphatase 89 Total Protein 6.2 Albumin 3.1 L Globulin 3.10 Albumin/Globulin Ratio 1.00 Digoxin Level < 0.4 L Medications Medication Current Medications Isosorbide Dinitrate (Isordil) 30 mg BID PO Last administered on 01/25/19 09:24; Admin Dose 30 MG; Start 01/21/19 at 21:00 Levothyroxine Sodium (Synthroid) 150 mcg BEFORE BREAKFAST PO Last administered on 01/25/19 06:06; Admin Dose 150 MCG; Start 01/22/19 at 07:00 Sacubitril/ Valsartan (Entresto 24 Mg-26 Mg) 1 tab BID PO Last administered on 01/25/19 09:23; Admin Dose 1 TAB; Start 01/21/19 at 21:00 Atorvastatin Calcium (Lipitor) 40 mg DAILY@21 PO Last administered on 01/24/19 20:28; Admin Dose 40 MG; Start 01/21/19 at 21:00 IV Flush (NS 3 ml) 3 ml PER PROTOCOL IV ; Start 01/21/19 at 15:00 Ondansetron HCl (Zofran Inj) 4 mg Q6H PRN IV NAUSEA/VOMITING; Start 01/21/19 at 15:00 Acetaminophen (Tylenol Tab) 650 mg Q6H PRN PO .PAIN 1-3 OR TEMP Last administered on 01/24/19 20:47; Admin Dose 650 MG; Start 01/21/19 at 15:00 Docusate Sodium (Colace) 100 mg Q12H PRN PO .CONSTIPATION Last administered on 01/23/19 08:08; Admin Dose 100 MG; Start 01/21/19 at 15:00 Famotidine (Pepcid) 20 mg Q12 PO Last administered on 01/25/19 09:23; Admin Dose 20 MG; Start 01/21/19 at 21:00 Levalbuterol (Xopenex Neb) 1.25 mg Q6H RESP THERAPY HHN Last administered on 01/25/19 09:01; Admin Dose 1.25 MG; Start 01/21/19 at 15:30 Levalbuterol (Xopenex Neb) 1.25 mg Q4H RESP THERAPY PRN HHN sob/wheezing; Start 01/21/19 at 15:30 Morphine Sulfate (morphine) 2 mg Q4H PRN IV SEVERE PAIN LEVEL 7-10 Last administered on 01/25/19 02:05; Admin Dose 2 MG; Start 01/23/19 at 08:00 Meropenem/Sodium Chloride 50 ml @ 100 mls/hr Q12 IVPB Last administered on 01/25/19 09:23; Admin Dose 100 MLS/HR; Start 01/23/19 at 10:30 Bumetanide (Bumex) 1 mg BID DIURETICS IV Last administered on 01/25/19 06:06; Admin Dose 1 MG; Start 01/23/19 at 18:00 LEORA HUYNH MD Jan 25, 2019 11:54
--- NOTE | 2019-01-25 15:47 | CONS ---
Consult Date/Type/Reason Admit Date/Time Jan 21, 2019 at 15:23 Initial Consult Date 01/21/19 Type of Consultation: CV Requesting Provider: MAYELIN BARRETT Date/Time of Note DATE: 01/25/19 TIME: 15:46 Subjective Cardiology follow-up progress note Subjective: Case discussed with the staff. Telemetry was reviewed. Patient is in afib /junctional rhythm Heart intermittently low No chest pain or pressure breathing remains stable no palpitations No bleeding is reported d/ w daughter Objective: General: no acute distress HEENT: NC/AT. pupils are equal. round. NECK: NO JVD. no stridor. CV: RRR. systolic ejection murmur; no gallop or rubs. PULM: no wheezing or rhonchi. GI: SOFT, NT, ND, no rebound or guarding Extremity: trace B/L LE edema. no clubbing. neuro: awake and follow commands Psych: calm and pleasant rectal: deferred : Deferred Objective Vitals Vital Signs Date Temp Pulse Resp B/P (MAP) Pulse Ox O2 O2 Flow FiO2 Time Delivery Rate 01/25/19 98.8 54 20 131/62 96 Nasal 14:56 (85) Cannula 01/25/19 4.0 14:08 01/22/19 28 21:27 Intake and Output 01/24/19 01/24/19 01/25/19 1515:00 23:00 07:00 IntakeIntake Total 50 ml 1380 ml 250 ml BalanceBalance 50 ml 1380 ml 250 ml Results/Medications Result Diagram: 01/24/19 0543 01/25/19 0529 Results 24 hrs Laboratory Tests Test 01/25/19 05:29 Sodium Level 141 Potassium Level 3.7 Chloride Level 104 Carbon Dioxide Level 30 Anion Gap 7 Blood Urea Nitrogen 21 H Creatinine 1.45 H Est Glomerular Filtrat Rate mL/min Glucose Level 105 Calcium Level 8.7 Magnesium Level 2.1 Total Bilirubin 0.7 Direct Bilirubin 0.00 Indirect Bilirubin 0.7 Aspartate Amino Transf (AST/SGOT) 24 Alanine Aminotransferase (ALT/SGPT) 20 Alkaline Phosphatase 89 Total Protein 6.2 Albumin 3.1 L Globulin 3.10 Albumin/Globulin Ratio 1.00 Digoxin Level < 0.4 L Home Meds Active Scripts Sacubitril/Valsartan (Entresto 24 mg-26 mg Tablet) 1 Each Tablet, 1 TAB PO BID, #60 TAB 2 Refills Prov:MAYELIN BARRETT. 01/06/19 Bumetanide* (Bumetanide*) 1 Mg Tablet, 1 MG PO BID for 30 Days, #60 TAB Prov:MAYEILN BARRETT. 01/06/19 Potassium Chloride* (Potassium Chloride*) 8 Meq Capsule.er, 8 MEQ PO DAILY, #30 CAP Prov:MAYELIN BARRETT. 01/06/19 Aspirin Delayed Release (Aspirin Delayed Release) 81 Mg Tablet.dr, 81 MG PO DAILY for 30 Days, #30 otc Prov:SAMANTHA BOB MD 11/16/18 Rosuvastatin Calcium* (Crestor*) 10 Mg Tablet, 10 MG PO QHS for 30 Days, #30 TAB Prov:SAMANTHA BOB MD 11/16/18 Isosorbide Dinitrate* (Isosorbide Dinitrate*) 30 Mg Tablet, 30 MG PO BID for 10 Days, #20 TAB Prov:SAMANTHA BOB MD 11/16/18 Reported Medications Amiodarone Hcl* (Amiodarone Hcl*) 200 Mg Tablet, 200 MG PO DAILY, #30 TAB 11/13/18 Levothyroxine Sodium* (Levoxyl*) 150 Mcg Tablet, 150 MCG PO BEFORE BREAKFAST, #30 TAB 07/20/18 Discontinued Scripts Ertapenem Sodium (Invanz) 1 Gm Vial, 1 GM IV Q24H for 5 Days, VIAL Prov:MAYELIN BARRETT 01/06/19 Medications Current Medications Isosorbide Dinitrate (Isordil) 30 mg BID PO Last administered on 01/25/19at 09:24; Admin Dose 30 MG; Start 01/21/19 at 21:00 Levothyroxine Sodium (Synthroid) 150 mcg BEFORE BREAKFAST PO Last administered on 01/25/19at 06:06; Admin Dose 150 MCG; Start 01/22/19 at 07:00 Sacubitril/ Valsartan (Entresto 24 Mg-26 Mg) 1 tab BID PO Last administered on 01/25/19at 09:23; Admin Dose 1 TAB; Start 01/21/19 at 21:00 Atorvastatin Calcium (Lipitor) 40 mg DAILY@21 PO Last administered on 01/24/19 20:28; Admin Dose 40 MG; Start 01/21/19 at 21:00 IV Flush (NS 3 ml) 3 ml PER PROTOCOL IV ; Start 01/21/19 at 15:00 Ondansetron HCl (Zofran Inj) 4 mg Q6H PRN IV NAUSEA/VOMITING; Start 01/21/19 at 15:00 Acetaminophen (Tylenol Tab) 650 mg Q6H PRN PO .PAIN 1-3 OR TEMP Last administered on 01/24/19 20:47; Admin Dose 650 MG; Start 01/21/19 at 15:00 Docusate Sodium (Colace) 100 mg Q12H PRN PO .CONSTIPATION Last administered on 01/23/19 08:08; Admin Dose 100 MG; Start 01/21/19 at 15:00 Famotidine (Pepcid) 20 mg Q12 PO Last administered on 01/25/19 09:23; Admin Dose 20 MG; Start 01/21/19 at 21:00 Levalbuterol (Xopenex Neb) 1.25 mg Q6H RESP THERAPY HHN Last administered on 01/25/19 14:06; Admin Dose 1.25 MG; Start 01/21/19 at 15:30 Levalbuterol (Xopenex Neb) 1.25 mg Q4H RESP THERAPY PRN HHN sob/wheezing; Start 01/21/19 at 15:30 Morphine Sulfate (morphine) 2 mg Q4H PRN IV SEVERE PAIN LEVEL 7-10 Last administered on 01/25/19 02:05; Admin Dose 2 MG; Start 01/23/19 at 08:00 Meropenem/Sodium Chloride 50 ml @ 100 mls/hr Q12 IVPB Last administered on 01/25/19 09:23; Admin Dose 100 MLS/HR; Start 01/23/19 at 10:30 Bumetanide (Bumex) 1 mg BID DIURETICS IV Last administered on 01/25/19 06:06; Admin Dose 1 MG; Start 01/23/19 at 18:00 Assessment/Plan Hospital Course (Demo Recall) congestive heart failure Cardiomyopathy with left ventricular ejection fraction 30% Possible urinary retention with history of bladder cancer Paroxysmal atrial fibrillation, -not on anticoagulation secondary to bladder tumor and hematuria Moderate to severe aortic valve stenosis COPD Hypertension CKD Recommendations: Off of amiodarone due to bradycardia Continue to monitor on telemetry. Electrolytes to be corrected as needed. will add Aldactone See Dr. Ace previous note regarding cardiovascular preop risk assessment Thank you for this referral. We will continue to follow along with you until Dr. Ace returns on Saturday MARTY FRIAS MD [facility] MARTY FRIAS MD Jan 25, 2019 15:47
[2019-01-25] MEDS: SPIRONOLACTONE 25 MG TAB PO SCH (16:11)
--- NOTE | 2019-01-25 16:34 | CONS ---
Consult Date/Type/Reason Admit Date/Time Jan 21, 2019 at 15:23 Initial Consult Date 01/21/19 Type of Consultation: Urology Reason for Consultation Bladder tumors and hematuria Requesting Provider: MAYELIN BARRETT Date/Time of Note DATE: 01/25/19 TIME: 16:31 Subjective The patient is awake and alert uncomfortable. He denies having any pain and he is not whining. Objective Vitals Vital Signs Date Temp Pulse Resp B/P (MAP) Pulse Ox O2 O2 Flow FiO2 Time Delivery Rate 01/25/19 98.8 54 20 131/62 96 Nasal 14:56 (85) Cannula 01/25/19 4.0 14:08 01/22/19 28 21:27 Intake and Output 01/24/19 01/24/19 01/25/19 1515:00 23:00 07:00 IntakeIntake Total 50 ml 1380 ml 250 ml BalanceBalance 50 ml 1380 ml 250 ml Exam Abdomen is soft and he is voiding and the urine is clear Results/Medications Result Diagram: 01/24/19 0543 01/25/19 0529 Results 24 hrs Laboratory Tests Test 01/25/19 05:29 Sodium Level 141 Potassium Level 3.7 Chloride Level 104 Carbon Dioxide Level 30 Anion Gap 7 Blood Urea Nitrogen 21 H Creatinine 1.45 H Est Glomerular Filtrat Rate mL/min Glucose Level 105 Calcium Level 8.7 Magnesium Level 2.1 Total Bilirubin 0.7 Direct Bilirubin 0.00 Indirect Bilirubin 0.7 Aspartate Amino Transf (AST/SGOT) 24 Alanine Aminotransferase (ALT/SGPT) 20 Alkaline Phosphatase 89 Total Protein 6.2 Albumin 3.1 L Globulin 3.10 Albumin/Globulin Ratio 1.00 Digoxin Level < 0.4 L Home Meds Active Scripts Sacubitril/Valsartan (Entresto 24 mg-26 mg Tablet) 1 Each Tablet, 1 TAB PO BID, #60 TAB 2 Refills Prov:MAYELIN BARRETT 01/06/19 Bumetanide* (Bumetanide*) 1 Mg Tablet, 1 MG PO BID for 30 Days, #60 TAB Prov:MAYELIN BARRETT 01/06/19 Potassium Chloride* (Potassium Chloride*) 8 Meq Capsule.er, 8 MEQ PO DAILY, #30 CAP Prov:MAYELIN BARRETT 01/06/19 Aspirin Delayed Release (Aspirin Delayed Release) 81 Mg Tablet.dr, 81 MG PO DAILY for 30 Days, #30 otc Prov:SAMANTHA BOB MD 11/16/18 Rosuvastatin Calcium* (Crestor*) 10 Mg Tablet, 10 MG PO QHS for 30 Days, #30 TAB Prov:SAMANTHA BOB MD 11/16/18 Isosorbide Dinitrate* (Isosorbide Dinitrate*) 30 Mg Tablet, 30 MG PO BID for 10 Days, #20 TAB Prov:SAMANTHA BOB MD 11/16/18 Reported Medications Amiodarone Hcl* (Amiodarone Hcl*) 200 Mg Tablet, 200 MG PO DAILY, #30 TAB 11/13/18 Levothyroxine Sodium* (Levoxyl*) 150 Mcg Tablet, 150 MCG PO BEFORE BREAKFAST, #30 TAB 07/20/18 Discontinued Scripts Ertapenem Sodium (Invanz) 1 Gm Vial, 1 GM IV Q24H for 5 Days, VIAL Prov:MAYELIN BARRETT 01/06/19 Medications Current Medications Isosorbide Dinitrate (Isordil) 30 mg BID PO Last administered on 01/25/19 09:24; Admin Dose 30 MG; Start 01/21/19 at 21:00 Levothyroxine Sodium (Synthroid) 150 mcg BEFORE BREAKFAST PO Last administered on 01/25/19 06:06; Admin Dose 150 MCG; Start 01/22/19 at 07:00 Sacubitril/ Valsartan (Entresto 24 Mg-26 Mg) 1 tab BID PO Last administered on 01/25/19 09:23; Admin Dose 1 TAB; Start 01/21/19 at 21:00 Atorvastatin Calcium (Lipitor) 40 mg DAILY@21 PO Last administered on 01/24/19 20:28; Admin Dose 40 MG; Start 01/21/19 at 21:00 IV Flush (NS 3 ml) 3 ml PER PROTOCOL IV ; Start 01/21/19 at 15:00 Ondansetron HCl (Zofran Inj) 4 mg Q6H PRN IV NAUSEA/VOMITING; Start 01/21/19 at 15:00 Acetaminophen (Tylenol Tab) 650 mg Q6H PRN PO .PAIN 1-3 OR TEMP Last administered on 01/24/19 20:47; Admin Dose 650 MG; Start 01/21/19 at 15:00 Docusate Sodium (Colace) 100 mg Q12H PRN PO .CONSTIPATION Last administered on 01/23/19 08:08; Admin Dose 100 MG; Start 01/21/19 at 15:00 Famotidine (Pepcid) 20 mg Q12 PO Last administered on 01/25/19 09:23; Admin Dose 20 MG; Start 01/21/19 at 21:00 Levalbuterol (Xopenex Neb) 1.25 mg Q6H RESP THERAPY HHN Last administered on 01/25/19 14:06; Admin Dose 1.25 MG; Start 01/21/19 at 15:30 Levalbuterol (Xopenex Neb) 1.25 mg Q4H RESP THERAPY PRN HHN sob/wheezing; Start 01/21/19 at 15:30 Morphine Sulfate (morphine) 2 mg Q4H PRN IV SEVERE PAIN LEVEL 7-10 Last administered on 01/25/19 02:05; Admin Dose 2 MG; Start 01/23/19 at 08:00 Meropenem/Sodium Chloride 50 ml @ 100 mls/hr Q12 IVPB Last administered on 01/25/19 09:23; Admin Dose 100 MLS/HR; Start 01/23/19 at 10:30 Bumetanide (Bumex) 1 mg BID DIURETICS IV Last administered on 01/25/19 06:06; Admin Dose 1 MG; Start 01/23/19 at 18:00 Spironolactone (Aldactone) 25 mg DAILY PO Last administered on 01/25/19 16:11; Admin Dose 25 MG; Start 01/25/19 at 16:00 Assessment/Plan Hospital Course (Demo Recall) 78-year-old male who is known to have a history of bladder tumors. He was here last year with gross hematuria and urinary incontinence. He underwent a transurethral resection of most of the tumors. Postop he did well and he was voiding clear urine and the family decided that since he was doing well no need for further intervention. He was since admitted to the hospital and I did see him earlier this months and did order a urine cytology that came back positive I did call the family and informed them of the findings. I did talk to them before and told them that he still has bladder tumors and sooner or later he is going to have more problems but again they elected at the time to do nothing. There thinking is that as long as he is doing fine regardless was going on we will do nothing. However the patient had hematuria the day before admission and his family brought him to the emergency room. He is always mowning and giving the impression that he is in pain but the reality he is not. I met with his daughter at his bedside in the emergency room and it appears that they are willing to have him undergo the surgery. Patient was supposed to have cystoscopy and transurethral resection of bladder tumor on 01/23/2019 however during the day he had episodes of bradycardia therefore I talked with the caption writer and we decided to cancel the surgery. I did talk with Dr. Alcaraz and discussed the patient and his cardiac condition. He said to try to schedule the patient for Saturday. Dr. Robles will be back tomorrow and will reevaluate the patient again. I did talk to the patient's daughter who was at his bedside. She expressed their desire to go ahead with the surgery and again they know the risks from the surgery that could be even during or after surgery JOSE OCAMPO MD Jan 25, 2019 16:34
[2019-01-25] MEDS: ATORVASTATIN 40 MG TAB PO SCH (21:03)
[2019-01-25] MEDS: ACETAMINOPHEN 325 MG TAB PO PRN (21:56)
[2019-01-26] VITALS (10 sets, daily range): BP systolic 122–155; BP diastolic 58–71; PULSE 50–61; RESP 20
[2019-01-26] MEDS: LEVALBUTEROL (NEB) 1.25 MG/0.5 ML AMP HHN SCH ×4 (01:25→19:31)
[2019-01-26] MEDS: BUMETANIDE 1 MG INJ IV SCH (06:12)
[2019-01-26] MEDS: LEVOTHYROXINE 150 MCG TAB PO SCH (06:12)
[2019-01-26] MEDS: MEROPENEM 1 GM/50ML(PMX) 50 ML IVPB SCH ×2 (08:53→21:11)
[2019-01-26] MEDS: SACUBITRIL/VALSARTAN (24mg-26mg) TABLET PO SCH ×2 (08:53→21:11)
[2019-01-26] MEDS: SPIRONOLACTONE 25 MG TAB PO SCH (08:54)
[2019-01-26] MEDS: FAMOTIDINE 20 MG TAB PO SCH ×2 (08:54→21:10)
[2019-01-26] MEDS: ISOSORBIDE DINITRATE 10 MG TAB PO SCH ×2 (08:54→21:10)
--- NOTE | 2019-01-26 11:29 | RADRPT ---
Vent Rate: 56 bpm RR Interval: 0 msec OH Interval: 198 msec QRS Duration: 140 msec QT Interval: 574 msec QTC Interval: 553 msec P-R-T [place]: 133 - 13 - 135 degrees Unusual P axis, possible ectopic atrial bradycardia Nonspecific intraventricular block T wave abnormality, consider anterolateral ischemia Abnormal ECG Electronically Signed By: Paresh Mulligan
--- NOTE | 2019-01-26 12:45 | CONS ---
Assessment/Plan Cardiology NYHA: III Heart Failure Type: Acute on Chronic Heart Failure Type: Systolic Assessment/Plan Hospital Course (Demo Recall) Preoperative cardiac risk stratification Acute decompensated systolic congestive heart failure, improved Cardiomyopathy with left ventricular ejection fraction 30% Possible urinary retention with hematuria with history of bladder cancer Paroxysmal atrial fibrillation, currently sinus rhythm-not on anticoagulation secondary to bladder tumor Moderate to severe aortic valve stenosis COPD Hypertension CKD NSVT Bradycardia -Patient appears stable from a respiratory standpoint with improvement in lung examination. -I will adjust his diuretics to p.o., I have ordered potassium supplementation -Telemetry reviewed with episodes of wide-complex tachycardia, consistent with either nonsustained ventricle tachycardia versus SVT with aberrancy. -I did once again have a long talk with the patient's family at bedside. Patient with moderate to severe aortic stenosis, cardiomyopathy as well as episodes of bradycardia as well as arrhythmias. He is considered high risk for any procedure. Nothing further could be done at the current time to decrease his cardiac risk. I did explain to the family there is a risk of with any procedure. They understand the risks, but wish to proceed. -I did discuss this with Dr. Alfaro, our esteemed urologist. He also did explain the high risk situation to the patient's family. He will request cardiac anesthesiologist for the procedure Consultation Date/Type/Reason Admit Date/Time Jan 21, 2019 at 15:23 Initial Consult Date 01/21/19 Type of Consult Cardiology Requesting Provider: MAYELIN BARRETT Date/Time of Note DATE: 01/26/19 TIME: 12:39 24 HR Interval Summary Free Text/Dictation Patient denies shortness of breath, chest pain, palpitations. Family at bedside Exam/Review of Systems Vital Signs Vitals Vital Signs Date Temp Pulse Resp B/P (MAP) Pulse Ox O2 O2 Flow FiO2 Time Delivery Rate 01/26/19 98.0 53 20 122/58 95 11:45 (79) 01/26/19 5.0 09:13 01/26/19 Nasal 09:12 Cannula 01/22/19 28 21:27 Intake and Output 01/25/19 01/25/19 01/26/19 1515:00 23:00 07:00 IntakeIntake Total 320 ml 250 ml BalanceBalance 320 ml 250 ml Exam Constitutional: alert, oriented (Following commands, no apparent distress, son at bedside) Head: normocephalic Respiratory: other (Coarse breath sounds bilaterally, no wheezing) Cardiovascular: regular rate and rhythm (S1-S2 heard) Gastrointestinal: soft, non-tender, bowel sounds Extremities: edema (Trace) Labs Result Diagram: 01/26/19 0706 01/26/19 0706 Results 24hrs Laboratory Tests Test 01/26/19 07:06 White Blood Count 8.3 Red Blood Count 4.20 L Hemoglobin 11.8 L Hematocrit 37.9 L Mean Corpuscular Volume 90.2 Mean Corpuscular Hemoglobin 28.1 L Mean Corpuscular Hemoglobin Concent 31.1 L Red Cell Distribution Width 16.2 H Platelet Count 201 Mean Platelet Volume 11.4 H Immature Granulocytes % 0.100 Neutrophils % 68.6 Lymphocytes % 14.1 L Monocytes % 11.8 H Eosinophils % 4.9 Basophils % 0.5 Nucleated Red Blood Cells % 0.0 Immature Granulocytes # 0.010 Neutrophils # 5.7 Lymphocytes # 1.2 Monocytes # 1.0 H Eosinophils # 0.4 Basophils # 0.0 Nucleated Red Blood Cells # 0.0 Prothrombin Time 14.6 Prothrombin Time Ratio 1.1 INR International Normalized Ratio 1.13 Activated Partial Thromboplast Time 31.0 Sodium Level 142 Potassium Level 3.5 Chloride Level 103 Carbon Dioxide Level 30 Anion Gap 9 Blood Urea Nitrogen 26 H Creatinine 1.59 H Est Glomerular Filtrat Rate mL/min Glucose Level 99 Calcium Level 8.6 Total Bilirubin 0.4 Direct Bilirubin 0.00 Indirect Bilirubin 0.4 Aspartate Amino Transf (AST/SGOT) 26 Alanine Aminotransferase (ALT/SGPT) 23 Alkaline Phosphatase 88 Total Protein 6.3 Albumin 3.1 L Globulin 3.20 Albumin/Globulin Ratio 0.96 Medications Medications Current Medications Isosorbide Dinitrate (Isordil) 30 mg BID PO Last administered on 01/26/19at 08:54; Admin Dose 30 MG; Start 01/21/19 at 21:00 Levothyroxine Sodium (Synthroid) 150 mcg BEFORE BREAKFAST PO Last administered on 01/26/19at 06:12; Admin Dose 150 MCG; Start 01/22/19 at 07:00 Sacubitril/ Valsartan (Entresto 24 Mg-26 Mg) 1 tab BID PO Last administered on 01/26/19at 08:53; Admin Dose 1 TAB; Start 01/21/19 at 21:00 Atorvastatin Calcium (Lipitor) 40 mg DAILY@21 PO Last administered on 01/25/19 21:03; Admin Dose 40 MG; Start 01/21/19 at 21:00 IV Flush (NS 3 ml) 3 ml PER PROTOCOL IV ; Start 01/21/19 at 15:00 Ondansetron HCl (Zofran Inj) 4 mg Q6H PRN IV NAUSEA/VOMITING; Start 01/21/19 at 15:00 Acetaminophen (Tylenol Tab) 650 mg Q6H PRN PO .PAIN 1-3 OR TEMP Last administered on 01/25/19 21:56; Admin Dose 650 MG; Start 01/21/19 at 15:00 Docusate Sodium (Colace) 100 mg Q12H PRN PO .CONSTIPATION Last administered on 01/23/19 08:08; Admin Dose 100 MG; Start 01/21/19 at 15:00 Famotidine (Pepcid) 20 mg Q12 PO Last administered on 01/26/19 08:54; Admin Dose 20 MG; Start 01/21/19 at 21:00 Levalbuterol (Xopenex Neb) 1.25 mg Q6H RESP THERAPY HHN Last administered on 01/26/19 09:08; Admin Dose 1.25 MG; Start 01/21/19 at 15:30 Levalbuterol (Xopenex Neb) 1.25 mg Q4H RESP THERAPY PRN HHN sob/wheezing; Start 01/21/19 at 15:30 Morphine Sulfate (morphine) 2 mg Q4H PRN IV SEVERE PAIN LEVEL 7-10 Last administered on 01/25/19 02:05; Admin Dose 2 MG; Start 01/23/19 at 08:00 Meropenem/Sodium Chloride 50 ml @ 100 mls/hr Q12 IVPB Last administered on 01/26/19 08:53; Admin Dose 100 MLS/HR; Start 01/23/19 at 10:30 Spironolactone (Aldactone) 25 mg DAILY PO Last administered on 01/26/19 08:54; Admin Dose 25 MG; Start 01/25/19 at 16:00 Bumetanide (Bumex) 1 mg BID DIURETICS PO ; Start 01/26/19 at 18:00 Potassium Chloride (Klor-Con 10) 30 meq ONCE ONCE PO ; Start 01/26/19 at 13:00; Stop 01/26/19 at 13:01 Quang Robles DO Jan 26, 2019 12:45
[2019-01-26] MEDS ORDERED: POTASSIUM CHLORIDE (SR) 10 MEQ TAB PO ONE (13:00)
--- NOTE | 2019-01-26 14:45 | PN ---
Date/Time of Note Date/Time of Note DATE: 01/26/19 TIME: 14:36 Assessment/Plan VTE Prophylaxis Risk score (from Ns)>0 risk: 2 SCD applied (from [facility] [place]): Yes Pharmacological prophylaxis: NA/contraindicated Pharm contraindication: bleeding Lines/Catheters IV Catheter Type (from [facility]): Saline Lock Urinary Cath still in place: No Assessment/Plan Assessment/Plan 1. Bladder tumors with hematuria, directory operator note reviewed, patient is high risk from any procedures 2. UTI, with ESBL E. coli, on meropenem 3. CHF, systolic with LVEF 20%, acute on chronic, on bumex and aldactone, no beta avis due to bradycardia 4. Severe aortic stenosis with MAUREEN 0.8 5. Pulmonary hypertension, PASP 54 mmHg 6. Iron deficiency anemia 7. Hypothyroidism, on synthroid 8. Acute kidney injury, follow up with BMP 9. 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 Result Diagram: 01/26/19 0706 01/26/19 0706 Results 24hrs Laboratory Tests Test 01/26/19 07:06 White Blood Count 8.3 Red Blood Count 4.20 L Hemoglobin 11.8 L Hematocrit 37.9 L Mean Corpuscular Volume 90.2 Mean Corpuscular Hemoglobin 28.1 L Mean Corpuscular Hemoglobin Concent 31.1 L Red Cell Distribution Width 16.2 H Platelet Count 201 Mean Platelet Volume 11.4 H Immature Granulocytes % 0.100 Neutrophils % 68.6 Lymphocytes % 14.1 L Monocytes % 11.8 H Eosinophils % 4.9 Basophils % 0.5 Nucleated Red Blood Cells % 0.0 Immature Granulocytes # 0.010 Neutrophils # 5.7 Lymphocytes # 1.2 Monocytes # 1.0 H Eosinophils # 0.4 Basophils # 0.0 Nucleated Red Blood Cells # 0.0 Prothrombin Time 14.6 Prothrombin Time Ratio 1.1 INR International Normalized Ratio 1.13 Activated Partial Thromboplast Time 31.0 Sodium Level 142 Potassium Level 3.5 Chloride Level 103 Carbon Dioxide Level 30 Anion Gap 9 Blood Urea Nitrogen 26 H Creatinine 1.59 H Est Glomerular Filtrat Rate mL/min Glucose Level 99 Calcium Level 8.6 Total Bilirubin 0.4 Direct Bilirubin 0.00 Indirect Bilirubin 0.4 Aspartate Amino Transf (AST/SGOT) 26 Alanine Aminotransferase (ALT/SGPT) 23 Alkaline Phosphatase 88 Total Protein 6.3 Albumin 3.1 L Globulin 3.20 Albumin/Globulin Ratio 0.96 Subjective 24 Hr Interval Summary Free Text/Dictation no chest pain or shortness of breath Exam/Review of Systems Exam Vitals Vital Signs Date Temp Pulse Resp B/P (MAP) Pulse Ox O2 O2 Flow FiO2 Time Delivery Rate 01/26/19 95 5.0 13:54 01/26/19 54 20 Nasal 13:53 Cannula 01/26/19 98.0 122/58 11:45 (79) 01/22/19 28 21:27 Intake and Output 01/25/19 01/25/19 01/26/19 1515:00 23:00 07:00 IntakeIntake Total 320 ml 250 ml BalanceBalance 320 ml 250 ml Constitutional: alert, oriented, well developed Head: normocephalic, atraumatic Eyes: nl conjunctiva, EOMI, nl lids, PERRL ENMT: nl external ears & nose, nl lips & teeth, nl nasal mucosa & septum Neck: supple, non-tender Respiratory: clear to auscultation, normal air movement; No congested cough, No crackles/rales, No diminished breath sounds, No intercostal retraction, No labored breathing, No respirations, No tactile fremitus, No wheezing, No other Cardiovascular: regular rate and rhythm, nl pulses Gastrointestinal: soft, nl liver, spleen, non-tender Musculoskeletal: nl extremities to inspection Neurological: [employer] TECHNICIAN II-XII intact, nl mental status, nl speech, nl strength Results Results 24hrs Laboratory Tests Test 01/26/19 07:06 White Blood Count 8.3 Red Blood Count 4.20 L Hemoglobin 11.8 L Hematocrit 37.9 L Mean Corpuscular Volume 90.2 Mean Corpuscular Hemoglobin 28.1 L Mean Corpuscular Hemoglobin Concent 31.1 L Red Cell Distribution Width 16.2 H Platelet Count 201 Mean Platelet Volume 11.4 H Immature Granulocytes % 0.100 Neutrophils % 68.6 Lymphocytes % 14.1 L Monocytes % 11.8 H Eosinophils % 4.9 Basophils % 0.5 Nucleated Red Blood Cells % 0.0 Immature Granulocytes # 0.010 Neutrophils # 5.7 Lymphocytes # 1.2 Monocytes # 1.0 H Eosinophils # 0.4 Basophils # 0.0 Nucleated Red Blood Cells # 0.0 Prothrombin Time 14.6 Prothrombin Time Ratio 1.1 INR International Normalized Ratio 1.13 Activated Partial Thromboplast Time 31.0 Sodium Level 142 Potassium Level 3.5 Chloride Level 103 Carbon Dioxide Level 30 Anion Gap 9 Blood Urea Nitrogen 26 H Creatinine 1.59 H Est Glomerular Filtrat Rate mL/min Glucose Level 99 Calcium Level 8.6 Total Bilirubin 0.4 Direct Bilirubin 0.00 Indirect Bilirubin 0.4 Aspartate Amino Transf (AST/SGOT) 26 Alanine Aminotransferase (ALT/SGPT) 23 Alkaline Phosphatase 88 Total Protein 6.3 Albumin 3.1 L Globulin 3.20 Albumin/Globulin Ratio 0.96 Medications Medication Current Medications Isosorbide Dinitrate (Isordil) 30 mg BID PO Last administered on 01/26/19 08:54; Admin Dose 30 MG; Start 01/21/19 at 21:00 Levothyroxine Sodium (Synthroid) 150 mcg BEFORE BREAKFAST PO Last administered on 01/26/19 06:12; Admin Dose 150 MCG; Start 01/22/19 at 07:00 Sacubitril/ Valsartan (Entresto 24 Mg-26 Mg) 1 tab BID PO Last administered on 01/26/19 08:53; Admin Dose 1 TAB; Start 01/21/19 at 21:00 Atorvastatin Calcium (Lipitor) 40 mg DAILY@21 PO Last administered on 01/25/19 21:03; Admin Dose 40 MG; Start 01/21/19 at 21:00 IV Flush (NS 3 ml) 3 ml PER PROTOCOL IV ; Start 01/21/19 at 15:00 Ondansetron HCl (Zofran Inj) 4 mg Q6H PRN IV NAUSEA/VOMITING; Start 01/21/19 at 15:00 Acetaminophen (Tylenol Tab) 650 mg Q6H PRN PO .PAIN 1-3 OR TEMP Last administered on 01/25/19 21:56; Admin Dose 650 MG; Start 01/21/19 at 15:00 Docusate Sodium (Colace) 100 mg Q12H PRN PO .CONSTIPATION Last administered on 01/23/19 08:08; Admin Dose 100 MG; Start 01/21/19 at 15:00 Famotidine (Pepcid) 20 mg Q12 PO Last administered on 01/26/19 08:54; Admin Dose 20 MG; Start 01/21/19 at 21:00 Levalbuterol (Xopenex Neb) 1.25 mg Q6H RESP THERAPY HHN Last administered on 01/26/19at 13:50; Admin Dose 1.25 MG; Start 01/21/19 at 15:30 Levalbuterol (Xopenex Neb) 1.25 mg Q4H RESP THERAPY PRN HHN sob/wheezing; Start 01/21/19 at 15:30 Morphine Sulfate (morphine) 2 mg Q4H PRN IV SEVERE PAIN LEVEL 7-10 Last administered on 01/25/19at 02:05; Admin Dose 2 MG; Start 01/23/19 at 08:00 Meropenem/Sodium Chloride 50 ml @ 100 mls/hr Q12 IVPB Last administered on 01/26/19at 08:53; Admin Dose 100 MLS/HR; Start 01/23/19 at 10:30 Spironolactone (Aldactone) 25 mg DAILY PO Last administered on 01/26/19at 08:54; Admin Dose 25 MG; Start 01/25/19 at 16:00 Bumetanide (Bumex) 1 mg BID DIURETICS PO ; Start 01/26/19 at 18:00 MARISABEL CROCKER MD Jan 26, 2019 14:45
--- NOTE | 2019-01-26 17:24 | PREAC ---
Date/Time of Note Date/Time of Note DATE: 01/26/19 TIME: 17:23 Anesthesia Eval and Record Evaluation Time Pre-Procedure Interview DATE: 01/26/19 TIME: 17:23 Age 78 Sex male NPO: 8 hrs Preoperative diagnosis Bladder tumors and hematuria Planned procedure CYSTOSCOPY Past Medical History Past Medical History: Includes Cardio: HTN, Dyslipidemia, CAD, PTCA/Stent, Arrythmia, CHF Endo: Diabetes Pulm: Smoking Hx, COPD Musculoskeletal: Osteoarthritis Renal: GRISELDA Psych: Depression, Anxiety Surgery & Anesthesia Issues No known issue Meds Anticoagulation: No Beta Scottie within 24 hr: No Reason Beta Scottie not given: Pt. not on B-Scottie Active Scripts Sacubitril/Valsartan (Entresto 24 mg-26 mg Tablet) 1 Each Tablet, 1 TAB PO BID, #60 TAB 2 Refills Prov:MAYELIN BARRETT 01/06/19 Bumetanide* (Bumetanide*) 1 Mg Tablet, 1 MG PO BID for 30 Days, #60 TAB Prov:MAYELIN BARRETT 01/06/19 Potassium Chloride* (Potassium Chloride*) 8 Meq Capsule.er, 8 MEQ PO DAILY, #30 CAP Prov:MAYELIN BARRETT 01/06/19 Aspirin Delayed Release (Aspirin Delayed Release) 81 Mg Tablet.dr, 81 MG PO DAILY for 30 Days, #30 otc Prov:SAMANTHA BOB MD 11/16/18 Rosuvastatin Calcium* (Crestor*) 10 Mg Tablet, 10 MG PO QHS for 30 Days, #30 TAB Prov:SAMANTHA BOB MD 11/16/18 Isosorbide Dinitrate* (Isosorbide Dinitrate*) 30 Mg Tablet, 30 MG PO BID for 10 Days, #20 TAB Prov:SAMANTHA BOB MD 11/16/18 Reported Medications Amiodarone Hcl* (Amiodarone Hcl*) 200 Mg Tablet, 200 MG PO DAILY, #30 TAB 11/13/18 Levothyroxine Sodium* (Levoxyl*) 150 Mcg Tablet, 150 MCG PO BEFORE BREAKFAST, # 30 TAB 07/20/18 Discontinued Scripts Ertapenem Sodium (Invanz) 1 Gm Vial, 1 GM IV Q24H for 5 Days, VIAL Prov:MAYELIN BARRETT 01/06/19 Current Medications Isosorbide Dinitrate (Isordil) 30 mg BID PO Last administered on 01/26/19 08:54; Admin Dose 30 MG; Start 01/21/19 at 21:00 Levothyroxine Sodium (Synthroid) 150 mcg BEFORE BREAKFAST PO Last administered on 01/26/19 06:12; Admin Dose 150 MCG; Start 01/22/19 at 07:00 Sacubitril/ Valsartan (Entresto 24 Mg-26 Mg) 1 tab BID PO Last administered on 01/26/19 08:53; Admin Dose 1 TAB; Start 01/21/19 at 21:00 Atorvastatin Calcium (Lipitor) 40 mg DAILY@21 PO Last administered on 01/25/19 21:03; Admin Dose 40 MG; Start 01/21/19 at 21:00 IV Flush (NS 3 ml) 3 ml PER PROTOCOL IV ; Start 01/21/19 at 15:00 Ondansetron HCl (Zofran Inj) 4 mg Q6H PRN IV NAUSEA/VOMITING; Start 01/21/19 at 15:00 Acetaminophen (Tylenol Tab) 650 mg Q6H PRN PO .PAIN 1-3 OR TEMP Last administered on 01/25/19 21:56; Admin Dose 650 MG; Start 01/21/19 at 15:00 Docusate Sodium (Colace) 100 mg Q12H PRN PO .CONSTIPATION Last administered on 01/23/19 08:08; Admin Dose 100 MG; Start 01/21/19 at 15:00 Famotidine (Pepcid) 20 mg Q12 PO Last administered on 01/26/19 08:54; Admin Dose 20 MG; Start 01/21/19 at 21:00 Levalbuterol (Xopenex Neb) 1.25 mg Q6H RESP THERAPY HHN Last administered on 01/26/19 13:50; Admin Dose 1.25 MG; Start 01/21/19 at 15:30 Levalbuterol (Xopenex Neb) 1.25 mg Q4H RESP THERAPY PRN HHN sob/wheezing; Start 01/21/19 at 15:30 Morphine Sulfate (morphine) 2 mg Q4H PRN IV SEVERE PAIN LEVEL 7-10 Last ad ministered on 3/31/19at 02:05; Admin Dose 2 MG; Start 01/23/19 at 08:00 Meropenem/Sodium Chloride 50 ml @ 100 mls/hr Q12 IVPB Last administered on 01/26/19at 08:53; Admin Dose 100 MLS/HR; Start 01/23/19 at 10:30 Spironolactone (Aldactone) 25 mg DAILY PO Last administered on 01/26/19at 08:54; Admin Dose 25 MG; Start 01/25/19 at 16:00 Bumetanide (Bumex) 1 mg BID DIURETICS PO ; Start 01/26/19 at 18:00 Meds reviewed: Yes Allergies Coded Allergies: No Known Allergy (Unverified , 01/21/19) Allergies Reviewed: Yes Labs/Studies Labs Reviewed: Reviewed by anesthesiologist Result Diagram: 01/26/19 0706 01/26/19 0706 Laboratory Tests 01/26/19 07:06 test: N/A Studies: CXR (Central pulmonary vascular congestion and interstitial prominence in both lungs. Mild interval decrease in patchy infiltrates throughout both lungs. Moderate residual and small pleural effusions remain.), 2D Echo (EF 35%) Pre-procedure Exam Last vitals Vital Signs Date Temp Pulse Resp B/P (MAP) Pulse Ox O2 O2 Flow FiO2 Time Delivery Rate 01/26/19 98.3 57 20 155/68 95 15:56 (97) 01/26/19 5.0 13:54 01/26/19 Nasal 13:53 Cannula 01/22/19 28 21:27 Airway: Adequate mouth opening Mallampati: Mallampati II Teeth: Normal Lung: Normal Heart: Normal ASA Physical Status ASA physical status: 4 Emergency: None Planned Anesthetic General/MAC: ETT Pre-operative Attestations Prior to commencing anesthesia and surgery, the patient was re-evaluated, there was verification of: *The patient's identity *The results of appropriate recent lab work and preoperative vital signs *The above evaluation not changing prior to induction *Anesthetic plan, risk benefits, alternative and complications discussed with patient/family; questions answered; patient/family understands, accepts and wishes to proceed. ARY CONTRERAS Jan 26, 2019 17:24
[2019-01-26] MEDS: LACTATED RINGER'S 1,000 ML IV SCH (18:09)
[2019-01-26] MEDS: BUMETANIDE 1 MG TAB PO SCH (18:10)
--- NOTE | 2019-01-26 19:35 | CONS ---
Consult Date/Type/Reason Admit Date/Time Jan 21, 2019 at 15:23 Initial Consult Date 01/21/19 Type of Consultation: Urology Reason for Consultation Gross hematuria and history of bladder tumors and positive urine cytology Requesting Provider: MAYELIN BARRETT Date/Time of Note DATE: 01/26/19 TIME: 19:33 Subjective Patient appears to be comfortable and denies having any pain. Objective Vitals Vital Signs Date Temp Pulse Resp B/P (MAP) Pulse Ox O2 O2 Flow FiO2 Time Delivery Rate 01/26/19 5.0 17:45 01/26/19 60 16:01 01/26/19 98.3 20 155/68 95 15:56 (97) 01/26/19 Nasal 13:53 Cannula 01/22/19 28 21:27 Intake and Output 01/25/19 01/25/19 01/26/19 1515:00 23:00 07:00 IntakeIntake Total 320 ml 250 ml BalanceBalance 320 ml 250 ml Exam Abdomen is soft. There is no tenderness and no urinary retention Results/Medications Result Diagram: 01/26/19 0706 01/26/19 0706 Results 24 hrs Laboratory Tests Test 01/26/19 07:06 White Blood Count 8.3 Red Blood Count 4.20 L Hemoglobin 11.8 L Hematocrit 37.9 L Mean Corpuscular Volume 90.2 Mean Corpuscular Hemoglobin 28.1 L Mean Corpuscular Hemoglobin Concent 31.1 L Red Cell Distribution Width 16.2 H Platelet Count 201 Mean Platelet Volume 11.4 H Immature Granulocytes % 0.100 Neutrophils % 68.6 Lymphocytes % 14.1 L Monocytes % 11.8 H Eosinophils % 4.9 Basophils % 0.5 Nucleated Red Blood Cells % 0.0 Immature Granulocytes # 0.010 Neutrophils # 5.7 Lymphocytes # 1.2 Monocytes # 1.0 H Eosinophils # 0.4 Basophils # 0.0 Nucleated Red Blood Cells # 0.0 Prothrombin Time 14.6 Prothrombin Time Ratio 1.1 INR International Normalized Ratio 1.13 Activated Partial Thromboplast Time 31.0 Sodium Level 142 Potassium Level 3.5 Chloride Level 103 Carbon Dioxide Level 30 Anion Gap 9 Blood Urea Nitrogen 26 H Creatinine 1.59 H Est Glomerular Filtrat Rate mL/min Glucose Level 99 Calcium Level 8.6 Total Bilirubin 0.4 Direct Bilirubin 0.00 Indirect Bilirubin 0.4 Aspartate Amino Transf (AST/SGOT) 26 Alanine Aminotransferase (ALT/SGPT) 23 Alkaline Phosphatase 88 Total Protein 6.3 Albumin 3.1 L Globulin 3.20 Albumin/Globulin Ratio 0.96 Home Meds Active Scripts Sacubitril/Valsartan (Entresto 24 mg-26 mg Tablet) 1 Each Tablet, 1 TAB PO BID, #60 TAB 2 Refills Prov:MAYELIN BARRETT. 01/06/19 Bumetanide* (Bumetanide*) 1 Mg Tablet, 1 MG PO BID for 30 Days, #60 TAB Prov:MAYELIN BARRETT. 01/06/19 Potassium Chloride* (Potassium Chloride*) 8 Meq Capsule.er, 8 MEQ PO DAILY, #30 CAP Prov:RISHABH BARRETTPhilipp Diana. 01/06/19 Aspirin Delayed Release (Aspirin Delayed Release) 81 Mg Tablet.dr, 81 MG PO DAILY for 30 Days, #30 otc Prov:SAMANTHA BOB MD 11/16/18 Rosuvastatin Calcium* (Crestor*) 10 Mg Tablet, 10 MG PO QHS for 30 Days, #30 TAB Prov:SAMANTHA BOB MD 11/16/18 Isosorbide Dinitrate* (Isosorbide Dinitrate*) 30 Mg Tablet, 30 MG PO BID for 10 Days, #20 TAB Prov:SAMANTHA BOB MD 11/16/18 Reported Medications Amiodarone Hcl* (Amiodarone Hcl*) 200 Mg Tablet, 200 MG PO DAILY, #30 TAB 11/13/18 Levothyroxine Sodium* (Levoxyl*) 150 Mcg Tablet, 150 MCG PO BEFORE BREAKFAST, #30 TAB 07/20/18 Discontinued Scripts Ertapenem Sodium (Invanz) 1 Gm Vial, 1 GM IV Q24H for 5 Days, VIAL Prov:MAYELIN BARRETT. 01/06/19 Medications Current Medications Isosorbide Dinitrate (Isordil) 30 mg BID PO Last administered on 01/26/19at 08:54; Admin Dose 30 MG; Start 01/21/19 at 21:00 Levothyroxine Sodium (Synthroid) 150 mcg BEFORE BREAKFAST PO Last administered on 01/26/19at 06:12; Admin Dose 150 MCG; Start 01/22/19 at 07:00 Sacubitril/ Valsartan (Entresto 24 Mg-26 Mg) 1 tab BID PO Last administered on 01/26/19 08:53; Admin Dose 1 TAB; Start 01/21/19 at 21:00 Atorvastatin Calcium (Lipitor) 40 mg DAILY@21 PO Last administered on 01/25/19 21:03; Admin Dose 40 MG; Start 01/21/19 at 21:00 IV Flush (NS 3 ml) 3 ml PER PROTOCOL IV ; Start 01/21/19 at 15:00 Ondansetron HCl (Zofran Inj) 4 mg Q6H PRN IV NAUSEA/VOMITING; Start 01/21/19 at 15:00 Acetaminophen (Tylenol Tab) 650 mg Q6H PRN PO .PAIN 1-3 OR TEMP Last administered on 01/25/19 21:56; Admin Dose 650 MG; Start 01/21/19 at 15:00 Docusate Sodium (Colace) 100 mg Q12H PRN PO .CONSTIPATION Last administered on 01/23/19 08:08; Admin Dose 100 MG; Start 01/21/19 at 15:00 Famotidine (Pepcid) 20 mg Q12 PO Last administered on 01/26/19 08:54; Admin Dose 20 MG; Start 01/21/19 at 21:00 Levalbuterol (Xopenex Neb) 1.25 mg Q6H RESP THERAPY HHN Last administered on 01/26/19 19:31; Admin Dose 1.25 MG; Start 01/21/19 at 15:30 Levalbuterol (Xopenex Neb) 1.25 mg Q4H RESP THERAPY PRN HHN sob/wheezing; Start 01/21/19 at 15:30 Morphine Sulfate (morphine) 2 mg Q4H PRN IV SEVERE PAIN LEVEL 7-10 Last administered on 01/25/19 02:05; Admin Dose 2 MG; Start 01/23/19 at 08:00 Meropenem/Sodium Chloride 50 ml @ 100 mls/hr Q12 IVPB Last administered on 01/26/19 08:53; Admin Dose 100 MLS/HR; Start 01/23/19 at 10:30 Spironolactone (Aldactone) 25 mg DAILY PO Last administered on 01/26/19 08:54; Admin Dose 25 MG; Start 01/25/19 at 16:00 Bumetanide (Bumex) 1 mg BID DIURETICS PO Last administered on 01/26/19at 18:10; Admin Dose 1 MG; Start 01/26/19 at 18:00 Lactated Ringer's 1,000 ml @ 50 mls/hr Q20H IV Last administered on 01/26/19at 18:09; Admin Dose 50 MLS/HR; Start 01/26/19 at 18:00 Assessment/Plan Hospital Course (Demo Recall) 78-year-old male who is known to have a history of bladder tumors. He was here last year with gross hematuria and urinary incontinence. He underwent a transur ethral resection of most of the tumors. Postop he did well and he was voiding clear urine and the family decided that since he was doing well no need for further intervention. He was since admitted to the hospital and I did see him earlier this months and did order a urine cytology that came back positive I did call the family and informed them of the findings. I did talk to them before and told them that he still has bladder tumors and sooner or later he is going to have more problems but again they elected at the time to do nothing. There thinking is that as long as he is doing fine regardless was going on we will do nothing. However the patient had hematuria the day before admission and his family brought him to the emergency room. He is always mowning and giving the impression that he is in pain but the reality he is not. I met with his daughter at his bedside in the emergency room and it appears that they are willing to have him undergo the surgery. Patient was supposed to have cystoscopy and transurethral resection of bladder tumor on 01/23/2019 however during the day he had episodes of bradycardia therefore I talked with the enterprise services manager and we decided to cancel the surgery. I did talk with Dr. Alcaraz and discussed the patient and his cardiac condition. He said to try to schedule the patient for Saturday. Dr. Robles did see the patient today and him and I discussed the treatment. I did schedule the patient for the procedure at 1730 January 27, 2019. I did also talk with the anesthesiologist and the cardiac anesthesiologist will be giving anesthesia for the procedure JOSE OCAMPO MD Jan 26, 2019 19:35
[2019-01-26] MEDS: ATORVASTATIN 40 MG TAB PO SCH (21:11)
[2019-01-26] MEDS: morphine 2 MG INJ IV PRN (22:35)
[2019-01-27] VITALS (20 sets, daily range): BP systolic 131–179; BP diastolic 58–78; PULSE 52–67; RESP 18–23
[2019-01-27] MEDS: LEVALBUTEROL (NEB) 1.25 MG/0.5 ML AMP HHN SCH ×4 (01:56→20:00)
[2019-01-27] MEDS: BUMETANIDE 1 MG TAB PO SCH ×2 (05:50→18:00)
[2019-01-27] MEDS: LEVOTHYROXINE 150 MCG TAB PO SCH (06:01)
[2019-01-27] MEDS: FAMOTIDINE 20 MG TAB PO SCH ×2 (08:46→21:00)
[2019-01-27] MEDS: MEROPENEM 1 GM/50ML(PMX) 50 ML IVPB SCH ×2 (08:46→22:25)
[2019-01-27] MEDS: SACUBITRIL/VALSARTAN (24mg-26mg) TABLET PO SCH ×2 (08:46→21:00)
[2019-01-27] MEDS: ISOSORBIDE DINITRATE 10 MG TAB PO SCH ×2 (08:46→21:00)
[2019-01-27] MEDS: SPIRONOLACTONE 25 MG TAB PO SCH (08:47)
[2019-01-27] MEDS: LACTATED RINGER'S 1,000 ML IV SCH (14:00)
--- NOTE | 2019-01-27 15:14 | PN ---
Date/Time of Note Date/Time of Note DATE: 01/27/19 TIME: 15:12 Assessment/Plan VTE Prophylaxis Risk score (from Ns)>0 risk: 2 SCD applied (from [facility] [place] Yes Pharmacological prophylaxis: other Pharm contraindication: bleeding Lines/Catheters IV C[facility]ter Type ([facility] Saline Lock Urinary Cath still in place: No Assessment/Plan Assessment/Plan 1. Bladder tumors with hematuria, surgery today 2. UTI, with ESBL E. coli, on meropenem 3. CHF, systolic with LVEF 20%, acute on chronic, on bumex and aldactone, no beta avis due to bradycardia 4. Severe aortic stenosis with MAUREEN 0.8 5. Pulmonary hypertension, PASP 54 mmHg 6. Iron deficiency anemia, follow up with h/h 7. Hypothyroidism, on synthroid 8. Acute kidney injury, follow up with BMP 9. 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 Result Diagram: 01/26/19 0706 01/26/19 0706 Subjective 24 Hr Interval Summary Free Text/Dictation pain on urination Exam/Review of Systems Exam Vitals Vital Signs Date Temp Pulse Resp B/P (MAP) Pulse Ox O2 O2 Flow FiO2 Time Delivery Rate 01/27/19 98.3 57 20 138/64 91 15:01 (88) 01/27/19 Nasal 3.0 13:29 Cannula Intake and Output 01/26/19 01/26/19 01/27/19 1414:59 22:59 06:59 IntakeIntake Total 1200 ml 650 ml BalanceBalance 1200 ml 650 ml Constitutional: alert, oriented, well developed Head: normocephalic, atraumatic Eyes: nl conjunctiva, EOMI, nl lids, PERRL ENMT: nl external ears & nose, nl lips & teeth, nl nasal mucosa & septum Neck: supple, non-tender Respiratory: clear to auscultation, normal air movement; No congested cough, No crackles/rales, No diminished breath sounds, No intercostal retraction, No labored breathing, No respirations, No tactile fremitus, No wheezing, No other Cardiovascular: regular rate and rhythm, nl pulses Gastrointestinal: soft, nl liver, spleen, non-tender Musculoskeletal: nl extremities to inspection Extremities: normal pulses; No calf tenderness, No cyanosis, No clubbing, No edema, No pitting pedal edema, No palpable cord, No tenderness, No other Neurological: CYLINDER INSPECTOR II-XII intact, nl speech Medications Medication Current Medications Isosorbide Dinitrate (Isordil) 30 mg BID PO Last administered on 01/27/19 08:46; Admin Dose 30 MG; Start 01/21/19 at 21:00 Levothyroxine Sodium (Synthroid) 150 mcg BEFORE BREAKFAST PO Last administered on 01/26/19 06:12; Admin Dose 150 MCG; Start 01/22/19 at 07:00 Sacubitril/ Valsartan (Entresto 24 Mg-26 Mg) 1 tab BID PO Last administered on 01/27/19 08:46; Admin Dose 1 TAB; Start 01/21/19 at 21:00 Atorvastatin Calcium (Lipitor) 40 mg DAILY@21 PO Last administered on 01/26/19 21:11; Admin Dose 40 MG; Start 01/21/19 at 21:00 IV Flush (NS 3 ml) 3 ml PER PROTOCOL IV ; Start 01/21/19 at 15:00 Ondansetron HCl (Zofran Inj) 4 mg Q6H PRN IV NAUSEA/VOMITING; Start 01/21/19 at 15:00 Acetaminophen (Tylenol Tab) 650 mg Q6H PRN PO .PAIN 1-3 OR TEMP Last administered on 01/25/19 21:56; Admin Dose 650 MG; Start 01/21/19 at 15:00 Docusate Sodium (Colace) 100 mg Q12H PRN PO .CONSTIPATION Last administered on 01/23/19 08:08; Admin Dose 100 MG; Start 01/21/19 at 15:00 Famotidine (Pepcid) 20 mg Q12 PO Last administered on 01/27/19 08:46; Admin Do se 20 MG; Start 01/21/19 at 21:00 Levalbuterol (Xopenex Neb) 1.25 mg Q6H RESP THERAPY HHN Last administered on 01/27/19 13:29; Admin Dose 1.25 MG; Start 01/21/19 at 15:30 Levalbuterol (Xopenex Neb) 1.25 mg Q4H RESP THERAPY PRN HHN sob/wheezing; Start 01/21/19 at 15:30 Morphine Sulfate (morphine) 2 mg Q4H PRN IV SEVERE PAIN LEVEL 7-10 Last administered on 01/26/19 22:35; Admin Dose 2 MG; Start 01/23/19 at 08:00 Meropenem/Sodium Chloride 50 ml @ 100 mls/hr Q12 IVPB Last administered on 01/27/19 08:46; Admin Dose 100 MLS/HR; Start 01/23/19 at 10:30 Spironolactone (Aldactone) 25 mg DAILY PO Last administered on 01/27/19 08:47; Admin Dose 25 MG; Start 01/25/19 at 16:00 Bumetanide (Bumex) 1 mg BID DIURETICS PO Last administered on 01/26/19 18:10; Admin Dose 1 MG; Start 01/26/19 at 18:00 Lactated Ringer's 1,000 ml @ 50 mls/hr Q20H IV Last administered on 01/26/19 18:09; Admin Dose 50 MLS/HR; Start 01/26/19 at 18:00 MARISABEL CROCKER MD Jan 27, 2019 15:14
--- NOTE | 2019-01-27 17:28 | HPN ---
Date/Time of Note Date/Time of Note DATE: 01/27/19 TIME: 17:28 Interval H&P Admission Note Pt. seen H&P reviewed: No system changes JOSE OCAMPO MD Jan 27, 2019 17:28
--- NOTE | 2019-01-27 17:33 | PREAC ---
Date/Time of Note Date/Time of Note DATE: 01/27/19 TIME: 17:27 Anesthesia Eval and Record Evaluation Time Pre-Procedure Interview DATE: 01/27/19 TIME: 17:27 Age 78 Sex male NPO: 8 hrs Preoperative diagnosis bladder tumer Planned procedure Excision of Bladder tumor Past Medical History Past Medical History: Includes Cardio: HTN, Dyslipidemia, CHF, Other (sever Aortic stenosis) Surgery & Anesthesia Issues No known issue Meds Anticoagulation: Yes Beta Scottie within 24 hr: No Reason Beta Scottie not given: Pt. not on B-Scottie Active Scripts Sacubitril/Valsartan (Entresto 24 mg-26 mg Tablet) 1 Each Tablet, 1 TAB PO BID, #60 TAB 2 Refills Prov:MAYELIN BARRETT. 01/06/19 Bumetanide* (Bumetanide*) 1 Mg Tablet, 1 MG PO BID for 30 Days, #60 TAB Prov:MAYELIN BARRETT. 01/06/19 Potassium Chloride* (Potassium Chloride*) 8 Meq Capsule.er, 8 MEQ PO DAILY, #30 CAP Prov:MAYELIN BARRETT. 01/06/19 Aspirin Delayed Release (Aspirin Delayed Release) 81 Mg Tablet.dr, 81 MG PO SIMEON LY for 30 Days, #30 otc Prov:SAMANTHA BOB MD 11/16/18 Rosuvastatin Calcium* (Crestor*) 10 Mg Tablet, 10 MG PO QHS for 30 Days, #30 TAB Prov:SAMANTHA BOB MD 11/16/18 Isosorbide Dinitrate* (Isosorbide Dinitrate*) 30 Mg Tablet, 30 MG PO BID for 10 Days, #20 TAB Prov:SAMANTHA BOB MD 11/16/18 Reported Medications Amiodarone Hcl* (Amiodarone Hcl*) 200 Mg Tablet, 200 MG PO DAILY, #30 TAB 11/13/18 Levothyroxine Sodium* (Levoxyl*) 150 Mcg Tablet, 150 MCG PO BEFORE BREAKFAST, #30 TAB 07/20/18 Discontinued Scripts Ertapenem Sodium (Invanz) 1 Gm Vial, 1 GM IV Q24H for 5 Days, VIAL Prov:MAYELIN BARRETT 01/06/19 Current Medications Isosorbide Dinitrate (Isordil) 30 mg BID PO Last administered on 01/27/19 08:46; Admin Dose 30 MG; Start 01/21/19 at 21:00 Levothyroxine Sodium (Synthroid) 150 mcg BEFORE BREAKFAST PO Last administered on 01/26/19 06:12; Admin Dose 150 MCG; Start 01/22/19 at 07:00 Sacubitril/ Valsartan (Entresto 24 Mg-26 Mg) 1 tab BID PO Last administered on 01/27/19 08:46; Admin Dose 1 TAB; Start 01/21/19 at 21:00 Atorvastatin Calcium (Lipitor) 40 mg DAILY@21 PO Last administered on 01/26/19 21:11; Admin Dose 40 MG; Start 01/21/19 at 21:00 IV Flush (NS 3 ml) 3 ml PER PROTOCOL IV ; Start 01/21/19 at 15:00 Ondansetron HCl (Zofran Inj) 4 mg Q6H PRN IV NAUSEA/VOMITING; Start 01/21/19 at 15:00 Acetaminophen (Tylenol Tab) 650 mg Q6H PRN PO .PAIN 1-3 OR TEMP Last administered on 01/25/19 21:56; Admin Dose 650 MG; Start 01/21/19 at 15:00 Docusate Sodium (Colace) 100 mg Q12H PRN PO .CONSTIPATION Last administered on 01/23/19 08:08; Admin Dose 100 MG; Start 01/21/19 at 15:00 Famotidine (Pepcid) 20 mg Q12 PO Last administered on 01/27/19 08:46; Admin Dose 20 MG; Start 01/21/19 at 21:00 Levalbuterol (Xopenex Neb) 1.25 mg Q6H RESP THERAPY HHN Last administered on 01/27/19 13:29; Admin Dose 1.25 MG; Start 01/21/19 at 15:30 Levalbuterol (Xopenex Neb) 1.25 mg Q4H RESP THERAPY PRN HHN sob/wheezing; Start 01/21/19 at 15:30 Morphine Sulfate (morphine) 2 mg Q4H PRN IV SEVERE PAIN LEVEL 7-10 Last administered on 01/26/19 22:35; Admin Dose 2 MG; Start 01/23/19 at 08:00 Meropenem/Sodium Chloride 50 ml @ 100 mls/hr Q12 IVPB Last administered on 01/27/19at 08:46; Admin Dose 100 MLS/HR; Start 01/23/19 at 10:30 Spironolactone (Aldactone) 25 mg DAILY PO Last administered on 01/27/19at 08:47; Admin Dose 25 MG; Start 01/25/19 at 16:00 Bumetanide (Bumex) 1 mg BID DIURETICS PO Last administered on 01/26/19at 18:10; Admin Dose 1 MG; Start 01/26/19 at 18:00 Lactated Ringer's 1,000 ml @ 50 mls/hr Q20H IV Last administered on 01/26/19at 18:09; Admin Dose 50 MLS/HR; Start 01/26/19 at 18:00 Meds reviewed: Yes Allergies Coded Allergies: No Known Allergy (Unverified , 01/21/19) Allergies Reviewed: Yes Labs/Studies Labs Reviewed: Reviewed by anesthesiologist Result Diagram: 01/26/19 0701/26/19 0706 test: N/A Studies: CXR Pre-procedure Exam Last vitals Vital Signs Date Temp Pulse Resp B/P (MAP) Pulse Ox O2 O2 Flow FiO2 Time Delivery Rate 01/27/19 59 16:01 01/27/19 98.3 20 138/64 91 15:01 (88) 01/27/19 Nasal 3.0 13:29 Cannula Airway: Adequate mouth opening, Adequate thyromental dist Mallampati: Mallampati III Teeth: Normal Lung: Normal Heart: Abnormal (Low EF:30%, sever ) ASA Physical Status ASA physical status: 4 Emergency: None Planned Anesthetic General/MAC: ETT, A Line Planned Pain Management Parenteral pain med Pre-operative Attestations Prior to commencing anesthesia and surgery, the patient was re-evaluated, there was verification of: *The patient's identity *The results of appropriate recent lab work and preoperative vital signs *The above evaluation not changing prior to induction *Anesthetic plan, risk benefits, alternative and complications discussed with patient/family; questions answered; patient/family understands, accepts and wishes to proceed. LAKESHA OVALLES MD Jan 27, 2019 17:33
[2019-01-27] MEDS ORDERED: MIDAZOLAM 1 MG/ML 2 ML INJ ONE (17:46)
[2019-01-27] MEDS ORDERED: FENTAnyl 50 MCG/ML VIAL ONE ×2 (17:46→19:37)
[2019-01-27] MEDS ORDERED: PHENYLephrine (100 MCG/ML) 10ML SYG ONE (17:48)
[2019-01-27] MEDS ORDERED: INDIGOTINDISULFONATE 0.8% 5 ML INJ ONE (18:52)
[2019-01-27] MEDS ORDERED: LIDOCAINE 2% (SDV) 5 ML INJ ONE (20:34)
[2019-01-27] MEDS ORDERED: ROCURONIUM 50 MG INJ ONE (20:34)
[2019-01-27] MEDS ORDERED: ONDANSETRON 4 MG INJ ONE (20:34)
[2019-01-27] MEDS ORDERED: ETOMIDATE 20 MG INJ ONE (20:34)
[2019-01-27] MEDS: ATORVASTATIN 40 MG TAB PO SCH (21:00)
--- NOTE | 2019-01-27 21:06 | PAC ---
Date/Time of Note Date/Time of Note DATE: 01/27/19 TIME: 21:06 Post-Anesthesia Notes Post-Anesthesia Note Last documented vital signs Vital Signs Date Temp Pulse Resp B/P (MAP) Pulse Ox O2 O2 Flow FiO2 Time Delivery Rate 01/27/19 61 20:00 01/27/19 98.3 20 138/64 91 15:01 (88) 01/27/19 Nasal 3.0 13:29 Cannula Activity: WNL Respiratory function: WNL Cardiovascular function: WNL Mental status: Baseline Pain reasonably controlled: Yes Hydration appropriate: Yes Nausea/Vomiting absent: Yes Comments BP:118/56, P:88, Spo2:98%, T:98,8 LAKESHA OVALLES MD Jan 27, 2019 21:06
[2019-01-27] MEDS: morphine 2 MG INJ IV PRN (21:20)
--- NOTE | 2019-01-27 21:26 | OPR ---
Date/Time of Note Date/Time of Note DATE: 01/27/19 TIME: 21:12 Operative Report Procedure Date: Jan 27, 2019 Preoperative Diagnosis Bladder tumors and gross hematuria Postoperative Diagnosis Bladder tumors and gross hematuria tumor extends into the prostatic fossa. Operation/Procedure Performed Transurethral resection of prostate and transurethral resection of bladder tumo rs, insertion of bilateral ureteral catheters and dorsal slit. Surgeon see signature line Safety And Health Manager demonstrator sewing techniquesantonio Barron Anesthesia Type: general Anesthesiologist: LAKESHA OVALLES MD Estimated Blood Loss: 100 - 150 ml's Transfusion none Specimen Bladder tumors and prostatic tissue and bladder tumor into the prostatic fossa Grafts/Implants 5 Israeli open ended bilateral ureteral catheters Complications none Pt Condition Post Procedure: stable Disposition: other (ICU room 118) Indications Bladder tumors and gross hematuria. Procedure Description Patient was brought to the operating room and general anesthesia was induced the patient was positioned in the lithotomy position he had sequential compression device on his lower extremities. Timeout was done and the patient was identified by his name and the procedure. He received the meropenem IV antibio tic at the start of the procedure. Then the genital area was prepped and draped in the usual sterile manner. Patient had severe phimosis therefore I had to do a dorsal slit to be able to expose the urethral meatus. The edges of the dorsal slit were sutured with a running 3-0 Vicryl interlocked sutures. Then #26 Israeli bipolar resectoscope sheath was introduced through the urethra all the way to the bladder. Patient was found to have a lot of tumors in the prostatic fossa bladder neck the anterior bladder and tumors were also covering both ureteral orifices. I first resected the tumor around the bladder neck and the prostatic fossa then I had the patient receive 5 mL of indigo carmine intravenously and waited and did see the indigo coming in the center of the tumor on the right side. So I went ahead and resected the tumor as well as the orifice on that side and I could see the indigo carmine coming through the orifice freely. I did electrocoagulate all the bleeders care was taken not to coagulate the orifice itself. The left ureteral orifice also was not seen and evaluated to see the indigo but it was not coming out but I had an idea where the orifice should be as compared to the right side and again it was in the middle of the tumor. Therefore I resected the tumor and the orifice and then I was able to see the orifice itself. I could see contractions in the orifice but no indigo carmine or urine coming out until the end of the case. I then resected the tumors in the anterior bladder and right lateral wall. And there was a lot of tumor around the bladder neck and prostatic fossa causing obstruction therefore I had to resect the prostate mostly toward the bladder neck down to the verumontanum at the bottom to make sure that he will be able to urinate after. After that I drained all the tissue out of the bladder and then remove the resectoscope. I then passed the cystoscope sheath into the bladder and cannulated the left ureteral orifice with a 5 Israeli open ended ureteral catheter I did use a 0.035 zip wire and passed it through the open ended into the left ureteral orifice and advanced it all the way up to the kidney once it reached the kidney I advanced on it the open ended and then removed the wire. Immediately I had very brisk hydronephrotic drip of urine colored blue by the indigo carmine. Then I did pass another ureteral catheter on the right side in a similar fashion. Then I removed the cystoscope and inserted a 20 Israeli three-way Lopez catheter and inflated the balloon was 30 mL of sterile water and started the continuous bladder irrigation. The ureteral catheters were taped to the Lopez catheter and each 1 of them connected to a drainage bag. The patient tolerated the procedure well and was extubated in the operating room and transferred to the intensive care unit in a stable and satisfactory condition. JOSE OCAMPO MD Jan 27, 2019 21:26
[2019-01-27] MEDS ORDERED: HALOPERIDOL 5 MG INJ IM ONE (21:30)
[2019-01-28] VITALS (27 sets, daily range): BP systolic 103–159; BP diastolic 43–115; PULSE 55–70; RESP 15–26
[2019-01-28] MEDS: morphine 2 MG INJ IV PRN ×4 (01:21→20:02)
[2019-01-28] MEDS: LEVALBUTEROL (NEB) 1.25 MG/0.5 ML AMP HHN SCH ×4 (02:09→19:49)
[2019-01-28] MEDS: BUMETANIDE 1 MG TAB PO SCH ×2 (06:00→17:22)
[2019-01-28] MEDS: LEVOTHYROXINE 150 MCG TAB PO SCH (06:11)
[2019-01-28] MEDS: SACUBITRIL/VALSARTAN (24mg-26mg) TABLET PO SCH ×2 (08:58→20:49)
[2019-01-28] MEDS: MEROPENEM 1 GM/50ML(PMX) 50 ML IVPB SCH ×2 (08:58→20:49)
[2019-01-28] MEDS: SPIRONOLACTONE 25 MG TAB PO SCH (08:58)
[2019-01-28] MEDS: FAMOTIDINE 20 MG TAB PO SCH ×2 (08:58→20:50)
[2019-01-28] MEDS: LACTATED RINGER'S 1,000 ML IV SCH (08:59)
[2019-01-28] MEDS: ISOSORBIDE DINITRATE 10 MG TAB PO SCH ×2 (09:21→20:50)
--- NOTE | 2019-01-28 13:59 | PN ---
Date/Time of Note Date/Time of Note DATE: 01/28/19 TIME: 13:50 Assessment/Plan VTE Prophylaxis Risk score (from Ns)>0 risk: 11 SCD applied (from Ns): Yes Pharmacological prophylaxis: NA/contraindicated Pharm contraindication: bleeding Lines/Catheters IV Catheter Type (from Nrsg): Peripheral IV Urinary Cath still in place: Yes (3way bailey ) Reason Cath still needed: other (indicate) Assessment/Plan Assessment/Plan 1. s/p transurethral resection of prostate and bladder tumor on 01/27/2019, Bladder tumors with hematuria, surgery today 2. UTI, with ESBL E. coli, on meropenem 3. CHF, systolic with LVEF 20%, acute on chronic, on bumex and aldactone, no beta avis due to bradycardia 4. Severe aortic stenosis with MAUREEN 0.8 5. Pulmonary hypertension, PASP 54 mmHg 6. Iron deficiency anemia, stable H/H 7. Hypothyroidism, on synthroid 8. Acute kidney injury, better since yesterday 9. 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 Discussed with staff, critical care time 40 minutes Result Diagram: 01/28/19 0435 01/28/19 0435 Results 24hrs Laboratory Tests Test 01/28/19 04:35 White Blood Count 10.3 # Red Blood Count 4.20 L Hemoglobin 11.7 L Hematocrit 38.0 L Mean Corpuscular Volume 90.5 Mean Corpuscular Hemoglobin 27.9 L Mean Corpuscular Hemoglobin Concent 30.8 L Red Cell Distribution Width 15.9 H Platelet Count 173 Mean Platelet Volume 11.0 H Immature Granulocytes % 0.400 Neutrophils % 73.3 Lymphocytes % 10.2 L Monocytes % 13.9 H Eosinophils % 1.8 Basophils % 0.4 Nucleated Red Blood Cells % 0.0 Immature Granulocytes # 0.040 H Neutrophils # 7.6 H Lymphocytes # 1.1 Monocytes # 1.4 H Eosinophils # 0.2 Basophils # 0.0 Nucleated Red Blood Cells # 0.0 Sodium Level 142 Potassium Level 4.3 Chloride Level 103 Carbon Dioxide Level 31 Anion Gap 8 Blood Urea Nitrogen 24 H Creatinine 1.46 H Est Glomerular Filtrat Rate mL/min Glucose Level 103 Calcium Level 8.7 Subjective 24 Hr Interval Summary Free Text/Dictation pain on Baiely alert and oriented, moaning Exam/Review of Systems Exam Vitals Vital Signs Date Temp Pulse Resp B/P (MAP) Pulse Ox O2 O2 Flow FiO2 Time Delivery Rate 01/28/19 62 12:00 01/28/19 97.9 17 129/51 89 Nasal 5.0 12:00 (77) Cannula Intake and Output 01/27/19 01/27/19 01/28/19 1515:00 23:00 07:00 IntakeIntake Total 7300 ml 3400 ml OutputOutput Total 2480 ml 3685 ml BalanceBalance 4820 ml -285 ml Constitutional: alert, oriented, well developed Head: normocephalic, atraumatic Eyes: nl conjunctiva, EOMI, nl lids, nl sclera, PERRL ENMT: nl external ears & nose, nl lips & teeth, nl nasal mucosa & septum Neck: supple, non-tender Respiratory: clear to auscultation, normal air movement; No congested cough, No crackles/rales, No diminished breath sounds, No intercostal retraction, No labored breathing, No respirations, No tactile fremitus, No wheezing, No other Cardiovascular: regular rate and rhythm, nl pulses; No bruits, No diastolic murmur, No edema, No gallop, No irregular rhythm, No jugular venous distention (JVD), No murmurs/extra sounds, No rub, No systolic murmur, No S3, No S4, No other Gastrointestinal: soft, nl liver, spleen, non-tender Musculoskeletal: nl extremities to inspection Extremities: normal pulses; No calf tenderness, No cyanosis, No clubbing, No edema, No pitting pedal edema, No palpable cord, No tenderness, No other 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, nl mental status, nl speech, nl strength Skin: nl turgor Lymph: nl lymph nodes Results Results 24hrs Laboratory Tests Test 01/28/19 04:35 White Blood Count 10.3 # Red Blood Count 4.20 L Hemoglobin 11.7 L Hematocrit 38.0 L Mean Corpuscular Volume 90.5 Mean Corpuscular Hemoglobin 27.9 L Mean Corpuscular Hemoglobin Concent 30.8 L Red Cell Distribution Width 15.9 H Platelet Count 173 Mean Platelet Volume 11.0 H Immature Granulocytes % 0.400 Neutrophils % 73.3 Lymphocytes % 10.2 L Monocytes % 13.9 H Eosinophils % 1.8 Basophils % 0.4 Nucleated Red Blood Cells % 0.0 Immature Granulocytes # 0.040 H Neutrophils # 7.6 H Lymphocytes # 1.1 Monocytes # 1.4 H Eosinophils # 0.2 Basophils # 0.0 Nucleated Red Blood Cells # 0.0 Sodium Level 142 Potassium Level 4.3 Chloride Level 103 Carbon Dioxide Level 31 Anion Gap 8 Blood Urea Nitrogen 24 H Creatinine 1.46 H Est Glomerular Filtrat Rate mL/min Glucose Level 103 Calcium Level 8.7 Medications Medication Current Medications Isosorbide Dinitrate (Isordil) 30 mg BID PO Last administered on 01/28/19 09:21; Admin Dose 30 MG; Start 01/21/19 at 21:00 Levothyroxine Sodium (Synthroid) 150 mcg BEFORE BREAKFAST PO Last administered on 01/26/19 06:12; Admin Dose 150 MCG; Start 01/22/19 at 07:00 Sacubitril/ Valsartan (Entresto 24 Mg-26 Mg) 1 tab BID PO Last administered on 01/28/19 08:58; Admin Dose 1 TAB; Start 01/21/19 at 21:00 Atorvastatin Calcium (Lipitor) 40 mg DAILY@21 PO Last administered on 01/26/19 21:11; Admin Dose 40 MG; Start 01/21/19 at 21:00 IV Flush (NS 3 ml) 3 ml PER PROTOCOL IV ; Start 01/21/19 at 15:00 Ondansetron HCl (Zofran Inj) 4 mg Q6H PRN IV NAUSEA/VOMITING; Start 01/21/19 at 15:00 Acetaminophen (Tylenol Tab) 650 mg Q6H PRN PO .PAIN 1-3 OR TEMP Last administered on 01/25/19 21:56; Admin Dose 650 MG; Start 01/21/19 at 15:00 Docusate Sodium (Colace) 100 mg Q12H PRN PO .CONSTIPATION Last administered on 01/23/19 08:08; Admin Dose 100 MG; Start 01/21/19 at 15:00 Famotidine (Pepcid) 20 mg Q12 PO Last administered on 01/28/19 08:58; Admin Dose 20 MG; Start 01/21/19 at 21:00 Levalbuterol (Xopenex Neb) 1.25 mg Q6H RESP THERAPY HHN Last administered on 4/3/19at 08:47; Admin Dose 1.25 MG; Start 01/21/19 at 15:30 Levalbuterol (Xopenex Neb) 1.25 mg Q4H RESP THERAPY PRN HHN sob/wheezing; Start 01/21/19 at 15:30 Morphine Sulfate (morphine) 2 mg Q4H PRN IV SEVERE PAIN LEVEL 7-10 Last administered on 01/28/19 09:22; Admin Dose 2 MG; Start 01/23/19 at 08:00 Meropenem/Sodium Chloride 50 ml @ 100 mls/hr Q12 IVPB Last administered on 01/28/19 08:58; Admin Dose 100 MLS/HR; Start 01/23/19 at 10:30 Spironolactone (Aldactone) 25 mg DAILY PO Last administered on 01/28/19 08:58; Admin Dose 25 MG; Start 01/25/19 at 16:00 Bumetanide (Bumex) 1 mg BID DIURETICS PO Last administered on 01/26/19 18:10; Admin Dose 1 MG; Start 01/26/19 at 18:00 MARISABEL CROCKER MD Jan 28, 2019 13:59
[2019-01-28] MEDS: ATORVASTATIN 40 MG TAB PO SCH (20:50)
--- NOTE | 2019-01-28 20:59 | PN ---
Date/Time of Note Date/Time of Note DATE: 01/28/19 TIME: 20:55 Assessment/Plan Lines/Catheters IV Catheter Type (from Nrsg): Peripheral IV Bailey in Place (from Nrsg): Yes (3way bailey,) Cont'd bailey catheter reason: other (indicate) (Urological surgery) Assessment/Plan Chief Complaint/Hosp Course 78-year-old male underwent transurethral resection of prostate and bladder tumor with insertion of bilateral ureteral catheters and dorsal slit on 01/27/2019. He is doing well, he does have bladder spasms on and off. Plan is to keep the Bailey catheter in with the bladder irrigation and the ureteral catheter in place. We will get a KUB in a.m. to see if he is constipated. Subjective 24 Hr Interval Summary Pain Control: moderate (Bladder spasm) Exam/Review of Systems Vital Signs Vitals Vital Signs Date Temp Pulse Resp B/P (MAP) Pulse Ox O2 O2 Flow FiO2 Time Delivery Rate 01/28/19 59 20:00 01/28/19 5.0 19:50 01/28/19 21 96 Nasal 19:50 Cannula 01/28/19 146/60 18:00 (88) 01/28/19 98.0 16:00 Intake and Output 01/27/19 01/27/19 01/28/19 1414:59 22:59 06:59 IntakeIntake Total 1200 ml 9450 ml OutputOutput Total 50 ml 6115 ml BalanceBalance 1150 ml 3335 ml Exam Constitutional: alert Genitourinary - Male: other (Bailey catheter draining well and the return from the bladder irrigation is clear. He also has good output from both kidneys.) Results Result Diagram: 01/28/19 0435 01/28/19 0435 JOSE OCAMPO MD Jan 28, 2019 20:58
--- NOTE | 2019-01-28 21:53 | CONS ---
Assessment/Plan Cardiology NYHA: III Heart Failure Type: Acute on Chronic Heart Failure Type: Systolic Assessment/Plan Hospital Course (Demo Recall) Preoperative cardiac risk stratification S/P Bladder surgery 01/27/19 Acute decompensated systolic congestive heart failure, improved Cardiomyopathy with left ventricular ejection fraction 30% Possible urinary retention with hematuria with history of bladder cancer Paroxysmal atrial fibrillation, currently sinus rhythm-not on anticoagulation secondary to bladder tumor Moderate to severe aortic valve stenosis COPD Hypertension CKD NSVT Bradycardia -Patient appears stable from a respiratory standpoint -Titrate diuretics as needed -No AVN blocking agents Consultation Date/Type/Reason Admit Date/Time Jan 21, 2019 at 15:23 Initial Consult Date 01/21/19 Type of Consult Cardiology Requesting Provider: MAYELIN BARRETT Date/Time of Note DATE: 01/28/19 TIME: 21:51 24 HR Interval Summary Free Text/Dictation no sob,cp, palp Exam/Review of Systems Vital Signs Vitals Vital Signs Date Temp Pulse Resp B/P (MAP) Pulse Ox O2 O2 Flow FiO2 Time Delivery Rate 01/28/19 59 20:00 01/28/19 5.0 19:50 01/28/19 21 96 Nasal 19:50 Cannula 01/28/19 146/60 18:00 (88) 01/28/19 98.0 16:00 Intake and Output 01/27/19 01/27/19 01/28/19 1515:00 23:00 07:00 IntakeIntake Total 7300 ml 3400 ml OutputOutput Total 2480 ml 3685 ml BalanceBalance 4820 ml -285 ml Exam Constitutional: alert, oriented (nad, family at bedside) Head: normocephalic Respiratory: other (course bs, no wheeze) Cardiovascular: regular rate and rhythm, systolic murmur Gastrointestinal: soft, non-tender, bowel sounds Extremities: edema Labs Result Diagram: 01/28/195 01/28/19 043 Results 24hrs Laboratory Tests Test 01/28/19 04:35 White Blood Count 10.3 # Red Blood Count 4.20 L Hemoglobin 11.7 L Hematocrit 38.0 L Mean Corpuscular Volume 90.5 Mean Corpuscular Hemoglobin 27.9 L Mean Corpuscular Hemoglobin Concent 30.8 L Red Cell Distribution Width 15.9 H Platelet Count 173 Mean Platelet Volume 11.0 H Immature Granulocytes % 0.400 Neutrophils % 73.3 Lymphocytes % 10.2 L Monocytes % 13.9 H Eosinophils % 1.8 Basophils % 0.4 Nucleated Red Blood Cells % 0.0 Immature Granulocytes # 0.040 H Neutrophils # 7.6 H Lymphocytes # 1.1 Monocytes # 1.4 H Eosinophils # 0.2 Basophils # 0.0 Nucleated Red Blood Cells # 0.0 Sodium Level 142 Potassium Level 4.3 Chloride Level 103 Carbon Dioxide Level 31 Anion Gap 8 Blood Urea Nitrogen 24 H Creatinine 1.46 H Est Glomerular Filtrat Rate mL/min Glucose Level 103 Calcium Level 8.7 Medications Medications Current Medications Isosorbide Dinitrate (Isordil) 30 mg BID PO Last administered on 01/28/19 20:50; Admin Dose 30 MG; Start 01/21/19 at 21:00 Levothyroxine Sodium (Synthroid) 150 mcg BEFORE BREAKFAST PO Last administered on 01/26/19 06:12; Admin Dose 150 MCG; Start 01/22/19 at 07:00 Sacubitril/ Valsartan (Entresto 24 Mg-26 Mg) 1 tab BID PO Last administered on 01/28/19 20:49; Admin Dose 1 TAB; Start 01/21/19 at 21:00 Atorvastatin Calcium (Lipitor) 40 mg DAILY@21 PO Last administered on 01/28/19 20:50; Admin Dose 40 MG; Start 01/21/19 at 21:00 IV Flush (NS 3 ml) 3 ml PER PROTOCOL IV ; Start 01/21/19 at 15:00 Ondansetron HCl (Zofran Inj) 4 mg Q6H PRN IV NAUSEA/VOMITING; Start 01/21/19 at 15:00 Acetaminophen (Tylenol Tab) 650 mg Q6H PRN PO .PAIN 1-3 OR TEMP Last administered on 01/25/19 21:56; Admin Dose 650 MG; Start 01/21/19 at 15:00 Docusate Sodium (Colace) 100 mg Q12H PRN PO .CONSTIPATION Last administered on 01/23/19 08:08; Admin Dose 100 MG; Start 01/21/19 at 15:00 Famotidine (Pepcid) 20 mg Q12 PO Last administered on 01/28/19 20:50; Admin Dose 20 MG; Start 01/21/19 at 21:00 Levalbuterol (Xopenex Neb) 1.25 mg Q6H RESP THERAPY HHN Last administered on 01/28/19 19:49; Admin Dose 1.25 MG; Start 01/21/19 at 15:30 Levalbuterol (Xopenex Neb) 1.25 mg Q4H RESP THERAPY PRN HHN sob/wheezing; Start 01/21/19 at 15:30 Morphine Sulfate (morphine) 2 mg Q4H PRN IV SEVERE PAIN LEVEL 7-10 Last administered on 01/28/19 20:02; Admin Dose 2 MG; Start 01/23/19 at 08:00 Meropenem/Sodium Chloride 50 ml @ 100 mls/hr Q12 IVPB Last administered on 01/28/19 20:49; Admin Dose 100 MLS/HR; Start 01/23/19 at 10:30 Spironolactone (Aldactone) 25 mg DAILY PO Last administered on 01/28/19 08:58; Admin Dose 25 MG; Start 01/25/19 at 16:00 Bumetanide (Bumex) 1 mg BID DIURETICS PO Last administered on 01/28/19 17:22; Admin Dose 1 MG; Start 01/26/19 at 18:00 Quang Robles DO Jan 28, 2019 21:53
[2019-01-29] VITALS (22 sets, daily range): BP systolic 108–145; BP diastolic 43–73; PULSE 51–68; RESP 12–24
[2019-01-29] MEDS: morphine 2 MG INJ IV PRN ×7 (00:18→23:07)
[2019-01-29] MEDS: LEVALBUTEROL (NEB) 1.25 MG/0.5 ML AMP HHN SCH ×4 (02:04→21:25)
[2019-01-29] MEDS: DOCUSATE SODIUM 100 MG CAP PO PRN (02:25)
[2019-01-29] MEDS: BUMETANIDE 1 MG TAB PO SCH ×2 (06:29→17:40)
[2019-01-29] MEDS: LEVOTHYROXINE 150 MCG TAB PO SCH (06:31)
--- NOTE | 2019-01-29 08:47 | PN ---
Date/Time of Note Date/Time of Note DATE: 01/29/19 TIME: 08:43 Assessment/Plan Lines/Catheters IV Catheter Type (from [facility]): Peripheral IV Bailey in Place (from Nrs): Yes (3way bailey,) Cont'd bailey catheter reason: other (indicate) (Urological surgery) Assessment/Plan Chief Complaint/Hosp Course 78-year-old male underwent transurethral resection of prostate and bladder tumor with insertion of bilateral ureteral catheters and dorsal slit on 01/27/2019. He is doing well, he does have bladder spasms on and off. His renal function has improved and both ureteral catheters are draining well. I will keep these catheters in place for another 4 days as well as a Bailey catheter with the bladder irrigation then I will discontinue one catheter at the time and after that discontinue the Bailey catheter. Subjective 24 Hr Interval Summary The patient is awake and alert and is not confused. He looks much better. Exam/Review of Systems Vital Signs Vitals Vital Signs Date Temp Pulse Resp B/P (MAP) Pulse Ox O2 O2 Flow FiO2 Time Delivery Rate 01/29/19 Nasal 3.0 08:28 Cannula 01/29/19 98.2 51 15 126/53 94 08:00 (77) Intake and Output 01/28/19 01/28/19 01/29/19 1515:00 23:00 07:00 IntakeIntake Total 8120 ml 8980 ml 5550 ml OutputOutput Total 91420 ml 4105 ml 1695 ml BalanceBalance -2330 ml 4875 ml 3855 ml Exam Free Text/Dictation The bladder irrigation return is clear. Both ureteral catheters are draining well. The urine from both kidneys is clear with a little blood sometime and that is from the catheter throbbing against the wall of the ureters. Results Result Diagram: 01/29/19 0426 01/29/19 0426 JOSE OCAMPO MD Jan 29, 2019 08:47
[2019-01-29] MEDS: SPIRONOLACTONE 25 MG TAB PO SCH (09:39)
[2019-01-29] MEDS: SACUBITRIL/VALSARTAN (24mg-26mg) TABLET PO SCH ×2 (09:39→21:02)
[2019-01-29] MEDS: FAMOTIDINE 20 MG TAB PO SCH ×2 (09:39→21:01)
[2019-01-29] MEDS: ISOSORBIDE DINITRATE 10 MG TAB PO SCH ×2 (09:40→21:06)
[2019-01-29] MEDS: MEROPENEM 1 GM/50ML(PMX) 50 ML IVPB SCH ×2 (09:42→21:01)
[2019-01-29] MEDS ORDERED: BISACODYL (EC) 5 MG TAB PO ONE (14:30)
--- NOTE | 2019-01-29 15:12 | PN ---
Date/Time of Note Date/Time of Note DATE: 01/29/19 TIME: 15:09 Assessment/Plan VTE Prophylaxis Risk score (from Ns)>0 risk: 8 SCD applied (from [facility] [place]): Yes Pharmacological prophylaxis: other Pharm contraindication: bleeding Lines/Catheters IV [facility]atheter Type ([facility] [place] Urinary Cath still in place: Yes (3way bailey,) Reason Cath still needed: other (indicate) Assessment/Plan Assessment/Plan 1. s/p transurethral resection of prostate and bladder tumor on 01/27/2019, continue bladder irrigation, follow up with urology 2. UTI, with ESBL E. coli, on meropenem 3. CHF, systolic with LVEF 20%, acute on chronic, on bumex and aldactone, no beta avis due to bradycardia 4. Severe aortic stenosis with MAUREEN 0.8 5. Pulmonary hypertension, PASP 54 mmHg 6. Iron deficiency anemia, stable H/H 7. Hypothyroidism, on synthroid 8. Acute kidney injury, better since yesterday 9. 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 Constipation, laxative Result Diagram: 01/29/19 0426 01/29/19 0426 Results 24hrs Laboratory Tests Test 01/29/19 04:26 White Blood Count 10.1 Red Blood Count 3.91 L Hemoglobin 11.2 L Hematocrit 35.7 L Mean Corpuscular Volume 91.3 Mean Corpuscular Hemoglobin 28.6 L Mean Corpuscular Hemoglobin Concent 31.4 L Red Cell Distribution Width 15.9 H Platelet Count 166 Mean Platelet Volume 11.6 H Immature Granulocytes % 0.600 H Neutrophils % 69.7 Lymphocytes % 11.4 L Monocytes % 13.4 H Eosinophils % 4.4 Basophils % 0.5 Nucleated Red Blood Cells % 0.0 Immature Granulocytes # 0.060 H Neutrophils # 7.1 Lymphocytes # 1.2 Monocytes # 1.4 H Eosinophils # 0.5 Basophils # 0.1 Nucleated Red Blood Cells # 0.0 Sodium Level 139 Potassium Level 4.2 Chloride Level 100 Carbon Dioxide Level 29 Anion Gap 10 Blood Urea Nitrogen 27 H Creatinine 1.34 H Est Glomerular Filtrat Rate mL/min Glucose Level 116 Calcium Level 8.5 Magnesium Level 1.8 Subjective 24 Hr Interval Summary Free Text/Dictation moaning, vital signs stable. bladder irrigation is light pink to clear Exam/Review of Systems Exam Vitals Vital Signs Date Temp Pulse Resp B/P (MAP) Pulse Ox O2 O2 Flow FiO2 Time Delivery Rate 01/29/19 54 14 111/56 95 Nasal 3.0 13:00 (74) Cannula 01/29/19 97.9 12:00 Intake and Output 01/28/19 01/28/19 01/29/19 1515:00 23:00 07:00 IntakeIntake Total 8120 ml 8980 ml 5550 ml OutputOutput Total 20332 ml 4105 ml 1695 ml BalanceBalance -2330 ml 4875 ml 3855 ml Constitutional: alert, well developed Head: normocephalic, atraumatic Eyes: nl conjunctiva, EOMI, nl lids, PERRL ENMT: nl external ears & nose, nl lips & teeth, nl nasal mucosa & septum Neck: supple, non-tender Respiratory: clear to auscultation, normal air movement; No congested cough, No crackles/rales, No diminished breath sounds, No intercostal retraction, No labored breathing, No respirations, No tactile fremitus, No wheezing, No other Cardiovascular: regular rate and rhythm Gastrointestinal: soft, nl liver, spleen Musculoskeletal: nl extremities to inspection Extremities: normal pulses; No calf tenderness, No cyanosis, No clubbing, No edema, No pitting pedal edema, No palpable cord, No tenderness, No other 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, nl speech, confused Results Results 24hrs Laboratory Tests Test 01/29/19 04:26 White Blood Count 10.1 Red Blood Count 3.91 L Hemoglobin 11.2 L Hematocrit 35.7 L Mean Corpuscular Volume 91.3 Mean Corpuscular Hemoglobin 28.6 L Mean Corpuscular Hemoglobin Concent 31.4 L Red Cell Distribution Width 15.9 H Platelet Count 166 Mean Platelet Volume 11.6 H Immature Granulocytes % 0.600 H Neutrophils % 69.7 Lymphocytes % 11.4 L Monocytes % 13.4 H Eosinophils % 4.4 Basophils % 0.5 Nucleated Red Blood Cells % 0.0 Immature Granulocytes # 0.060 H Neutrophils # 7.1 Lymphocytes # 1.2 Monocytes # 1.4 H Eosinophils # 0.5 Basophils # 0.1 Nucleated Red Blood Cells # 0.0 Sodium Level 139 Potassium Level 4.2 Chloride Level 100 Carbon Dioxide Level 29 Anion Gap 10 Blood Urea Nitrogen 27 H Creatinine 1.34 H Est Glomerular Filtrat Rate mL/min Glucose Level 116 Calcium Level 8.5 Magnesium Level 1.8 Medications Medication Current Medications Isosorbide Dinitrate (Isordil) 30 mg BID PO Last administered on 01/29/19 09:40; Admin Dose 30 MG; Start 01/21/19 at 21:00 Levothyroxine Sodium (Synthroid) 150 mcg BEFORE BREAKFAST PO Last administered on 01/29/19 06:31; Admin Dose 150 MCG; Start 01/22/19 at 07:00 Sacubitril/ Valsartan (Entresto 24 Mg-26 Mg) 1 tab BID PO Last administered on 01/29/19 09:39; Admin Dose 1 TAB; Start 01/21/19 at 21:00 Atorvastatin Calcium (Lipitor) 40 mg DAILY@21 PO Last administered on 01/28/19 20:50; Admin Dose 40 MG; Start 01/21/19 at 21:00 IV Flush (NS 3 ml) 3 ml PER PROTOCOL IV ; Start 01/21/19 at 15:00 Ondansetron HCl (Zofran Inj) 4 mg Q6H PRN IV NAUSEA/VOMITING; Start 01/21/19 at 15:00 Acetaminophen (Tylenol Tab) 650 mg Q6H PRN PO .PAIN 1-3 OR TEMP Last administered on 01/25/19 21:56; Admin Dose 650 MG; Start 01/21/19 at 15:00 Docusate Sodium (Colace) 100 mg Q12H PRN PO .CONSTIPATION Last administered on 01/29/19 02:25; Admin Dose 100 MG; Start 01/21/19 at 15:00 Famotidine (Pepcid) 20 mg Q12 PO Last administered on 01/29/19 09:39; Admin Dose 20 MG; Start 01/21/19 at 21:00 Levalbuterol (Xopenex Neb) 1.25 mg Q6H RESP THERAPY HHN Last administered on 01/29/19 14:07; Admin Dose 1.25 MG; Start 01/21/19 at 15:30 Levalbuterol (Xopenex Neb) 1.25 mg Q4H RESP THERAPY PRN HHN sob/wheezing; Start 01/21/19 at 15:30 Meropenem/Sodium Chloride 50 ml @ 100 mls/hr Q12 IVPB Last administered on 01/29/19 09:42; Admin Dose 100 MLS/HR; Start 01/23/19 at 10:30 Spironolactone (Aldactone) 25 mg DAILY PO Last administered on 01/29/19 09:39; Admin Dose 25 MG; Start 01/25/19 at 16:00 Bumetanide (Bumex) 1 mg BID DIURETICS PO Last administered on 01/29/19 06:29; Admin Dose 1 MG; Start 01/26/19 at 18:00 Morphine Sulfate (morphine) 2 mg Q2 PRN IV pain level>4 Last administered on 01/29/19 14:35; Admin Dose 2 MG; Start 01/29/19 at 14:30 MARISABEL CROCKER MD Jan 29, 2019 15:12
--- NOTE | 2019-01-29 16:46 | CONS ---
Assessment/Plan Cardiology NYHA: III Heart Failure Type: Acute on Chronic Heart Failure Type: Systolic Assessment/Plan Hospital Course (Demo Recall) Preoperative cardiac risk stratification S/P Bladder surgery 01/27/19 Acute decompensated systolic congestive heart failure, improved Cardiomyopathy with left ventricular ejection fraction 30% Possible urinary retention with hematuria with history of bladder cancer Paroxysmal atrial fibrillation, currently sinus rhythm-not on anticoagulation secondary to bladder tumor Moderate to severe aortic valve stenosis COPD Hypertension CKD NSVT Bradycardia -Continue diuretics as renal function blood pressure permits -No AVN blocking agents secondary to bradycardia -Continue Entresto as tolerated Consultation Date/Type/Reason Admit Date/Time Jan 21, 2019 at 15:23 Initial Consult Date 01/21/19 Type of Consult Cardiology Requesting Provider: MAYELIN BARRETT Date/Time of Note DATE: 01/29/19 TIME: 16:45 24 HR Interval Summary Free Text/Dictation Denies shortness of breath Exam/Review of Systems Vital Signs Vitals Vital Signs Date Temp Pulse Resp B/P (MAP) Pulse Ox O2 O2 Flow FiO2 Time Delivery Rate 01/29/19 98.4 58 18 145/64 93 Nasal 3.0 16:00 (91) Cannula Intake and Output 01/28/19 01/28/19 01/29/19 1515:00 23:00 07:00 IntakeIntake Total 8120 ml 8980 ml 5550 ml OutputOutput Total 05751 ml 4105 ml 1795 ml BalanceBalance -2330 ml 4875 ml 3755 ml Exam Constitutional: alert, oriented (Undergoing the bladder treatment, family bedside) Head: normocephalic Respiratory: other (Coarse breath sounds bilaterally, no wheezing) Cardiovascular: regular rate and rhythm (S1-S2 heard) Gastrointestinal: soft, non-tender, bowel sounds Extremities: edema Labs Result Diagram: 01/29/19 0426 01/29/19 0426 Results 24hrs Laboratory Tests Test 01/29/19 04:26 White Blood Count 10.1 Red Blood Count 3.91 L Hemoglobin 11.2 L Hematocrit 35.7 L Mean Corpuscular Volume 91.3 Mean Corpuscular Hemoglobin 28.6 L Mean Corpuscular Hemoglobin Concent 31.4 L Red Cell Distribution Width 15.9 H Platelet Count 166 Mean Platelet Volume 11.6 H Immature Granulocytes % 0.600 H Neutrophils % 69.7 Lymphocytes % 11.4 L Monocytes % 13.4 H Eosinophils % 4.4 Basophils % 0.5 Nucleated Red Blood Cells % 0.0 Immature Granulocytes # 0.060 H Neutrophils # 7.1 Lymphocytes # 1.2 Monocytes # 1.4 H Eosinophils # 0.5 Basophils # 0.1 Nucleated Red Blood Cells # 0.0 Sodium Level 139 Potassium Level 4.2 Chloride Level 100 Carbon Dioxide Level 29 Anion Gap 10 Blood Urea Nitrogen 27 H Creatinine 1.34 H Est Glomerular Filtrat Rate mL/min Glucose Level 116 Calcium Level 8.5 Magnesium Level 1.8 Medications Medications Current Medications Isosorbide Dinitrate (Isordil) 30 mg BID PO Last administered on 01/29/19 09:40; Admin Dose 30 MG; Start 01/21/19 at 21:00 Levothyroxine Sodium (Synthroid) 150 mcg BEFORE BREAKFAST PO Last administered on 01/29/19 06:31; Admin Dose 150 MCG; Start 01/22/19 at 07:00 Sacubitril/ Valsartan (Entresto 24 Mg-26 Mg) 1 tab BID PO Last administered on 01/29/19 09:39; Admin Dose 1 TAB; Start 01/21/19 at 21:00 Atorvastatin Calcium (Lipitor) 40 mg DAILY@21 PO Last administered on 01/28/19 20:50; Admin Dose 40 MG; Start 01/21/19 at 21:00 IV Flush (NS 3 ml) 3 ml PER PROTOCOL IV ; Start 01/21/19 at 15:00 Ondansetron HCl (Zofran Inj) 4 mg Q6H PRN IV NAUSEA/VOMITING; Start 01/21/19 at 15:00 Acetaminophen (Tylenol Tab) 650 mg Q6H PRN PO .PAIN 1-3 OR TEMP Last administered on 01/25/19 21:56; Admin Dose 650 MG; Start 01/21/19 at 15:00 Docusate Sodium (Colace) 100 mg Q12H PRN PO .CONSTIPATION Last administered on 01/29/19 02:25; Admin Dose 100 MG; Start 01/21/19 at 15:00 Famotidine (Pepcid) 20 mg Q12 PO Last administered on 01/29/19 09:39; Admin Dose 20 MG; Start 01/21/19 at 21:00 Levalbuterol (Xopenex Neb) 1.25 mg Q6H RESP THERAPY HHN Last administered on 01/29/19 14:07; Admin Dose 1.25 MG; Start 01/21/19 at 15:30 Levalbuterol (Xopenex Neb) 1.25 mg Q4H RESP THERAPY PRN HHN sob/wheezing; Start 01/21/19 at 15:30 Meropenem/Sodium Chloride 50 ml @ 100 mls/hr Q12 IVPB Last administered on 01/29/19 09:42; Admin Dose 100 MLS/HR; Start 01/23/19 at 10:30 Spironolactone (Aldactone) 25 mg DAILY PO Last administered on 01/29/19 09:39; Admin Dose 25 MG; Start 01/25/19 at 16:00 Bumetanide (Bumex) 1 mg BID DIURETICS PO Last administered on 01/29/19 06:29; Admin Dose 1 MG; Start 01/26/19 at 18:00 Morphine Sulfate (morphine) 2 mg Q2 PRN IV pain level>4 Last administered on 01/29/19 14:35; Admin Dose 2 MG; Start 01/29/19 at 14:30 Quang Robles DO Jan 29, 2019 16:46
[2019-01-29] MEDS: ATORVASTATIN 40 MG TAB PO SCH (21:01)
[2019-01-29] MEDS: ACETAMINOPHEN 325 MG TAB PO PRN (21:07)
[2019-01-30] VITALS (11 sets, daily range): BP systolic 102–142; BP diastolic 51–79; PULSE 47–73; RESP 16–18
[2019-01-30] MEDS: LEVALBUTEROL (NEB) 1.25 MG/0.5 ML AMP HHN SCH ×4 (02:31→19:18)
[2019-01-30] MEDS: morphine 2 MG INJ IV PRN ×3 (06:01→22:43)
[2019-01-30] MEDS: BUMETANIDE 1 MG TAB PO SCH ×2 (07:13→17:30)
[2019-01-30] MEDS: LEVOTHYROXINE 150 MCG TAB PO SCH (07:13)
[2019-01-30] MEDS: FAMOTIDINE 20 MG TAB PO SCH ×2 (08:30→22:42)
[2019-01-30] MEDS: MEROPENEM 1 GM/50ML(PMX) 50 ML IVPB SCH ×2 (08:30→22:39)
[2019-01-30] MEDS: SACUBITRIL/VALSARTAN (24mg-26mg) TABLET PO SCH ×2 (08:30→22:42)
[2019-01-30] MEDS: SPIRONOLACTONE 25 MG TAB PO SCH (08:30)
[2019-01-30] MEDS: ISOSORBIDE DINITRATE 10 MG TAB PO SCH ×2 (08:30→22:42)
--- NOTE | 2019-01-30 12:19 | CONS ---
Assessment/Plan Cardiology NYHA: III Heart Failure Type: Acute on Chronic Heart Failure Type: Systolic Assessment/Plan Hospital Course (Demo Recall) Preoperative cardiac risk stratification S/P Bladder surgery 01/27/19 Acute decompensated systolic congestive heart failure, improved Cardiomyopathy with left ventricular ejection fraction 30% Possible urinary retention with hematuria with history of bladder cancer Paroxysmal atrial fibrillation, currently sinus rhythm-not on anticoagulation secondary to bladder tumor Moderate to severe aortic valve stenosis COPD Hypertension CKD NSVT Bradycardia -Continue diuretics as renal function blood pressure permits -No AVN blocking agents secondary to bradycardia -Continue Entresto as tolerated -Continue maintenance diuretics and titrate as needed Consultation Date/Type/Reason Admit Date/Time Jan 21, 2019 at 15:23 Initial Consult Date 01/21/19 Type of Consult Cardiology Requesting Provider: MAYELIN BARRETT Date/Time of Note DATE: 01/30/19 TIME: 12:18 24 HR Interval Summary Free Text/Dictation No shortness of breath, no palpitations, no chest pain Exam/Review of Systems Vital Signs Vitals Vital Signs Date Temp Pulse Resp B/P (MAP) Pulse Ox O2 O2 Flow FiO2 Time Delivery Rate 01/30/19 73 12:08 01/30/19 97.5 16 109/53 97 Nasal 5.0 11:33 (71) Cannula Intake and Output 01/29/19 01/29/19 01/30/19 1515:00 23:00 07:00 IntakeIntake Total 540 ml 500 ml 250 ml OutputOutput Total 1000 ml 800 ml 400 ml BalanceBalance -460 ml -300 ml -150 ml Exam Constitutional: alert, oriented (Following commands, no apparent distress) Head: normocephalic Respiratory: other (Coarse breath sounds bilaterally, no wheezing) Cardiovascular: regular rate and rhythm (S1-S2 heard) Gastrointestinal: soft, non-tender, bowel sounds Extremities: edema (Trace) Labs Result Diagram: 01/30/19 0551 01/30/19 0551 Results 24hrs Laboratory Tests Test 01/30/19 05:51 White Blood Count 8.8 Red Blood Count 3.79 L Hemoglobin 10.6 L Hematocrit 33.8 L Mean Corpuscular Volume 89.2 Mean Corpuscular Hemoglobin 28.0 L Mean Corpuscular Hemoglobin Concent 31.4 L Red Cell Distribution Width 15.4 H Platelet Count 166 Mean Platelet Volume 11.5 H Immature Granulocytes % 0.300 Neutrophils % 67.8 Lymphocytes % 13.0 L Monocytes % 11.8 H Eosinophils % 6.5 Basophils % 0.6 Nucleated Red Blood Cells % 0.0 Immature Granulocytes # 0.030 Neutrophils # 5.9 Lymphocytes # 1.1 Monocytes # 1.0 H Eosinophils # 0.6 H Basophils # 0.1 Nucleated Red Blood Cells # 0.0 Sodium Level 139 Potassium Level 4.0 Chloride Level 102 Carbon Dioxide Level 32 H Anion Gap 5 Blood Urea Nitrogen 23 H Creatinine 1.21 Est Glomerular Filtrat Rate mL/min Glucose Level 105 Calcium Level 8.5 Medications Medications Current Medications Isosorbide Dinitrate (Isordil) 30 mg BID PO Last administered on 01/30/19 08:30; Admin Dose 30 MG; Start 01/21/19 at 21:00 Levothyroxine Sodium (Synthroid) 150 mcg BEFORE BREAKFAST PO Last administered on 01/30/19 07:13; Admin Dose 150 MCG; Start 01/22/19 at 07:00 Sacubitril/ Valsartan (Entresto 24 Mg-26 Mg) 1 tab BID PO Last administered on 01/30/19 08:30; Admin Dose 1 TAB; Start 01/21/19 at 21:00 Atorvastatin Calcium (Lipitor) 40 mg DAILY@21 PO Last administered on 01/29/19 21:01; Admin Dose 40 MG; Start 01/21/19 at 21:00 IV Flush (NS 3 ml) 3 ml PER PROTOCOL IV ; Start 01/21/19 at 15:00 Ondansetron HCl (Zofran Inj) 4 mg Q6H PRN IV NAUSEA/VOMITING; Start 01/21/19 at 15:00 Acetaminophen (Tylenol Tab) 650 mg Q6H PRN PO .PAIN 1-3 OR TEMP Last administered on 01/29/19 21:07; Admin Dose 650 MG; Start 01/21/19 at 15:00 Docusate Sodium (Colace) 100 mg Q12H PRN PO .CONSTIPATION Last administered on 01/29/19 02:25; Admin Dose 100 MG; Start 01/21/19 at 15:00 Famotidine (Pepcid) 20 mg Q12 PO Last administered on 01/30/19 08:30; Admin Dose 20 MG; Start 01/21/19 at 21:00 Levalbuterol (Xopenex Neb) 1.25 mg Q6H RESP THERAPY HHN Last administered on 01/30/19 08:39; Admin Dose 1.25 MG; Start 01/21/19 at 15:30 Levalbuterol (Xopenex Neb) 1.25 mg Q4H RESP THERAPY PRN HHN sob/wheezing; Start 01/21/19 at 15:30 Meropenem/Sodium Chloride 50 ml @ 100 mls/hr Q12 IVPB Last administered on 01/30/19 08:30; Admin Dose 100 MLS/HR; Start 01/23/19 at 10:30 Spironolactone (Aldactone) 25 mg DAILY PO Last administered on 01/30/19 08:30; Admin Dose 25 MG; Start 01/25/19 at 16:00 Bumetanide (Bumex) 1 mg BID DIURETICS PO Last administered on 01/30/19 07:13; Admin Dose 1 MG; Start 01/26/19 at 18:00 Morphine Sulfate (morphine) 2 mg Q2 PRN IV pain level>4 Last administered on 01/30/19 08:30; Admin Dose 2 MG; Start 01/29/19 at 14:30 Quang Robles DO Jan 30, 2019 12:19
--- NOTE | 2019-01-30 14:18 | PN ---
Date/Time of Note Date/Time of Note DATE: 01/30/19 TIME: 14:15 Assessment/Plan VTE Prophylaxis Risk score (from Ns)>0 risk: 9 SCD applied (from [facility] [place]): Yes Pharmacological prophylaxis: other Pharm contraindication: bleeding Lines/Catheters IV Catheter Type (from [facility]): Saline Lock Urinary Cath still in place: Yes ([address] [facility],) Reason Cath still needed: other (indicate) Assessment/Plan Assessment/Plan 1. s/p transurethral resection of prostate and bladder tumor on 01/27/2019, continue bladder irrigation, follow up with urology 2. UTI, with ESBL E. coli, on meropenem 3. CHF, systolic with LVEF 20%, acute on chronic, on bumex and aldactone, no beta avis due to bradycardia 4. Severe aortic stenosis with MAUREEN 0.8 5. Pulmonary hypertension, PASP 54 mmHg 6. Iron deficiency anemia, stable H/H 7. Hypothyroidism, on synthroid 8. Acute kidney injury, due to obstructive uropathy, improving after the urology procedure 9. 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 Result Diagram: 01/30/19 0551 01/30/19 0551 Results 24hrs Laboratory Tests Test 01/30/19 05:51 White Blood Count 8.8 Red Blood Count 3.79 L Hemoglobin 10.6 L Hematocrit 33.8 L Mean Corpuscular Volume 89.2 Mean Corpuscular Hemoglobin 28.0 L Mean Corpuscular Hemoglobin Concent 31.4 L Red Cell Distribution Width 15.4 H Platelet Count 166 Mean Platelet Volume 11.5 H Immature Granulocytes % 0.300 Neutrophils % 67.8 Lymphocytes % 13.0 L Monocytes % 11.8 H Eosinophils % 6.5 Basophils % 0.6 Nucleated Red Blood Cells % 0.0 Immature Granulocytes # 0.030 Neutrophils # 5.9 Lymphocytes # 1.1 Monocytes # 1.0 H Eosinophils # 0.6 H Basophils # 0.1 Nucleated Red Blood Cells # 0.0 Sodium Level 139 Potassium Level 4.0 Chloride Level 102 Carbon Dioxide Level 32 H Anion Gap 5 Blood Urea Nitrogen 23 H Creatinine 1.21 Est Glomerular Filtrat Rate mL/min Glucose Level 105 Calcium Level 8.5 Subjective 24 Hr Interval Summary Free Text/Dictation no distress Exam/Review of Systems Exam Vitals Vital Signs Date Temp Pulse Resp B/P (MAP) Pulse Ox O2 O2 Flow FiO2 Time Delivery Rate 01/30/19 58 20 93 Nasal 3.0 14:09 Cannula 01/30/19 97.5 109/53 11:33 (71) Intake and Output 01/29/19 01/29/19 01/30/19 1515:00 23:00 07:00 IntakeIntake Total 540 ml 500 ml 250 ml OutputOutput Total 1000 ml 800 ml 400 ml BalanceBalance -460 ml -300 ml -150 ml Constitutional: alert, well developed Head: normocephalic, atraumatic Eyes: nl conjunctiva, EOMI, nl lids, PERRL ENMT: nl external ears & nose, nl lips & teeth, nl nasal mucosa & septum Neck: supple, non-tender Respiratory: clear to auscultation, normal air movement; No congested cough, No crackles/rales, No diminished breath sounds, No intercostal retraction, No labored breathing, No respirations, No tactile fremitus, No wheezing, No other Cardiovascular: regular rate and rhythm, nl pulses; No bruits, No diastolic murmur, No edema, No gallop, No irregular rhythm, No jugular venous distention (JVD), No murmurs/extra sounds, No rub, No systolic murmur, No S3, No S4, No other Gastrointestinal: soft, nl liver, spleen, non-tender Musculoskeletal: nl extremities to inspection Extremities: normal pulses; No calf tenderness, No cyanosis, No clubbing, No edema, No pitting pedal edema, No palpable cord, No tenderness, No other Neurological: [employer] II-XII intact, nl mental status, nl speech, nl strength Results Results 24hrs Laboratory Tests Test 01/30/19 05:51 White Blood Count 8.8 Red Blood Count 3.79 L Hemoglobin 10.6 L Hematocrit 33.8 L Mean Corpuscular Volume 89.2 Mean Corpuscular Hemoglobin 28.0 L Mean Corpuscular Hemoglobin Concent 31.4 L Red Cell Distribution Width 15.4 H Platelet Count 166 Mean Platelet Volume 11.5 H Immature Granulocytes % 0.300 Neutrophils % 67.8 Lymphocytes % 13.0 L Monocytes % 11.8 H Eosinophils % 6.5 Basophils % 0.6 Nucleated Red Blood Cells % 0.0 Immature Granulocytes # 0.030 Neutrophils # 5.9 Lymphocytes # 1.1 Monocytes # 1.0 H Eosinophils # 0.6 H Basophils # 0.1 Nucleated Red Blood Cells # 0.0 Sodium Level 139 Potassium Level 4.0 Chloride Level 102 Carbon Dioxide Level 32 H Anion Gap 5 Blood Urea Nitrogen 23 H Creatinine 1.21 Est Glomerular Filtrat Rate mL/min Glucose Level 105 Calcium Level 8.5 Medications Medication Current Medications Isosorbide Dinitrate (Isordil) 30 mg BID PO Last administered on 01/30/19 08:30; Admin Dose 30 MG; Start 01/21/19 at 21:00 Levothyroxine Sodium (Synthroid) 150 mcg BEFORE BREAKFAST PO Last administered on 01/30/19 07:13; Admin Dose 150 MCG; Start 01/22/19 at 07:00 Sacubitril/ Valsartan (Entresto 24 Mg-26 Mg) 1 tab BID PO Last administered on 01/30/19 08:30; Admin Dose 1 TAB; Start 01/21/19 at 21:00 Atorvastatin Calcium (Lipitor) 40 mg DAILY@21 PO Last administered on 01/29/19 21:01; Admin Dose 40 MG; Start 01/21/19 at 21:00 IV Flush (NS 3 ml) 3 ml PER PROTOCOL IV ; Start 01/21/19 at 15:00 Ondansetron HCl (Zofran Inj) 4 mg Q6H PRN IV NAUSEA/VOMITING; Start 01/21/19 at 15:00 Acetaminophen (Tylenol Tab) 650 mg Q6H PRN PO .PAIN 1-3 OR TEMP Last administered on 01/29/19 21:07; Admin Dose 650 MG; Start 01/21/19 at 15:00 Docusate Sodium (Colace) 100 mg Q12H PRN PO .CONSTIPATION Last administered on 01/29/19 02:25; Admin Dose 100 MG; Start 01/21/19 at 15:00 Famotidine (Pepcid) 20 mg Q12 PO Last administered on 01/30/19 08:30; Admin Dose 20 MG; Start 01/21/19 at 21:00 Levalbuterol (Xopenex Neb) 1.25 mg Q6H RESP THERAPY HHN Last administered on 01/30/19 14:07; Admin Dose 1.25 MG; Start 01/21/19 at 15:30 Levalbuterol (Xopenex Neb) 1.25 mg Q4H RESP THERAPY PRN HHN sob/wheezing; Start 01/21/19 at 15:30 Meropenem/Sodium Chloride 50 ml @ 100 mls/hr Q12 IVPB Last administered on 01/30/19 08:30; Admin Dose 100 MLS/HR; Start 01/23/19 at 10:30 Spironolactone (Aldactone) 25 mg DAILY PO Last administered on 01/30/19 08:30; Admin Dose 25 MG; Start 01/25/19 at 16:00 Bumetanide (Bumex) 1 mg BID DIURETICS PO Last administered on 01/30/19 07:13; Admin Dose 1 MG; Start 01/26/19 at 18:00 Morphine Sulfate (morphine) 2 mg Q2 PRN IV pain level>4 Last administered on 01/30/19 08:30; Admin Dose 2 MG; Start 01/29/19 at 14:30 MARISABEL CROCKER MD Jan 30, 2019 14:18
[2019-01-30] MEDS: DOCUSATE SODIUM 100 MG CAP PO PRN (19:15)
--- NOTE | 2019-01-30 21:16 | PN ---
Date/Time of Note Date/Time of Note DATE: 01/30/19 TIME: 21:11 Assessment/Plan Lines/Catheters IV Catheter Type (from [facility] Saline Lock Bailey in Place (from [facility]): Yes ([address],) Assessment/Plan Chief Complaint/Hosp Course 78-year-old male underwent transurethral resection of prostate and bladder tumor with insertion of bilateral ureteral catheters and dorsal slit on 01/27/2019. He is doing well. His renal function has improved and both ureteral catheters are draining well. The pathology report came back today and it showed: MICROSCOPIC DIAGNOSIS: A-Prostatic fossa: -- Papillary urothelial carcinoma, high grade. -- There is no definite invasion of lamina propria. -- Muscularis propria is not present in this biopsy. B-Bladder and prostate tumor, TUR: -- Invasive urothelial carcinoma, high grade. -- There is extensive invasion of lamina propria and focal invasion of muscularis propria. -- Urothelial carcinoma in situ. -- Fragments of benign prostatic parenchyma. I will keep these catheters in place for another 4 days as well as a Bailey catheter with the bladder irrigation then I will discontinue one catheter at a time and after that discontinue the Bailey catheter. I did discuss with his daughter the pathology report and gave her a copy of it. 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 Usually this would require radical cystectomy. He is not a candidate for that because of his medical condition. Other option to consider would be radiation therapy and also have an oncology consultation. Also we will do CT scan of the abdomen and pelvis to see if there is any metastatic lesions. Subjective 24 Hr Interval Summary The patient is awake and alert and appears to be very comfortable. His family is at his bedside. Exam/Review of Systems Vital Signs Vitals Vital Signs Date Temp Pulse Resp B/P (MAP) Pulse Ox O2 O2 Flow FiO2 Time Delivery Rate 01/30/19 97.7 56 18 122/79 96 20:00 (93) 01/30/19 3.0 19:19 01/30/19 Nasal 19:19 Cannula Intake and Output 01/29/19 01/29/19 01/30/19 1414:59 22:59 06:59 IntakeIntake Total 540 ml 500 ml OutputOutput Total 1000 ml 900 ml BalanceBalance -460 ml -400 ml Exam Free Text/Dictation Both ureteral catheters as are draining well and clear urine. The bladder irrigation return is also clear. His renal function is improving and his hemoglobin is stable. Results Result Diagram: 01/30/19 0551 01/30/19 0551 JOSE OCAMPO MD Jan 30, 2019 21:16
[2019-01-30] MEDS: ATORVASTATIN 40 MG TAB PO SCH (22:42)
[2019-01-31] VITALS (11 sets, daily range): BP systolic 90–174; BP diastolic 51–79; PULSE 50–79; RESP 16–22
[2019-01-31] MEDS: LEVALBUTEROL (NEB) 1.25 MG/0.5 ML AMP HHN SCH ×4 (01:10→19:42)
[2019-01-31] MEDS: morphine 2 MG INJ IV PRN ×2 (04:30→23:53)
[2019-01-31] MEDS: BUMETANIDE 1 MG TAB PO SCH ×2 (05:49→18:26)
[2019-01-31] MEDS: LEVOTHYROXINE 150 MCG TAB PO SCH (06:01)
[2019-01-31] MEDS: MEROPENEM 1 GM/50ML(PMX) 50 ML IVPB SCH ×2 (09:55→21:10)
[2019-01-31] MEDS: FAMOTIDINE 20 MG TAB PO SCH ×2 (09:55→21:10)
[2019-01-31] MEDS: SPIRONOLACTONE 25 MG TAB PO SCH (09:55)
[2019-01-31] MEDS: ISOSORBIDE DINITRATE 10 MG TAB PO SCH ×2 (09:56→21:10)
[2019-01-31] MEDS: SACUBITRIL/VALSARTAN (24mg-26mg) TABLET PO SCH ×2 (09:56→21:10)
--- NOTE | 2019-01-31 11:05 | CONS ---
Assessment/Plan Cardiology NYHA: III Heart Failure Type: Acute on Chronic Heart Failure Type: Systolic Assessment/Plan Assessment/Plan (Daily) Assessment S/P Bladder surgery 01/27/19 Acute decompensated systolic congestive heart failure, improved Cardiomyopathy with left ventricular ejection fraction 30% Possible urinary retention with hematuria with history of bladder cancer Paroxysmal atrial fibrillation, currently sinus rhythm-not on anticoagulation secondary to bladder tumor Moderate to severe aortic valve stenosis COPD Hypertension CKD NSVT Bradycardia Plan: avoid AV jacy blockers no change in cardiac regimen Consultation Date/Type/Reason Admit Date/Time Jan 21, 2019 at 15:23 Initial Consult Date 01/21/19 Type of Consult Cardiology Requesting Provider: MAYELIN BARRETT Date/Time of Note DATE: 01/31/19 TIME: 11:04 24 HR Interval Summary Free Text/Dictation no sob, no chest pain Detailed Summary Respiratory: no complaints Cardiovascular: no complaints Gastrointestinal: no complaints Musculoskeletal: no complaints Skin: no complaints Neurologic: no complaints Exam/Review of Systems Vital Signs Vitals Vital Signs Date Temp Pulse Resp B/P (MAP) Pulse Ox O2 O2 Flow FiO2 Time Delivery Rate 01/31/19 93 3.0 09:28 01/31/19 56 20 Nasal 09:27 Cannula 01/31/19 98.7 118/58 08:06 (78) Intake and Output 01/30/19 01/30/19 01/31/19 1515:00 23:00 07:00 IntakeIntake Total 450 ml OutputOutput Total 2500 ml 725 ml BalanceBalance -2050 ml -725 ml Exam Constitutional: frail Head: normocephalic, atraumatic Neck: supple Respiratory: clear to auscultation Cardiovascular: regular rate and rhythm Gastrointestinal: soft Musculoskeletal: nl extremities to inspection Labs Result Diagram: 01/30/19 0551 01/30/19 0551 Medications Medications Current Medications Isosorbide Dinitrate (Isordil) 30 mg BID PO Last administered on 01/31/19at 09:56; Admin Dose 30 MG; Start 01/21/19 at 21:00 Levothyroxine Sodium (Synthroid) 150 mcg BEFORE BREAKFAST PO Last administered on 01/31/19at 06:01; Admin Dose 150 MCG; Start 01/22/19 at 07:00 Sacubitril/ Valsartan (Entresto 24 Mg-26 Mg) 1 tab BID PO Last administered on 01/31/19 09:56; Admin Dose 1 TAB; Start 01/21/19 at 21:00 Atorvastatin Calcium (Lipitor) 40 mg DAILY@21 PO Last administered on 01/30/19 22:42; Admin Dose 40 MG; Start 01/21/19 at 21:00 IV Flush (NS 3 ml) 3 ml PER PROTOCOL IV ; Start 01/21/19 at 15:00 Ondansetron HCl (Zofran Inj) 4 mg Q6H PRN IV NAUSEA/VOMITING; Start 01/21/19 at 15:00 Acetaminophen (Tylenol Tab) 650 mg Q6H PRN PO .PAIN 1-3 OR TEMP Last administered on 01/29/19 21:07; Admin Dose 650 MG; Start 01/21/19 at 15:00 Docusate Sodium (Colace) 100 mg Q12H PRN PO .CONSTIPATION Last administered on 01/30/19 19:15; Admin Dose 100 MG; Start 01/21/19 at 15:00 Famotidine (Pepcid) 20 mg Q12 PO Last administered on 01/31/19 09:55; Admin Dose 20 MG; Start 01/21/19 at 21:00 Levalbuterol (Xopenex Neb) 1.25 mg Q6H RESP THERAPY HHN Last administered on 01/31/19 09:22; Admin Dose 1.25 MG; Start 01/21/19 at 15:30 Levalbuterol (Xopenex Neb) 1.25 mg Q4H RESP THERAPY PRN HHN sob/wheezing; Start 01/21/19 at 15:30 Meropenem/Sodium Chloride 50 ml @ 100 mls/hr Q12 IVPB Last administered on 01/31/19 09:55; Admin Dose 100 MLS/HR; Start 01/23/19 at 10:30 Spironolactone (Aldactone) 25 mg DAILY PO Last administered on 01/31/19 09:55; Admin Dose 25 MG; Start 01/25/19 at 16:00 Bumetanide (Bumex) 1 mg BID DIURETICS PO Last administered on 01/31/19 05:49; Admin Dose 1 MG; Start 01/26/19 at 18:00 Morphine Sulfate (morphine) 2 mg Q2 PRN IV pain level>4 Last administered on 01/31/19at 04:30; Admin Dose 2 MG; Start 01/29/19 at 14:30 HARISH POOLE MD Jan 31, 2019 11:05
--- NOTE | 2019-01-31 13:25 | PN ---
Date/Time of Note Date/Time of Note DATE: 01/31/19 TIME: 13:23 Assessment/Plan VTE Prophylaxis Risk score (from Ns)>0 risk: 13 SCD applied (from Ns): Yes Pharmacological prophylaxis: heparin Lines/Catheters IV Catheter Type (from Nrsg): Saline Lock Urinary Cath still in place: Yes ([address] bailey,) Reason Cath still needed: urinary retention Assessment/Plan Problems: (1) Urothelial carcinoma of bladder Status: Chronic Comment: These see the notes from Dr. Alcala. I would agreement about getting elective hematology oncology consultation on Saturday for consideration of possible radiation therapy (2) Aortic stenosis, severe Status: Chronic Comment: Noted and compensated at this time (3) Systolic and diastolic CHF, acute on chronic Status: Chronic Comment: Adequate control at this time (4) Acquired hypothyroidism Status: Chronic Comment: Table on replacement therapy (5) Paroxysmal atrial fibrillation Status: Chronic Comment: Noted. (6) Iron deficiency anemia due to chronic blood loss Status: Chronic Comment: Improving with replacement Result Diagram: 01/30/19 0551 01/30/19 0551 Subjective 24 Hr Interval Summary Free Text/Dictation Via his son reports he is doing well. Constitutional: no complaints Respiratory: no complaints Cardiovascular: no complaints Gastrointestinal: no complaints Exam/Review of Systems Exam Vitals Vital Signs Date Temp Pulse Resp B/P (MAP) Pulse Ox O2 O2 Flow FiO2 Time Delivery Rate 01/31/19 98.7 79 18 174/79 97 Room Air 12:10 (110) 01/31/19 3.0 09:28 Intake and Output 01/30/19 01/30/19 01/31/19 1515:00 23:00 07:00 IntakeIntake Total 450 ml OutputOutput Total 2500 ml 725 ml BalanceBalance -2050 ml -725 ml Constitutional: alert, oriented Respiratory: clear to auscultation, normal air movement Cardiovascular: regular rate and rhythm, nl pulses, S3 Medications Medication Current Medications Isosorbide Dinitrate (Isordil) 30 mg BID PO Last administered on 01/31/19at 09:56; Admin Dose 30 MG; Start 01/21/19 at 21:00 Levothyroxine Sodium (Synthroid) 150 mcg BEFORE BREAKFAST PO Last administered on 01/31/19at 06:01; Admin Dose 150 MCG; Start 01/22/19 at 07:00 Sacubitril/ Valsartan (Entresto 24 Mg-26 Mg) 1 tab BID PO Last administered on 01/31/19 09:56; Admin Dose 1 TAB; Start 01/21/19 at 21:00 Atorvastatin Calcium (Lipitor) 40 mg DAILY@21 PO Last administered on 01/30/19 22:42; Admin Dose 40 MG; Start 01/21/19 at 21:00 IV Flush (NS 3 ml) 3 ml PER PROTOCOL IV ; Start 01/21/19 at 15:00 Ondansetron HCl (Zofran Inj) 4 mg Q6H PRN IV NAUSEA/VOMITING; Start 01/21/19 at 15:00 Acetaminophen (Tylenol Tab) 650 mg Q6H PRN PO .PAIN 1-3 OR TEMP Last administered on 01/29/19 21:07; Admin Dose 650 MG; Start 01/21/19 at 15:00 Docusate Sodium (Colace) 100 mg Q12H PRN PO .CONSTIPATION Last administered on 01/30/19 19:15; Admin Dose 100 MG; Start 01/21/19 at 15:00 Famotidine (Pepcid) 20 mg Q12 PO Last administered on 01/31/19 09:55; Admin Dose 20 MG; Start 01/21/19 at 21:00 Levalbuterol (Xopenex Neb) 1.25 mg Q6H RESP THERAPY HHN Last administered on 01/31/19 09:22; Admin Dose 1.25 MG; Start 01/21/19 at 15:30 Levalbuterol (Xopenex Neb) 1.25 mg Q4H RESP THERAPY PRN HHN sob/wheezing; Start 01/21/19 at 15:30 Meropenem/Sodium Chloride 50 ml @ 100 mls/hr Q12 IVPB Last administered on 01/31/19 09:55; Admin Dose 100 MLS/HR; Start 01/23/19 at 10:30 Spironolactone (Aldactone) 25 mg DAILY PO Last administered on 01/31/19 09:55; Admin Dose 25 MG; Start 01/25/19 at 16:00 Bumetanide (Bumex) 1 mg BID DIURETICS PO Last administered on 01/31/19 05:49; Admin Dose 1 MG; Start 01/26/19 at 18:00 Morphine Sulfate (morphine) 2 mg Q2 PRN IV pain level>4 Last administered on 01/31/19at 04:30; Admin Dose 2 MG; Start 01/29/19 at 14:30 LEORA HUYNH MD Jan 31, 2019 13:25
--- NOTE | 2019-01-31 16:39 | PN ---
Date/Time of Note Date/Time of Note DATE: 01/31/19 TIME: 16:37 Assessment/Plan Lines/Catheters IV Catheter Type (from [facility]): Saline Lock Bailey in Place (from [facility]): Yes ([address] bailey,) Assessment/Plan Chief Complaint/Hosp Course 78-year-old male underwent transurethral resection of prostate and bladder tumor with insertion of bilateral ureteral catheters and dorsal slit on 01/27/2019. He is doing well. His renal function has improved and both ureteral catheters are draining well. The pathology report came back today and it showed: MICROSCOPIC DIAGNOSIS: A-Prostatic fossa: -- Papillary urothelial carcinoma, high grade. -- There is no definite invasion of lamina propria. -- Muscularis propria is not present in this biopsy. B-Bladder and prostate tumor, TUR: -- Invasive urothelial carcinoma, high grade. -- There is extensive invasion of lamina propria and focal invasion of muscularis propria. -- Urothelial carcinoma in situ. -- Fragments of benign prostatic parenchyma. I will keep these catheters in place for another 3 days as well as a Bailey catheter with the bladder irrigation then I will discontinue one catheter at a time and after that discontinue the Bailey catheter. I did discuss yesterday with his daughter the pathology report and gave her a copy of it. 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 Usually this would require radical cystectomy. He is not a candidate for that because of his medical condition. Other option to consider would be radiation therapy and also have an oncology consultation. Also we will do CT scan of the abdomen and pelvis to see if there is any metastatic lesions. Subjective 24 Hr Interval Summary Patient is comfortable and has no complaints of pain. He is communicative and carries a conversation. Exam/Review of Systems Vital Signs Vitals Vital Signs Date Temp Pulse Resp B/P (MAP) Pulse Ox O2 O2 Flow FiO2 Time Delivery Rate 01/31/19 62 16:06 01/31/19 98.5 16 134/63 98 Nasal 14:52 (86) Cannula 01/31/19 2.0 13:50 Intake and Output 01/30/19 01/30/19 01/31/19 1515:00 23:00 07:00 IntakeIntake Total 450 ml OutputOutput Total 2500 ml 725 ml BalanceBalance -2050 ml -725 ml Exam Free Text/Dictation The Bailey catheter and the ureteral catheters are draining well and the urine is clear. Results Result Diagram: 01/30/19 0551 01/30/19 0551 JOSE OCAMPO MD Jan 31, 2019 16:39
[2019-01-31] MEDS: ATORVASTATIN 40 MG TAB PO SCH (21:10)
[2019-02-01] VITALS (8 sets, daily range): BP systolic 118–152; BP diastolic 58–70; PULSE 51–62; RESP 18–20
[2019-02-01] MEDS: LEVALBUTEROL (NEB) 1.25 MG/0.5 ML AMP HHN SCH ×4 (01:00→20:26)
[2019-02-01] MEDS: ACETAMINOPHEN 325 MG TAB PO PRN (03:40)
[2019-02-01] MEDS: BUMETANIDE 1 MG TAB PO SCH ×2 (05:57→17:15)
[2019-02-01] MEDS: LEVOTHYROXINE 150 MCG TAB PO SCH (06:01)
[2019-02-01] MEDS: ISOSORBIDE DINITRATE 10 MG TAB PO SCH ×2 (08:27→20:21)
[2019-02-01] MEDS: SACUBITRIL/VALSARTAN (24mg-26mg) TABLET PO SCH ×2 (08:27→20:18)
[2019-02-01] MEDS: MEROPENEM 1 GM/50ML(PMX) 50 ML IVPB SCH ×2 (08:27→20:10)
[2019-02-01] MEDS: FAMOTIDINE 20 MG TAB PO SCH ×2 (08:27→20:22)
[2019-02-01] MEDS: SPIRONOLACTONE 25 MG TAB PO SCH (08:27)
--- NOTE | 2019-02-01 11:40 | PN ---
Date/Time of Note Date/Time of Note DATE: 02/01/19 TIME: 11:38 Assessment/Plan VTE Prophylaxis Risk score (from Ns)>0 risk: 3 SCD applied (from Ns): Yes Pharmacological prophylaxis: heparin Lines/Catheters IV Catheter Type (from Nrs): Peripheral IV Urinary Cath still in place: Yes ([address] bailey,) Reason Cath still needed: urinary retention Assessment/Plan Problems: (1) Urothelial carcinoma of bladder Status: Chronic Comment: We will order the CT scan as suggested by urology. In addition we will order oncology consult for tomorrow. (2) Systolic and diastolic CHF, acute on chronic Status: Chronic Comment: Stable and compensated (3) Aortic stenosis, severe Status: Chronic Comment: Noted. This does alter our ability to approach some of his medical issues (4) Paroxysmal atrial fibrillation Status: Chronic Comment: Noted and stable (5) Acquired hypothyroidism Status: Chronic Comment: On replacement therapy (6) UTI due to extended-spectrum beta lactamase (ESBL) producing Escherichia coli Status: Acute Comment: On antibiotics. (7) Chronic anemia Status: Chronic Comment: Testing in process Result Diagram: 01/30/19 0551 01/30/19 0551 Subjective 24 Hr Interval Summary Free Text/Dictation Patient reports no new complaints Constitutional: no complaints Respiratory: no complaints Cardiovascular: no complaints Gastrointestinal: no complaints Exam/Review of Systems Exam Vitals Vital Signs Date Temp Pulse Resp B/P (MAP) Pulse Ox O2 O2 Flow FiO2 Time Delivery Rate 02/01/19 53 20 94 Nasal 3.0 09:47 Cannula 02/01/19 98.5 124/61 07:57 (82) Intake and Output 01/31/19 01/31/19 02/01/19 1515:00 23:00 07:00 IntakeIntake Total 250 ml 510 ml 250 ml OutputOutput Total 9475 ml 250 ml BalanceBalance 250 ml -8965 ml 0 ml Constitutional: alert, oriented Respiratory: clear to auscultation, normal air movement Cardiovascular: regular rate and rhythm, nl pulses Gastrointestinal: soft, nl liver, spleen, non-tender Medications Medication Current Medications Isosorbide Dinitrate (Isordil) 30 mg BID PO Last administered on 02/01/19at 08:27; Admin Dose 30 MG; Start 01/21/19 at 21:00 Levothyroxine Sodium (Synthroid) 150 mcg BEFORE BREAKFAST PO Last administered on 02/01/19 06:01; Admin Dose 150 MCG; Start 01/22/19 at 07:00 Sacubitril/ Valsartan (Entresto 24 Mg-26 Mg) 1 tab BID PO Last administered on 02/01/19 08:27; Admin Dose 1 TAB; Start 01/21/19 at 21:00 Atorvastatin Calcium (Lipitor) 40 mg DAILY@21 PO Last administered on 01/31/19 21:10; Admin Dose 40 MG; Start 01/21/19 at 21:00 IV Flush (NS 3 ml) 3 ml PER PROTOCOL IV ; Start 01/21/19 at 15:00 Ondansetron HCl (Zofran Inj) 4 mg Q6H PRN IV NAUSEA/VOMITING; Start 01/21/19 at 15:00 Acetaminophen (Tylenol Tab) 650 mg Q6H PRN PO .PAIN 1-3 OR TEMP Last administered on 02/01/19 03:40; Admin Dose 650 MG; Start 01/21/19 at 15:00 Docusate Sodium (Colace) 100 mg Q12H PRN PO .CONSTIPATION Last administered on 01/30/19 19:15; Admin Dose 100 MG; Start 01/21/19 at 15:00 Famotidine (Pepcid) 20 mg Q12 PO Last administered on 02/01/19 08:27; Admin Dose 20 MG; Start 01/21/19 at 21:00 Levalbuterol (Xopenex Neb) 1.25 mg Q6H RESP THERAPY HHN Last administered on 02/01/19 09:46; Admin Dose 1.25 MG; Start 01/21/19 at 15:30 Levalbuterol (Xopenex Neb) 1.25 mg Q4H RESP THERAPY PRN HHN sob/wheezing; Start 01/21/19 at 15:30 Meropenem/Sodium Chloride 50 ml @ 100 mls/hr Q12 IVPB Last administered on 02/01/19 08:27; Admin Dose 100 MLS/HR; Start 01/23/19 at 10:30; Stop 02/03/19 at 10:00 Spironolactone (Aldactone) 25 mg DAILY PO Last administered on 02/01/19 08:27; Admin Dose 25 MG; Start 01/25/19 at 16:00 Bumetanide (Bumex) 1 mg BID DIURETICS PO Last administered on 02/01/19at 05:57; Admin Dose 1 MG; Start 01/26/19 at 18:00 Morphine Sulfate (morphine) 2 mg Q2 PRN IV pain level>4 Last administered on 01/31/19at 23:53; Admin Dose 2 MG; Start 01/29/19 at 14:30 Acetylcysteine (Nac) 1,200 mg BID PO ; Start 02/01/19 at 12:00; Stop 02/04/19 at 11:59; Status UNV Iohexol ((Gastrografin therapeutic equivalent)) Adult Formulation (Ple... GIVE PRIOR TO CT ONCE PO ; Start 02/01/19 at 12:00; Stop 02/01/19 at 12:01; Status UNV LEORA HUYNH MD Feb 01, 2019 11:40
[2019-02-01] MEDS: ACETYLCYSTEINE 600 MG CAP PO SCH ×2 (12:00→17:16)
[2019-02-01] MEDS ORDERED: IOHEXOL 14.3 MG(I)/ML (ADULT) BTL PO ONE (13:00)
--- NOTE | 2019-02-01 14:02 | CONS ---
Assessment/Plan Cardiology NYHA: III Heart Failure Type: Acute on Chronic Heart Failure Type: Systolic Assessment/Plan Hospital Course (Demo Recall) Preoperative cardiac risk stratification S/P Bladder surgery 01/27/19 Acute decompensated systolic congestive heart failure, improved Cardiomyopathy with left ventricular ejection fraction 30% Possible urinary retention with hematuria with history of bladder cancer Paroxysmal atrial fibrillation, currently sinus rhythm-not on anticoagulation secondary to bladder tumor Moderate to severe aortic valve stenosis COPD Hypertension CKD NSVT Bradycardia -Continue diuretics as renal function blood pressure permits -No AVN blocking agents secondary to bradycardia -Continue Entresto as tolerated -Continue maintenance diuretics and titrate as needed Consultation Date/Type/Reason Admit Date/Time Jan 21, 2019 at 15:23 Initial Consult Date 01/21/19 Type of Consult Cardiology Requesting Provider: MAYELIN BARRETT Date/Time of Note DATE: 02/01/19 TIME: 14:01 24 HR Interval Summary Free Text/Dictation No shortness of breath, chest pain Exam/Review of Systems Vital Signs Vitals Vital Signs Date Temp Pulse Resp B/P (MAP) Pulse Ox O2 O2 Flow FiO2 Time Delivery Rate 02/01/19 60 20 95 Nasal 3.0 13:47 Cannula 02/01/19 98.0 132/62 12:13 (85) Intake and Output 01/31/19 01/31/19 02/01/19 1515:00 23:00 07:00 IntakeIntake Total 250 ml 510 ml 250 ml OutputOutput Total 9475 ml 250 ml BalanceBalance 250 ml -8965 ml 0 ml Exam Constitutional: alert, oriented (Following commands, no apparent distress) Head: normocephalic Respiratory: other (Coarse breath sounds bilaterally, no wheezing) Cardiovascular: regular rate and rhythm (With occasional irregularities, S1-S2 heard) Gastrointestinal: soft, non-tender, bowel sounds Extremities: edema (Trace) Labs Result Diagram: 01/30/19 0551 01/30/19 0551 Results 24hrs Laboratory Tests Test 02/01/19 12:18 Iron Level 20 L Total Iron Binding Capacity 256 Percent Iron Saturation 8 L Medications Medications Current Medications Isosorbide Dinitrate (Isordil) 30 mg BID PO Last administered on 02/01/19at 08:27; Admin Dose 30 MG; Start 01/21/19 at 21:00 Levothyroxine Sodium (Synthroid) 150 mcg BEFORE BREAKFAST PO Last administered on 02/01/19 06:01; Admin Dose 150 MCG; Start 01/22/19 at 07:00 Sacubitril/ Valsartan (Entresto 24 Mg-26 Mg) 1 tab BID PO Last administered on 02/01/19 08:27; Admin Dose 1 TAB; Start 01/21/19 at 21:00 Atorvastatin Calcium (Lipitor) 40 mg DAILY@21 PO Last administered on 01/31/19 21:10; Admin Dose 40 MG; Start 01/21/19 at 21:00 IV Flush (NS 3 ml) 3 ml PER PROTOCOL IV ; Start 01/21/19 at 15:00 Ondansetron HCl (Zofran Inj) 4 mg Q6H PRN IV NAUSEA/VOMITING; Start 01/21/19 at 15:00 Acetaminophen (Tylenol Tab) 650 mg Q6H PRN PO .PAIN 1-3 OR TEMP Last administered on 02/01/19 03:40; Admin Dose 650 MG; Start 01/21/19 at 15:00 Docusate Sodium (Colace) 100 mg Q12H PRN PO .CONSTIPATION Last administered on 01/30/19 19:15; Admin Dose 100 MG; Start 01/21/19 at 15:00 Famotidine (Pepcid) 20 mg Q12 PO Last administered on 02/01/19 08:27; Admin Dose 20 MG; Start 01/21/19 at 21:00 Levalbuterol (Xopenex Neb) 1.25 mg Q6H RESP THERAPY HHN Last administered on 02/01/19 13:36; Admin Dose 1.25 MG; Start 01/21/19 at 15:30 Levalbuterol (Xopenex Neb) 1.25 mg Q4H RESP THERAPY PRN HHN sob/wheezing; Start 01/21/19 at 15:30 Meropenem/Sodium Chloride 50 ml @ 100 mls/hr Q12 IVPB Last administered on 02/01/19 08:27; Admin Dose 100 MLS/HR; Start 01/23/19 at 10:30; Stop 02/03/19 at 10:00 Spironolactone (Aldactone) 25 mg DAILY PO Last administered on 02/01/19 08:27; Admin Dose 25 MG; Start 01/25/19 at 16:00 Bumetanide (Bumex) 1 mg BID DIURETICS PO Last administered on 02/01/19at 05:57; Admin Dose 1 MG; Start 01/26/19 at 18:00 Morphine Sulfate (morphine) 2 mg Q2 PRN IV pain level>4 Last administered on 01/31/19at 23:53; Admin Dose 2 MG; Start 01/29/19 at 14:30 Acetylcysteine (Nac) 1,200 mg BID PO ; Start 02/01/19 at 12:00; Stop 02/04/19 at 11:59 Quang Robles DO Feb 01, 2019 14:02
[2019-02-01] MEDS ORDERED: IODIXANOL LOCM 100 ML BTL ONE (18:08)
[2019-02-01] MEDS ORDERED: SOD CHLORIDE 0.9% 100 ML ONE (18:08)
[2019-02-01] MEDS: morphine 2 MG INJ IV PRN (20:08)
[2019-02-01] MEDS: ATORVASTATIN 40 MG TAB PO SCH (20:22)
[2019-02-02] VITALS (10 sets, daily range): BP systolic 104–151; BP diastolic 51–72; PULSE 44–80; RESP 18–20
[2019-02-02] MEDS: LEVALBUTEROL (NEB) 1.25 MG/0.5 ML AMP HHN SCH ×4 (01:28→20:38)
[2019-02-02] MEDS: LEVOTHYROXINE 150 MCG TAB PO SCH (06:42)
[2019-02-02] MEDS: BUMETANIDE 1 MG TAB PO SCH ×2 (06:42→17:27)
--- NOTE | 2019-02-02 08:23 | CONS ---
Consult Date/Type/Reason Admit Date/Time Jan 21, 2019 at 15:23 Initial Consult Date 01/21/19 Type of Consultation: Urology Reason for Consultation Bladder tumors Requesting Provider: MAYELIN BARRETT Date/Time of Note DATE: 02/02/19 TIME: 08:20 Subjective The patient continues to do well and he is comfortable Objective Vitals Vital Signs Date Temp Pulse Resp B/P (MAP) Pulse Ox O2 O2 Flow FiO2 Time Delivery Rate 02/02/19 97.6 46 18 116/56 94 Room Air 07:43 (76) 02/02/19 2.0 01:28 Intake and Output 02/01/19 02/01/19 02/02/19 1515:00 23:00 07:00 IntakeIntake Total 5600 ml 200 ml OutputOutput Total 600 ml 650 ml BalanceBalance 5000 ml -450 ml Exam Both ureteral catheters are draining well. He still have the continuous bladder irrigation and the return from at is clear as well. Results/Medications Result Diagram: 02/02/19 0541 02/02/19 0541 Results 24 hrs Laboratory Tests Test 02/01/19 12:18 02/02/19 05:41 Iron Level 20 L Total Iron Binding Capacity 256 Percent Iron Saturation 8 L White Blood Count 8.5 Red Blood Count 4.17 L Hemoglobin 11.7 L Hematocrit 36.4 L Mean Corpuscular Volume 87.3 Mean Corpuscular Hemoglobin 28.1 L Mean Corpuscular Hemoglobin Concent 32.1 Red Cell Distribution Width 15.3 H Platelet Count 224 # Mean Platelet Volume 11.7 H Immature Granulocytes % 0.200 Neutrophils % 66.9 Lymphocytes % 15.7 Monocytes % 11.8 H Eosinophils % 4.7 Basophils % 0.7 Nucleated Red Blood Cells % 0.0 Immature Granulocytes # 0.020 Neutrophils # 5.7 Lymphocytes # 1.3 Monocytes # 1.0 H Eosinophils # 0.4 Basophils # 0.1 Nucleated Red Blood Cells # 0.0 Sodium Level 139 Potassium Level 3.5 Chloride Level 101 Carbon Dioxide Level 31 Anion Gap 7 Blood Urea Nitrogen 18 Creatinine 1.05 Est Glomerular Filtrat Rate mL/min Glucose Level 98 Calcium Level 8.8 Magnesium Level 1.8 Home Meds Active Scripts Sacubitril/Valsartan (Entresto 24 mg-26 mg Tablet) 1 Each Tablet, 1 TAB PO BID, #60 TAB 2 Refills Prov:MAYELIN BARRETT. 01/06/19 Bumetanide* (Bumetanide*) 1 Mg Tablet, 1 MG PO BID for 30 Days, #60 TAB Prov:MAYELIN BARRETT. 01/06/19 Potassium Chloride* (Potassium Chloride*) 8 Meq Capsule.er, 8 MEQ PO DAILY, #30 CAP Prov:MAYELIN BARRETT. 01/06/19 Aspirin Delayed Release (Aspirin Delayed Release) 81 Mg Tablet.dr, 81 MG PO DAILY for 30 Days, #30 otc Prov:SAMANTHA BOB MD 11/16/18 Rosuvastatin Calcium* (Crestor*) 10 Mg Tablet, 10 MG PO QHS for 30 Days, #30 TAB Prov:SAMANTHA BOB MD 11/16/18 Isosorbide Dinitrate* (Isosorbide Dinitrate*) 30 Mg Tablet, 30 MG PO BID for 10 Days, #20 TAB Prov:SAMANTHA BOB MD 11/16/18 Reported Medications Amiodarone Hcl* (Amiodarone Hcl*) 200 Mg Tablet, 200 MG PO DAILY, #30 TAB 11/13/18 Levothyroxine Sodium* (Levoxyl*) 150 Mcg Tablet, 150 MCG PO BEFORE BREAKFAST, #30 TAB 07/20/18 Medications Current Medications Isosorbide Dinitrate (Isordil) 30 mg BID PO Last administered on 02/01/19 20:21; Admin Dose 30 MG; Start 01/21/19 at 21:00 Levothyroxine Sodium (Synthroid) 150 mcg BEFORE BREAKFAST PO Last administered on 02/02/19at 06:42; Admin Dose 150 MCG; Start 01/22/19 at 07:00 Sacubitril/ Valsartan (Entresto 24 Mg-26 Mg) 1 tab BID PO Last administered on 02/01/19 20:18; Admin Dose 1 TAB; Start 01/21/19 at 21:00 Atorvastatin Calcium (Lipitor) 40 mg DAILY@21 PO Last administered on 02/01/19 20:22; Admin Dose 40 MG; Start 01/21/19 at 21:00 IV Flush (NS 3 ml) 3 ml PER PROTOCOL IV ; Start 01/21/19 at 15:00 Ondansetron HCl (Zofran Inj) 4 mg Q6H PRN IV NAUSEA/VOMITING; Start 01/21/19 at 15:00 Acetaminophen (Tylenol Tab) 650 mg Q6H PRN PO .PAIN 1-3 OR TEMP Last administered on 02/01/19 03:40; Admin Dose 650 MG; Start 01/21/19 at 15:00 Docusate Sodium (Colace) 100 mg Q12H PRN PO .CONSTIPATION Last administered on 01/30/19 19:15; Admin Dose 100 MG; Start 01/21/19 at 15:00 Famotidine (Pepcid) 20 mg Q12 PO Last administered on 02/01/19 20:22; Admin Dose 20 MG; Start 01/21/19 at 21:00 Levalbuterol (Xopenex Neb) 1.25 mg Q6H RESP THERAPY HHN Last administered on 02/02/19 01:28; Admin Dose 1.25 MG; Start 01/21/19 at 15:30 Levalbuterol (Xopenex Neb) 1.25 mg Q4H RESP THERAPY PRN HHN sob/wheezing; Start 01/21/19 at 15:30 Meropenem/Sodium Chloride 50 ml @ 100 mls/hr Q12 IVPB Last administered on 02/01/19 20:10; Admin Dose 100 MLS/HR; Start 01/23/19 at 10:30; Stop 02/03/19 at 10:00 Spironolactone (Aldactone) 25 mg DAILY PO Last administered on 02/01/19 08:27; Admin Dose 25 MG; Start 01/25/19 at 16:00 Bumetanide (Bumex) 1 mg BID DIURETICS PO Last administered on 02/02/19 06:42; Admin Dose 1 MG; Start 01/26/19 at 18:00 Morphine Sulfate (morphine) 2 mg Q2 PRN IV pain level>4 Last administered on 02/01/19 20:08; Admin Dose 2 MG; Start 01/29/19 at 14:30 Acetylcysteine (Nac) 1,200 mg BID PO Last administered on 02/01/19 17:16; Admin Dose 1,200 MG; Start 02/01/19 at 12:00; Stop 02/04/19 at 11:59 Assessment/Plan Hospital Course (Demo Recall) 78-year-old male who is known to have a history of bladder tumors. He underwent transurethral resection of bladder tumors and insertion of bilateral ureteral catheters as the tumors were covering the ureteral orifices. He is doing well and both ureteral catheters are draining clear urine. His renal function has improved. I therefore remove one ureteral catheter today and will remove the second one tomorrow. Continue the bladder irrigation and then we may discontinue the Lopez catheter if the urine remains clear after removing the ureteral catheters. JOSE OCAMPO MD Feb 02, 2019 08:23
[2019-02-02] MEDS: FAMOTIDINE 20 MG TAB PO SCH ×2 (09:09→20:55)
[2019-02-02] MEDS: ACETYLCYSTEINE 600 MG CAP PO SCH ×2 (09:10→20:55)
[2019-02-02] MEDS: ISOSORBIDE DINITRATE 10 MG TAB PO SCH ×2 (09:10→20:56)
[2019-02-02] MEDS: SPIRONOLACTONE 25 MG TAB PO SCH (09:10)
[2019-02-02] MEDS: SACUBITRIL/VALSARTAN (24mg-26mg) TABLET PO SCH ×2 (09:11→20:56)
[2019-02-02] MEDS: MEROPENEM 1 GM/50ML(PMX) 50 ML IVPB SCH ×2 (09:11→20:55)
--- NOTE | 2019-02-02 11:05 | PN ---
Date/Time of Note Date/Time of Note DATE: 02/02/19 TIME: 10:52 Assessment/Plan VTE Prophylaxis Risk score (from Ns)>0 risk: 11 SCD applied (from Ns): Yes Pharmacological prophylaxis: NA/contraindicated Pharm contraindication: anticoag not tolerated Lines/Catheters IV Catheter Type (from Nrsg): Peripheral IV Urinary Cath still in place: Yes (3way bailey,) Reason Cath still needed: other (indicate) Assessment/Plan Hospital Course SUBJECTIVE: NO ACUTE DISTRESS. OBJECTIVE: Vital signs-see below PHYSICAL EXAM: Constitutional: Well-developed, not in acute distress. Psych: nl mood/affect, no complaints Head: atraumatic, normocephalic Eyes: nl conjunctiva, nl sclera ENMT: mucosa pink and moist, nl external ears & nose Neck: non-tender, supple Respiratory: diminished bibasilar. normal air movement Cardiovascular: Grade V/ Murmer 2nd Left ICS. nl pulses, regular rate and rhythm Gastrointestinal: non-tender, soft, bowel sounds active in all 4 quadrants. Musculoskeletal/extremities: trace edema ble. motor strength equal bi laterally, no focal deficit. Normal pulses,no cyanosis Neurological: Alert oriented 3, forgetful, aphasic. Skin: nl turgor ASSESSMENT/PLAN: 78-year-old male with numerous medical problems including o2 dependent resp fx, cad/s/p cabs,severe ,CM w/ef 25%, bladder tumors with positive urine cytology documented in December 2018, was sent by his urologist for cystoscopy with possible surgical resection of the bladder tumor secondary to worsening frequency/dysuria/hematuria who underwent cystoscopy 01/27/19 w/ pathology positive for urothelial bladder ca.. 1. Urothelial carcinoma of bladder -urology on board->not a candidate for radical cystectomy->pending oncology review of case for further treatment options -s/p removal of 1 out 2 ureter cath today w/ plan for removal of 2nd one t omorrow -Likely need bailey in place. 2. Systolic and diastolic CHF, acute on chronic - Stable and compensated - cont. diuresis,Entresto. - fluid restriction 1L/24hrs 3. Aortic stenosis, severe -this does alter our ability to approach some of his medical issues 4.Paroxysmal atrial fibrillation -stable -not a candidate for atc 2/2 bladder tumor -Resume ASA when cleared from urology perspective 5. Acquired hypothyroidism -On replacement therapy 6. UTI due to extended-spectrum beta lactamase (ESBL) producing Escherichia coli On antibiotics. 7. Chronic anemia -stable HH 8. Chronic oxygen dependent respiratory failure -stable -does use home oxygen 5 L. 9.History of CVA with expressive aphasia. -Monitor. -Resume asa when cleared from urology DVT prophylaxis: SCDs PUD prophylaxis: pepcid CODE STATUS: Full code Diet: low chol/low fat diet. fluid restriction 1 L/day Dispo: [place]: Continue current management. Follow-up oncology recommendations. Plan is to remove second ureteral catheter tomorrow. Patient was seen in collaboration with Dr. Nascimento. Result Diagram: 02/02/19 0541 02/02/19 0541 Results 24hrs Laboratory Tests Test 02/01/19 12:18 02/02/19 05:41 Iron Level 20 L Total Iron Binding Capacity 256 Percent Iron Saturation 8 L White Blood Count 8.5 Red Blood Count 4.17 L Hemoglobin 11.7 L Hematocrit 36.4 L Mean Corpuscular Volume 87.3 Mean Corpuscular Hemoglobin 28.1 L Mean Corpuscular Hemoglobin Concent 32.1 Red Cell Distribution Width 15.3 H Platelet Count 224 # Mean Platelet Volume 11.7 H Immature Granulocytes % 0.200 Neutrophils % 66.9 Lymphocytes % 15.7 Monocytes % 11.8 H Eosinophils % 4.7 Basophils % 0.7 Nucleated Red Blood Cells % 0.0 Immature Granulocytes # 0.020 Neutrophils # 5.7 Lymphocytes # 1.3 Monocytes # 1.0 H Eosinophils # 0.4 Basophils # 0.1 Nucleated Red Blood Cells # 0.0 Sodium Level 139 Potassium Level 3.5 Chloride Level 101 Carbon Dioxide Level 31 Anion Gap 7 Blood Urea Nitrogen 18 Creatinine 1.05 Est Glomerular Filtrat Rate mL/min Glucose Level 98 Calcium Level 8.8 Magnesium Level 1.8 Exam/Review of Systems Exam Vitals Vital Signs Date Temp Pulse Resp B/P (MAP) Pulse Ox O2 O2 Flow FiO2 Time Delivery Rate 02/02/19 Nasal 2.0 10:16 Cannula 02/02/19 93 09:29 02/02/19 51 20 09:28 02/02/19 97.6 116/56 07:43 (76) Intake and Output 02/01/19 02/01/19 02/02/19 1515:00 23:00 07:00 IntakeIntake Total 5600 ml 200 ml OutputOutput Total 600 ml 650 ml BalanceBalance 5000 ml -450 ml Results Results 24hrs Laboratory Tests Test 02/01/19 12:18 02/02/19 05:41 Iron Level 20 L Total Iron Binding Capacity 256 Percent Iron Saturation 8 L White Blood Count 8.5 Red Blood Count 4.17 L Hemoglobin 11.7 L Hematocrit 36.4 L Mean Corpuscular Volume 87.3 Mean Corpuscular Hemoglobin 28.1 L Mean Corpuscular Hemoglobin Concent 32.1 Red Cell Distribution Width 15.3 H Platelet Count 224 # Mean Platelet Volume 11.7 H Immature Granulocytes % 0.200 Neutrophils % 66.9 Lymphocytes % 15.7 Monocytes % 11.8 H Eosinophils % 4.7 Basophils % 0.7 Nucleated Red Blood Cells % 0.0 Immature Granulocytes # 0.020 Neutrophils # 5.7 Lymphocytes # 1.3 Monocytes # 1.0 H Eosinophils # 0.4 Basophils # 0.1 Nucleated Red Blood Cells # 0.0 Sodium Level 139 Potassium Level 3.5 Chloride Level 101 Carbon Dioxide Level 31 Anion Gap 7 Blood Urea Nitrogen 18 Creatinine 1.05 Est Glomerular Filtrat Rate mL/min Glucose Level 98 Calcium Level 8.8 Magnesium Level 1.8 Medications Medication Current Medications Isosorbide Dinitrate (Isordil) 30 mg BID PO Last administered on 02/02/19at 09:10; Admin Dose 30 MG; Start 01/21/19 at 21:00 Levothyroxine Sodium (Synthroid) 150 mcg BEFORE BREAKFAST PO Last administered on 02/02/19at 06:42; Admin Dose 150 MCG; Start 01/22/19 at 07:00 Sacubitril/ Valsartan (Entresto 24 Mg-26 Mg) 1 tab BID PO Last administered on 02/02/19at 09:11; Admin Dose 1 TAB; Start 01/21/19 at 21:00 Atorvastatin Calcium (Lipitor) 40 mg DAILY@21 PO Last administered on 02/01/19at 20:22; Admin Dose 40 MG; Start 01/21/19 at 21:00 IV Flush (NS 3 ml) 3 ml PER PROTOCOL IV ; Start 01/21/19 at 15:00 Ondansetron HCl (Zofran Inj) 4 mg Q6H PRN IV NAUSEA/VOMITING; Start 01/21/19 at 15:00 Acetaminophen (Tylenol Tab) 650 mg Q6H PRN PO .PAIN 1-3 OR TEMP Last administered on 02/01/19 03:40; Admin Dose 650 MG; Start 01/21/19 at 15:00 Docusate Sodium (Colace) 100 mg Q12H PRN PO .CONSTIPATION Last administered on 01/30/19 19:15; Admin Dose 100 MG; Start 01/21/19 at 15:00 Famotidine (Pepcid) 20 mg Q12 PO Last administered on 02/02/19 09:09; Admin Dose 20 MG; Start 01/21/19 at 21:00 Levalbuterol (Xopenex Neb) 1.25 mg Q6H RESP THERAPY HHN Last administered on 02/02/19 09:21; Admin Dose 1.25 MG; Start 01/21/19 at 15:30 Levalbuterol (Xopenex Neb) 1.25 mg Q4H RESP THERAPY PRN HHN sob/wheezing; Start 01/21/19 at 15:30 Meropenem/Sodium Chloride 50 ml @ 100 mls/hr Q12 IVPB Last administered on 02/02/19 09:11; Admin Dose 100 MLS/HR; Start 01/23/19 at 10:30; Stop 02/03/19 at 10:00 Spironolactone (Aldactone) 25 mg DAILY PO Last administered on 02/02/19 09:10; Admin Dose 25 MG; Start 01/25/19 at 16:00 Bumetanide (Bumex) 1 mg BID DIURETICS PO Last administered on 02/02/19 06:42; Admin Dose 1 MG; Start 01/26/19 at 18:00 Morphine Sulfate (morphine) 2 mg Q2 PRN IV pain level>4 Last administered on 02/01/19 20:08; Admin Dose 2 MG; Start 01/29/19 at 14:30 Acetylcysteine (Nac) 1,200 mg BID PO Last administered on 02/02/19 09:10; Admin Dose 1,200 MG; Start 02/01/19 at 12:00; Stop 02/04/19 at 11:59 CARLOS MANUEL GERONIMO NP Feb 02, 2019 11:02
[2019-02-02] MEDS ORDERED: POTASSIUM CHLORIDE (SR) 20 MEQ TAB PO STA (12:24)
--- NOTE | 2019-02-02 12:24 | CONS ---
Assessment/Plan Cardiology NYHA: III Heart Failure Type: Acute on Chronic Heart Failure Type: Systolic Assessment/Plan Hospital Course (Demo Recall) Preoperative cardiac risk stratification S/P Bladder surgery 01/27/19 Acute decompensated systolic congestive heart failure, improved Cardiomyopathy with left ventricular ejection fraction 30% Possible urinary retention with hematuria with history of bladder cancer Paroxysmal atrial fibrillation, currently sinus rhythm-not on anticoagulation secondary to bladder tumor Moderate to severe aortic valve stenosis COPD Hypertension CKD NSVT Bradycardia -Continue diuretics as renal function blood pressure permits -No AVN blocking agents secondary to bradycardia -Continue Entresto as tolerated -Continue maintenance diuretics and titrate as needed -We will order potassium and magnesium supplementation Consultation Date/Type/Reason Admit Date/Time Jan 21, 2019 at 15:23 Initial Consult Date 01/21/19 Type of Consult Cardiology Requesting Provider: MAYELIN BARRETT Date/Time of Note DATE: 02/02/19 TIME: 12:23 24 HR Interval Summary Free Text/Dictation Shortness of breath, palpitations Exam/Review of Systems Vital Signs Vitals Vital Signs Date Temp Pulse Resp B/P (MAP) Pulse Ox O2 O2 Flow FiO2 Time Delivery Rate 02/02/19 97.8 55 18 113/55 95 Room Air 11:15 (74) 02/02/19 2.0 10:16 Intake and Output 02/01/19 02/01/19 02/02/19 1515:00 23:00 07:00 IntakeIntake Total 5600 ml 200 ml OutputOutput Total 600 ml 650 ml BalanceBalance 5000 ml -450 ml Exam Constitutional: alert, oriented (Following commands, family bedside) Head: normocephalic Respiratory: other (Coarse breath sounds bilaterally, no wheezing) Cardiovascular: regular rate and rhythm (S1-S2 heard) Gastrointestinal: soft, non-tender, bowel sounds Extremities: other (No significant edema) Labs Result Diagram: 02/02/19 0541 02/02/19 0541 Results 24hrs Laboratory Tests Test 02/02/19 05:41 White Blood Count 8.5 Red Blood Count 4.17 L Hemoglobin 11.7 L Hematocrit 36.4 L Mean Corpuscular Volume 87.3 Mean Corpuscular Hemoglobin 28.1 L Mean Corpuscular Hemoglobin Concent 32.1 Red Cell Distribution Width 15.3 H Platelet Count 224 # Mean Platelet Volume 11.7 H Immature Granulocytes % 0.200 Neutrophils % 66.9 Lymphocytes % 15.7 Monocytes % 11.8 H Eosinophils % 4.7 Basophils % 0.7 Nucleated Red Blood Cells % 0.0 Immature Granulocytes # 0.020 Neutrophils # 5.7 Lymphocytes # 1.3 Monocytes # 1.0 H Eosinophils # 0.4 Basophils # 0.1 Nucleated Red Blood Cells # 0.0 Sodium Level 139 Potassium Level 3.5 Chloride Level 101 Carbon Dioxide Level 31 Anion Gap 7 Blood Urea Nitrogen 18 Creatinine 1.05 Est Glomerular Filtrat Rate mL/min Glucose Level 98 Calcium Level 8.8 Magnesium Level 1.8 Medications Medications Current Medications Isosorbide Dinitrate (Isordil) 30 mg BID PO Last administered on 02/02/19 09:10; Admin Dose 30 MG; Start 01/21/19 at 21:00 Levothyroxine Sodium (Synthroid) 150 mcg BEFORE BREAKFAST PO Last administered on 02/02/19 06:42; Admin Dose 150 MCG; Start 01/22/19 at 07:00 Sacubitril/ Valsartan (Entresto 24 Mg-26 Mg) 1 tab BID PO Last administered on 02/02/19 09:11; Admin Dose 1 TAB; Start 01/21/19 at 21:00 Atorvastatin Calcium (Lipitor) 40 mg DAILY@21 PO Last administered on 02/01/19 20:22; Admin Dose 40 MG; Start 01/21/19 at 21:00 IV Flush (NS 3 ml) 3 ml PER PROTOCOL IV ; Start 01/21/19 at 15:00 Ondansetron HCl (Zofran Inj) 4 mg Q6H PRN IV NAUSEA/VOMITING; Start 01/21/19 at 15:00 Acetaminophen (Tylenol Tab) 650 mg Q6H PRN PO .PAIN 1-3 OR TEMP Last administered on 02/01/19 03:40; Admin Dose 650 MG; Start 01/21/19 at 15:00 Docusate Sodium (Colace) 100 mg Q12H PRN PO .CONSTIPATION Last administered on 01/30/19 19:15; Admin Dose 100 MG; Start 01/21/19 at 15:00 Famotidine (Pepcid) 20 mg Q12 PO Last administered on 02/02/19 09:09; Admin Dose 20 MG; Start 01/21/19 at 21:00 Levalbuterol (Xopenex Neb) 1.25 mg Q6H RESP THERAPY HHN Last administered on 02/02/19 09:21; Admin Dose 1.25 MG; Start 01/21/19 at 15:30 Levalbuterol (Xopenex Neb) 1.25 mg Q4H RESP THERAPY PRN HHN sob/wheezing; Start 01/21/19 at 15:30 Meropenem/Sodium Chloride 50 ml @ 100 mls/hr Q12 IVPB Last administered on 02/02/19 09:11; Admin Dose 100 MLS/HR; Start 01/23/19 at 10:30; Stop 02/03/19 at 10:00 Spironolactone (Aldactone) 25 mg DAILY PO Last administered on 02/02/19 09:10; Admin Dose 25 MG; Start 01/25/19 at 16:00 Bumetanide (Bumex) 1 mg BID DIURETICS PO Last administered on 02/02/19 06:42; Admin Dose 1 MG; Start 01/26/19 at 18:00 Morphine Sulfate (morphine) 2 mg Q2 PRN IV pain level>4 Last administered on 02/01/19 20:08; Admin Dose 2 MG; Start 01/29/19 at 14:30 Acetylcysteine (Nac) 1,200 mg BID PO Last administered on 02/02/19 09:10; Admin Dose 1,200 MG; Start 02/01/19 at 12:00; Stop 02/04/19 at 11:59 Quang Robles DO Feb 02, 2019 12:24
[2019-02-02] MEDS ORDERED: MAGNESIUM SULFATE 2 GM/50 ML 50 ML IVPB ONE (12:30)
[2019-02-02] MEDS ORDERED: POTASSIUM CHLORIDE 20 MEQ POWDER FOR ORAL SOLN PO STA (12:41)
--- NOTE | 2019-02-02 15:08 | CONS ---
Assessment/Plan Assessment/Plan Assessment/Plan (Daily) 78 yo man with multiple recurrence of bladder cancer. From Dr. Alcala's notes, an aggressive approach has been discussed in the past and the decision was made not to do so. Given the multiple other severe medical comorbidities and the very poor performance status, this decision seems entirely appropriate. 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 A radical cystectomy would carry increased risk of mortality and morbidity. Radiation and chemotherapy is a consideration but he is not likely to tolerate this well either. I would not give an anthracycline due to the cardiomyopathy. Cisplatin and carboplatin would be high risk given the azotemia that was noted earlier in the hospitalization although his creatinine is improving now. Radiation without chemotherapy is a possibility but even that would be more risky given his problem list. I think that hospice level of care is the best approach. I know that multiple doctors have spoken to the family previously. I would be available if another discussion is desired. I would favor comfort care for whatever time he has left to live. Consultation Date/Type/Reason Admit Date/Time Jan 21, 2019 at 15:23 Date of Consultation: Feb 02, 2019 Type of Consult Oncology Reason for Consultation Bladder Cancer, transitional cell Requesting Provider: LEORA PALMER MD Date/Time of Note DATE: 02/02/19 TIME: 14:45 Hx of Present Illness Chart reviewed and also I spoke with Zohreh Palmer and Kathie. In brief, pt was found about a year ago to have a bladder cancer. From Dr. Alcala's notes, the family on at least two relapse occasions decided that more aggressive treatment was not desirable. Pt has numerous medical problems. The major ones are heart failure with a poor ejection fraction (25%) due to severe aortic stenosis, respiratory insufficiency requiring home oxygen, a stroke with significant irreversible deficits, azotemia, anemia, hypothyroidism, iron deficiency due to hematuria, hypertension, mild malnutrition with obesity and paroxysmal atrial fibrillation. This recurrence of the bladder cancer was found earlier in this admission and resection of tumor blocking both ureteral orifices was done. Past Medical History Medical History: cancer (Bladder) Home Meds Active Scripts Sacubitril/Valsartan (Entresto 24 mg-26 mg Tablet) 1 Each Tablet, 1 TAB PO BID, #60 TAB 2 Refills Prov:NENA,BOLATITO M. 01/06/19 Bumetanide* (Bumetanide*) 1 Mg Tablet, 1 MG PO BID for 30 Days, #60 TAB Prov:MAYELIN BARRETT. 01/06/19 Potassium Chloride* (Potassium Chloride*) 8 Meq Capsule.er, 8 MEQ PO DAILY, #30 CAP Prov:MAYELIN BARRETT. 01/06/19 Aspirin Delayed Release (Aspirin Delayed Release) 81 Mg Tablet.dr, 81 MG PO DAILY for 30 Days, #30 otc Prov:SAMANTHA BOB MD 11/16/18 Rosuvastatin Calcium* (Crestor*) 10 Mg Tablet, 10 MG PO QHS for 30 Days, #30 TAB Prov:SAMANTHA BOB MD 11/16/18 Isosorbide Dinitrate* (Isosorbide Dinitrate*) 30 Mg Tablet, 30 MG PO BID for 10 Days, #20 TAB Prov:SAMANTHA BOB MD 11/16/18 Reported Medications Amiodarone Hcl* (Amiodarone Hcl*) 200 Mg Tablet, 200 MG PO DAILY, #30 TAB 11/13/18 Levothyroxine Sodium* (Levoxyl*) 150 Mcg Tablet, 150 MCG PO BEFORE BREAKFAST, #30 TAB 07/20/18 Medications Current Medications Isosorbide Dinitrate (Isordil) 30 mg BID PO Last administered on 02/02/19at 09:10; Admin Dose 30 MG; Start 01/21/19 at 21:00 Levothyroxine Sodium (Synthroid) 150 mcg BEFORE BREAKFAST PO Last administered on 02/02/19at 06:42; Admin Dose 150 MCG; Start 01/22/19 at 07:00 Sacubitril/ Valsartan (Entresto 24 Mg-26 Mg) 1 tab BID PO Last administered on 02/02/19at 09:11; Admin Dose 1 TAB; Start 01/21/19 at 21:00 Atorvastatin Calcium (Lipitor) 40 mg DAILY@21 PO Last administered on 02/01/19at 20:22; Admin Dose 40 MG; Start 01/21/19 at 21:00 IV Flush (NS 3 ml) 3 ml PER PROTOCOL IV ; Start 01/21/19 at 15:00 Ondansetron HCl (Zofran Inj) 4 mg Q6H PRN IV NAUSEA/VOMITING; Start 01/21/19 at 15:00 Acetaminophen (Tylenol Tab) 650 mg Q6H PRN PO .PAIN 1-3 OR TEMP Last administered on 02/01/19 03:40; Admin Dose 650 MG; Start 01/21/19 at 15:00 Docusate Sodium (Colace) 100 mg Q12H PRN PO .CONSTIPATION Last administered on 01/30/19 19:15; Admin Dose 100 MG; Start 01/21/19 at 15:00 Famotidine (Pepcid) 20 mg Q12 PO Last administered on 02/02/19 09:09; Admin Dose 20 MG; Start 01/21/19 at 21:00 Levalbuterol (Xopenex Neb) 1.25 mg Q6H RESP THERAPY HHN Last administered on 02/02/19 13:30; Admin Dose 1.25 MG; Start 01/21/19 at 15:30 Levalbuterol (Xopenex Neb) 1.25 mg Q4H RESP THERAPY PRN HHN sob/wheezing; Start 01/21/19 at 15:30 Meropenem/Sodium Chloride 50 ml @ 100 mls/hr Q12 IVPB Last administered on 02/02/19 09:11; Admin Dose 100 MLS/HR; Start 01/23/19 at 10:30; Stop 02/03/19 at 10:00 Spironolactone (Aldactone) 25 mg DAILY PO Last administered on 02/02/19 09:10; Admin Dose 25 MG; Start 01/25/19 at 16:00 Bumetanide (Bumex) 1 mg BID DIURETICS PO Last administered on 02/02/19 06:42; Admin Dose 1 MG; Start 01/26/19 at 18:00 Morphine Sulfate (morphine) 2 mg Q2 PRN IV pain level>4 Last administered on 02/01/19 20:08; Admin Dose 2 MG; Start 01/29/19 at 14:30 Acetylcysteine (Nac) 1,200 mg BID PO Last administered on 02/02/19 09:10; Admin Dose 1,200 MG; Start 02/01/19 at 12:00; Stop 02/04/19 at 11:59 Allergies: Coded Allergies: No Known Allergy (Unverified , 3/27/19) Past Surgical History Past Surgical Hx: abd aortic aneurysmectomy, coronary bypass surgery, other (Transurethral resection of bladder tumors) Social History Smoking Status: Former smoker Exam/Review of Systems Exam Vitals Vital Signs Date Temp Pulse Resp B/P (MAP) Pulse Ox O2 O2 Flow FiO2 Time Delivery Rate 02/02/19 96 2.0 13:35 02/02/19 52 20 Nasal 13:34 Cannula 02/02/19 97.8 113/55 11:15 (74) Intake and Output 02/01/19 02/01/19 02/02/19 1515:00 23:00 07:00 IntakeIntake Total 5600 ml 200 ml OutputOutput Total 600 ml 650 ml BalanceBalance 5000 ml -450 ml Constitutional: alert Head: normocephalic Eyes: nl conjunctiva Respiratory: clear to auscultation Cardiovascular: regular rate and rhythm, systolic murmur (consistent with aortic stenosis) Gastrointestinal: soft, non-tender Lymph: nl lymph nodes Results Result Diagram: 02/02/19 0541 02/02/19 0541 Results 24hrs Laboratory Tests Test 02/02/19 05:41 White Blood Count 8.5 Red Blood Count 4.17 L Hemoglobin 11.7 L Hematocrit 36.4 L Mean Corpuscular Volume 87.3 Mean Corpuscular Hemoglobin 28.1 L Mean Corpuscular Hemoglobin Concent 32.1 Red Cell Distribution Width 15.3 H Platelet Count 224 # Mean Platelet Volume 11.7 H Immature Granulocytes % 0.200 Neutrophils % 66.9 Lymphocytes % 15.7 Monocytes % 11.8 H Eosinophils % 4.7 Basophils % 0.7 Nucleated Red Blood Cells % 0.0 Immature Granulocytes # 0.020 Neutrophils # 5.7 Lymphocytes # 1.3 Monocytes # 1.0 H Eosinophils # 0.4 Basophils # 0.1 Nucleated Red Blood Cells # 0.0 Sodium Level 139 Potassium Level 3.5 Chloride Level 101 Carbon Dioxide Level 31 Anion Gap 7 Blood Urea Nitrogen 18 Creatinine 1.05 Est Glomerular Filtrat Rate mL/min Glucose Level 98 Calcium Level 8.8 Magnesium Level 1.8 Medications Medication Current Medications Isosorbide Dinitrate (Isordil) 30 mg BID PO Last administered on 02/02/19at 09:10; Admin Dose 30 MG; Start 01/21/19 at 21:00 Levothyroxine Sodium (Synthroid) 150 mcg BEFORE BREAKFAST PO Last administered on 02/02/19 06:42; Admin Dose 150 MCG; Start 01/22/19 at 07:00 Sacubitril/ Valsartan (Entresto 24 Mg-26 Mg) 1 tab BID PO Last administered on 02/02/19 09:11; Admin Dose 1 TAB; Start 01/21/19 at 21:00 Atorvastatin Calcium (Lipitor) 40 mg DAILY@21 PO Last administered on 02/01/19 20:22; Admin Dose 40 MG; Start 01/21/19 at 21:00 IV Flush (NS 3 ml) 3 ml PER PROTOCOL IV ; Start 01/21/19 at 15:00 Ondansetron HCl (Zofran Inj) 4 mg Q6H PRN IV NAUSEA/VOMITING; Start 01/21/19 at 15:00 Acetaminophen (Tylenol Tab) 650 mg Q6H PRN PO .PAIN 1-3 OR TEMP Last administered on 02/01/19 03:40; Admin Dose 650 MG; Start 01/21/19 at 15:00 Docusate Sodium (Colace) 100 mg Q12H PRN PO .CONSTIPATION Last administered on 01/30/19 19:15; Admin Dose 100 MG; Start 01/21/19 at 15:00 Famotidine (Pepcid) 20 mg Q12 PO Last administered on 02/02/19 09:09; Admin Dose 20 MG; Start 01/21/19 at 21:00 Levalbuterol (Xopenex Neb) 1.25 mg Q6H RESP THERAPY HHN Last administered on 02/02/19 13:30; Admin Dose 1.25 MG; Start 01/21/19 at 15:30 Levalbuterol (Xopenex Neb) 1.25 mg Q4H RESP THERAPY PRN HHN sob/wheezing; Start 01/21/19 at 15:30 Meropenem/Sodium Chloride 50 ml @ 100 mls/hr Q12 IVPB Last administered on 02/02/19 09:11; Admin Dose 100 MLS/HR; Start 01/23/19 at 10:30; Stop 02/03/19 at 10:00 Spironolactone (Aldactone) 25 mg DAILY PO Last administered on 4/8/19at 09:10; Admin Dose 25 MG; Start 01/25/19 at 16:00 Bumetanide (Bumex) 1 mg BID DIURETICS PO Last administered on 02/02/19at 06:42; Admin Dose 1 MG; Start 01/26/19 at 18:00 Morphine Sulfate (morphine) 2 mg Q2 PRN IV pain level>4 Last administered on 02/01/19at 20:08; Admin Dose 2 MG; Start 01/29/19 at 14:30 Acetylcysteine (Nac) 1,200 mg BID PO Last administered on 02/02/19at 09:10; Admin Dose 1,200 MG; Start 02/01/19 at 12:00; Stop 02/04/19 at 11:59 MIGUEL LOMBARDO MD Feb 02, 2019 14:56
[2019-02-02] MEDS: DOCUSATE SODIUM 100 MG CAP PO PRN (17:46)
[2019-02-02] MEDS: ATORVASTATIN 40 MG TAB PO SCH (20:55)
[2019-02-03] VITALS (9 sets, daily range): BP systolic 116–149; BP diastolic 57–93; PULSE 53–61; RESP 18–22
[2019-02-03] MEDS: morphine 2 MG INJ IV PRN ×2 (01:18→12:34)
[2019-02-03] MEDS: LEVALBUTEROL (NEB) 1.25 MG/0.5 ML AMP HHN SCH ×4 (01:49→19:42)
[2019-02-03] MEDS: BUMETANIDE 1 MG TAB PO SCH ×2 (06:07→17:36)
[2019-02-03] MEDS: LEVOTHYROXINE 150 MCG TAB PO SCH (06:07)
[2019-02-03] MEDS: MEROPENEM 1 GM/50ML(PMX) 50 ML IVPB SCH (08:37)
[2019-02-03] MEDS: SACUBITRIL/VALSARTAN (24mg-26mg) TABLET PO SCH ×2 (08:38→20:36)
[2019-02-03] MEDS: ACETYLCYSTEINE 600 MG CAP PO SCH ×2 (08:38→20:35)
[2019-02-03] MEDS: SPIRONOLACTONE 25 MG TAB PO SCH (08:38)
[2019-02-03] MEDS: FAMOTIDINE 20 MG TAB PO SCH ×2 (08:38→20:34)
[2019-02-03] MEDS: ISOSORBIDE DINITRATE 10 MG TAB PO SCH ×2 (08:38→20:35)
--- NOTE | 2019-02-03 11:41 | PN ---
CARLOS MANUEL GERONIMO V. NASEEM 02/03/19 1141: Date/Time of Note Date/Time of Note DATE: 02/03/19 TIME: 11:37 Assessment/Plan VTE [place]axis [place] [facility] [place]: 12 [place]CD [place] [facility] [place] Yes Pharmacological prophylaxis: NA/contraindicated Pharm contraindication: low risk/ambulating Lines/Catheters IV Catheter Type (from [facility]): Saline Lock Urinary Cath still in place: Yes (3way bailey,) Reason Cath still needed: other (indicate) Assessment/Plan Hospital Course SUBJECTIVE: NO ACUTE DISTRESS. OBJECTIVE: Vital signs-see below PHYSICAL EXAM: Constitutional: Well-developed, not in acute distress. Psych: nl mood/affect, no complaints Head: atraumatic, normocephalic Eyes: nl conjunctiva, nl sclera ENMT: mucosa pink and moist, nl external ears & nose Neck: non-tender, supple Respiratory: diminished bibasilar. normal air movement Cardiovascular: Grade V/ Murmer 2nd Left ICS. nl pulses, regular rate and rhythm Gastrointestinal: non-tender, soft, bowel sounds active in all 4 quadrants. Musculoskeletal/extremities: trace edema ble. motor strength equal bilaterally, no focal deficit. Normal pulses,no cyanosis Neurological: Alert oriented 3, forgetful, aphasic. Skin: nl turgor ASSESSMENT/PLAN: 78-year-old male with numerous medical problems including o2 dependent resp fx, cad/s/p cabs,severe ,CM w/ef 25%, bladder tumors with positive urine cytology documented in December 2018, was sent by his urologist for cystoscopy with possible surgical resection of the bladder tumor secondary to worsening frequency/dysuria/hematuria who underwent cystoscopy 01/27/19 w/ pathology positive for urothelial bladder ca.. 1. Urothelial carcinoma of bladder -urology and oncology on board-> unfortunately not a candidate for radical cystectomy/radiation/chemotherapy secondary to comorbidities=> recommended comfort focused care=> we will discussed this with patient's family as soon as possible when they are here. -Palliative care consultation w/ -s/p removal of 1 out 2 ureter cath today w/ plan for removal of 2nd one today. -Likely need bailey in place. 2. Systolic and diastolic CHF, acute on chronic - Stable and compensated - cont. diuresis,Entresto. - fluid restriction 1L/24hrs 3. Aortic stenosis, severe -this does alter our ability to approach some of his medical issues 4.Paroxysmal atrial fibrillation -stable -not a candidate for atc 2/2 bladder tumor -Resume ASA when cleared from urology perspective 5. Acquired hypothyroidism -On replacement therapy 6. UTI due to extended-spectrum beta lactamase (ESBL) producing Escherichia coli On antibiotics. 7. Chronic anemia -stable HH 8. Chronic oxygen dependent respiratory failure -stable -does use home oxygen 5 L. 9.History of CVA with expressive aphasia. -Monitor. -Resume asa when cleared from urology DVT prophylaxis: SCDs PUD prophylaxis: pepcid CODE STATUS: Full code Diet: low chol/low fat diet. fluid restriction 1 L/day Dispo: Overall patient with poor prognosis. He has Urothelial carcinoma of bladder which is not amenable for any radical cystectomy, radiation or chemotherapy. At this time, consultants recommending comfort care/hospice focus care which we will discussed with patient's family today. We will also involve Dr. Hamilton. Patient was seen in collaboration with Dr. Nascimento. Result Diagram: 02/02/1954002/02/19540 Exam/Review of Systems Exam Vitals Vital Signs Date Temp Pulse Resp B/P (MAP) Pulse Ox O2 O2 Flow FiO2 Time Delivery Rate 02/03/19 97.8 56 20 124/58 95 Nasal 11:05 (80) Cannula 02/03/19 3.0 08:31 Intake and Output 02/02/19 02/02/19 02/03/19 1515:00 23:00 07:00 IntakeIntake Total 50 ml 550 ml 400 ml OutputOutput Total 400 ml 250 ml BalanceBalance 50 ml 150 ml 150 ml Results Result Diagram: 02/02/1954002/02/19540 Medications Medication Current Medications Isosorbide Dinitrate (Isordil) 30 mg BID PO Last administered on 02/03/19at 08:38; Admin Dose 30 MG; Start 01/21/19 at 21:00 Levothyroxine Sodium (Synthroid) 150 mcg BEFORE BREAKFAST PO Last administered on 02/03/19at 06:07; Admin Dose 150 MCG; Start 01/22/19 at 07:00 Sacubitril/ Valsartan (Entresto 24 Mg-26 Mg) 1 tab BID PO Last administered on 02/03/19 08:38; Admin Dose 1 TAB; Start 01/21/19 at 21:00 Atorvastatin Calcium (Lipitor) 40 mg DAILY@21 PO Last administered on 02/02/19 20:55; Admin Dose 40 MG; Start 01/21/19 at 21:00 IV Flush (NS 3 ml) 3 ml PER PROTOCOL IV ; Start 01/21/19 at 15:00 Ondansetron HCl (Zofran Inj) 4 mg Q6H PRN IV NAUSEA/VOMITING; Start 01/21/19 at 15:00 Acetaminophen (Tylenol Tab) 650 mg Q6H PRN PO .PAIN 1-3 OR TEMP Last administered on 02/01/19 03:40; Admin Dose 650 MG; Start 01/21/19 at 15:00 Docusate Sodium (Colace) 100 mg Q12H PRN PO .CONSTIPATION Last administered on 02/02/19 17:46; Admin Dose 100 MG; Start 01/21/19 at 15:00 Famotidine (Pepcid) 20 mg Q12 PO Last administered on 02/03/19 08:38; Admin Dos e 20 MG; Start 01/21/19 at 21:00 Levalbuterol (Xopenex Neb) 1.25 mg Q6H RESP THERAPY HHN Last administered on 02/03/19 08:27; Admin Dose 1.25 MG; Start 01/21/19 at 15:30 Levalbuterol (Xopenex Neb) 1.25 mg Q4H RESP THERAPY PRN HHN sob/wheezing; Start 01/21/19 at 15:30 Spironolactone (Aldactone) 25 mg DAILY PO Last administered on 02/03/19 08:38; Admin Dose 25 MG; Start 01/25/19 at 16:00 Bumetanide (Bumex) 1 mg BID DIURETICS PO Last administered on 02/03/19 06:07; Admin Dose 1 MG; Start 01/26/19 at 18:00 Morphine Sulfate (morphine) 2 mg Q2 PRN IV pain level>4 Last administered on 02/03/19 01:18; Admin Dose 2 MG; Start 01/29/19 at 14:30 Acetylcysteine (Nac) 1,200 mg BID PO Last administered on 4/9/19at 08:38; Admin Dose 1,200 MG; Start 02/01/19 at 12:00; Stop 02/04/19 at 11:59 ALLYSON AVINA 02/03/19 1345: Assessment/Plan Assessment/Plan Assessment/Plan 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 There is no further aggressive care which can be offered patient however I told him I would try and control his pain from the catheters better but there is no definitive therapy for this type of discomfort. He is having side effects associated with morphine so I will discontinue that medication. We will follow closely and will speak to family members once again. Result Diagram: 02/02/19 0541 02/02/19 0541 CARLOS MANUEL GERONIMO NP Feb 03, 2019 11:41 ALLYSON AVINA Feb 03, 2019 13:45
--- NOTE | 2019-02-03 13:39 | CONS ---
Assessment/Plan Assessment/Plan Assessment/Plan (Daily) Urethral carcinoma of the bladder Congestive heart failure Advanced dementia Aortic stenosis Atrial fibrillation Status post coronary artery bypass graft Conversation with patient son. He understands that patient is too ill to undergo aggressive intervention. He has made it clear that he doesn't want his father to suffer undergoing a procedure which may lower his lifespan. He has other family members were able to take care patient at home 24 hours seven days a week and is very amenable to a hospice evaluation before patient is discharged from the hospital. However he is made it very clear the two sisters are decision-makers also and that he would like to have a family conference. I will add social work service to schedule a conference and schedule patient to be discharged home if okay with patients primary care team coordinator scheduler with hospice care Consultation Date/Type/Reason Admit Date/Time Jan 21, 2019 at 15:23 Date/Time of Note DATE: 02/03/19 TIME: 13:36 Hx of Present Illness This is a 78-year-old gentleman noted to [facility] has multiple medical problems including coronary heart disease status post CABG cardiomyopathy with EF of 25% expressive aphasia congestive heart failure severe aortic stenosis patient has a history of bladder tumor which was symptomatic and increasing in severity which prompted this admission and consideration of aggressive intervention. During hospitalization patient was diagnosed with urethral carcinoma of the bladder neurology has been consulted patient has u nfortunately considered not a candidate for any aggressive intervention compared to multiple comorbidities as noted above. I have asked to speak to family members concerning palliation of care. 1 of the considerations also that patient has advanced dementia secondary to recent stroke x2 which is left him inability to do his own ADLs safely however he has 24 7-day a week care at home with family members. I spoken with patient's son who is very amenable to hospice care, he certainly understands a severity of his father's underlying chronic medical conditions as well as his current acute condition. However there are 2 sisters who are involved with decision making who will be coming to the hospital hopefully today and I will have her another conversation with them. Therefore full palliative care formal dictation will be done after speaking with the entire family. She is a non-historian secondary to underlying dementia please refer to history of present illness Past Medical History Medical History: cancer (Bladder), congestive heart failure, coronary artery disease, high cholesterol, hypothyroid, urinary tract infection Home Meds Active Scripts Sacubitril/Valsartan (Entresto 24 mg-26 mg Tablet) 1 Each Tablet, 1 TAB PO BID, #60 TAB 2 Refills Prov:MAYELIN BARRETT. 01/06/19 Bumetanide* (Bumetanide*) 1 Mg Tablet, 1 MG PO BID for 30 Days, #60 TAB Prov:MAYELIN BARRETT. 01/06/19 Potassium Chloride* (Potassium Chloride*) 8 Meq Capsule.er, 8 MEQ PO DAILY, #30 CAP Prov:MAYELIN BARRETT. 01/06/19 Aspirin Delayed Release (Aspirin Delayed Release) 81 Mg Tablet.dr, 81 MG PO DAILY for 30 Days, #30 otc Prov:SAMANTHA BOB MD 11/16/18 Rosuvastatin Calcium* (Crestor*) 10 Mg Tablet, 10 MG PO QHS for 30 Days, #30 TAB Prov:SAMANTHA BOB MD 11/16/18 Isosorbide Dinitrate* (Isosorbide Dinitrate*) 30 Mg Tablet, 30 MG PO BID for 10 Days, #20 TAB Prov:SAMANTHA BOB MD 11/16/18 Reported Medications Amiodarone Hcl* (Amiodarone Hcl*) 200 Mg Tablet, 200 MG PO DAILY, #30 TAB 11/13/18 Levothyroxine Sodium* (Levoxyl*) 150 Mcg Tablet, 150 MCG PO BEFORE BREAKFAST, #30 TAB 07/20/18 Medications Current Medications Isosorbide Dinitrate (Isordil) 30 mg BID PO Last administered on 02/03/19at 08:38; Admin Dose 30 MG; Start 01/21/19 at 21:00 Levothyroxine Sodium (Synthroid) 150 mcg BEFORE BREAKFAST PO Last administered on 02/03/19at 06:07; Admin Dose 150 MCG; Start 01/22/19 at 07:00 Sacubitril/ Valsartan (Entresto 24 Mg-26 Mg) 1 tab BID PO Last administered on 02/03/19at 08:38; Admin Dose 1 TAB; Start 01/21/19 at 21:00 Atorvastatin Calcium (Lipitor) 40 mg DAILY@21 PO Last administered on 02/02/19at 20:55; Admin Dose 40 MG; Start 01/21/19 at 21:00 IV Flush (NS 3 ml) 3 ml PER PROTOCOL IV ; Start 01/21/19 at 15:00 Ondansetron HCl (Zofran Inj) 4 mg Q6H PRN IV NAUSEA/VOMITING; Start 01/21/19 at 15:00 Acetaminophen (Tylenol Tab) 650 mg Q6H PRN PO .PAIN 1-3 OR TEMP Last administered on 02/01/19 03:40; Admin Dose 650 MG; Start 01/21/19 at 15:00 Docusate Sodium (Colace) 100 mg Q12H PRN PO .CONSTIPATION Last administered on 02/02/19 17:46; Admin Dose 100 MG; Start 01/21/19 at 15:00 Famotidine (Pepcid) 20 mg Q12 PO Last administered on 02/03/19 08:38; Admin Dose 20 MG; Start 01/21/19 at 21:00 Levalbuterol (Xopenex Neb) 1.25 mg Q6H RESP THERAPY HHN Last administered on 02/03/19 08:27; Admin Dose 1.25 MG; Start 01/21/19 at 15:30 Levalbuterol (Xopenex Neb) 1.25 mg Q4H RESP THERAPY PRN HHN sob/wheezing; Start 01/21/19 at 15:30 Spironolactone (Aldactone) 25 mg DAILY PO Last administered on 02/03/19 08:38; Admin Dose 25 MG; Start 01/25/19 at 16:00 Bumetanide (Bumex) 1 mg BID DIURETICS PO Last administered on 02/03/19 06:07; Admin Dose 1 MG; Start 01/26/19 at 18:00 Morphine Sulfate (morphine) 2 mg Q2 PRN IV pain level>4 Last administered on 02/03/19 12:34; Admin Dose 2 MG; Start 01/29/19 at 14:30 Acetylcysteine (Nac) 1,200 mg BID PO Last administered on 02/03/19 08:38; Admin Dose 1,200 MG; Start 02/01/19 at 12:00; Stop 02/04/19 at 11:59 Allergies: Coded Allergies: No Known Allergy (Unverified , 01/21/19) Past Surgical History Past Surgical Hx: abd aortic aneurysmectomy, coronary bypass surgery, other (Transurethral resection of bladder tumors) Social History Smoking Status: Former smoker Drug Use: none Exam/Review of Systems Exam Vitals Vital Signs Date Temp Pulse Resp B/P (MAP) Pulse Ox O2 O2 Flow FiO2 Time Delivery Rate 02/03/19 97.8 56 20 124/58 95 Nasal 11:05 (80) Cannula 02/03/19 3.0 08:31 Intake and Output 02/02/19 02/02/19 02/03/19 1515:00 23:00 07:00 IntakeIntake Total 50 ml 550 ml 400 ml OutputOutput Total 400 ml 250 ml BalanceBalance 50 ml 150 ml 150 ml Constitutional: distress, frail Psych: anxiety, confusion Head: normocephalic, atraumatic Eyes: nl conjunctiva, EOMI, nl lids, nl sclera, PERRL ENMT: nl external ears & nose, nl lips & teeth, nl nasal mucosa & septum Neck: supple, non-tender Respiratory: clear to auscultation, normal air movement Cardiovascular: regular rate and rhythm, nl pulses Gastrointestinal: soft, nl liver, spleen, non-tender Neurological: confused, lethargic Results Result Diagram: 02/02/1954002/02/19540 Medications Medication Current Medications Isosorbide Dinitrate (Isordil) 30 mg BID PO Last administered on 02/03/19at 08:38; Admin Dose 30 MG; Start 01/21/19 at 21:00 Levothyroxine Sodium (Synthroid) 150 mcg BEFORE BREAKFAST PO Last administered on 02/03/19at 06:07; Admin Dose 150 MCG; Start 01/22/19 at 07:00 Sacubitril/ Valsartan (Entresto 24 Mg-26 Mg) 1 tab BID PO Last administered on 02/03/19at 08:38; Admin Dose 1 TAB; Start 01/21/19 at 21:00 Atorvastatin Calcium (Lipitor) 40 mg DAILY@21 PO Last administered on 02/02/19at 20:55; Admin Dose 40 MG; Start 01/21/19 at 21:00 IV Flush (NS 3 ml) 3 ml PER PROTOCOL IV ; Start 01/21/19 at 15:00 Ondansetron HCl (Zofran Inj) 4 mg Q6H PRN IV NAUSEA/VOMITING; Start 01/21/19 at 15:00 Acetaminophen (Tylenol Tab) 650 mg Q6H PRN PO .PAIN 1-3 OR TEMP Last administered on 02/01/19 03:40; Admin Dose 650 MG; Start 01/21/19 at 15:00 Docusate Sodium (Colace) 100 mg Q12H PRN PO .CONSTIPATION Last administered on 02/02/19 17:46; Admin Dose 100 MG; Start 01/21/19 at 15:00 Famotidine (Pepcid) 20 mg Q12 PO Last administered on 02/03/19 08:38; Admin Dose 20 MG; Start 01/21/19 at 21:00 Levalbuterol (Xopenex Neb) 1.25 mg Q6H RESP THERAPY HHN Last administered on 02/03/19 08:27; Admin Dose 1.25 MG; Start 01/21/19 at 15:30 Levalbuterol (Xopenex Neb) 1.25 mg Q4H RESP THERAPY PRN HHN sob/wheezing; Start 01/21/19 at 15:30 Spironolactone (Aldactone) 25 mg DAILY PO Last administered on 02/03/19 08:38; Admin Dose 25 MG; Start 01/25/19 at 16:00 Bumetanide (Bumex) 1 mg BID DIURETICS PO Last administered on 02/03/19 06:07; Admin Dose 1 MG; Start 01/26/19 at 18:00 Morphine Sulfate (morphine) 2 mg Q2 PRN IV pain level>4 Last administered on 02/03/19 12:34; Admin Dose 2 MG; Start 01/29/19 at 14:30 Acetylcysteine (Nac) 1,200 mg BID PO Last administered on 02/03/19 08:38; Admin Dose 1,200 MG; Start 02/01/19 at 12:00; Stop 02/04/19 at 11:59 ALLYSON AVINA Feb 03, 2019 13:39
[2019-02-03] MEDS: traMADol 50 MG TAB PO SCH ×2 (14:53→20:35)
--- NOTE | 2019-02-03 16:33 | QN ---
Documentation Comment Drs. Vázquez and Jer's notes reviewed. I spoke with them yesterday also. Hospice care was recommended. I will be available if a family conference is desired. I will f/u later. MIGUEL LOMBARDO MD Feb 03, 2019 16:33
--- NOTE | 2019-02-03 17:41 | CONS ---
Assessment/Plan Cardiology NYHA: III Heart Failure Type: Acute on Chronic Heart Failure Type: Systolic Assessment/Plan Hospital Course (Demo Recall) S/P Bladder surgery 01/27/19 Acute decompensated systolic congestive heart failure, improved Cardiomyopathy with left ventricular ejection fraction 30% Possible urinary retention with hematuria with history of bladder cancer Paroxysmal atrial fibrillation, currently sinus rhythm-not on anticoagulation secondary to bladder tumor Moderate to severe aortic valve stenosis COPD Hypertension CKD NSVT Bradycardia -Continue diuretics as renal function blood pressure permits -No AVN blocking agents secondary to bradycardia -Continue Entresto as tolerated -Continue maintenance diuretics and titrate as needed -Labs for the a.m. Consultation Date/Type/Reason Admit Date/Time Jan 21, 2019 at 15:23 Initial Consult Date 01/21/19 Type of Consult Cardiology Requesting Provider: LEORA HUYNH MD Date/Time of Note DATE: 02/03/19 TIME: 17:40 24 HR Interval Summary Free Text/Dictation No shortness of breath, no chest pain Exam/Review of Systems Vital Signs Vitals Vital Signs Date Temp Pulse Resp B/P (MAP) Pulse Ox O2 O2 Flow FiO2 Time Delivery Rate 02/03/19 61 16:00 02/03/19 98.0 22 132/65 96 Room Air 15:55 (87) 02/03/19 3.0 14:07 Intake and Output 02/02/19 02/02/19 02/03/19 1515:00 23:00 07:00 IntakeIntake Total 50 ml 550 ml 400 ml OutputOutput Total 400 ml 250 ml BalanceBalance 50 ml 150 ml 150 ml Exam Constitutional: alert (Following commands, family bedside, no apparent distress) Head: normocephalic Respiratory: other (Coarse breath sounds bilaterally, no wheezing) Cardiovascular: regular rate and rhythm (S1-S2 heard) Gastrointestinal: soft, non-tender, bowel sounds Extremities: edema (Trace) Labs Result Diagram: 02/02/19 0541 02/02/19 0541 Medications Medications Current Medications Isosorbide Dinitrate (Isordil) 30 mg BID PO Last administered on 02/03/19at 08:38; Admin Dose 30 MG; Start 01/21/19 at 21:00 Levothyroxine Sodium (Synthroid) 150 mcg BEFORE BREAKFAST PO Last administered on 02/03/19at 06:07; Admin Dose 150 MCG; Start 01/22/19 at 07:00 Sacubitril/ Valsartan (Entresto 24 Mg-26 Mg) 1 tab BID PO Last administered on 02/03/19 08:38; Admin Dose 1 TAB; Start 01/21/19 at 21:00 Atorvastatin Calcium (Lipitor) 40 mg DAILY@21 PO Last administered on 02/02/19 20:55; Admin Dose 40 MG; Start 01/21/19 at 21:00 IV Flush (NS 3 ml) 3 ml PER PROTOCOL IV ; Start 01/21/19 at 15:00 Ondansetron HCl (Zofran Inj) 4 mg Q6H PRN IV NAUSEA/VOMITING; Start 01/21/19 at 15:00 Acetaminophen (Tylenol Tab) 650 mg Q6H PRN PO .PAIN 1-3 OR TEMP Last a dministered on 02/01/19 03:40; Admin Dose 650 MG; Start 01/21/19 at 15:00 Docusate Sodium (Colace) 100 mg Q12H PRN PO .CONSTIPATION Last administered on 02/02/19 17:46; Admin Dose 100 MG; Start 01/21/19 at 15:00 Famotidine (Pepcid) 20 mg Q12 PO Last administered on 02/03/19 08:38; Admin Dose 20 MG; Start 01/21/19 at 21:00 Levalbuterol (Xopenex Neb) 1.25 mg Q6H RESP THERAPY HHN Last administered on 02/03/19 14:07; Admin Dose 1.25 MG; Start 01/21/19 at 15:30 Levalbuterol (Xopenex Neb) 1.25 mg Q4H RESP THERAPY PRN HHN sob/wheezing; Start 01/21/19 at 15:30 Spironolactone (Aldactone) 25 mg DAILY PO Last administered on 02/03/19 08:38; Admin Dose 25 MG; Start 01/25/19 at 16:00 Bumetanide (Bumex) 1 mg BID DIURETICS PO Last administered on 02/03/19 17:36; Admin Dose 1 MG; Start 01/26/19 at 18:00 Acetylcysteine (Nac) 1,200 mg BID PO Last administered on 02/03/19 08:38; Admin Dose 1,200 MG; Start 02/01/19 at 12:00; Stop 02/04/19 at 11:59 Phenazopyridine HCl (Pyridium) 100 mg TID PO ; Start 02/03/19 at 21:00 Tramadol HCl (Ultram) 50 mg Q6H PO Last administered on 02/03/19at 14:53; Admin Dose 50 MG; Start 02/03/19 at 14:00 Quang Robles DO Feb 03, 2019 17:41
[2019-02-03] MEDS: PHENAZOPYRIDINE 100 MG TAB PO SCH (20:35)
[2019-02-03] MEDS: ATORVASTATIN 40 MG TAB PO SCH (20:35)
--- NOTE | 2019-02-03 21:00 | PN ---
Date/Time of Note Date/Time of Note DATE: 02/03/19 TIME: 20:53 Assessment/Plan Lines/Catheters IV Catheter Type (from Nrs): Saline Lock Bailey in Place (from Nrs): Yes (3way bailey,) Assessment/Plan Chief Complaint/Hosp Course 78-year-old male underwent transurethral resection of prostate and bladder tumor with insertion of bilateral ureteral catheters and dorsal slit on 01/27/2019. He is doing well. His renal function has improved and both ureteral catheters are draining well. The pathology report came back today and it showed: MICROSCOPIC DIAGNOSIS: A-Prostatic fossa: -- Papillary urothelial carcinoma, high grade. -- There is no definite invasion of lamina propria. -- Muscularis propria is not present in this biopsy. B-Bladder and prostate tumor, TUR: -- Invasive urothelial carcinoma, high grade. -- There is extensive invasion of lamina propria and focal invasion of muscularis propria. -- Urothelial carcinoma in situ. -- Fragments of benign prostatic parenchyma. 1 of the ureteral catheters was removed yesterday and I just remove the second 1 now. The patient will still have the bladder and the bladder irrigation. If the urine is clear I will stop the irrigation tomorrow and then the following da y will discontinue the Bailey catheter and then he may be discharged home. Subjective 24 Hr Interval Summary Patient is awake alert and feeling comfortable. He denies having any pain. Exam/Review of Systems Vital Signs Vitals Vital Signs Date Temp Pulse Resp B/P (MAP) Pulse Ox O2 O2 Flow FiO2 Time Delivery Rate 02/03/19 98.0 60 19 149/68 95 20:00 (95) 02/03/19 Nasal 2.0 19:55 Cannula Intake and Output 02/02/19 02/02/19 02/03/19 1515:00 23:00 07:00 IntakeIntake Total 50 ml 550 ml 400 ml OutputOutput Total 400 ml 250 ml BalanceBalance 50 ml 150 ml 150 ml Exam Free Text/Dictation The Bailey catheter is draining clear urine with the irrigation and the ureteral catheter is also draining clear urine. Results Result Diagram: 02/02/19 0541 02/02/19 0541 JOSE OCAMPO MD Feb 03, 2019 21:00
[2019-02-04] VITALS (8 sets, daily range): BP systolic 119–158; BP diastolic 58–70; PULSE 49–82; RESP 16–18
[2019-02-04] MEDS: LEVALBUTEROL (NEB) 1.25 MG/0.5 ML AMP HHN SCH ×5 (02:02→19:30)
[2019-02-04] MEDS: traMADol 50 MG TAB PO SCH ×4 (02:17→20:52)
[2019-02-04] MEDS: LEVOTHYROXINE 150 MCG TAB PO SCH (06:12)
[2019-02-04] MEDS: BUMETANIDE 1 MG TAB PO SCH ×2 (06:12→18:27)
[2019-02-04] MEDS: PHENAZOPYRIDINE 100 MG TAB PO SCH ×3 (09:40→20:51)
[2019-02-04] MEDS: FAMOTIDINE 20 MG TAB PO SCH ×2 (09:40→20:52)
[2019-02-04] MEDS: SPIRONOLACTONE 25 MG TAB PO SCH (09:40)
[2019-02-04] MEDS: ACETYLCYSTEINE 600 MG CAP PO SCH (09:41)
[2019-02-04] MEDS: SACUBITRIL/VALSARTAN (24mg-26mg) TABLET PO SCH ×2 (09:41→20:52)
[2019-02-04] MEDS: ISOSORBIDE DINITRATE 10 MG TAB PO SCH ×2 (09:42→20:51)
--- NOTE | 2019-02-04 11:40 | PN ---
Date/Time of Note Date/Time of Note DATE: 02/04/19 TIME: 11:38 Assessment/Plan VTE Prophylaxis Risk score (from Ns)>0 risk: 11 SCD applied (from Ns): Yes Pharmacological prophylaxis: NA/contraindicated Pharm contraindication: anticoag not tolerated Lines/Catheters IV [facility] Type [facility]from [facility] Saline Lock Urinary Cath still in place: Yes (3way bailey,) Reason Cath still needed: other (indicate) Assessment/Plan Hospital Course SUBJECTIVE: NO ACUTE DISTRESS. OBJECTIVE: Vital signs-see below PHYSICAL EXAM: Constitutional: Well-developed, not in acute distress. Psych: nl mood/affect, no complaints Head: atraumatic, normocephalic Eyes: nl conjunctiva, nl sclera ENMT: mucosa pink and moist, nl external ears & nose Neck: non-tender, supple Respiratory: diminished bibasilar. normal air movement Cardiovascular: Grade V/ Murmer 2nd Left ICS. nl pulses, regular rate and rhythm Gastrointestinal: non-tender, soft, bowel sounds active in all 4 quadrants. Musculoskeletal/extremities: trace edema ble. motor strength equal aminata aterally, no focal deficit. Normal pulses,no cyanosis Neurological: Alert oriented 3, forgetful, aphasic. Skin: nl turgor ASSESSMENT/PLAN: 78-year-old male with numerous medical problems including o2 dependent resp fx, cad/s/p cabs,severe ,CM w/ef 25%, bladder tumors with positive urine cytology documented in December 2018, was sent by his urologist for cystoscopy with possible surgical resection of the bladder tumor secondary to worsening frequency/dysuria/hematuria who underwent cystoscopy 01/27/19 w/ pathology positive for urothelial bladder ca.. 1. Urothelial carcinoma of bladder -urology and oncology on board-> unfortunately not a candidate for radical cystectomy/radiation/chemotherapy secondary to comorbidities=> recommended comfort focused care=> family agreeable for outpt hospice after discharge. -s/p removal of both urter catheters, plan is bailey irrigation over 24hrs and dc in am if urine clear 2. Systolic and diastolic CHF, acute on chronic - Stable and compensated - cont. diuresis,Entresto. - fluid restriction 1L/24hrs 3. Aortic stenosis, severe -this does alter our ability to approach some of his medical issues 4.Paroxysmal atrial fibrillation -stable -not a candidate for atc 2/2 bladder tumor -Resume ASA when cleared from urology perspective 5. Acquired hypothyroidism -On replacement therapy 6. UTI due to extended-spectrum beta lactamase (ESBL) producing Escherichia coli On antibiotics. 7. Chronic anemia -stable HH 8. Chronic oxygen dependent respiratory failure -stable -does use home oxygen 5 L. 9.History of CVA with expressive aphasia. -Monitor. -Resume asa when cleared from urology DVT prophylaxis: SCDs PUD prophylaxis: pepcid CODE STATUS: Full code Diet: low chol/low fat diet. fluid restriction 1 L/day Dispo: Overall patient with poor prognosis. He has Urothelial carcinoma of bladder which is not amenable for any radical cystectomy, radiation or chemotherapy. At this time, consultants recommending comfort care/hospice focus care which family opted after discharge. Plan is to continue Bailey irrigation over the next 24 hours and will likely remove Bailey in a.m. if urine remains clear and then discharge patient with hospice focus care as outpatient Patient was seen in collaboration with Dr. Nascimento. Result Diagram: 02/04/19 0643 02/04/19 0643 Results 24hrs Laboratory Tests Test 02/04/19 06:43 White Blood Count 9.7 Red Blood Count 4.59 L Hemoglobin 12.4 L Hematocrit 39.8 L Mean Corpuscular Volume 86.7 Mean Corpuscular Hemoglobin 27.0 L Mean Corpuscular Hemoglobin Concent 31.2 L Red Cell Distribution Width 15.1 H Platelet Count 271 # Mean Platelet Volume 11.5 H Immature Granulocytes % 0.200 Neutrophils % 72.2 Lymphocytes % 14.0 L Monocytes % 9.4 Eosinophils % 3.5 Basophils % 0.7 Nucleated Red Blood Cells % 0.0 Immature Granulocytes # 0.020 Neutrophils # 7.0 Lymphocytes # 1.4 Monocytes # 0.9 Eosinophils # 0.3 Basophils # 0.1 Nucleated Red Blood Cells # 0.0 Sodium Level 141 Potassium Level 3.8 Chloride Level 102 Carbon Dioxide Level 32 H Anion Gap 7 Blood Urea Nitrogen 25 H Creatinine 1.47 H Est Glomerular Filtrat Rate mL/min Glucose Level 103 Calcium Level 9.1 Magnesium Level 2.1 Exam/Review of Systems Exam Vitals Vital Signs Date Temp Pulse Resp B/P (MAP) Pulse Ox O2 O2 Flow FiO2 Time Delivery Rate 02/04/19 49 08:08 02/04/19 97.7 18 119/58 98 Nasal 08:05 (78) Cannula 02/04/19 3.0 02:03 Intake and Output 02/03/19 02/03/19 02/04/19 1515:00 23:00 07:00 IntakeIntake Total 50 ml 660 ml 300 ml OutputOutput Total 1000 ml 1100 ml BalanceBalance 50 ml -340 ml -800 ml Results Results 24hrs Laboratory Tests Test 02/04/19 06:43 White Blood Count 9.7 Red Blood Count 4.59 L Hemoglobin 12.4 L Hematocrit 39.8 L Mean Corpuscular Volume 86.7 Mean Corpuscular Hemoglobin 27.0 L Mean Corpuscular Hemoglobin Concent 31.2 L Red Cell Distribution Width 15.1 H Platelet Count 271 # Mean Platelet Volume 11.5 H Immature Granulocytes % 0.200 Neutrophils % 72.2 Lymphocytes % 14.0 L Monocytes % 9.4 Eosinophils % 3.5 Basophils % 0.7 Nucleated Red Blood Cells % 0.0 Immature Granulocytes # 0.020 Neutrophils # 7.0 Lymphocytes # 1.4 Monocytes # 0.9 Eosinophils # 0.3 Basophils # 0.1 Nucleated Red Blood Cells # 0.0 Sodium Level 141 Potassium Level 3.8 Chloride Level 102 Carbon Dioxide Level 32 H Anion Gap 7 Blood Urea Nitrogen 25 H Creatinine 1.47 H Est Glomerular Filtrat Rate mL/min Glucose Level 103 Calcium Level 9.1 Magnesium Level 2.1 Medications Medication Current Medications Isosorbide Dinitrate (Isordil) 30 mg BID PO Last administered on 02/04/19at 09:42; Admin Dose 30 MG; Start 01/21/19 at 21:00 Levothyroxine Sodium (Synthroid) 150 mcg BEFORE BREAKFAST PO Last administered on 02/04/19at 06:12; Admin Dose 150 MCG; Start 01/22/19 at 07:00 Sacubitril/ Valsartan (Entresto 24 Mg-26 Mg) 1 tab BID PO Last administered on 02/04/19at 09:41; Admin Dose 1 TAB; Start 01/21/19 at 21:00 Atorvastatin Calcium (Lipitor) 40 mg DAILY@21 PO Last administered on 02/03/19at 20:35; Admin Dose 40 MG; Start 01/21/19 at 21:00 IV Flush (NS 3 ml) 3 ml PER PROTOCOL IV ; Start 01/21/19 at 15:00 Ondansetron HCl (Zofran Inj) 4 mg Q6H PRN IV NAUSEA/VOMITING; Start 01/21/19 at 15:00 Acetaminophen (Tylenol Tab) 650 mg Q6H PRN PO .PAIN 1-3 OR TEMP Last administered on 02/01/19 03:40; Admin Dose 650 MG; Start 01/21/19 at 15:00 Docusate Sodium (Colace) 100 mg Q12H PRN PO .CONSTIPATION Last administered on 02/02/19 17:46; Admin Dose 100 MG; Start 01/21/19 at 15:00 Famotidine (Pepcid) 20 mg Q12 PO Last administered on 02/04/19 09:40; Admin Dose 20 MG; Start 01/21/19 at 21:00 Levalbuterol (Xopenex Neb) 1.25 mg Q6H RESP THERAPY HHN Last administered on 02/04/19 02:02; Admin Dose 1.25 MG; Start 01/21/19 at 15:30 Levalbuterol (Xopenex Neb) 1.25 mg Q4H RESP THERAPY PRN HHN sob/wheezing; Start 01/21/19 at 15:30 Spironolactone (Aldactone) 25 mg DAILY PO Last administered on 02/04/19 09:40; Admin Dose 25 MG; Start 01/25/19 at 16:00 Bumetanide (Bumex) 1 mg BID DIURETICS PO Last administered on 02/04/19 06:12; Admin Dose 1 MG; Start 01/26/19 at 18:00 Acetylcysteine (Nac) 1,200 mg BID PO Last administered on 02/04/19 09:41; Admin Dose 1,200 MG; Start 02/01/19 at 12:00; Stop 02/04/19 at 11:59 Phenazopyridine HCl (Pyridium) 100 mg TID PO Last administered on 02/04/19 09:40; Admin Dose 100 MG; Start 02/03/19 at 21:00 Tramadol HCl (Ultram) 50 mg Q6H PO Last administered on 02/04/19 09:52; Admin Dose 50 MG; Start 02/03/19 at 14:00 CARLOS MANUEL GERONIMO NP Feb 04, 2019 11:40
--- NOTE | 2019-02-04 12:49 | CONS ---
Assessment/Plan Cardiology NYHA: III Heart Failure Type: Acute on Chronic Heart Failure Type: Systolic Assessment/Plan Hospital Course (Demo Recall) S/P Bladder surgery 01/27/19 Acute decompensated systolic congestive heart failure, improved Cardiomyopathy with left ventricular ejection fraction 30% Possible urinary retention with hematuria with history of bladder cancer Paroxysmal atrial fibrillation, currently sinus rhythm-not on anticoagulation secondary to bladder tumor Moderate to severe aortic valve stenosis COPD Hypertension CKD NSVT Bradycardia -Continue diuretics as renal function blood pressure permits -No AVN blocking agents secondary to bradycardia -Continue Entresto as tolerated -Continue maintenance diuretics and titrate as needed Consultation Date/Type/Reason Admit Date/Time Jan 21, 2019 at 15:23 Initial Consult Date 01/21/19 Type of Consult Cardiology Requesting Provider: LEORA HUYNH MD Date/Time of Note DATE: 02/04/19 TIME: 12:48 24 HR Interval Summary Free Text/Dictation Patient seen and examined Exam/Review of Systems Vital Signs Vitals Vital Signs Date Temp Pulse Resp B/P (MAP) Pulse Ox O2 O2 Flow FiO2 Time Delivery Rate 02/04/19 49 08:08 02/04/19 97.7 18 119/58 98 Nasal 08:05 (78) Cannula 02/04/19 3.0 02:03 Intake and Output 02/03/19 02/03/19 02/04/19 1515:00 23:00 07:00 IntakeIntake Total 50 ml 660 ml 300 ml OutputOutput Total 1000 ml 1100 ml BalanceBalance 50 ml -340 ml -800 ml Exam Exam Sleeping, no apparent distress, daughter at bedside Head: normocephalic Respiratory: other (Coarse breath sounds bilaterally, no wheezing) Cardiovascular: regular rate and rhythm (S1-S2 heard) Gastrointestinal: soft, non-tender, bowel sounds Extremities: other (Trace edema) Labs Result Diagram: 02/04/19 0643 02/04/19 0643 Results 24hrs Laboratory Tests Test 02/04/19 06:43 White Blood Count 9.7 Red Blood Count 4.59 L Hemoglobin 12.4 L Hematocrit 39.8 L Mean Corpuscular Volume 86.7 Mean Corpuscular Hemoglobin 27.0 L Mean Corpuscular Hemoglobin Concent 31.2 L Red Cell Distribution Width 15.1 H Platelet Count 271 # Mean Platelet Volume 11.5 H Immature Granulocytes % 0.200 Neutrophils % 72.2 Lymphocytes % 14.0 L Monocytes % 9.4 Eosinophils % 3.5 Basophils % 0.7 Nucleated Red Blood Cells % 0.0 Immature Granulocytes # 0.020 Neutrophils # 7.0 Lymphocytes # 1.4 Monocytes # 0.9 Eosinophils # 0.3 Basophils # 0.1 Nucleated Red Blood Cells # 0.0 Sodium Level 141 Potassium Level 3.8 Chloride Level 102 Carbon Dioxide Level 32 H Anion Gap 7 Blood Urea Nitrogen 25 H Creatinine 1.47 H Est Glomerular Filtrat Rate mL/min Glucose Level 103 Calcium Level 9.1 Magnesium Level 2.1 Medications Medications Current Medications Isosorbide Dinitrate (Isordil) 30 mg BID PO Last administered on 02/04/19 09:42; Admin Dose 30 MG; Start 01/21/19 at 21:00 Levothyroxine Sodium (Synthroid) 150 mcg BEFORE BREAKFAST PO Last administered on 02/04/19 06:12; Admin Dose 150 MCG; Start 01/22/19 at 07:00 Sacubitril/ Valsartan (Entresto 24 Mg-26 Mg) 1 tab BID PO Last administered on 02/04/19 09:41; Admin Dose 1 TAB; Start 01/21/19 at 21:00 Atorvastatin Calcium (Lipitor) 40 mg DAILY@21 PO Last administered on 02/03/19 20:35; Admin Dose 40 MG; Start 01/21/19 at 21:00 IV Flush (NS 3 ml) 3 ml PER PROTOCOL IV ; Start 01/21/19 at 15:00 Ondansetron HCl (Zofran Inj) 4 mg Q6H PRN IV NAUSEA/VOMITING; Start 01/21/19 at 15:00 Acetaminophen (Tylenol Tab) 650 mg Q6H PRN PO .PAIN 1-3 OR TEMP Last adm inistered on 02/01/19 03:40; Admin Dose 650 MG; Start 01/21/19 at 15:00 Docusate Sodium (Colace) 100 mg Q12H PRN PO .CONSTIPATION Last administered on 02/02/19 17:46; Admin Dose 100 MG; Start 01/21/19 at 15:00 Famotidine (Pepcid) 20 mg Q12 PO Last administered on 02/04/19 09:40; Admin Dose 20 MG; Start 01/21/19 at 21:00 Levalbuterol (Xopenex Neb) 1.25 mg Q6H RESP THERAPY HHN Last administered on 02/04/19at 02:02; Admin Dose 1.25 MG; Start 01/21/19 at 15:30 Levalbuterol (Xopenex Neb) 1.25 mg Q4H RESP THERAPY PRN HHN sob/wheezing; Start 01/21/19 at 15:30 Spironolactone (Aldactone) 25 mg DAILY PO Last administered on 02/04/19 09:40; Admin Dose 25 MG; Start 01/25/19 at 16:00 Bumetanide (Bumex) 1 mg BID DIURETICS PO Last administered on 02/04/19 06:12; Admin Dose 1 MG; Start 01/26/19 at 18:00 Phenazopyridine HCl (Pyridium) 100 mg TID PO Last administered on 02/04/19 09:40; Admin Dose 100 MG; Start 02/03/19 at 21:00 Tramadol HCl (Ultram) 50 mg Q6H PO Last administered on 02/04/19at 09:52; Admin Dose 50 MG; Start 02/03/19 at 14:00 Quang Robles DO Feb 04, 2019 12:49
--- NOTE | 2019-02-04 15:48 | PN ---
Date/Time of Note Date/Time of Note DATE: 02/04/19 TIME: 15:45 Assessment/Plan VTE Prophylaxis Risk score (from Ns)>0 risk: 11 SCD applied (from Ns): Yes Pharmacological prophylaxis: NA/contraindicated Pharm contraindication: other (hematuria) Lines/Catheters IV [facility] (from [facility] Saline Lock Urinary Cath still in place: Yes (3way bailey,) Reason Cath still needed: urinary retention (per urologist) Assessment/Plan Assessment/Plan Pt is more animated than yesterday but still has the multisystem issues previously described. Family is not here presently but in the chart a non-aggressive approach is favored by the various doctors. I support a comfort care approach and would not suggest aggressive RT or surgery. Result Diagram: 02/04/1943 02/04/19 0643 Results 24hrs Laboratory Tests Test 02/04/19 06:43 White Blood Count 9.7 Red Blood Count 4.59 L Hemoglobin 12.4 L Hematocrit 39.8 L Mean Corpuscular Volume 86.7 Mean Corpuscular Hemoglobin 27.0 L Mean Corpuscular Hemoglobin Concent 31.2 L Red Cell Distribution Width 15.1 H Platelet Count 271 # Mean Platelet Volume 11.5 H Immature Granulocytes % 0.200 Neutrophils % 72.2 Lymphocytes % 14.0 L Monocytes % 9.4 Eosinophils % 3.5 Basophils % 0.7 Nucleated Red Blood Cells % 0.0 Immature Granulocytes # 0.020 Neutrophils # 7.0 Lymphocytes # 1.4 Monocytes # 0.9 Eosinophils # 0.3 Basophils # 0.1 Nucleated Red Blood Cells # 0.0 Sodium Level 141 Potassium Level 3.8 Chloride Level 102 Carbon Dioxide Level 32 H Anion Gap 7 Blood Urea Nitrogen 25 H Creatinine 1.47 H Est Glomerular Filtrat Rate mL/min Glucose Level 103 Calcium Level 9.1 Magnesium Level 2.1 Subjective 24 Hr Interval Summary Free Text/Dictation Pt seems more animated today. Exam/Review of Systems Exam Vitals Vital Signs Date Temp Pulse Resp B/P (MAP) Pulse Ox O2 O2 Flow FiO2 Time Delivery Rate 02/04/19 97.5 53 16 124/60 98 Nasal 15:44 (81) Cannula 02/04/19 3.0 02:03 Intake and Output 02/03/19 02/03/19 02/04/19 1515:00 23:00 07:00 IntakeIntake Total 50 ml 660 ml 300 ml OutputOutput Total 1000 ml 1100 ml BalanceBalance 50 ml -340 ml -800 ml Constitutional: alert Head: normocephalic Eyes: nl conjunctiva ENMT: nl external ears & nose Neck: supple Respiratory: clear to auscultation Cardiovascular: regular rate and rhythm Gastrointestinal: soft Results Results 24hrs Laboratory Tests Test 02/04/19 06:43 White Blood Count 9.7 Red Blood Count 4.59 L Hemoglobin 12.4 L Hematocrit 39.8 L Mean Corpuscular Volume 86.7 Mean Corpuscular Hemoglobin 27.0 L Mean Corpuscular Hemoglobin Concent 31.2 L Red Cell Distribution Width 15.1 H Platelet Count 271 # Mean Platelet Volume 11.5 H Immature Granulocytes % 0.200 Neutrophils % 72.2 Lymphocytes % 14.0 L Monocytes % 9.4 Eosinophils % 3.5 Basophils % 0.7 Nucleated Red Blood Cells % 0.0 Immature Granulocytes # 0.020 Neutrophils # 7.0 Lymphocytes # 1.4 Monocytes # 0.9 Eosinophils # 0.3 Basophils # 0.1 Nucleated Red Blood Cells # 0.0 Sodium Level 141 Potassium Level 3.8 Chloride Level 102 Carbon Dioxide Level 32 H Anion Gap 7 Blood Urea Nitrogen 25 H Creatinine 1.47 H Est Glomerular Filtrat Rate mL/min Glucose Level 103 Calcium Level 9.1 Magnesium Level 2.1 Medications Medication Current Medications Isosorbide Dinitrate (Isordil) 30 mg BID PO Last administered on 02/04/19at 09:42; Admin Dose 30 MG; Start 01/21/19 at 21:00 Levothyroxine Sodium (Synthroid) 150 mcg BEFORE BREAKFAST PO Last administered on 02/04/19at 06:12; Admin Dose 150 MCG; Start 01/22/19 at 07:00 Sacubitril/ Valsartan (Entresto 24 Mg-26 Mg) 1 tab BID PO Last administered on 02/04/19 09:41; Admin Dose 1 TAB; Start 01/21/19 at 21:00 Atorvastatin Calcium (Lipitor) 40 mg DAILY@21 PO Last administered on 02/03/19at 20:35; Admin Dose 40 MG; Start 01/21/19 at 21:00 IV Flush (NS 3 ml) 3 ml PER PROTOCOL IV ; Start 01/21/19 at 15:00 Ondansetron HCl (Zofran Inj) 4 mg Q6H PRN IV NAUSEA/VOMITING; Start 01/21/19 at 15:00 Acetaminophen (Tylenol Tab) 650 mg Q6H PRN PO .PAIN 1-3 OR TEMP Last administered on 02/01/19 03:40; Admin Dose 650 MG; Start 01/21/19 at 15:00 Docusate Sodium (Colace) 100 mg Q12H PRN PO .CONSTIPATION Last administered on 02/02/19 17:46; Admin Dose 100 MG; Start 01/21/19 at 15:00 Famotidine (Pepcid) 20 mg Q12 PO Last administered on 02/04/19 09:40; Admin Dose 20 MG; Start 01/21/19 at 21:00 Levalbuterol (Xopenex Neb) 1.25 mg Q6H RESP THERAPY HHN Last administered on 02/04/19 02:02; Admin Dose 1.25 MG; Start 01/21/19 at 15:30 Levalbuterol (Xopenex Neb) 1.25 mg Q4H RESP THERAPY PRN HHN sob/wheezing; Start 01/21/19 at 15:30 Spironolactone (Aldactone) 25 mg DAILY PO Last administered on 02/04/19 09:40; Admin Dose 25 MG; Start 01/25/19 at 16:00 Bumetanide (Bumex) 1 mg BID DIURETICS PO Last administered on 02/04/19 06:12; Admin Dose 1 MG; Start 01/26/19 at 18:00 Phenazopyridine HCl (Pyridium) 100 mg TID PO Last administered on 02/04/19 14:08; Admin Dose 100 MG; Start 02/03/19 at 21:00 Tramadol HCl (Ultram) 50 mg Q6H PO Last administered on 02/04/19 14:37; Admin Dose 50 MG; Start 02/03/19 at 14:00 MIGUEL LOMBARDO MD Feb 04, 2019 15:48
[2019-02-04] MEDS: ATORVASTATIN 40 MG TAB PO SCH (20:52)
--- NOTE | 2019-02-04 22:37 | PN ---
Date/Time of Note Date/Time of Note DATE: 02/04/19 TIME: 22:34 Assessment/Plan Lines/Catheters IV Catheter Type (from [facility]): Saline Lock Lopez in Place (from [facility]): Yes (3 way w/ CBI) Assessment/Plan Chief Complaint/Hosp Course 78-year-old male underwent transurethral resection of prostate and bladder tumor with insertion of bilateral ureteral catheters and dorsal slit on 01/27/2019. He is doing well. His renal function has improved and and the urine in the Lopez catheter is clear. MICROSCOPIC DIAGNOSIS: A-Prostatic fossa: -- Papillary urothelial carcinoma, high grade. -- There is no definite invasion of lamina propria. -- Muscularis propria is not present in this biopsy. B-Bladder and prostate tumor, TUR: -- Invasive urothelial carcinoma, high grade. -- There is extensive invasion of lamina propria and focal invasion of mus cularis propria. -- Urothelial carcinoma in situ. -- Fragments of benign prostatic parenchyma. I did stop the continuous bladder irrigation. Will watch his urine color and decide whether to discontinue the Lopez catheter and see if he does void. Subjective 24 Hr Interval Summary Patient appears to be comfortable however he is whining which is usual for him. I had his daughter asked him if he has any pain and he answers in the negative. Exam/Review of Systems Vital Signs Vitals Vital Signs Date Temp Pulse Resp B/P (MAP) Pulse Ox O2 O2 Flow FiO2 Time Delivery Rate 02/04/19 62 20:00 02/04/19 97.8 18 158/70 97 20:00 (99) 02/04/19 Nasal 3.0 19:30 Cannula Intake and Output 02/03/19 02/03/19 02/04/19 1515:00 23:00 07:00 IntakeIntake Total 50 ml 660 ml 300 ml OutputOutput Total 1000 ml 1100 ml BalanceBalance 50 ml -340 ml -800 ml Exam Free Text/Dictation The Lopez catheter is draining clear yellow urine. Results Result Diagram: 02/04/19 0643 02/04/19 0643 JOSE OCAMPO MD Feb 04, 2019 22:37
[2019-02-05] VITALS (9 sets, daily range): BP systolic 100–158; BP diastolic 51–71; PULSE 44–89; RESP 18–20
[2019-02-05] MEDS: LEVALBUTEROL (NEB) 1.25 MG/0.5 ML AMP HHN SCH ×4 (01:32→19:58)
[2019-02-05] MEDS: traMADol 50 MG TAB PO SCH ×5 (02:00→20:22)
[2019-02-05] MEDS: BUMETANIDE 1 MG TAB PO SCH (05:45)
[2019-02-05] MEDS: LEVOTHYROXINE 150 MCG TAB PO SCH (05:45)
--- NOTE | 2019-02-05 07:50 | CONS ---
Assessment/Plan Assessment/Plan Assessment/Plan (Daily) Meeting with patiens daughter justino who still adamantly refuses Hospice services. Consultation Date/Type/Reason Admit Date/Time Jan 21, 2019 at 15:23 Initial Consult Date 02/02/19 Requesting Provider: LEORA HUYNH MD Date/Time of Note DATE: 02/05/19 TIME: 07:48 Exam/Review of Systems Exam Vitals Vital Signs Date Temp Pulse Resp B/P (MAP) Pulse Ox O2 O2 Flow FiO2 Time Delivery Rate 02/05/19 52 04:00 02/05/19 97.2 18 106/51 93 04:00 (69) 02/05/19 2.0 01:32 02/04/19 Nasal 19:30 Cannula Intake and Output 02/04/19 02/04/19 02/05/19 1515:00 23:00 07:00 IntakeIntake Total 3000 ml 500 ml OutputOutput Total 3000 ml 700 ml BalanceBalance 0 ml -200 ml Results Result Diagram: 02/04/19 0643 02/05/19 0629 Results 24hrs Laboratory Tests Test 02/05/19 06:29 Sodium Level 137 Potassium Level 3.9 Chloride Level 99 Carbon Dioxide Level 30 Anion Gap 8 Blood Urea Nitrogen 33 H Creatinine 1.55 H Est Glomerular Filtrat Rate mL/min Glucose Level 101 Calcium Level 9.0 Magnesium Level 2.2 Medications Medication Current Medications Isosorbide Dinitrate (Isordil) 30 mg BID PO Last administered on 02/04/19at 20:51; Admin Dose 30 MG; Start 01/21/19 at 21:00 Levothyroxine Sodium (Synthroid) 150 mcg BEFORE BREAKFAST PO Last administered on 02/05/19at 05:45; Admin Dose 150 MCG; Start 01/22/19 at 07:00 Sacubitril/ Valsartan (Entresto 24 Mg-26 Mg) 1 tab BID PO Last administered on 02/04/19at 20:52; Admin Dose 1 TAB; Start 01/21/19 at 21:00 Atorvastatin Calcium (Lipitor) 40 mg DAILY@21 PO Last administered on 02/04/19at 20:52; Admin Dose 40 MG; Start 01/21/19 at 21:00 IV Flush (NS 3 ml) 3 ml PER PROTOCOL IV ; Start 01/21/19 at 15:00 Ondansetron HCl (Zofran Inj) 4 mg Q6H PRN IV NAUSEA/VOMITING; Start 01/21/19 at 15:00 Acetaminophen (Tylenol Tab) 650 mg Q6H PRN PO .PAIN 1-3 OR TEMP Last administered on 02/01/19 03:40; Admin Dose 650 MG; Start 01/21/19 at 15:00 Docusate Sodium (Colace) 100 mg Q12H PRN PO .CONSTIPATION Last administered on 02/02/19 17:46; Admin Dose 100 MG; Start 01/21/19 at 15:00 Famotidine (Pepcid) 20 mg Q12 PO Last administered on 02/04/19 20:52; Admin Dose 20 MG; Start 01/21/19 at 21:00 Levalbuterol (Xopenex Neb) 1.25 mg Q6H RESP THERAPY HHN Last administered on 02/04/19 19:30; Admin Dose 1.25 MG; Start 01/21/19 at 15:30 Levalbuterol (Xopenex Neb) 1.25 mg Q4H RESP THERAPY PRN HHN sob/wheezing; Start 01/21/19 at 15:30 Spironolactone (Aldactone) 25 mg DAILY PO Last administered on 02/04/19 09:40; Admin Dose 25 MG; Start 01/25/19 at 16:00 Bumetanide (Bumex) 1 mg BID DIURETICS PO Last administered on 02/05/19 05:45; Admin Dose 1 MG; Start 01/26/19 at 18:00 Phenazopyridine HCl (Pyridium) 100 mg TID PO Last administered on 02/04/19 20:51; Admin Dose 100 MG; Start 02/03/19 at 21:00 Tramadol HCl (Ultram) 50 mg Q6H PO Last administered on 02/05/19 04:31; Admin Dose 50 MG; Start 02/03/19 at 14:00 ALLYSON AVINA Feb 05, 2019 07:50
--- NOTE | 2019-02-05 08:36 | PN ---
Date/Time of Note Date/Time of Note DATE: 02/05/19 TIME: 08:34 Assessment/Plan Lines/Catheters IV Catheter Type (from Nrs): Saline Lock Lopez in Place (from Nrs): Yes (3 way w/ CBI) Assessment/Plan Chief Complaint/Hosp Course 78-year-old male underwent transurethral resection of prostate and bladder tumor with insertion of bilateral ureteral catheters and dorsal slit on 01/27/2019. He is doing well. His creatinine has been going up. We will do renal ultrasound to check for hydronephrosis. Subjective 24 Hr Interval Summary Patient is status post transurethral resection of bladder tumors and transurethral resection of prostate. He does have on and off bladder spasms Exam/Review of Systems Vital Signs Vitals Vital Signs Date Temp Pulse Resp B/P (MAP) Pulse Ox O2 O2 Flow FiO2 Time Delivery Rate 02/05/19 59 08:14 02/05/19 97.2 18 106/51 93 04:00 (69) 02/05/19 2.0 01:32 02/04/19 Nasal 19:30 Cannula Intake and Output 02/04/19 02/04/19 02/05/19 1414:59 22:59 06:59 IntakeIntake Total 3000 ml 500 ml OutputOutput Total 3000 ml 700 ml BalanceBalance 0 ml -200 ml Exam Free Text/Dictation The abdomen is soft. There is no tenderness. The Lopez catheter is draining yellow colored urine. The bladder irrigation was stopped last night. Results Result Diagram: 02/04/19 0643 02/05/19 0629 JOSE OCAMPO MD Feb 05, 2019 08:36
[2019-02-05] MEDS: SPIRONOLACTONE 25 MG TAB PO SCH (09:04)
[2019-02-05] MEDS: ISOSORBIDE DINITRATE 10 MG TAB PO SCH ×2 (09:04→20:22)
[2019-02-05] MEDS: FAMOTIDINE 20 MG TAB PO SCH ×2 (09:04→20:21)
[2019-02-05] MEDS: SACUBITRIL/VALSARTAN (24mg-26mg) TABLET PO SCH ×2 (09:04→20:22)
[2019-02-05] MEDS: PHENAZOPYRIDINE 100 MG TAB PO SCH ×3 (09:04→20:22)
--- NOTE | 2019-02-05 09:57 | PN ---
Date/Time of Note Date/Time of Note DATE: 02/05/19 TIME: 09:52 Assessment/Plan VTE Prophylaxis Risk score (from Ns)>0 risk: 9 SCD applied (from Ns): Yes Pharmacological prophylaxis: NA/contraindicated Pharm contraindication: anticoag not tolerated Lines/Catheters IV [facility]ter Type (from [facility]): Saline Lock Urinary Cath still in place: Yes Reason Cath still needed: other (indicate) Assessment/Plan Hospital Course SUBJECTIVE: NO ACUTE DISTRESS. OBJECTIVE: Vital signs-see below PHYSICAL EXAM: Constitutional: Well-developed, not in acute distress. Psych: nl mood/affect, no complaints Head: atraumatic, normocephalic Eyes: nl conjunctiva, nl sclera ENMT: mucosa pink and moist, nl external ears & nose Neck: non-tender, supple Respiratory: diminished bibasilar. normal air movement Cardiovascular: Grade V/ Murmer 2nd Left ICS. nl pulses, regular rate and rhythm Gastrointestinal: non-tender, soft, bowel sounds active in all 4 quadrants. Musculoskeletal/extremities: trace edema ble. motor strength equal bilaterally, no focal deficit. Normal pulses,no cyanosis Neurological: Alert oriented 1, forgetful, aphasic. Skin: nl turgor ASSESSMENT/PLAN: 78-year-old male with numerous medical problems including o2 dependent resp fx, cad/s/p cabs,severe ,CM w/ef 25%, bladder tumors with positive urine cytology documented in December 2018, was sent by his urologist for cystoscopy with possible surgical resection of the bladder tumor secondary to worsening frequency/dysuria/hematuria who underwent cystoscopy w/ pathology positive for urothelial bladder ca.. 1. Urothelial carcinoma of bladder -urology and oncology on board-> unfortunately not a candidate for radical cystectomy/radiation/chemotherapy secondary to comorbidities=> recommended comfort focused care=> family agreeable for outpt hospice after discharge. -s/p removal of both ureter catheters,bailey irrigation has been stopped- pending us prior bailey dc-f/u urology recs 2. Systolic and diastolic CHF, acute on chronic - Stable and compensated - cont. diuresis,Entresto. - fluid restriction 1L/24hrs 3. Aortic stenosis, severe -this does alter our ability to approach some of his medical issues 4.Paroxysmal atrial fibrillation -stable -not a candidate for atc 2/2 bladder tumor -Resume ASA when cleared from urology perspective 5. Acquired hypothyroidism -On replacement therapy 6. UTI due to extended-spectrum beta lactamase (ESBL) producing Escherichia coli On antibiotics. 7. Chronic anemia -stable HH 8. Chronic oxygen dependent respiratory failure -stable -does use home oxygen 5 L. 9.History of CVA with expressive aphasia. -Monitor. -Resume asa when cleared from urology DVT prophylaxis: SCDs PUD prophylaxis: pepcid CODE STATUS: Full code Diet: low chol/low fat diet. fluid restriction 1 L/day Dispo: Overall patient with poor prognosis. He has Urothelial carcinoma of bladder which is not amenable for any radical cystectomy, radiation or chemotherapy. Family is not receptive to hospice care. At this time, will await for urology recommendation regarding Bailey discontinuation and discharge planning. Patient was seen in collaboration with Dr. Nascimento. Result Diagram: 02/04/19 0643 02/05/19 0629 Results 24hrs Laboratory Tests Test 02/05/19 06:29 Sodium Level 137 Potassium Level 3.9 Chloride Level 99 Carbon Dioxide Level 30 Anion Gap 8 Blood Urea Nitrogen 33 H Creatinine 1.55 H Est Glomerular Filtrat Rate mL/min Glucose Level 101 Calcium Level 9.0 Magnesium Level 2.2 Exam/Review of Systems Exam Vitals Vital Signs Date Temp Pulse Resp B/P (MAP) Pulse Ox O2 O2 Flow FiO2 Time Delivery Rate 02/05/19 59 08:14 02/05/19 97.6 18 121/58 95 08:00 (79) 02/05/19 Nasal 2.0 08:00 Cannula Intake and Output 02/04/19 02/04/19 02/05/19 1515:00 23:00 07:00 IntakeIntake Total 3000 ml 500 ml OutputOutput Total 3000 ml 700 ml BalanceBalance 0 ml -200 ml Results Results 24hrs Laboratory Tests Test 02/05/19 06:29 Sodium Level 137 Potassium Level 3.9 Chloride Level 99 Carbon Dioxide Level 30 Anion Gap 8 Blood Urea Nitrogen 33 H Creatinine 1.55 H Est Glomerular Filtrat Rate mL/min Glucose Level 101 Calcium Level 9.0 Magnesium Level 2.2 Medications Medication Current Medications Isosorbide Dinitrate (Isordil) 30 mg BID PO Last administered on 02/05/19at 09:04; Admin Dose 30 MG; Start 01/21/19 at 21:00 Levothyroxine Sodium (Synthroid) 150 mcg BEFORE BREAKFAST PO Last administered on 02/05/19 05:45; Admin Dose 150 MCG; Start 01/22/19 at 07:00 Sacubitril/ Valsartan (Entresto 24 Mg-26 Mg) 1 tab BID PO Last administered on 02/05/19 09:04; Admin Dose 1 TAB; Start 01/21/19 at 21:00 Atorvastatin Calcium (Lipitor) 40 mg DAILY@21 PO Last administered on 02/04/19 20:52; Admin Dose 40 MG; Start 01/21/19 at 21:00 IV Flush (NS 3 ml) 3 ml PER PROTOCOL IV ; Start 01/21/19 at 15:00 Ondansetron HCl (Zofran Inj) 4 mg Q6H PRN IV NAUSEA/VOMITING; Start 01/21/19 at 15:00 Acetaminophen (Tylenol Tab) 650 mg Q6H PRN PO .PAIN 1-3 OR TEMP Last administer ed on 02/01/19 03:40; Admin Dose 650 MG; Start 01/21/19 at 15:00 Docusate Sodium (Colace) 100 mg Q12H PRN PO .CONSTIPATION Last administered on 02/02/19 17:46; Admin Dose 100 MG; Start 01/21/19 at 15:00 Famotidine (Pepcid) 20 mg Q12 PO Last administered on 02/05/19 09:04; Admin Dose 20 MG; Start 01/21/19 at 21:00 Levalbuterol (Xopenex Neb) 1.25 mg Q6H RESP THERAPY HHN Last administered on 02/05/19 09:08; Admin Dose 1.25 MG; Start 01/21/19 at 15:30 Levalbuterol (Xopenex Neb) 1.25 mg Q4H RESP THERAPY PRN HHN sob/wheezing; Start 01/21/19 at 15:30 Spironolactone (Aldactone) 25 mg DAILY PO Last administered on 02/05/19 09:04; Admin Dose 25 MG; Start 01/25/19 at 16:00 Bumetanide (Bumex) 1 mg BID DIURETICS PO Last administered on 02/05/19 05:45; Admin Dose 1 MG; Start 01/26/19 at 18:00 Phenazopyridine HCl (Pyridium) 100 mg TID PO Last administered on 02/05/19at 09:04; Admin Dose 100 MG; Start 02/03/19 at 21:00 Tramadol HCl (Ultram) 50 mg Q6H PO Last administered on 02/05/19at 09:11; Admin Dose 50 MG; Start 02/03/19 at 14:00 CARLOS MANUEL GERONIMO NP Feb 05, 2019 09:57
--- NOTE | 2019-02-05 10:43 | CONS ---
Assessment/Plan Assessment/Plan Assessment/Plan (Daily) Carcinoma of thr bladder CHF PAoxygen dependent patient high rishk of hospitalization again Consultation Date/Type/Reason Admit Date/Time Jan 21, 2019 at 15:23 Initial Consult Date 02/02/19 Requesting Provider: LEORA HUYNH MD Date/Time of Note DATE: 02/05/19 TIME: 10:42 24 HR Interval Summary Free Text/Dictation There has been no changes in patients overall conditins which is exteremely poor . Family wishes to continue with full code and refuses Hospice Care. We have spoken with all family members. Exam/Review of Systems Exam Vitals Vital Signs Date Temp Pulse Resp B/P (MAP) Pulse Ox O2 O2 Flow FiO2 Time Delivery Rate 02/05/19 49 18 95 Nasal 2.0 09:08 Cannula 02/05/19 97.6 121/58 08:00 (79) Intake and Output 02/04/19 02/04/19 02/05/19 1515:00 23:00 07:00 IntakeIntake Total 3000 ml 500 ml OutputOutput Total 3000 ml 700 ml BalanceBalance 0 ml -200 ml Constitutional: distress, frail Psych: confusion Respiratory: clear to auscultation, normal air movement; No congested cough, No crackles/rales, No diminished breath sounds, No intercostal retraction, No labored breathing, No respirations, No tactile fremitus, No wheezing, No other Cardiovascular: regular rate and rhythm, nl pulses; No bruits, No diastolic murmur, No edema, No gallop, No irregular rhythm, No jugular venous distention (JVD), No murmurs/extra sounds, No rub, No systolic mu rmur, No S3, No S4, No other Neurological: confused, focal weakness, lethargic Results Result Diagram: 02/04/19 0643 02/05/19 0629 Results 24hrs Laboratory Tests Test 02/05/19 06:29 Sodium Level 137 Potassium Level 3.9 Chloride Level 99 Carbon Dioxide Level 30 Anion Gap 8 Blood Urea Nitrogen 33 H Creatinine 1.55 H Est Glomerular Filtrat Rate mL/min Glucose Level 101 Calcium Level 9.0 Magnesium Level 2.2 Medications Medication Current Medications Isosorbide Dinitrate (Isordil) 30 mg BID PO Last administered on 02/05/19at 09:04; Admin Dose 30 MG; Start 01/21/19 at 21:00 Levothyroxine Sodium (Synthroid) 150 mcg BEFORE BREAKFAST PO Last administered on 02/05/19 05:45; Admin Dose 150 MCG; Start 01/22/19 at 07:00 Sacubitril/ Valsartan (Entresto 24 Mg-26 Mg) 1 tab BID PO Last administered on 02/05/19 09:04; Admin Dose 1 TAB; Start 01/21/19 at 21:00 Atorvastatin Calcium (Lipitor) 40 mg DAILY@21 PO Last administered on 02/04/19 20:52; Admin Dose 40 MG; Start 01/21/19 at 21:00 IV Flush (NS 3 ml) 3 ml PER PROTOCOL IV ; Start 01/21/19 at 15:00 Ondansetron HCl (Zofran Inj) 4 mg Q6H PRN IV NAUSEA/VOMITING; Start 01/21/19 at 15:00 Acetaminophen (Tylenol Tab) 650 mg Q6H PRN PO .PAIN 1-3 OR TEMP Last adminis tered on 02/01/19 03:40; Admin Dose 650 MG; Start 01/21/19 at 15:00 Docusate Sodium (Colace) 100 mg Q12H PRN PO .CONSTIPATION Last administered on 02/02/19 17:46; Admin Dose 100 MG; Start 01/21/19 at 15:00 Famotidine (Pepcid) 20 mg Q12 PO Last administered on 02/05/19 09:04; Admin Dose 20 MG; Start 01/21/19 at 21:00 Levalbuterol (Xopenex Neb) 1.25 mg Q6H RESP THERAPY HHN Last administered on 02/05/19 09:08; Admin Dose 1.25 MG; Start 01/21/19 at 15:30 Levalbuterol (Xopenex Neb) 1.25 mg Q4H RESP THERAPY PRN HHN sob/wheezing; Start 01/21/19 at 15:30 Spironolactone (Aldactone) 25 mg DAILY PO Last administered on 02/05/19 09:04; Admin Dose 25 MG; Start 01/25/19 at 16:00 Bumetanide (Bumex) 1 mg BID DIURETICS PO Last administered on 02/05/19 05:45; Admin Dose 1 MG; Start 01/26/19 at 18:00 Phenazopyridine HCl (Pyridium) 100 mg TID PO Last administered on 02/05/19at 09:04; Admin Dose 100 MG; Start 02/03/19 at 21:00 Tramadol HCl (Ultram) 50 mg Q6H PO Last administered on 02/05/19 09:11; Admin Dose 50 MG; Start 02/03/19 at 14:00 ALYLSON AVINA Feb 05, 2019 10:43
--- NOTE | 2019-02-05 15:10 | QN ---
Documentation Comment Prior notes reviewed. Pt remains a poor candidate for aggressive treatment, such as surgery or RT. Family not willing to consent to no code status now. Perhaps once he is ready for discharge, this topic can be rediscussed. MIGUEL LOMBARDO MD Feb 05, 2019 15:10
[2019-02-05] MEDS: DOCUSATE SODIUM 100 MG CAP PO PRN (16:04)
--- NOTE | 2019-02-05 16:51 | CONS ---
Assessment/Plan Cardiology NYHA: III Heart Failure Type: Acute on Chronic Heart Failure Type: Systolic Assessment/Plan Hospital Course (Demo Recall) S/P Bladder surgery 01/27/19 Acute decompensated systolic congestive heart failure, improved Cardiomyopathy with left ventricular ejection fraction 30% Possible urinary retention with hematuria with history of bladder cancer Paroxysmal atrial fibrillation, currently sinus rhythm-not on anticoagulation secondary to bladder tumor Moderate to severe aortic valve stenosis COPD Hypertension CKD NSVT Bradycardia -Creatinine slowly increasing, would decrease Bumex to daily -No AVN blocking agents secondary to bradycardia -Continue Entresto as tolerated Consultation Date/Type/Reason Admit Date/Time Jan 21, 2019 at 15:23 Initial Consult Date 01/21/19 Type of Consult Cardiology Requesting Provider: LEORA HUYNH MD Date/Time of Note DATE: 02/05/19 TIME: 16:49 24 HR Interval Summary Free Text/Dictation No shortness of breath, chest pain Exam/Review of Systems Vital Signs Vitals Vital Signs Date Temp Pulse Resp B/P (MAP) Pulse Ox O2 O2 Flow FiO2 Time Delivery Rate 02/05/19 52 16:09 02/05/19 2.0 13:30 02/05/19 20 96 Nasal 13:30 Cannula 02/05/19 98.7 100/57 11:00 (71) Intake and Output 02/04/19 02/04/19 02/05/19 1515:00 23:00 07:00 IntakeIntake Total 3000 ml 500 ml OutputOutput Total 3000 ml 700 ml BalanceBalance 0 ml -200 ml Exam Constitutional: alert (No apparent distress, family bedside, following comm ands) Head: normocephalic Respiratory: other (Coarse breath sounds bilaterally, no wheezing) Cardiovascular: regular rate and rhythm (S1-S2 heard) Gastrointestinal: soft, non-tender, bowel sounds Extremities: other (No significant edema) Labs Result Diagram: 02/04/19 0643 02/05/19 0629 Results 24hrs Laboratory Tests Test 02/05/19 06:29 Sodium Level 137 Potassium Level 3.9 Chloride Level 99 Carbon Dioxide Level 30 Anion Gap 8 Blood Urea Nitrogen 33 H Creatinine 1.55 H Est Glomerular Filtrat Rate mL/min Glucose Level 101 Calcium Level 9.0 Magnesium Level 2.2 Medications Medications Current Medications Isosorbide Dinitrate (Isordil) 30 mg BID PO Last administered on 02/05/19 09:04; Admin Dose 30 MG; Start 01/21/19 at 21:00 Levothyroxine Sodium (Synthroid) 150 mcg BEFORE BREAKFAST PO Last administered on 02/05/19 05:45; Admin Dose 150 MCG; Start 01/22/19 at 07:00 Sacubitril/ Valsartan (Entresto 24 Mg-26 Mg) 1 tab BID PO Last administered on 02/05/19 09:04; Admin Dose 1 TAB; Start 01/21/19 at 21:00 Atorvastatin Calcium (Lipitor) 40 mg DAILY@21 PO Last administered on 02/04/19 20:52; Admin Dose 40 MG; Start 01/21/19 at 21:00 IV Flush (NS 3 ml) 3 ml PER PROTOCOL IV ; Start 01/21/19 at 15:00 Ondansetron HCl (Zofran Inj) 4 mg Q6H PRN IV NAUSEA/VOMITING; Start 01/21/19 at 15:00 Acetaminophen (Tylenol Tab) 650 mg Q6H PRN PO .PAIN 1-3 OR TEMP Last administered on 02/01/19 03:40; Admin Dose 650 MG; Start 01/21/19 at 15:00 Docusate Sodium (Colace) 100 mg Q12H PRN PO .CONSTIPATION Last administered on 02/05/19 16:04; Admin Dose 100 MG; Start 01/21/19 at 15:00 Famotidine (Pepcid) 20 mg Q12 PO Last administered on 02/05/19 09:04; Admin Dose 20 MG; Start 01/21/19 at 21:00 Levalbuterol (Xopenex Neb) 1.25 mg Q6H RESP THERAPY HHN Last administered on 02/05/19 13:30; Admin Dose 1.25 MG; Start 01/21/19 at 15:30 Levalbuterol (Xopenex Neb) 1.25 mg Q4H RESP THERAPY PRN HHN sob/wheezing; Start 01/21/19 at 15:30 Spironolactone (Aldactone) 25 mg DAILY PO Last administered on 02/05/19 09:04; Admin Dose 25 MG; Start 01/25/19 at 16:00 Bumetanide (Bumex) 1 mg BID DIURETICS PO Last administered on 4/11/19at 05:45; Admin Dose 1 MG; Start 01/26/19 at 18:00 Phenazopyridine HCl (Pyridium) 100 mg TID PO Last administered on 02/05/19at 12:27; Admin Dose 100 MG; Start 02/03/19 at 21:00 Tramadol HCl (Ultram) 50 mg Q6H PO Last administered on 02/05/19at 13:58; Admin Dose 50 MG; Start 02/03/19 at 14:00 Quang Robles DO Feb 05, 2019 16:51
[2019-02-05] MEDS: ATORVASTATIN 40 MG TAB PO SCH (20:22)
[2019-02-06] VITALS (12 sets, daily range): BP systolic 110–136; BP diastolic 55–74; PULSE 44–54; RESP 18–22
[2019-02-06] MEDS: LEVALBUTEROL (NEB) 1.25 MG/0.5 ML AMP HHN SCH ×4 (01:33→19:40)
[2019-02-06] MEDS: traMADol 50 MG TAB PO SCH ×4 (02:00→21:04)
[2019-02-06] MEDS: DOCUSATE SODIUM 100 MG CAP PO PRN ×2 (05:50→21:04)
[2019-02-06] MEDS: LEVOTHYROXINE 150 MCG TAB PO SCH (05:50)
--- NOTE | 2019-02-06 08:15 | PN ---
Date/Time of Note Date/Time of Note DATE: 02/06/19 TIME: 08:09 Assessment/Plan Lines/Catheters IV Catheter Type (from [facility] Saline Lock Lopez in Place (from [facility]): No Assessment/Plan Chief Complaint/Hosp Course 78-year-old male underwent transurethral resection of prostate and bladder tumor with insertion of bilateral ureteral catheters and dorsal slit on 01/27/2019. He is doing well. His creatinine has been going up. Renal ultrasound showed: 1. Extremely limited study. 2. Persistent mild left hydronephrosis. No obstructing renal calculus seen. 3. Right collecting system is normal. 4. Bilateral renal cyst which are not well seen. Since the urine in the Lopez catheter is clear I did remove the Lopez catheter. The color is orange because of the Pyridium. We will watch him today see that he does void. The creatinine has gone up and that is most likely secondary to the ureteral orifices swelling as the tumors were covering them and were resected. We will have to monitor his creatinine as well. He is also on fluid restriction. Subjective 24 Hr Interval Summary Patient is resting comfortable. He was sleeping and I woke him up at 8:00. The Lopez catheter is draining clear urine. The color is dark orange because of the Pyridium. Exam/Review of Systems Vital Signs Vitals Vital Signs Date Temp Pulse Resp B/P (MAP) Pulse Ox O2 O2 Flow FiO2 Time Delivery Rate 02/06/19 49 16 95 Nasal 2.0 08:03 Cannula 02/06/19 98.7 112/56 07:30 (74) Intake and Output 02/05/19 02/05/19 02/06/19 1515:00 23:00 07:00 IntakeIntake Total 420 ml OutputOutput Total 600 ml BalanceBalance -180 ml Exam Free Text/Dictation Lopez catheter is draining orange colored urine because of the Pyridium. Renal scan done on 02/05/2019 showed: 1. Extremely limited study. 2. Persistent mild left hydronephrosis. No obstructing renal calculus seen. 3. Right collecting system is normal. 4. Bilateral renal cyst which are not well seen. The left hydronephrosis secondary most likely to the left ureteral orifice swelling. His creatinine has gone up and this could be also because of swelling still in both ureteral orifices. And the patient is on fluid restriction. Results Result Diagram: 02/06/19 0629 02/06/19 0629 JOSE OCAMPO MD Feb 06, 2019 08:15
[2019-02-06] MEDS: FAMOTIDINE 20 MG TAB PO SCH ×2 (08:42→21:04)
[2019-02-06] MEDS: SPIRONOLACTONE 25 MG TAB PO SCH (08:42)
[2019-02-06] MEDS: ISOSORBIDE DINITRATE 10 MG TAB PO SCH ×2 (08:43→21:04)
[2019-02-06] MEDS: BUMETANIDE 1 MG TAB PO SCH (08:43)
[2019-02-06] MEDS: SACUBITRIL/VALSARTAN (24mg-26mg) TABLET PO SCH ×2 (08:44→21:04)
--- NOTE | 2019-02-06 10:12 | PN ---
Date/Time of Note Date/Time of Note DATE: 02/06/19 TIME: 10:05 Assessment/Plan VTE Prophylaxis Risk score (from Ns)>0 risk: 9 SCD applied (from Ns): Yes Pharmacological prophylaxis: NA/contraindicated Pharm contraindication: anticoag not tolerated Lines/Catheters IV [facility]from [facility] Saline Lock Urinary Cath still in place: No Assessment/Plan Hospital Course SUBJECTIVE: Status post Lopez removal this morning. Has not voided yet. OBJECTIVE: Vital signs-see below PHYSICAL EXAM: Constitutional: Well-developed, not in acute distress. Psych: nl mood/affect, no complaints Head: atraumatic, normocephalic Eyes: nl conjunctiva, nl sclera ENMT: mucosa pink and moist, nl external ears & nose Neck: non-tender, supple Respiratory: diminished bibasilar. normal air movement Cardiovascular: Grade V/ Murmur 2nd Left ICS. nl pulses, regular rate and rhythm Gastrointestinal: non-tender, soft, bowel sounds active in all 4 quadrants. Musculoskeletal/extremities: trace edema ble. motor strength equal bilaterally, no focal deficit. Normal pulses,no cyanosis Neurological: Alert oriented 1, forgetful, aphasic. Skin: nl turgor ASSESSMENT/PLAN: 78-year-old male with numerous medical problems including o2 dependent resp fx, cad/s/p cabs,severe ,CM w/ef 25%, bladder tumors with positive urine cytology documented in December 2018, was sent by his urologist for cystoscopy with possible surgical resection of the bladder tumor secondary to worsening frequency/dysuria/hematuria who underwent cystoscopy 01/27/19 w/ pathology positive for urothelial bladder ca.. 1. Urothelial carcinoma of bladder -urology and oncology on board-> unfortunately not a candidate for radical cystectomy/radiation/chemotherapy secondary to comorbidities=> recommended comfort focused care=> family agreeable for outpt hospice after discharge. -s/p removal of both ureter catheters and Lopez this morning. Await for return of bladder function.. 2. Systolic and diastolic CHF, acute on chronic - Stable and compensated - cont. diuresis,Entresto. - fluid restriction 1L/24hrs 3. Aortic stenosis, severe -this does alter our ability to approach some of his medical issues 4.Paroxysmal atrial fibrillation -stable -not a candidate for atc 2/2 bladder tumor -Resume ASA when cleared from urology perspective 5. Acquired hypothyroidism -On replacement therapy 6. s/p UTI due to extended-spectrum beta lactamase (ESBL) producing Escherichia coli -Treated 7. Chronic anemia -stable HH 8. Chronic oxygen dependent respiratory failure -stable -does use home oxygen 5 L. 9.History of CVA with expressive aphasia. -Monitor. -Resume asa when cleared from urology 10. Acute kidney injury, likely secondary to #1. -Creatinine trending up. At this time, I requested nephrology consultation. Once creatinine trend down, patient can be followed up as outpatient. DVT prophylaxis: SCDs PUD prophylaxis: pepcid CODE STATUS: Full code Diet: low chol/low fat diet. fluid restriction 1 L/day Dispo: Overall patient with poor prognosis. He has Urothelial carcinoma of bladder which is not amenable for any radical cystectomy, radiation or chemotherapy. Family is not receptive to hospice care. Await for return of urinary function, improvement in creatinine and DC planning. Patient was seen in collaboration with Dr. Nascimento. Result Diagram: 02/06/1929 02/06/19 0629 Results 24hrs Laboratory Tests Test 02/06/19 06:29 White Blood Count 9.7 Red Blood Count 3.98 L Hemoglobin 11.2 L Hematocrit 34.8 L Mean Corpuscular Volume 87.4 Mean Corpuscular Hemoglobin 28.1 L Mean Corpuscular Hemoglobin Concent 32.2 Red Cell Distribution Width 14.9 H Platelet Count 240 Mean Platelet Volume 11.1 H Immature Granulocytes % 0.400 Neutrophils % 67.8 Lymphocytes % 15.9 Monocytes % 12.5 H Eosinophils % 2.8 Basophils % 0.6 Nucleated Red Blood Cells % 0.0 Immature Granulocytes # 0.040 H Neutrophils # 6.6 Lymphocytes # 1.5 Monocytes # 1.2 H Eosinophils # 0.3 Basophils # 0.1 Nucleated Red Blood Cells # 0.0 Sodium Level 135 Potassium Level 3.7 Chloride Level 97 Carbon Dioxide Level 31 Anion Gap 7 Blood Urea Nitrogen 37 H Creatinine 1.75 H Est Glomerular Filtrat Rate mL/min Glucose Level 89 Calcium Level 8.7 Magnesium Level 2.4 Exam/Review of Systems Exam Vitals Vital Signs Date Temp Pulse Resp B/P (MAP) Pulse Ox O2 O2 Flow FiO2 Time Delivery Rate 02/06/19 50 08:17 02/06/19 16 95 Nasal 2.0 08:03 Cannula 02/06/19 98.7 112/56 07:30 (74) Intake and Output 02/05/19 02/05/19 02/06/19 1515:00 23:00 07:00 IntakeIntake Total 420 ml OutputOutput Total 600 ml BalanceBalance -180 ml Results Results 24hrs Laboratory Tests Test 02/06/19 06:29 White Blood Count 9.7 Red Blood Count 3.98 L Hemoglobin 11.2 L Hematocrit 34.8 L Mean Corpuscular Volume 87.4 Mean Corpuscular Hemoglobin 28.1 L Mean Corpuscular Hemoglobin Concent 32.2 Red Cell Distribution Width 14.9 H Platelet Count 240 Mean Platelet Volume 11.1 H Immature Granulocytes % 0.400 Neutrophils % 67.8 Lymphocytes % 15.9 Monocytes % 12.5 H Eosinophils % 2.8 Basophils % 0.6 Nucleated Red Blood Cells % 0.0 Immature Granulocytes # 0.040 H Neutrophils # 6.6 Lymphocytes # 1.5 Monocytes # 1.2 H Eosinophils # 0.3 Basophils # 0.1 Nucleated Red Blood Cells # 0.0 Sodium Level 135 Potassium Level 3.7 Chloride Level 97 Carbon Dioxide Level 31 Anion Gap 7 Blood Urea Nitrogen 37 H Creatinine 1.75 H Est Glomerular Filtrat Rate mL/min Glucose Level 89 Calcium Level 8.7 Magnesium Level 2.4 Medications Medication Current Medications Isosorbide Dinitrate (Isordil) 30 mg BID PO Last administered on 02/06/19at 08:43; Admin Dose 30 MG; Start 01/21/19 at 21:00 Levothyroxine Sodium (Synthroid) 150 mcg BEFORE BREAKFAST PO Last administered on 02/06/19at 05:50; Admin Dose 150 MCG; Start 01/22/19 at 07:00 Sacubitril/ Valsartan (Entresto 24 Mg-26 Mg) 1 tab BID PO Last administered on 02/06/19 08:44; Admin Dose 1 TAB; Start 01/21/19 at 21:00 Atorvastatin Calcium (Lipitor) 40 mg DAILY@21 PO Last administered on 02/05/19at 20:22; Admin Dose 40 MG; Start 01/21/19 at 21:00 IV Flush (NS 3 ml) 3 ml PER PROTOCOL IV ; Start 01/21/19 at 15:00 Ondansetron HCl (Zofran Inj) 4 mg Q6H PRN IV NAUSEA/VOMITING; Start 01/21/19 at 15:00 Acetaminophen (Tylenol Tab) 650 mg Q6H PRN PO .PAIN 1-3 OR TEMP Last administered on 02/01/19 03:40; Admin Dose 650 MG; Start 01/21/19 at 15:00 Docusate Sodium (Colace) 100 mg Q12H PRN PO .CONSTIPATION Last administered on 02/06/19 05:50; Admin Dose 100 MG; Start 01/21/19 at 15:00 Famotidine (Pepcid) 20 mg Q12 PO Last administered on 02/06/19 08:42; Admin Dose 20 MG; Start 01/21/19 at 21:00 Levalbuterol (Xopenex Neb) 1.25 mg Q6H RESP THERAPY HHN Last administered on 02/06/19 08:00; Admin Dose 1.25 MG; Start 01/21/19 at 15:30 Levalbuterol (Xopenex Neb) 1.25 mg Q4H RESP THERAPY PRN HHN sob/wheezing; Start 01/21/19 at 15:30 Spironolactone (Aldactone) 25 mg DAILY PO Last administered on 02/06/19 08:42; Admin Dose 25 MG; Start 01/25/19 at 16:00 Tramadol HCl (Ultram) 50 mg Q6H PO Last administered on 02/06/19 08:47; Admin Dose 50 MG; Start 02/03/19 at 14:00 Bumetanide (Bumex) 1 mg DAILY PO Last administered on 02/06/19 08:43; Admin Dose 1 MG; Start 02/06/19 at 09:00 CARLOS MANUEL GERONIMO NP Feb 06, 2019 10:12
--- NOTE | 2019-02-06 11:51 | QN ---
Documentation Comment The Lopez has been removed. I reviewed the chart and discharge on hospice is apparently acceptable to family. I will check back intermittently but this would be the best approach. Aggressive therapy is unlikely to be tolerable for him. Comfort care would be the best option. MIGUEL LOMBARDO MD Feb 06, 2019 11:51
--- NOTE | 2019-02-06 13:05 | CONS ---
Assessment/Plan Cardiology NYHA: III Heart Failure Type: Acute on Chronic Heart Failure Type: Systolic Assessment/Plan Hospital Course (Demo Recall) S/P Bladder surgery 01/27/19 Acute decompensated systolic congestive heart failure, improved Cardiomyopathy with left ventricular ejection fraction 30% Possible urinary retention with hematuria with history of bladder cancer Paroxysmal atrial fibrillation, currently sinus rhythm-not on anticoagulation secondary to bladder tumor Moderate to severe aortic valve stenosis COPD Hypertension CKD NSVT Bradycardia -Creatinine slowly increasing, I have decreased the Bumex from twice a day to daily. Unclear if etiology of elevated creatinine is secondary to urology/renal pathology versus diuretics. Patient pending nephrology evaluation -No AVN blocking agents secondary to bradycardia -Continue Entresto as tolerated Consultation Date/Type/Reason Admit Date/Time Jan 21, 2019 at 15:23 Initial Consult Date 01/21/19 Type of Consult Cardiology Requesting Provider: LEORA HUYNH MD Date/Time of Note DATE: 02/06/19 TIME: 13:04 24 HR Interval Summary Free Text/Dictation Denies shortness of breath, chest pain Exam/Review of Systems Vital Signs Vitals Vital Signs Date Temp Pulse Resp B/P (MAP) Pulse Ox O2 O2 Flow FiO2 Time Delivery Rate 02/06/19 49 12:50 02/06/19 98.7 18 125/57 98 Nasal 12:31 (79) Cannula 02/06/19 2.0 08:03 Intake and Output 02/05/19 02/05/19 02/06/19 1515:00 23:00 07:00 IntakeIntake Total 420 ml OutputOutput Total 600 ml BalanceBalance -180 ml Exam Constitutional: alert, oriented (Family bedside, no apparent distress) Head: normocephalic Respiratory: other (Coarse breath sounds bilaterally, no wheezing) Cardiovascular: regular rate and rhythm (S1-S2 heard) Gastrointestinal: soft, non-tender, bowel sounds Extremities: other (No significant edema) Labs Result Diagram: 02/06/19 0629 02/06/19 0629 Results 24hrs Laboratory Tests Test 02/06/19 06:29 White Blood Count 9.7 Red Blood Count 3.98 L Hemoglobin 11.2 L Hematocrit 34.8 L Mean Corpuscular Volume 87.4 Mean Corpuscular Hemoglobin 28.1 L Mean Corpuscular Hemoglobin Concent 32.2 Red Cell Distribution Width 14.9 H Platelet Count 240 Mean Platelet Volume 11.1 H Immature Granulocytes % 0.400 Neutrophils % 67.8 Lymphocytes % 15.9 Monocytes % 12.5 H Eosinophils % 2.8 Basophils % 0.6 Nucleated Red Blood Cells % 0.0 Immature Granulocytes # 0.040 H Neutrophils # 6.6 Lymphocytes # 1.5 Monocytes # 1.2 H Eosinophils # 0.3 Basophils # 0.1 Nucleated Red Blood Cells # 0.0 Sodium Level 135 Potassium Level 3.7 Chloride Level 97 Carbon Dioxide Level 31 Anion Gap 7 Blood Urea Nitrogen 37 H Creatinine 1.75 H Est Glomerular Filtrat Rate mL/min Glucose Level 89 Calcium Level 8.7 Magnesium Level 2.4 Medications Medications Current Medications Isosorbide Dinitrate (Isordil) 30 mg BID PO Last administered on 02/06/19 08:43; Admin Dose 30 MG; Start 01/21/19 at 21:00 Levothyroxine Sodium (Synthroid) 150 mcg BEFORE BREAKFAST PO Last administered on 02/06/19 05:50; Admin Dose 150 MCG; Start 01/22/19 at 07:00 Sacubitril/ Valsartan (Entresto 24 Mg-26 Mg) 1 tab BID PO Last administered on 02/06/19 08:44; Admin Dose 1 TAB; Start 01/21/19 at 21:00 Atorvastatin Calcium (Lipitor) 40 mg DAILY@21 PO Last administered on 02/05/19 20:22; Admin Dose 40 MG; Start 01/21/19 at 21:00 IV Flush (NS 3 ml) 3 ml PER PROTOCOL IV ; Start 01/21/19 at 15:00 Ondansetron HCl (Zofran Inj) 4 mg Q6H PRN IV NAUSEA/VOMITING; Start 01/21/19 at 15:00 Acetaminophen (Tylenol Tab) 650 mg Q6H PRN PO .PAIN 1-3 OR TEMP Last administered on 02/01/19 03:40; Admin Dose 650 MG; Start 01/21/19 at 15:00 Docusate Sodium (Colace) 100 mg Q12H PRN PO .CONSTIPATION Last administered on 02/06/19 05:50; Admin Dose 100 MG; Start 01/21/19 at 15:00 Famotidine (Pepcid) 20 mg Q12 PO Last administered on 4/12/19at 08:42; Admin Dose 20 MG; Start 01/21/19 at 21:00 Levalbuterol (Xopenex Neb) 1.25 mg Q6H RESP THERAPY HHN Last administered on 02/06/19at 08:00; Admin Dose 1.25 MG; Start 01/21/19 at 15:30 Levalbuterol (Xopenex Neb) 1.25 mg Q4H RESP THERAPY PRN HHN sob/wheezing; Start 01/21/19 at 15:30 Spironolactone (Aldactone) 25 mg DAILY PO Last administered on 02/06/19at 08:42; Admin Dose 25 MG; Start 01/25/19 at 16:00 Tramadol HCl (Ultram) 50 mg Q6H PO Last administered on 02/06/19at 08:47; Admin Dose 50 MG; Start 02/03/19 at 14:00 Bumetanide (Bumex) 1 mg DAILY PO Last administered on 02/06/19at 08:43; Admin D ose 1 MG; Start 02/06/19 at 09:00 Quang Robles DO Feb 06, 2019 13:05
--- NOTE | 2019-02-06 14:32 | CONS ---
DATE OF ADMISSION: 01/21/2019 DATE OF CONSULTATION: 02/06/2019 TYPE OF CONSULTATION: Monitor. REASON FOR CONSULTATION: Acute kidney injury. REQUESTING PHYSICIAN: Keyonna Vázquez NP HISTORY OF PRESENT ILLNESS: This is a 78-year-old male with a past medical history of chronic respir atory failure, history of coronary artery disease, status post CABG, history of cardiomyopathy with e jection fraction 25%, history of expressive aphasia, congestive heart failure, paroxysmal atrial fibr illation, history of severe aortic stenosis, dyslipidemia, hypertension, history of bladder tumor, wh o presents to [facility] Emergency Room with shortness of breath. The patient on admission was noted to be in hypoxic respiratory failure on 10 liters oxygen. Patient was diagnosed with CHF e xacerbation and admitted to med/surg telemetry. The patient during the hospital course was seen by c ardiologist, urologist and night warehouse selector. The patient's clinical course improved after receiving diur etic therapy. The patient, however, was also having hematuria for which patient received continuous bladder irrigation. Hematology and oncology saw the patient. Due to the patient's multiple comorbid ities, patient was not a candidate for aggressive therapy such as surgery or radiation therapy. In terms of patient's renal history, the patient on admission had a creatinine of 1.16. Blood gas to see if patient's renal function has been fluctuating during hospital course but has increased to 1.7 5 mg/dL over the last 48 hours. The patient during that time has been on diuretic therapy and has joseph d hemodynamic fluctuations. There were no reports of any hemoptysis, hematemesis, hematochezia. PAST MEDICAL HISTORY: As stated above, history of CHF, history of cardiomyopathy, history of coronar y artery disease, history of bladder cancer, history of hypertension, hypothyroidism, severe aortic s tenosis, history of paroxysmal afib. PAST SURGICAL HISTORY: Status post CABG. FAMILY HISTORY: No family history of kidney disease. SOCIAL HISTORY: Does not drink, smoke or use drugs. MEDICATIONS: Have been reviewed. ALLERGIES: Have been reviewed. REVIEW OF SYSTEMS: A 14-point review of systems conducted. Pertinent positives stated in HPI, other matson negative. PHYSICAL EXAMINATION: VITAL SIGNS: Blood pressure is 112/56, respiration 18, pulse 46, temperature 98.7. HEENT: Head is normocephalic. NECK: Supple. HEART: Regular rate. LUNGS: Show diminished breath sounds at base. ABDOMEN: Soft, nontender to palpation without rebound or guarding. EXTREMITIES: Negative for clubbing, cyanosis, no edema. DERMATOLOGIC: No rashes. MUSCULOSKELETAL: No joint effusion. NEUROLOGIC: No change in exam. LABORATORY DATA: Has been reviewed. IMAGING STUDIES: Have been reviewed. ASSESSMENT AND PLAN: This is a 78-year-old male who presents with: 1. Nonoliguric acute kidney injury with previous baseline creatinine around 1.0 mg/dL. Etiology of acute kidney injury is possibly multifactorial secondary to cardiorenal syndrome, hemodynamics, diure tics. The possibility of obstructive uropathy is a consideration. The patient's initial urinalysis was reviewed which showed evidence of Ural epithelial cells, which can be seen in tubular injury. Th e patient's Lopez catheter; however, was recently removed in conjunction with increase in creatinine is worrisome about a possible obstructive uropathy. Recent renal ultrasound was reviewed. Plan at t his point would be to repeat UA with microanalysis, check urine electrolytes. We will consider repea ting renal ultrasound if renal functions further decline. May also consider reinsertion of Lopez cat heter. Otherwise, continue current treatment plan, supportive care, renally dose all meds and monito r renal function closely on diuretic therapy. 2. Decompensated heart failure, cardiomyopathy. The patient has ejection fraction of 30%. The araceli ent is clinically improving, but remains decompensated. Continue current medical management, monitor electrolytes and closely. 3. Anemia. Monitor hematocrit and hemoglobin levels. 4. Mineral bone disorder. Monitor calcium and phosphorus levels. 5. Urothelial carcinoma of the bladder. The patient is not a candidate for radical cystectomy, radi ation or chemotherapy. We will continue treatment plan. Patient is status post evaluation by urolog y, with removal of ureteral stents. 6. Aortic stenosis. Continue medical management, monitor closely. 7. Paroxysmal atrial fibrillation, currently stable. Continue medical management. 8. Hypothyroidism. Continue Synthroid. 9. Chronic respiratory failure secondary to chronic heart failure. Continue medical management. 10. cannula. 11. History of cerebrovascular accident. Continue to monitor. Thank you, Keyonna, for this interesting consult. It will be a pleasure to follow patient with you thr oughout the hospital course. Dictated By: MICHELA VAZQUEZ/STEFAN Conf#: [id number] DID#: [id number]
[2019-02-06] MEDS: ATORVASTATIN 40 MG TAB PO SCH (21:04)
[2019-02-07] VITALS (7 sets, daily range): BP systolic 126–133; BP diastolic 61–63; PULSE 51–58; RESP 17–22
[2019-02-07] MEDS: LEVALBUTEROL (NEB) 1.25 MG/0.5 ML AMP HHN SCH ×2 (01:47→08:12)
[2019-02-07] MEDS: traMADol 50 MG TAB PO SCH ×2 (02:32→09:09)
[2019-02-07] MEDS: LEVOTHYROXINE 150 MCG TAB PO SCH (05:39)
[2019-02-07] MEDS: SPIRONOLACTONE 25 MG TAB PO SCH (09:09)
[2019-02-07] MEDS: BUMETANIDE 1 MG TAB PO SCH (09:09)
[2019-02-07] MEDS: SACUBITRIL/VALSARTAN (24mg-26mg) TABLET PO SCH (09:09)
[2019-02-07] MEDS: FAMOTIDINE 20 MG TAB PO SCH (09:10)
[2019-02-07] MEDS: ISOSORBIDE DINITRATE 10 MG TAB PO SCH (09:10)
--- NOTE | 2019-02-07 09:11 | CONS ---
Assessment/Plan Cardiology NYHA: III Heart Failure Type: Acute on Chronic Heart Failure Type: Systolic Assessment/Plan Assessment/Plan (Daily) S/P Bladder surgery 01/27/19 Acute decompensated systolic congestive heart failure, improved Cardiomyopathy with left ventricular ejection fraction 30% Possible urinary retention with hematuria with history of bladder cancer Paroxysmal atrial fibrillation, currently sinus rhythm-not on anticoagulation secondary to bladder tumor Moderate to severe aortic valve stenosis COPD Hypertension CKD NSVT Bradycardia -Creatinine slowly increasing, I have decreased the Bumex from twice a day to daily. Unclear if etiology of elevated creatinine is secondary to urology/renal pathology versus diuretics.Nephrology involved -No AVN blocking agents secondary to bradycardia -Continue Entresto as tolerated Consultation Date/Type/Reason Admit Date/Time Jan 21, 2019 at 15:23 Initial Consult Date 02/02/19 Type of Consult Cardiology Requesting Provider: LEORA HUYNH MD Date/Time of Note DATE: 02/07/19 TIME: 09:10 24 HR Interval Summary Free Text/Dictation The patient with no cahnge Exam/Review of Systems Vital Signs Vitals Vital Signs Date Temp Pulse Resp B/P (MAP) Pulse Ox O2 O2 Flow FiO2 Time Delivery Rate 02/07/19 55 20 95 Nasal 2.0 08:16 Cannula 02/07/19 97.6 126/61 07:23 (82) Intake and Output 02/06/19 02/06/19 02/07/19 1414:59 22:59 06:59 IntakeIntake Total 900 ml OutputOutput Total 130 ml BalanceBalance 770 ml Labs Result Diagram: 02/07/19 0559 02/07/19 0559 Results 24hrs Laboratory Tests Test 02/07/19 02:22 02/07/19 05:59 Urine Color MEGAN Urine Clarity SLIGHTLY CLOUDY A Urine pH 6.0 Urine Specific Callahan 1.009 Urine Ketones NEGATIVE Urine Nitrite NEGATIVE Urine Bilirubin NEGATIVE Urine Urobilinogen NEGATIVE Urine Leukocyte Esterase 3+ H Urine Microscopic RBC > 182 H Urine Microscopic WBC 43 H Urine Squamous Epithelial Cells FEW Urine Hemoglobin 3+ H Urine Random Creatinine 45.05 Urine Random Sodium 64 Urine Glucose NEGATIVE Urine Total Protein 58.0 H White Blood Count 11.1 H Red Blood Count 4.17 L Hemoglobin 11.5 L Hematocrit 36.2 L Mean Corpuscular Volume 86.8 Mean Corpuscular Hemoglobin 27.6 L Mean Corpuscular Hemoglobin Concent 31.8 L Red Cell Distribution Width 14.6 H Platelet Count 203 Mean Platelet Volume 12.3 H Immature Granulocytes % 0.400 Neutrophils % 72.0 Lymphocytes % 12.7 L Monocytes % 12.4 H Eosinophils % 2.0 Basophils % 0.5 Nucleated Red Blood Cells % 0.0 Immature Granulocytes # 0.040 H Neutrophils # 8.0 H Lymphocytes # 1.4 Monocytes # 1.4 H Eosinophils # 0.2 Basophils # 0.1 Nucleated Red Blood Cells # 0.0 Sodium Level 134 L Potassium Level 4.7 Chloride Level 95 L Carbon Dioxide Level 28 Anion Gap 11 Blood Urea Nitrogen 38 H Creatinine 1.65 H Est Glomerular Filtrat Rate mL/min Glucose Level 112 Calcium Level 8.8 Phosphorus Level 4.3 Magnesium Level 2.3 Medications Medications Current Medications Isosorbide Dinitrate (Isordil) 30 mg BID PO Last administered on 02/06/19 21:04; Admin Dose 30 MG; Start 01/21/19 at 21:00 Levothyroxine Sodium (Synthroid) 150 mcg BEFORE BREAKFAST PO Last administered on 02/07/19 05:39; Admin Dose 150 MCG; Start 01/22/19 at 07:00 Sacubitril/ Valsartan (Entresto 24 Mg-26 Mg) 1 tab BID PO Last administered on 02/06/19 21:04; Admin Dose 1 TAB; Start 01/21/19 at 21:00 Atorvastatin Calcium (Lipitor) 40 mg DAILY@21 PO Last administered on 02/06/19 21:04; Admin Dose 40 MG; Start 01/21/19 at 21:00 IV Flush (NS 3 ml) 3 ml PER PROTOCOL IV ; Start 01/21/19 at 15:00 Ondansetron HCl (Zofran Inj) 4 mg Q6H PRN IV NAUSEA/VOMITING; Start 01/21/19 at 15:00 Acetaminophen (Tylenol Tab) 650 mg Q6H PRN PO .PAIN 1-3 OR TEMP Last administered on 02/01/19 03:40; Admin Dose 650 MG; Start 01/21/19 at 15:00 Docusate Sodium (Colace) 100 mg Q12H PRN PO .CONSTIPATION Last administered on 02/06/19 21:04; Admin Dose 100 MG; Start 01/21/19 at 15:00 Famotidine (Pepcid) 20 mg Q12 PO Last administered on 02/06/19 21:04; Admin Dose 20 MG; Start 01/21/19 at 21:00 Levalbuterol (Xopenex Neb) 1.25 mg Q6H RESP THERAPY HHN Last administered on 02/07/19 08:12; Admin Dose 1.25 MG; Start 01/21/19 at 15:30 Levalbuterol (Xopenex Neb) 1.25 mg Q4H RESP THERAPY PRN HHN sob/wheezing; Start 01/21/19 at 15:30 Spironolactone (Aldactone) 25 mg DAILY PO Last administered on 02/06/19 08:42; Admin Dose 25 MG; Start 01/25/19 at 16:00 Tramadol HCl (Ultram) 50 mg Q6H PO Last administered on 02/07/19 02:32; Admin Dose 50 MG; Start 02/03/19 at 14:00 Bumetanide (Bumex) 1 mg DAILY PO Last administered on 02/06/19at 08:43; Admin Dose 1 MG; Start 02/06/19 at 09:00 FREDY BOLAND MD Feb 07, 2019 09:11
--- NOTE | 2019-02-07 09:18 | PN ---
DATE: 02/07/2019 SUBJECTIVE: The patient remains confused, agitated. No events overnight. OBJECTIVE: VITAL SIGNS: Blood pressure is 126/61, respiration 18, pulse 55, temperature 97.6. HEENT: Head is normocephalic. NECK: Supple. HEART: Regular rate. LUNGS: Show diminished breath sounds at the base. ABDOMEN: Soft, nontender to palpation without rebound or guarding. EXTREMITIES: Negative for clubbing, cyanosis, no edema. DERMATOLOGIC: No rashes. MUSCULOSKELETAL: No joint effusion. NEUROLOGIC: No change in exam. MEDICATIONS: The patient's medications have been reviewed. LABORATORY DATA: Have been reviewed. Urinalysis was reviewed. The patient has a protein creatinine ratio of approximately 1 gram per gram creatinine, FENa greater than 1% with noted renal epithelial cells. ASSESSMENT AND PLAN: 1. Nonoliguric acute kidney injury with previous baseline creatinine 1.0 mg/dL. Etiology of GRISELDA is multifactorial secondary to cardiorenal syndrome, hemodynamics. Questionable obstructive uropathy. The patient's renal function in the last 24 hours appears to have stabilized. Repeat urinalysis was reviewed. At this point, will continue current treatment plan, supportive care, renally dose all med s, continue low dose diuretic therapy, monitor renal function closely. Continue bladder scans to ens ure there is no evidence of retention. 2. Decompensated heart failure and cardiomyopathy. Continue current medical management. Follow up with cardiology. 3. Anemia. Monitor hemoglobin and hematocrit levels. 4. Mineral bone disorder, monitor calcium and phosphorus levels. 5. Urothelial carcinoma of the bladder. The patient is not a candidate for aggressive therapy. Con tinue to monitor. 6. Aortic stenosis. Continue medical management. 7. Paroxysmal atrial fibrillation, currently stable. 8. Hypothyroidism. Continue Synthroid. 9. Respiratory failure secondary to chronic heart failure. Continue to monitor. 10. History of cerebrovascular accident. Dictated By: MICHELA PAYTON DO NR/NTS Conf#: [id number] DID#: [id number] CC: JOSE OCAMPO MD; LEWIS JOHN MD; MARISABEL CROCKER MD;*EndCC*
--- NOTE | 2019-02-07 11:54 | PDOCDIS ---
Discharge Instructions CONDITION [id number] Patient Condition: [id number] Stable HOME CARE INSTRUCTIONS: [id number] Diet Instructions: [id number] Low Fat /Cholesterol FOLLOW UP/APPOINTMENTS Follow-up Plan Follow-up with primary care physician and hospice company for which you are signed up with. CARLOS MANUEL GERONIMO NP Feb 07, 2019 11:54
[2019-02-07] MEDS ORDERED: SPIR25TA PO (11:56)
[2019-02-07] MEDS ORDERED: BUME1TAB PO (11:56)
--- NOTE | 2019-02-07 12:06 | DS ---
Date/Time of Note Date/Time of Note DATE: 02/07/19 TIME: 12:02 Discharge Summary Admission/Discharge Info Admit Date/Time Jan 21, 2019 at 15:23 Discharge Date/Time Discharge Diagnosis 1. Urothelial carcinoma of bladder. not a candidate for radical cystectomy/r adiation/chemotherapy secondary to [id number] 2. Systolic and diastolic CHF 3. Aortic stenosis, severe 4.Paroxysmal atrial fibrillation 5. Acquired hypothyroidism 6. s/p UTI due to extended-spectrum beta lactamase (ESBL) producing Escherichia coli 7. Chronic anemia 8. Chronic oxygen dependent respiratory failure 9.History of CVA with expressive aphasia. 10. Acute kidney injury on likely CKD.Stable Patient Condition: Stable Consults , urology , nephrology , cardiology Procedures 02/01/2019. CT abdomen and pelvis. IMPRESSION: Small foci of extraluminal air seen alongside tenting of the bladder dome due to Lopez catheter., and may be related to the recent procedure or irrigation although bladder injury is not excluded, and may be better assessed by cystogram or CT cystogram. The urinary bladder itself is decompressed, which could account for generalized wall thickening as could the reported presence of neoplasm and for which direct extension is not able to be assessed, without definite evidence of metastatic disease seen elsewhere within the abdomen or pelvis.. Of note, the internalized ureteral stents have been withdrawn with tips now in distal ureters, compared to the recent exams. Small amounts of fluid are seen inferiorly within the retroperitoneum including alongside the distal ureters, right greater than left, with mild perivesical stranding, perhaps also postprocedural. Bilateral renal parenchymal scarring and cysts without definite evidence of solid appearing lesion within either kidney or renal collecting system, as ab ove. Aneurysmal dilatation of the abdominal aorta measuring up to 4.6 cm in diameter, beginning at the level of the diaphragmatic hiatus and infrarenal, below which there appears to have been previous aneurysm repair. 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 Recommend vascular surgical consultation, follow-up imaging could be obtained within 6 months to reassess. Distended fluid and debris filled stomach without evidence of anatomic outlet obstruction nor small or large bowel intestinal obstruction, and with moderate colonic stool burden throughout. Persistent or recurrent small bilateral pleural effusions with marked cardiomegaly. Call report was made to the urologist Dr. Alcala, relaying the findings related to the bladder including presence of extraluminal air and withdrawal of the bilateral ureteral catheters, and presence of aortic and right common iliac artery aneurysms with recommendation for vascular surgical input, at time of dictation 0900 hours on 02/02/2019. RPTAT: HSAF Мария Davidson Physician Date Time Electronically viewed and signed by Мария Davidson, Physician on 02/02/2019 09:04 RF/ CC: LEORA HUYNH MD [id number] 2018. 2D echocardiogram. Conclusions: Moderate left ventricular hypertrophy. Moderate enlargement of left ventricle cavity. Severe left ventricular systolic dysfunction. Ejection fraction is visually estimated at 30 %. Abnormal Diastolic Function. Normal right ventricular systolic function. Mild enlargement of right ventricle. There is moderate enlargement of left atrium. There is moderate enlargement of right atrium. Mild mitral valve regurgitation. Mild mitral stenosis. Moderate to severe aortic stenosis. Mild aortic valve regurgitation. Estimated peak PA systolic pressure 54 mmHg. There is mild to moderate tricuspid regurgitation. Normal pericardium with no significant pericardial effusion. Left pleural effusion seen. Electronically Signed By: Quang Robles 2019-01-22 18:06:18 PDT Dictated By: QUANG ROBLES DO Signed By: QUANG ROBLES DO 01/27/2019. Operation/Procedure Performed Transurethral resection of prostate and transurethral resection of bladder tumors, insertion of bilateral ureteral catheters and dorsal slit. Surgeon Hx of Present Illness This is a 78-year-old male with numerous medical problems including oxygen dependent respiratory failure, coronary artery disease, status post CABG, cardiomyopathy with ejection fraction 25%, stroke with expressive aphasia, congestive heart failure, paroxysmal atrial fibrillation, severe aortic stenosis, hypothyroidism, dyslipidemia, hypertension, bladder tumors with positive urine cytology documented in December 2018, was sent by his urologist for cystoscopy with possible surgical resection of the bladder tumor secondary to worsening frequency/dysuria/hematuria. Patient on 10 L oxygen via facemask. He also appears slightly dyspneic. Denied chest pain, palpitation, nausea, vomiting, abdominal pain, loss of consciousness, dizziness, numbness, tingling, swelling, fever, chills or other constitutional symptoms. Labs showed hemoglobin 10.8, hematocrit 35.2, urine analysis positive for 3+ hemoglobin with microscopic RBC>182. Hospital Course 78-year-old male with numerous medical problems including o2 dependent resp fx, cad/s/p cabs,severe ,CM w/ef 25%, bladder tumors with positive urine cytology documented in December 2018, was sent by his urologist for cystoscopy with possible surgical resection of the bladder tumor secondary to worsening frequency/dysuria/hematuria who underwent cystoscopy 01/27/19 w/ pathology positive for urothelial bladder ca.. On 01/27/2019, patient underwent Transurethral resection of prostate and transurethral resection of bladder tumors, insertion of bilateral ureteral catheters and dorsal slit. Pathology positive for Urothelial carcinoma of bladder.Unfortunately in light of severe cardiomyopathy, congestive heart failure, severe aortic stenosis and other comorbidities, patient was not a candidate for radical cystectomy/radiation/chemotherapy secondary to comorbidities. Patient and family opted for DNR/DNI status with outpatient hospice focus care. Postoperative course was uneventful. Patient had both ureteral catheters removed with final discontinuation of Lopez. He was able to void appropriately although remained incontinent at times. Heart disease was managed medically and is being followed by hand shaper. He was continued on appropriate dosage of diuretics, Aldactone, and Entresto. In regards to A. fib, patient was not a candidate for any AV jacy agent or amiodarone secondary to bradycardia. He was not a candidate for anticoagulation either secondary to bladder tumor. Patient remained in a controlled heart rate. He was not cleared from urology standpoint for resuming aspirin either secondary to bleeding risk. Comorbidities were managed appropriately. Hospitalization was also noted for ESBL UTI which was treated. Hospitalization was also noted for acute kidney in jury likely on CKD with possible obstructive uropathy and cardiorenal syndrome which was managed and creatinine remained stable. At this time, patient is at his baseline. Alert, however forgetful. Tolerating diet. Labs and vital signs stable. Family requested discharge at the earliest with DNR/DNI status with hospice focus care. Patient will be discharged home with hospice of patient/family choice. Patient was seen in collaboration with [facility] Bumetanide* (Bumetanide*) 1 Mg Tablet, 1 MG PO DAILY, #30 TAB Prov:CARLOS MANUEL GERONIMO V. [employer] LAPPING MACHINE OPERATOR 02/07/19 Spironolactone* (Aldactone*) 25 Mg Tablet, 25 MG PO DAILY, #30 TAB Prov:CARLOS MANUEL GERONIMO V. GEAR TOOTH LAPPING MACHINE OPERATOR 02/07/19 Sacubitril/Valsartan (Entresto 24 mg-26 mg Tablet) 1 Each Tablet, 1 TAB PO BID, #60 TAB 2 Refills Prov:MAYELIN BARRETT. 01/06/19 Bumetanide* (Bumetanide*) 1 Mg Tablet, 1 MG PO BID for 30 Days, #60 TAB Prov:MAYELIN BARRETT. 01/06/19 Potassium Chloride* (Potassium Chloride*) 8 Meq Capsule.er, 8 MEQ PO DAILY, #30 CAP Prov:MAYELIN BARRETT. 01/06/19 Aspirin Delayed Release (Aspirin Delayed Release) 81 Mg Tablet.dr, 81 MG PO DAILY for 30 Days, #30 otc Prov:SAMANTHA BOB MD 11/16/18 Rosuvastatin Calcium* (Crestor*) 10 Mg Tablet, 10 MG PO QHS for 30 Days, #30 TAB Prov:SAMANTHA BOB MD 11/16/18 Isosorbide Dinitrate* (Isosorbide Dinitrate*) 30 Mg Tablet, 30 MG PO BID for 10 Days, #20 TAB Prov:SAMANTHA BOB MD 11/16/18 Reported Medications Amiodarone Hcl* (Amiodarone Hcl*) 200 Mg Tablet, 200 MG PO DAILY, #30 TAB 11/13/18 Levothyroxine Sodium* (Levoxyl*) 150 Mcg Tablet, 150 MCG PO BEFORE BREAKFAST, #30 TAB 07/20/18 Follow-up Plan Follow-up with primary care physician and hospice company for which you are signed up with. Primary Care Provider Not On Staff Doctor Pending Labs Laboratory Tests Test 02/07/19 02:22 02/07/19 05:59 Urine Color MEGAN (YELLOW) Urine Clarity SLIGHTLY CLOUDY (CLEAR) Urine pH 6.0 (5.0-9.0) Urine Specific [place] 1.009 (1.003-1.030) Urine Ketones NEGATIVE mg/dL (NEGATIVE) Urine Nitrite NEGATIVE mg/dL (NEGATIVE) Urine Bilirubin NEGATIVE mg/dL (NEGATIVE) Urine Urobilinogen NEGATIVE mg/dL (NEGATIVE) Urine Leukocyte Esterase 3+ Venkat/ul (NEGATIVE) Urine Microscopic RBC > 182 /HPF (0-5) Urine Microscopic WBC 43 /HPF (0-5) Urine Squamous FEW /HPF (FEW) Epithelial Cells Urine Hemoglobin 3+ mg/dL (NEGATIVE) Urine Random Creatinine 45.05 mg/dl (20-370) Urine Random Sodium 64 mmol/L (30-90) Urine Glucose NEGATIVE mg/dL (NEGATIVE) Urine Total Protein 58.0 mg/dl (0.0-11.9) White Blood Count 11.1 10^3/ul (4.8-10.8) Red Blood Count 4.17 10^6/ul (4.70-6.10) Hemoglobin 11.5 g/dl (14.0-18.0) Hematocrit 36.2 % (42.0-52.0) Mean Corpuscular Volume 86.8 fl (82.0-101.0) Mean Corpuscular 27.6 pg (29.0-33.0) Hemoglobin Mean Corpuscular 31.8 g/dl (32.0-37.0) Hemoglobin Concent Red Cell Distribution 14.6 % (11.5-14.5) Width Platelet Count 203 10^3/UL (140-415) Mean Platelet Volume 12.3 fl (7.4-10.4) Immature Granulocytes % 0.400 % (0.001-0.429) Neutrophils % 72.0 % (39.0-77.0) Lymphocytes % 12.7 % (15.0-51.0) Monocytes % 12.4 % (0.0-11.0) Eosinophils % 2.0 % (0.0-7.0) Basophils % 0.5 % (0.0-2.0) Nucleated Red Blood Cells 0.0 /100WBC (0.0-0.0) % Immature Granulocytes # 0.040 10^3/ul (0.0-0.031) Neutrophils # 8.0 10^3/ul (1.6-7.5) Lymphocytes # 1.4 10^3/ul (0.8-2.9) Monocytes # 1.4 10^3/ul (0.3-0.9) Eosinophils # 0.2 10^3/ul (0.0-0.5) Basophils # 0.1 10^3/ul (0.0-0.1) Nucleated Red Blood Cells 0.0 10^3/ul (0.0-0.0) # Sodium Level 134 mmol/L (135-144) Potassium Level 4.7 mmol/L (3.5-5.1) Chloride Level 95 mmol/L (97-110) Carbon Dioxide Level 28 mmol/L (21-31) Anion Gap 11 (5-13) Blood Urea Nitrogen 38 mg/dl (7-20) Creatinine 1.65 mg/dl (0.61-1.24) Est Glomerular Filtrat mL/min (>60) Rate mL/min Glucose Level 112 mg/dl (70-220) Calcium Level 8.8 mg/dl (8.4-10.2) Phosphorus Level 4.3 mg/dl (2.5-4.9) Magnesium Level 2.3 mg/dl (1.7-2.5) CARLOS MANUEL GERONIMO NP Feb 07, 2019 12:06
== END 2019-02-07 13:10 | disposition hospice, home (50) | DRG 656 ==
LOC: E/R 09:35 → 6WM 15:23 → EDBEDREQSVC 18:51 → TEL 01-23 09:16 → ICU 01-27 21:29 → TEL 01-29 19:47
PROVIDERS: ADMIT Internal Medicine; ATTEND Internal Medicine
PROC: 0T788DZ Dilation of Bilateral Ureters with Intraluminal Device, Via Natural or Artificial Opening Endoscopic (ICD-10-PCS; 2019-01-27)
PROC: 0TBB8ZZ Excision of Bladder, Via Natural or Artificial Opening Endoscopic (ICD-10-PCS; 2019-01-27)
PROC: 0VB08ZZ Excision of Prostate, Via Natural or Artificial Opening Endoscopic (ICD-10-PCS; principal; 2019-01-27 17:30)
DX: C67.5 Malignant neoplasm of bladder neck (principal); I50.43 Acute on chronic combined systolic (congestive) and diastolic (congestive) heart failure; I13.0 Hypertensive heart and chronic kidney disease with heart failure and stage 1 through stage 4 chronic kidney disease, or unspecified chronic kidney disease; I42.9 Cardiomyopathy, unspecified; N17.9 Acute kidney failure, unspecified; N39.0 Urinary tract infection, site not specified; I47.1 Supraventricular tachycardia; J96.11 Chronic respiratory failure with hypoxia; R31.0 Gross hematuria; N18.9 Chronic kidney disease, unspecified; I48.0 Paroxysmal atrial fibrillation; I35.0 Nonrheumatic aortic (valve) stenosis; E03.9 Hypothyroidism, unspecified; I25.10 Atherosclerotic heart disease of native coronary artery without angina pectoris; I69.320 Aphasia following cerebral infarction; N47.1 Phimosis; J44.9 Chronic obstructive pulmonary disease, unspecified; D50.0 Iron deficiency anemia secondary to blood loss (chronic); R00.1 Bradycardia, unspecified; I27.20 Pulmonary hypertension, unspecified; K59.00 Constipation, unspecified; C67.6 Malignant neoplasm of ureteric orifice; C67.3 Malignant neoplasm of anterior wall of bladder; C67.2 Malignant neoplasm of lateral wall of bladder; F03.90 Unspecified dementia, unspecified severity, without behavioral disturbance, psychotic disturbance, mood disturbance, and anxiety; B96.20 Unspecified Escherichia coli [E. coli] as the cause of diseases classified elsewhere; Z99.81 Dependence on supplemental oxygen; Z95.1 Presence of aortocoronary bypass graft; Z87.891 Personal history of nicotine dependence
CPT/HCPCS: 36415; 71045; 74018; 74177; 74430; 76775; 80048; 80053; 80061; 80162; 81001; 81003; 82043; 83036; 83540; 83605; 83690; 83735; 83880; 84100; 84155; 84300; 84443; 84484; 85025; 85610; 85730; 87081; 87086; 88305; 93005; 93306; 94640; 94664; J1940; J2185; J2250; J2270; J2370; J2405; J3010; J3475; J7120; Q9967